=== PATIENT | female | born 1985 | race Caucasian/White ===

== ENCOUNTER 2020-12-27 15:10 | Emergency (ER) | payer OTHER, SELFPAY ==
--- NOTE | ~2020-12-27 | CT_ITS ---
EXAMINATION: CT HEAD WITHOUT CONTRAST CLINICAL INFORMATION: Headache COMPARISON: None TECHNIQUE: Contiguous axial imaging was performed from the skull base to vertex without intravenous administration of contrast. This CT examination was performed using dose optimization techniques as appropriate, variously including the following: *Automated exposure control *Adjustment of mA and/or kV according to patient size (this includes techniques or standardized protocols for targeted exams where dose is matched to indication/reason for exam; i.e. extremities or head) *Use of iterative reconstruction technique DLP: 641 mGy-cm FINDINGS: There is no evidence of acute intracranial hemorrhage or territorial infarction. No abnormal mass effect or midline shift is seen. [place] to white matter differentiation is well preserved. No extra-axial fluid collections are identified. The ventricles are normal in size. There is no abnormal attenuation within the brain parenchyma. The osseous structures and soft tissues are normal. The mastoid air cells and visualized portions of the paranasal sinuses are well aerated. CT/CT head/brain wo con IMPRESSION: No acute intracranial process seen.
[2020-12-27 15:13] VITALS: BP 126/80; PULSE 70; O2SAT 96
[2020-12-27 15:38] VITALS: BP 127/69; PULSE 71; RESP 18; TEMP 37.3; O2SAT 97; BMI 32.5
--- NOTE | 2020-12-27 16:07 | ED.HA ---
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 Seen at PCP this morning and referred to ED for further evaluation. No dizziness, vision changes, chest pain, SOB, fevers, chills or neck pain. Taking OTC ibuprofen with continued symptoms. No falls, injuries or trauma. Related Data Home Medications Medication Instructions Recorded Confirmed azithromycin 250 mg tablet 0 mg PO 10/25/20 methadone 10 mg/5 mL oral solution 10 mg PO DAILY ml 10/25/20 famotidine 20 mg tablet 20 mg PO BID 12/14/20 omeprazole 40 mg capsule,delayed 40 mg PO DAILY 12/14/20 release Previous Rx's Medication Instructions Recorded gabapentin 100 mg capsule 100 mg PO TID #90 cap 12/14/20 trazodone 100 mg tablet 100 mg PO BEDTIME PRN #30 tab 12/14/20 paroxetine HCl 20 mg tablet 20 mg PO DAILY 30 Days #30 tab 12/15/20 oxmfohjfmc-domngtdsiyxth-ryeohogy 1 cap PO Q8H PRN #20 cap 12/27/20 50 mg-300 mg-40 mg capsule (Fioricet) Allergies Allergy/AdvReac Type Severity Reaction Status Date / Time Seasonal Allergies Allergy runny Verified 12/27/20 13:53 eyes, itchy skin, congestion Review of Systems Review of Systems: Yes all other systems are reviewed and are negative Constitutional: Constitutional: Reports no additional constitutional complaints, Denies body ache(s), Denies chills, Denies fever(s), Reports headache(s) and Denies weakness Eyes: Eyes: Reports no additional eye complaints, Denies change in vision and Reports photophobia ENT: Reports system reviewed and no additional complaints, except as documented, Denies dizziness, Reports headache(s), Denies nasal congestion, Denies nasal discharge and Denies neck pain Cardiovascular: Cardiovascular: Reports no additional cardiovascular complaints, Denies chest pain, Denies leg edema and Denies dyspnea Respiratory: Respiratory: Reports no additional respiratory complaints, Denies cough and Denies dyspnea Gastrointestinal: Gastrointestinal: Reports no additional gastrointestinal complaints, Denies abdominal pain, Denies diarrhea, Reports nausea and Reports vomiting Genitourinary: Genitourinary: Reports no additional female genitourinary complaints and Denies urinary incontinence Musculoskeletal: Musculoskeletal: Reports no additional musculoskeletal complaints, Denies back pain, Denies arthralgias, Denies joint swelling, Denies neck pain, Denies numbness and Denies tingling Integumentary/Breasts: Skin/Breast: Reports system reviewed and no additional complaints, except as docu and Denies rash Neurologic: Reports system reviewed and no additional complaints, except as documented, Denies Abnormal speech present, Denies dizziness, Reports headache(s), Denies numbness, Denies tingling and Denies weakness PMFSH Past Medical History Attestation statement: The following information was validated with the patient. Source: old records reviewed and nursing notes reviewed Surgical History History of tubal ligation Family History Family History Father Mental health disorder Mother High blood pressure High cholesterol Social History Social History Housing: House Patient Tobacco Use Status: Current everyday Tobacco user Cigarette Packs Per Day: 1 Advance Directives: No Advance Directives Information Provided: Yes Patient : No Current occupational status: unemployed Physical Exam Vital Signs: Vital Signs: Last Vital Signs Temp 99 F 12/27/20 18:27 Pulse 58 12/27/20 18:27 Resp 16 12/27/20 20:17 BP 111/53 L 12/27/20 18:27 Pulse Ox 99 12/27/20 18:27 Body Mass Index 32.5 Const: General: cooperative, healthy appearing, comfortable and no acute distress Orientation/consciousness: patient oriented x3 Limitations: no limitations HENMT: Head: Yes normal to inspection Ears: hearing grossly normal bilaterally General nose exam: Normal external nose present Face and sinus: Yes normal facial exam Mouth: Normal oral and palatal mucosa present Throat: Yes posterior oropharynx normal Eyes: General: appearance normal, both eyes and all related structures Pupils: Equal, round and reactive pupils present Direct Ophthalmoscopy: photophobia Neck: Neck: Yes normal visual inspection Chest: Chest palpation & inspection: normal inspection of the chest Resp: Effort & Inspection: normal respiratory effort Auscultation: clear to auscultation bilaterally Cardio: Rate: regular rate Rhythm: regular rhythm Peripheral pulses: Peripheral pulses 2+ throughout GI: Inspection: Yes normal to inspection Palpation (GI): Soft to palpation and nontender Auscultation: normal bowel sounds Back/Spine/Pelvis: Thoracic/Lumbar Spine: thoracic and lumbar spine normal to inspection Skin: General skin exam: no rashes or lesions noted Neuro: General: patient oriented x3, no focal motor deficits and normal sensation to monofilament Cranial nerves: Yes CN's II-XII intact bilaterally, Yes Equal, round and reactive pupils present, Yes Bilaterally intact EOM present, Yes Nystagmus not present, Yes Normal facial strength present and Yes Midline tongue present Cognition (Neuro): normal cognition Speech: No Abnormal speech present Gait exam (Neuro): Normal gait present Motor exam (neuro): 5/5 motor strength present throughout Sensory Exam: Normal double simultaneous stimulation for sensation Coordination: yppuas-bv-hkkq test normal, hqew-jk-fcrz test normal and tandem gait normal Extrem: General: Yes normal to inspection Course Course Course Narrative: 35 yo female here with complaints of head pressure since Friday worsening over the last 24 hours with associated photophobia, nausea and vomiting. Seen at primary care referred into the emergency department for further evaluation. History of migraines but feels this is different. Taking Motrin with continued symptoms. Normal neuro exam. Patient has very difficult IV access due to previous history of IV drug abuse. Several times were made with no success. To give IM medications. Check CT head. 1899-CT unremarkable. Labs show mildly elevated AST and ALT unchanged from previous. Patient has a mild leukocytosis. She has no fever. No tachycardia. She tells me her headache is improving but not resolved. No meningeal signs or lymphadenopathy or concern for underlying infection. She does have a history of former IV drug abuse but has been on methadone for greater than 12 months and has been compliant. She adamantly denies current IV drug use. 2019-patient did receive IM Toradol. She tells me that her pain is resolved. She is tolerating p.o. and feels much improved. Likely migraine. Reviewed worrisome signs and symptoms when to return to the emergency department. Comfortable discharge home. MDM - Headache Differential Diagnosis Differential diagnosis: Likely migraine, tension headache and subarachnoid hemorrhage Medical Records Attestation: I reviewed the patient's medical records. Lab Data Attestation: I reviewed the patient's lab results. Result diagrams: 12/27/20 16:45 12/27/20 16:45 Labs: Lab Results 12/27/20 12/27/20 12/27/20 Range/Units 16:45 16:45 16:53 WBC 16.2 H (4.8-10.8) X10*3/uL RBC 4.19 L (4.20-5.50) X10*6/uL Hgb 13.8 (12.0-16.0) g/dl Hct 39.4 (37-47) % MCV 94.0 (80-98) fL MCH 32.9 (27.0-33.0) pg MCHC 35.0 (31.0-35.0) g/dl RDW 12.6 (11.0-16.0) % Plt Count TNP MPV 10.4 (9.4-12.3) fL Immature Gran % (Auto) 0.6 H (0.0-0.4) % Neut % (Auto) 84.3 H (45-73) % Lymph % (Auto) 5.4 L (20-40) % [place] % (Auto) 8.6 (2-11) % Eos % (Auto) 0.8 (0-4) % Baso % (Auto) 0.3 (0-2) % Lymph # (Auto) 0.9 L (1.2-4.9) X10*3/uL [place] # (Auto) 1.4 H (0.1-1.2) X10*3/uL Eos # (Auto) 0.1 (0.0-0.4) X10*3/uL Baso # (Auto) 0.1 (0.0-0.2) X10*3/uL Abs Immat Gran (auto) 0.10 H (0.00-0.03) X10*3/uL Absolute Neuts (auto) 13.7 H (2.0-8.3) X10*3/uL Absolute Nucleated RBC 0.000 (0.0-0.012) X10*3/uL Nucleated RBC % (auto) 0.0 (0.0-0.2) /100WBC Smear Tech's Comments VERIFIED Sodium 138 (135-145) mmol/L Potassium 4.3 (3.3-5.1) mmol/L Chloride 105 (96-108) mmol/L Carbon Dioxide 25 (22-29) mmol/L Anion Gap 12 (12-20) BUN 5 L (9-16) mg/dL Creatinine 0.73 (0.5-1.4) mg/dL Estim Creat Clear Calc 108.0 Estimated GFR > 60 Random Glucose 111 (60-115) mg/dL Calcium 8.3 L (8.4-10.2) mg/dL Total Bilirubin 1.0 (0.0-1.0) mg/dL Direct Bilirubin 0.4 (0.0-0.5) mg/dL AST 39 H (5-31) U/L ALT 82 H (0-31) U/L Alkaline Phosphatase 89 (39-117) U/L Total Protein 7.1 (6.5-8.0) g/dL Albumin 3.8 (3.5-5.0) g/dL Lipase < 4 L (8-78) U/L Urine Test NEGATIVE (NEGATIVE) Discharge Plan Discharge Clinical Impression: Migraine Patient Disposition: Home, Self-Care Instructions: Migraine Headache (ED) Additional Instructions: Increase fluids, rest Your labs show mildly elevated liver enzymes were otherwise unremarkable. Her CT scan of her brain was normal Prescriptions: New yscfkcbcdq-zjarscogrslhc-vqfa [Fioricet] 50-300-40 mg capsule 1 cap PO Q8H PRN (Reason: pain) Qty: 20 RF: 0 No Action paroxetine HCl 20 mg tablet 20 mg PO DAILY 30 Days Qty: 30 RF: 3 omeprazole 40 mg capsule,delayed release(DR/EC) 40 mg PO DAILY RF: 0 famotidine 20 mg tablet 20 mg PO BID RF: 0 trazodone 100 mg tablet 100 mg PO BEDTIME PRN (Reason: for insomnia) Qty: 30 RF: 0 gabapentin 100 mg capsule 100 mg PO TID Qty: 90 RF: 0 Referrals: Mckenzie Montes MD [Primary Care Provider] - 2 days Interventions: ED Discharge Assessment Last Done: 12/27/20 20:17 Discharge Date/Time: 12/27/20 20:18
[2020-12-27 16:54] LABS: MANUAL DIFF FLAG SCAN; Mean Corpuscular Hemoglobin 32.9 pg (27.0-33.0); Mean Platelet Volume 10.4 fL (9.4-12.3); PLT CLUMP 1; SCAN SMEAR FLAG 1
[2020-12-27 16:56] LABS: Basophils Absolute Auto 0.1 X10*3/uL (0.0-0.2); Basophils Percent Auto 0.3 % (0-2); Eosinophils Absolute Auto 0.1 X10*3/uL (0.0-0.4); Eosinophils Percent Auto 0.8 % (0-4); Hematocrit 39.4 % (37-47); Hemoglobin 13.8 g/dl (12.0-16.0); Imm Gran Pct Auto 0.6 % (0.0-0.4); Lymphocytes Absolute Auto 0.9 X10*3/uL (1.2-4.9); Lymphocytes Percent Auto 5.4 % (20-40); Monocytes Absolute Auto 1.4 X10*3/uL (0.1-1.2); Monocytes Percent Auto 8.6 % (2-11); Neutrophils Absolute Auto 13.7 X10*3/uL (2.0-8.3); Neutrophils Percent Auto 84.3 % (45-73); Red Blood Count 4.19 X10*6/uL (4.20-5.50); Red Cell Distribution Width 12.6 % (11.0-16.0); White Blood Count 16.2 X10*3/uL (4.8-10.8)
[2020-12-27] MEDS: Butalb/Acetamin/Caff 50/325/40 TABLET 2 TAB PO (16:57)
[2020-12-27] MEDS: Metoclopramide HCl 10 MG/2 ML VIAL IM (16:57)
[2020-12-27] MEDS: diphenhydrAMINE HCL 25 MG TABLET 50 MG PO (16:57)
[2020-12-27 17:09] LABS: UPreg QC Valid YES; Urine Pregnancy NEGATIVE (NEGATIVE)
[2020-12-27 17:37] LABS: Alanine Aminotransferase 82 U/L (0-31); Albumin Level 3.8 g/dL (3.5-5.0); Alkaline Phosphatase 89 U/L (39-117); Anion Gap 12 (12-20); Aspartate Amino Transferase 39 U/L (5-31); Bilirubin Direct 0.4 mg/dL (0.0-0.5); Blood Urea Nitrogen 5 mg/dL (9-16); Calcium 8.3 mg/dL (8.4-10.2); Carbon Dioxide 25 mmol/L (22-29); Chloride 105 mmol/L (96-108); Estimated Glomerular Filt Rate > 60; Glucose Random 111 mg/dL (60-115); Lipase < 4 U/L (8-78); Potassium 4.3 mmol/L (3.3-5.1); Sodium 138 mmol/L (135-145); Total Protein 7.1 g/dL (6.5-8.0)
[2020-12-27 18:26] LABS: SLIDE REVIEW VERIFIED
[2020-12-27 18:27] VITALS: BP 111/53; PULSE 58; RESP 18; TEMP 37.2; O2SAT 99
[2020-12-27] MEDS: Ketorolac Tromethamine 60 MG/2 ML VIAL IM (19:14)
--- NOTE | 2020-12-27 19:17 | PC.NURSE ---
Pt resting in bed, reports no relief of pain. Pt medicated per MAR with Toradol for ROMERO. Pt resting in bed with family at bedside. VSS. Continue to monitor.
[2020-12-27 20:17] VITALS: RESP 16
== END 2020-12-27 20:18 | disposition home or self-care (01) ==
PROVIDERS: Nurse Practitioner Family; Emergency Provider Emergency Medicine Emergency Medical Services; PCP Internal Medicine
DX: G43.909 Migraine, unspecified, not intractable, without status migrainosus (principal); F11.90 Opioid use, unspecified, uncomplicated; R11.2 Nausea with vomiting, unspecified; Z79.899 Other long term (current) drug therapy
CPT/HCPCS: 36415; 70450; 80048; 80076; 81025; 83690; 85025; 96361; 96372; 96374; 96375; 99284; J1885; J2765; Q0163

== ENCOUNTER 2022-12-19 15:55 | Outpatient (AMB) | payer OTHER, SELFPAY ==
--- NOTE | 2022-12-19 16:03 | A.OFFPC_ITS ---
Vital Signs 12/19/22 16:04 Height 5 ft 3 in Weight 217 lb 4 oz BMI 38.5 BP 114/74 Blood Pressure Location Rt brachial Position Sitting Respiration 12 Pulse 77 Pulse Source Pulse Oximeter Temp 97.9 F Temp Source Temporal Artery Scan Pulse Oximetry (%) 97 Oxygen Delivery Method Room Air Intake Visit Reasons: pain on left thigh,calf, asking for a referral Intake Note: Patient states she would like a referral OBGYN due to her going to the ER for her leg pains and being told that she has a pinched nerve in her groin. Patient states that she want to make sure that OBGYN is the correct place to go. Patient states that she struggles with the pain during day to day activities and states that her leg even is warm to touch sometimes. [employer] Required: No Accompanied by: Self / Same As Patient Allergies Seasonal Allergies Allergy (Verified 12/19/22 16:36) runny eyes, itchy skin, congestion Medication List - Last Reconciled 12/19/22 by Cindy Wells CNP betamethasone valerate 0.1% 1 appl topical DAILY PRN 30 days rdkwuobsjj-gllriwriqf-qxr-cod 21-283-29-30 mg 1 cap PO .Q8 PRN 30 days clonazepam (Klonopin) 0.25 mg PO BID gabapentin 600 mg PO TID methadone 130 mg PO DAILY omeprazole 40 mg PO DAILY paroxetine HCl 40 mg PO DAILY paroxetine HCl 40 mg PO DAILY quetiapine (Seroquel) 300 mg PO BEDTIME quetiapine (Seroquel) 50 mg PO DAILY PRN topiramate 50 mg PO DAILY 30 days trazodone 100 mg PO BEDTIME PRN Tobacco use date assessed: 12/19/22 Dental Screening Dental Screen Date: 12/19/22 Did you have a dental visit in the last 12 months?: No Did you have a dental problem in the last 6 months where you did not have access to dental care?: No Was dental information given to patient?: Yes HPI HPI Comments History of Present Illness Details 37-year-old female presents with complai nts of intermittent pain to the entire lateral side of her entire left leg. She notes that the pain sometimes radiates to her lower back. She states her symptoms have been ongoing for the pa st 1 year. She describes the pain as fire. She states it feels like it's physically burning. She states she was evaluated [facility] ED a month ago; lab results were unremarkable. She denies fall, injury, or trauma. She notes she does not want pain medication due to history of opiate abuse. Her last visit with her pcp was on 02/2023. [facility] Medical History (Updated 12/19/22 @ 16:50 by Cindy Wells CNP) No pertinent past medical history Surgical History History of tubal ligation Family History Father Mental health disorder Mother High blood pressure High cholesterol Social History Housing: House Patient Tobacco Use Status: Current everyday Tobacco user Cigarette Packs Per Day: 1 e-Cigarette/Vaping Use: Never Used service: No Current occupational status: employed 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 Cognitive needs: No Hearing needs: No Vision needs: No Questionnaire Thrive Questionnaire Date Thrive assessed: 12/27/20 Review of Systems Const Details: Const Denies chills, Denies fatigue, Denies fever(s), Denies headache(s) and Denies weakness ENT Denies dizziness and Denies headache(s) Card Denies chest pain, Denies lightheadedness, Denies dyspnea and Denies other ( Palpitations) Resp Denies cough, Denies dyspnea, Denies wheezing and Denies other ( shortness of breath) GI Denies abdominal pain, Denies melena, Denies hematochezia, Denies change in bowel habits, Denies dyspepsia and Denies nausea Denies hematuria and Denies dysuria Musc Denies abnormal gait, Denies myalgias, Denies arthralgias, Denies numbness and Denies tingling Skin/Breast Denies rash, Denies unusual bruising and Denies wounds Neuro Denies abnormal gait, Denies dizziness, Denies headache(s), Denies memory loss, Denies numbness, Denies Sensory deficit (Neuro), Denies tingling and Denies weakness Psych Denies anxiety, Denies depression, Denies memory loss Endo Denies cold intolerance, Denies fatigue, Denies heat intolerance, Denies polydipsia and Denies polyuria Aller/Immun Denies wheezing Physical exam (Primary Care) Vital Signs: Last Vital Signs Temp 97.9 F 12/19/22 16:04 Pulse 77 12/19/22 16:04 Resp 12 12/19/22 16:04 BP 114/74 12/19/22 16:04 Pulse Ox 97 12/19/22 16:04 Oxygen Delivery Method Room Air 12/19/22 16:04 BMI result Body Mass Index 38.5 Tobacco/Smoking Status: Tobacco use Status Tobacco use date assessed 12/19/22 12/19/22 16:24 Patient Tobacco Use Status Current everyday Tobacco 12/19/22 16:03 e-Cigarette/Vaping Use Never Used 12/19/22 16:24 Thrive Assessment: Date of Thrive Assessment Date Thrive assessed 12/27/20 12/19/22 16:03 Const Other: General: no acute distress and well developed Nutritional Appearance: well nourished Orientation/consciousness: patient oriented x3 HENMT Head: Yes normocephalic and Yes atraumatic Eyes General: appearance normal, both eyes and all related structures Pupils: Equal, round and reactive pupils present EOM: EOMs intact bilaterally Resp Effort & Inspection: normal respiratory effort Auscultation: clear to auscultation bilaterally Cardio Rate: regular rate Rhythm: regular rhythm Heart sounds: S1 normal heart sound present, S2 normal heart sound present, no gallops, no murmurs and no rubs GI Palpation (GI): No Abdominal aortic bruit present, Soft to palpation, nontender, No hepatosplenomegaly present and No Rebound tenderness present Auscultation: normal bowel sounds General: Yes no CVA tenderness Back/Spine/Pelvis Back: no CVA tenderness Cervical Spine: cervical ROM normal and No Cervical spine tenderness Thoracic/Lumbar Spine: thoraco-lumbar ROM normal, No pain with thoraco-lumbar ROM, No thoracic spinal tenderness and No lumbar spinal tenderness Extrem General: Yes normal to inspection, No edema and No calf tenderness Negative straight leg raise bilaterally Left lower extremity nontender to palpation; no overt injury or trauma Skin General: warm and dry. Normal skin color. Normal skin turgor Lesions: no lesions Rashes: no rashes Trauma: no lacerations or abrasions Wounds: no wounds Nails: normal Neuro General: patient oriented x3, gait normal and no focal neuro deficit Cranial nerves: Yes Equal, round and reactive pupils present Cognition (Neuro): normal cognition Gait exam (Neuro): Normal gait present Sensory Exam: No Sensory deficit (Neuro) Psych Appearance: grossly normal Affect: normal affect Attitude: cooperative Thought process: Normal thought process present Assessment and Plan Assessment & Plan (1) Left leg pain: Code(s): M79.605 - Pain in left leg Plan: Likely nerve pain Left leg nontender to palpation No overt injury or trauma Physical therapy referral made Continue take gabapentin as prescribed May take Tylenol or Motrin Cold compresses encouraged Follow-up with PCP in 1 month or return sooner with worsening or new symptoms Verbalized understanding and agreed with treatment plan Orders: Orders PT Evaluation and Treatment Today M79.605 - Pain in left leg Medications: Changed From paroxetine HCl 20 mg PO DAILY 30 days 30 tabs 3RF To paroxetine HCl 40 mg PO DAILY Coding Level of Care Code Est Pt Level 3 (62046) Diagnoses Left leg pain M79.605
[2022-12-19 16:04] VITALS: BP 114/74; PULSE 77; RESP 12; TEMP 36.6; O2SAT 97; BMI 38.5
== END 2022-12-19 16:49 | disposition home or self-care (01) ==
PROVIDERS: PCP Family Medicine; Visit Provider Nurse Practitioner Family
DX: M79.605 Pain in left leg (principal)
CPT/HCPCS: 99213

== ENCOUNTER 2023-01-02 10:00 | Outpatient (RCR) | payer OTHER, SELFPAY ==
--- NOTE | 2022-12-25 12:49 | MHC.PT.EP ---
[facility] [place] Office [place] Office [place] Office [address] Laura Rao [address] [phone] F: [phone] F: [phone] F: [phone] F: [phone] Physical Therapy Plan of Care Date of Evaluation: 12/25/22 Date of Surgery: Diagnosis: This is a 38 yo female presenting to skilled PT with a script for pain in L leg. Assessment: This is a 38 yo female presenting to skilled PT with a script for pain in L leg. About a year ago she started with a small [place] sized area on her lateral thigh on the L and this was numb. It then progressed from her L side low back and radiates down the lateral aspect of the leg under the foot to the great toe. It now feels numb but also has symptoms that are described as fire , burning , warm to touch . Pain comes and goes but her pain can last hours. Laying on her L side and walking makes her symptoms worse. Sitting is usually okay but after some time the pain does start. She states her symptoms have been ongoing for the past 1 year, denies fall, injury or trauma. She went to the ER and was told to go get surgery via a OBGYN to remove nerves. Assessment reveals pain that ranges from up to an 8/10 at the worst. Patient demos decreased lumbar and L hip ROM, strength of L hip, back and core muscles, s/s with ? lumbar derangement and educated her to speak with PCP in regards to imaging. She has decreased sensation at LLE, was TTP at lumbar soft tissue and demos impaired posture with forward head and rounded shoulders, compensatory movements with transfers and gait. Based on functional limitations, impaired QOL and pain tolerance patient is a good candidate for skilled PT 2x/wk for 4wks. Frequency and Duration: The patient will be seen 2x/wk for 4wks Short Term Goals: Pt will demo improved postural awareness and understanding of core engagement with standing tasks without cues throughout session to improve overall back safety in 2 weeks. Pt will demonstrate centralization of sx in 2 weeks. Pt will continue to reinforce precautions, sitting, standing and ADL modifications with proper body mechanics in 2 wks Frame Catcher Goals: Pt will demo improved oswestry score by 5 points in 4 weeks for improved functional mobility. Pt will demo ability to bend and lift WNL min to no pain for return to work activities in 4 wks. Pt will demo at least 1 grade improvement with hip MMT in 4 wks. Pt will demo WFL L hip AROM in 4wks. Treatment Plan: Modalities to reduce pain, spasms and effusion. Manual therapy to restore motion and function. Therapeutic exercise to improve strength and flexibility. Neuromuscular re-education for posture and balance. Therapeutic activities to return to functional activities of daily living. Electronically signed by: Iman Sanchez, PT Please sign and return to therapist. Thank you for your referral.
--- NOTE | 2023-01-31 14:29 | MHC.PT.DC ---
[facility] [place] Office [place] Office [place] Office [address] Laura Rao [address] [phone] F: [phone] F: [phone] F: [phone] F: [phone] Physical Therapy Discharge Report Diagnosis: This is a 38 yo female presenting to skilled PT with a script for pain in L leg. Date of Surgery: Date of Evaluation: 12/25/22 Date of Discharge: 01/31/23 Treatments to Date: 3 Cancellations to Date: 0 No Shows to Date: 0 Discharge Status: Patient Elected to Stop Recommend MD Follow-up Discharge Summary: Patient came to the eval and 2 follow up visits. Patient left for a her work trip and did not return to PT. Her chart was kept open for 30 days. She did call her PCP like I requested and referral is in the system for some imaging, she is unsure what type. Educated her on the importance of HEP in the mean time. DC to HEP as patient has not returned for further tx. Electronically signed by: Iman Sanchez PT Please sign and return to therapist. Thank you for your referral.
== END 2023-01-31 14:29 | disposition home or self-care (01) ==
LOC: HO.PTCHIC 10:00
PROVIDERS: PCP Family Medicine; Visit Provider Nurse Practitioner Family
DX: M79.605 Pain in left leg (principal)
CPT/HCPCS: 97014; 97110; 97140; 97162

== ENCOUNTER 2023-02-07 10:18 | Outpatient (AMB) | payer OTHER, SELFPAY ==
[2023-02-07 10:29] VITALS: BP 122/78; PULSE 65; O2SAT 95; BMI 39.0
--- NOTE | 2023-02-07 10:29 | A.OFFPC_ITS ---
Vital Signs 02/07/23 10:29 Height 5 ft 3 in Weight 220 lb 1 oz BMI 39.0 BP 122/78 Blood Pressure Location Lt brachial Position Sitting Pulse 65 Pulse Source Pulse Oximeter Pulse Oximetry (%) 95 Oxygen Delivery Method Room Air Intake Visit Reasons: PE, f/u Lt Leg Pain Intake Note: Patient is here for physical and to follow up on left leg pain. Patient would like a referral for an music autographer. Allergies Seasonal Allergies Allergy (Verified 02/07/23 10:33) runny eyes, itchy skin, congestion Tobacco use date assessed: 12/19/22 HPI PE, f/u Lt Leg Pain HPI Details 37 y/o female presents for an extended e xam with f/u labs and health maintenance. No recent labs to review. Had seen ED 02/02/23 for L hand redness and swelling. Work-up showed no fracture or dislocation. No evidence of osteomyelitis. Was diagnosed with L hand cellulitis and was given Bactrim and cephalexin. REPLACED BY [facility] Medical History (Updated 02/07/23 @ 11:14 by Merritt Langford) No pertinent past medical history Surgical History History of tubal ligation Family History Father Mental health disorder Mother High blood pressure High cholesterol Social History Housing: House Patient Tobacco Use Status: Current everyday Tobacco user Cigarette Packs Per Day: 1 e-Cigarette/Vaping Use: Never Used service: No Current occupational status: employed 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 Cognitive needs: No Hearing needs: No Vision needs: No Questionnaire PHQ-9 Over the last 2 weeks, how often have you been bothered by any of the following problems? 1. Little interest or pleasure in doing things: not at all 2. Feeling down, depressed, or hopeless: nearly every day 3. Trouble falling or staying asleep, or sleeping too much: nearly every day 4. Feeling tired or having little energy: not at all 5. Poor appetite or overeating: several days 6. Feeling bad about yourself - or that you are a failure or have let yourself or your family down: several days 7. Trouble concentrating on things, such as reading the newspaper or watching television: nearly every day 8. Moving or speaking so slowly that other people could have noticed. Or the opposite - being so fidgety or restless that you have been moving around a lot more than usual: nearly every day 9. Thoughts that you would be better off or of hurting yourself in some way: not at all Total score: 14 [id number] - PHQ-9 Billing: Yes Source: Developed by Drs. Erik Allred, Mary Villela, Sriram Parson and colleagues, with an educational elizabeth from [employer]. Thrive Questionnaire Date Thrive assessed: 12/27/20 I am a: Patient What is your living situation today?: I have a steady place to live Within the past 12 months, did the food you bought not last and you didn't have the money to get more?: Sometimes True Within the past 12 months, did you worry whether your food would run out before you got money to buy more?: Sometimes True Do you have trouble paying for medicines?: No Do you have trouble getting transportation to medical appointments?: No Do you have trouble paying your heating and electricity bill?: No Do you have trouble taking care of your child, family member or friend?: No Do you have trouble with day-to-day activities such as bathing, preparing meals, shopping, managing finances, etc.?: Yes Are you currently unemployed and looking for a job?: No Are you interested in more education?: No AUDIT C Alcohol Use Questionnaire (AUDIT-C) 1. How often do you have a drink containing alcohol?: Never 3. How often do you have six or more drinks on one occasion?: Never Total Score: 0 IVA-7 AMB Questionnaire IVA-7 Date IVA - 7 assessed: 02/07/23 Feeling nervous, anxious, or on edge: 3 = Nearly every day Not being able to stop or control worryin = Several days Worrying too much about different things: 3 = Nearly every day Trouble relaxin = Several days Being so restless that it is hard to sit still: 3 = Nearly every day Becoming easily annoyed or irritable: 1 = Several days Feeling afraid as if something awful might happen: 2 = More than half the days Total IVA-7 score (0-4 normal; 5-9 mild; 10-14 moderate; 15-21 severe): 14 Source: Developed by Drs. Erik Allred, Mary Villela, Sriram Parson and colleagues, with an educational elizabeth from [employer]. IVA-7 Assessment Billing VIA-7 Assessment Tool: IVA-7 Assessment 26437 Review of Systems Const Denies chills, Denies fatigue, Denies fever(s), Denies headache(s) and Denies weakness Eyes Denies change in vision ENT Denies dizziness, Denies headache(s), Denies hearing loss, Denies nasal congestion, Denies sinus pain, Denies sinus pressure and Denies sore throat Card Denies chest pain, Denies lightheadedness, Denies dyspnea and Denies other (palpitations) Resp Denies cough, Denies dyspnea and Denies wheezing GI Denies abdominal pain, Denies melena, Denies hematochezia, Denies change in bowel habits, Denies dyspepsia and Denies nausea Denies hematuria and Denies dysuria Musc Denies abnormal gait, Denies myalgias, Denies arthralgias, Denies numbness and Denies tingling Skin/Breast Denies rash, Denies unusual bruising and Denies wounds Neuro Denies abnormal gait, Denies dizziness, Denies headache(s), Denies memory loss, Denies numbness, Denies Sensory deficit (Neuro), Denies tingling and Denies weakness Psych Denies anxiety, Denies depression and Denies memory loss Endo Denies cold intolerance, Denies fatigue, Denies heat intolerance, Denies polydipsia and Denies polyuria Bar/Lymph Denies easy bleeding and Denies easy bruising Aller/Immun Denies wheezing Physical exam (Primary Care) Vital Signs: Last Vital Signs Pulse 65 02/07/23 10:29 BP 122/78 02/07/23 10:29 Pulse Ox 95 02/07/23 10:29 Oxygen Delivery Method Room Air 02/07/23 10:29 BMI result Body Mass Index 39.0 Tobacco/Smoking Status: Tobacco use Status Tobacco use date assessed 12/19/22 02/07/23 10:39 Patient Tobacco Use Status Current everyday Tobacco 02/07/23 10:39 e-Cigarette/Vaping Use Never Used 02/07/23 10:39 PHQ-9: PHQ-9 Score PHQ-9: Total score 14 02/07/23 10:56 Thrive Assessment: Date of Thrive Assessment Date Thrive assessed 12/27/20 02/07/23 10:39 Const General: no acute distress, well developed, alert and awake Nutritional Appearance: well nourished Orientation/consciousness: patient oriented x3 HENMT Head: Yes normocephalic and Yes atraumatic Ears: hearing grossly normal bilaterally and TM's normal bilaterally General nose exam: Normal external nose present and Normal nares present Mouth: Normal oral and palatal mucosa present and moist mucous membranes Teeth and gingiva: dentition normal Throat: Yes posterior oropharynx normal Eyes General: appearance normal, both eyes and all related structures Pupils: Equal, round and reactive pupils present and Pupil accommodation reflex normal EOM: EOMs intact bilaterally Neck Neck: Yes normal visual inspection, Yes no lymphadenopathy and Yes trachea midline Thyroid: Thyroid normal Carotids: no bruits Lymphatic: no lymphadenopathy noted Chest Chest palpation & inspection: normal inspection of the chest Resp Effort & Inspection: normal respiratory effort Auscultation: clear to auscultation bilaterally Cardio Rate: regular rate Rhythm: regular rhythm Heart sounds: S1 normal heart sound present, S2 normal heart sound present, no gallops, no murmurs and no rubs Bruits: no abdominal aortic bruits and no carotid bruits GI Palpation (GI): No Abdominal aortic bruit present, Soft to palpation, nontender, No hepatosplenomegaly present and No Rebound tenderness present Auscultation: normal bowel sounds General: Yes no CVA tenderness Back/Spine/Pelvis Back: no CVA tenderness Cervical Spine: cervical ROM normal and No Cervical spine tenderness Thoracic/Lumbar Spine: thoraco-lumbar ROM normal, No pain with thoraco-lumbar ROM, No thoracic spinal tenderness and No lumbar spinal tenderness Skin Lesions: no lesions Rashes: no rashes Trauma: no lacerations or abrasions Wounds: no wounds Nails: normal Neuro General: patient oriented x3 Cranial nerves: Yes Equal, round and reactive pupils present Cognition (Neuro): normal cognition Gait exam (Neuro): Normal gait present Motor exam (neuro): 5/5 motor strength present throughout Sensory Exam: No Sensory deficit (Neuro) Deep tendon reflexes (DTR's): Right patellar reflex intensity grade: 2+ and Left patellar reflex intensity grade: 2+ Extrem General: Yes normal to inspection and No edema Psych Appearance: grossly normal Affect: normal affect Attitude: cooperative Thought process: Normal thought process present Assessment and Plan Assessment & Plan (1) Left leg pain: Code(s): M79.605 - Pain in left leg Plan: Continue?gabapentin Continue?ibuprofen?as?tolerated (2) Cellulitis of left hand: Code(s): L03.114 - Cellulitis of left upper limb Plan: Continue?cephalexin?and?Bactrim Elevate?him (3) Anxiety and depression: Code(s): F41.9 - Anxiety disorder, unspecified; F32.9 - Major depressive disorder, single episode, unspecified Plan: Patient?has?a?therapist?and?psychiatrist. No?suicidal?ideations?or?plan Follow-up?with?psychiatrist?and?therapist?as?recommended (4) Screening for cervical cancer: Code(s): Z12.4 - Encounter for screening for malignant neoplasm of cervix Plan: Has?not?had?a?Pap?smear?in?about?12?years. 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 operator (5) GERD (gastroesophageal reflux disease): Code(s): K21.9 - Gastro-esophageal reflux disease without esophagitis Plan: Severe?chronic?GERD Resume?omeprazole Referred?to?GI (6) Chronic pancreatitis: Code(s): K86.1 - Other chronic pancreatitis Plan: Check?lipase?level Referred?to?GI (7) Chronic nasal congestion: Code(s): R09.81 - Nasal congestion Plan: Severe?nasal?congestion?and?enlarged?adenoids?and?tonsils; severe?posterior?nasopharyngeal?crowding?and?symptoms?of?obstructive?sleep?apnea Referred?to?ENT (8) Enlarged adenoids: Code(s): J35.2 - Hypertrophy of adenoids Plan: As?above (9) Sleep apnea: Code(s): G47.30 - Sleep apnea, unspecified Plan: Likely?some?restrictive?lung?disease?and?obstructive?sleep?apnea ?as?well?as?possible?central?sleep?apnea Referred?to?Sleep?Medicine (10) Adult general medical exam: Code(s): Z00.00 - Encounter for general adult medical examination without abnormal findings Plan: 37-year-old?female?presents?for?an?extended?exam Orders: Orders Microalbumin, Random (w Creat) Today I10 - Essential (primary) hypertension TSH reflex Free T4 Today Z00.00 - Encounter for general adult medical examination without abnormal findings UA and rflx microscopic Today Z00.00 - Encounter for general adult medical exami nation without abnormal findings Complete Blood Count Auto Diff Today Z00.00 - Encounter for general adult medical examination without abnormal findings Comprehensive Met. Panel Today L03.114 - Cellulitis of left upper limb, Z00.00 - Encounter for general adult medical examination without abnormal findings Lipid Panel Today Z00.00 - Encounter for general adult medical examination without abnormal findings LDL Cholesterol Direct Today Z00.00 - Encounter for general adult medical examination without abnormal findings Lipase Today K86.1 - Other chronic pancreatitis Referrals Gastroenterology Referral K21.9 - Gastro-esophageal reflux disease without esophagitis, K86.1 - Other chronic pancreatitis LEGAL PARAPROFESSIONAL Referral Z12.4 - Encounter for screening for malignant neoplasm of cervi x Ear/Nose/Throat Referral G47.30 - Sleep apnea, unspecified, J35.2 - Hypertrophy of adenoids, R09.81 - Nasal congestion Sleep Medicine Referral G47.30 - Sleep apnea, unspecified Medications: Changed From omeprazole 40 mg PO DAILY To omeprazole 40 mg PO DAILY 90 caps 4RF 90 days Coding Level of Care Code Est Pt Level 4 (45773) Diagnoses Left leg pain M79.605 Cellulitis of left hand L03.114 Anxiety and depression F41.9; F32.9 Screening for cervical cancer Z12.4 GERD (gastroesophageal reflux disease) K21.9 Chronic pancreatitis K86.1 Chronic nasal congestion R09.81 Enlarged adenoids J35.2 Sleep apnea G47.30 Adult general medical exam Z00.00 Additional Codes IVA-7 Assessment Billing - IVA-7 Assessment Tool: IVA-7 Assessment [id number] ([id number])
== END 2023-02-07 11:25 | disposition home or self-care (01) ==
PROVIDERS: PCP Family Medicine; Visit Provider Family Medicine
DX: Z00.00 Encounter for general adult medical examination without abnormal findings (principal); K86.1 Other chronic pancreatitis; K21.9 Gastro-esophageal reflux disease without esophagitis; M79.605 Pain in left leg; L03.114 Cellulitis of left upper limb; F41.9 Anxiety disorder, unspecified; F32.9 Major depressive disorder, single episode, unspecified; R09.81 Nasal congestion; J35.2 Hypertrophy of adenoids; G47.30 Sleep apnea, unspecified
CPT/HCPCS: 96127; 99395

== ENCOUNTER 2023-02-07 11:25 | Outpatient (REF) | payer OTHER, SELFPAY ==
[2023-02-07 14:55] LABS: MANUAL DIFF FLAG NO
[2023-02-07 15:03] LABS: Basophils Percent Auto 0.4 % (0-2); Eosinophils Absolute Auto 0.2 X10*3/uL (0.0-0.4); Eosinophils Percent Auto 4.4 % (0-4); Hematocrit 41.3 % (37.0-47.0); Imm Gran Abs Auto 0.02 X10*3/uL (0.00-0.03); Imm Gran Pct Auto 0.4 % (0.0-0.4); Lymphocytes Percent Auto 37.8 % (20-40); Mean Corpuscular HGB Conc 33.9 g/dl (31.0-35.0); Mean Corpuscular Hemoglobin 31.9 pg (27.0-33.0); Mean Corpuscular Volume 94.1 fL (80.0-98.0); Mean Platelet Volume 10.9 fL (9.4-12.3); Monocytes Absolute Auto 0.5 X10*3/uL (0.1-1.2); Monocytes Percent Auto 8.7 % (2-11); Neutrophils Absolute Auto 2.6 x10*3/uL (2.0-8.3); Neutrophils Percent Auto 48.3 % (45-73); Platelet Count 178 X10*3/uL (160-400); Red Blood Count 4.39 X10*6/uL (4.20-5.50); Red Cell Distribution Width 12.9 % (11.0-16.0); White Blood Count 5.3 X10*3/uL (4.8-10.8)
[2023-02-07 15:34] LABS: Alanine Aminotransferase 95 U/L (0-31); Alkaline Phosphatase 90 U/L (39-117); Anion Gap 14 (12-20); Aspartate Amino Transferase 70 U/L (5-31); Bilirubin Total 0.3 mg/dL (0.0-1.0); Blood Urea Nitrogen 7 mg/dL (9-16); Calcium 9.3 mg/dL (8.4-10.2); Carbon Dioxide 24 mmol/L (22-29); Chloride 101 mmol/L (96-108); Cholesterol 162 mg/dL (<200); Estimated Glomerular Filt Rate > 60; Glucose Random 124 mg/dL (60-115); HDL Cholesterol 29 mg/dL (>40); LDL Cholesterol Calculated 80 mg/dL (<100); Potassium 4.3 mmol/L (3.3-5.1); Sodium 135 mmol/L (135-145); Total Protein 8.2 g/dL (6.5-8.0); Triglycerides 267 mg/dL (<150)
[2023-02-07 15:49] LABS: TSH reflex Free T4 14.52 uIU/mL (0.32-4.0)
[2023-02-07 16:26] LABS: Free T4 (Free Thyroxine) 0.69 ng/dL (0.71-1.85)
[2023-02-09 11:38] LABS: LDL Cholesterol Direct 92 mg/dL (<100)
== END 2023-02-07 11:26 | disposition home or self-care (01) ==
LOC: HO.WFDLDS 11:25
PROVIDERS: Visit Provider Family Medicine
DX: Z00.00 Encounter for general adult medical examination without abnormal findings (principal); L03.114 Cellulitis of left upper limb
CPT/HCPCS: 36415; 80053; 80061; 83721; 84439; 84443; 85025

== ENCOUNTER 2023-03-14 11:18 | Outpatient (REF) | payer OTHER, SELFPAY ==
[2023-03-14 12:56] LABS: Anion Gap 13 (12-20); Blood Urea Nitrogen 5 mg/dL (9-16); Calcium 9.2 mg/dL (8.4-10.2); Carbon Dioxide 22 mmol/L (22-29); Chloride 104 mmol/L (96-108); Estimated Glomerular Filt Rate > 60; Glucose Random 93 mg/dL (60-115); Lipase 13 U/L (8-78); Potassium 4.3 mmol/L (3.3-5.1); Sodium 135 mmol/L (135-145)
[2023-03-14 13:14] LABS: Free T4 (Free Thyroxine) 0.73 ng/dL (0.71-1.85); Thyroid Stimulating Hormone 4.21 uIU/mL (0.32-4.0)
[2023-03-14 14:23] LABS: Appearance Urine Clear; Color Urine Yellow; Glucose Urine UA Negative (Negative); Leukocyte Esterase Urine Trace (Negative); Nitrite Urine Negative (Negative); PH 5.5 (5.0-9.0); UMIC TRIGGER UA YES; Urine Blood Negative (Negative); Urine Ketones Negative (Negative); Urine Protein Negative (Neg-Trace)
[2023-03-14 14:42] LABS: Bacteria Urine Trace (None Seen); Hyaline Casts Urine 0-2 /LPF (0-2); RBC Urine 0-2 /HPF (0-2); Squamous Epithelial Cell Urine 0-2 /HPF (0-2); WBC Urine 0-5 /HPF (0-5)
[2023-03-14 14:48] LABS: Creatinine Urine 73.86 mg/dL; Microalbumin Urine < 5.0 mg/L
[2023-03-15 09:14] LABS: Triiodothyronine T3 Total 144 ng/dL (76-181)
== END 2023-03-14 11:19 | disposition home or self-care (01) ==
LOC: HO.LAB 11:18
PROVIDERS: PCP Family Medicine; Visit Provider Family Medicine
DX: Z00.00 Encounter for general adult medical examination without abnormal findings (principal); K86.1 Other chronic pancreatitis; E03.9 Hypothyroidism, unspecified; I10 Essential (primary) hypertension
CPT/HCPCS: 36415; 80048; 81001; 82570; 83690; 84439; 84443; 84480

== ENCOUNTER 2023-03-17 11:34 | Outpatient (REF) | payer OTHER, SELFPAY ==
--- NOTE | 2023-03-17 | ECG_ITS ---
Test Reason : F250.0 Blood Pressure : / mmHG Vent. Rate : 056 BPM Atrial Rate : 056 BPM P-R Int : 210 ms QRS Dur : 092 ms QT Int : 478 ms P-R-T Axes : 061 015 016 degrees QTc Int : 461 ms Sinus bradycardia with 1st degree A-V block Possible Left atrial enlargement T wave abnormality, consider anterolateral ischemia Prolonged QT Abnormal ECG No previous ECGs available Referred By: Enma Dorado Electronically Signed By:CHANI LAST
[2023-03-17 12:47] LABS: MANUAL DIFF FLAG NO
[2023-03-17 13:14] LABS: Basophils Percent Auto 0.3 % (0-2); Eosinophils Absolute Auto 0.2 X10*3/uL (0.0-0.4); Eosinophils Percent Auto 3.2 % (0-4); Hemoglobin 13.8 g/dl (12.0-16.0); Imm Gran Abs Auto 0.02 X10*3/uL (0.00-0.03); Imm Gran Pct Auto 0.3 % (0.0-0.4); Lymphocytes Absolute Auto 2.3 X10*3/uL (1.2-4.9); Lymphocytes Percent Auto 38.6 % (20-40); Mean Corpuscular HGB Conc 34.5 g/dl (31.0-35.0); Mean Corpuscular Volume 92.8 fL (80.0-98.0); Mean Platelet Volume 10.2 fL (9.4-12.3); Monocytes Absolute Auto 0.5 X10*3/uL (0.1-1.2); Monocytes Percent Auto 8.2 % (2-11); Neutrophils Percent Auto 49.4 % (45-73); Platelet Count 148 X10*3/uL (160-400); Red Blood Count 4.31 X10*6/uL (4.20-5.50); Red Cell Distribution Width 13.1 % (11.0-16.0)
[2023-03-17 13:29] LABS: Alanine Aminotransferase 68 U/L (0-31); Albumin Level 3.9 g/dL (3.5-5.0); Alkaline Phosphatase 87 U/L (39-117); Anion Gap 9 (12-20); Aspartate Amino Transferase 56 U/L (5-31); Bilirubin Total 0.5 mg/dL (0.0-1.0); Blood Urea Nitrogen 6 mg/dL (9-16); Calcium 8.7 mg/dL (8.4-10.2); Carbon Dioxide 27 mmol/L (22-29); Chloride 103 mmol/L (96-108); Cholesterol 158 mg/dL (<200); Estimated Glomerular Filt Rate > 60; Glucose Fasting 117 mg/dL (60-99); HDL Cholesterol 25 mg/dL (>40); Potassium 3.5 mmol/L (3.3-5.1); Sodium 135 mmol/L (135-145); Total Protein 7.9 g/dL (6.5-8.0)
[2023-03-17 13:40] LABS: LDL Cholesterol Calculated 91 mg/dL (<100); Triglycerides 212 mg/dL (<150)
== END 2023-03-17 11:35 | disposition home or self-care (01) ==
LOC: HO.LAB 11:34
PROVIDERS: Visit Provider Nurse Practitioner Psychiatric/Mental Health
DX: F25.0 Schizoaffective disorder, bipolar type (principal); F11.21 Opioid dependence, in remission; F14.21 Cocaine dependence, in remission; Z79.899 Other long term (current) drug therapy
CPT/HCPCS: 36415; 80053; 80061; 85025; 93005

== ENCOUNTER → 2023-03-17 11:44 | Outpatient (BNV) | payer OTHER, SELFPAY | PROVIDERS: Visit Provider Internal Medicine | DX: I44.0 Atrioventricular block, first degree (principal); R94.31 Abnormal electrocardiogram [ECG] [EKG] | CPT/HCPCS: 93010 ==

== ENCOUNTER 2023-03-20 15:46 | Outpatient (AMB) | payer OTHER, SELFPAY ==
--- NOTE | 2023-03-20 15:42 | A.OFFPC_ITS ---
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 Labs were drawn 03/17/23. Reviewed labs with pt. Elevated fasting glucose of 117. AST 56. ALT 68. Triglycerides 212. TC 158. LDL 91. HDL low at 25. TSH 03/14/23 4.21, which improved from 14.52. [facility] Medical History (Updated 03/20/23 @ 17:12 by Merritt Langford) No pertinent past medical history Surgical History History of tubal ligation Family History Father Mental health disorder Mother High blood pressure High cholesterol Social History Housing: House Patient Tobacco Use Status: Current everyday Tobacco user Cigarette Packs Per Day: 1 e-Cigarette/Vaping Use: Never Used service: No Current occupational status: employed 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 Cognitive needs: No Hearing needs: No Vision needs: No Questionnaire Thrive Questionnaire Date Thrive assessed: 12/27/20 IVA-7 AMB Questionnaire IVA-7 Date IVA - 7 assessed: 02/07/23 Source: Developed by Drs. Erik Allred, Mary Villela, Sriram Parson and colleagues, with an educational elizabeth from [employer]. Review of Systems Const Denies chills, Denies fatigue, Denies fever(s), Denies headache(s) and Denies weakness ENT Denies dizziness and Denies headache(s) Card Denies dyspnea Resp Denies cough, Denies dyspnea, Denies wheezing and Denies other (shortness of breath) Musc Denies numbness and Denies tingling Neuro Denies dizziness, Denies headache(s), Denies numbness, Denies tingling and Denies weakness Psych Denies anxiety and Denies depression Endo Denies fatigue Aller/Immun Denies wheezing Physical exam (Primary Care) Tobacco/Smoking Status: Tobacco use Status Tobacco use date assessed 12/19/22 03/20/23 15:45 Patient Tobacco Use Status Current everyday Tobacco 03/20/23 15:45 e-Cigarette/Vaping Use Never Used 03/20/23 15:45 Thrive Assessment: Date of Thrive Assessment Date Thrive assessed 12/27/20 03/20/23 15:45 Telehealth Telehealth Location of provider rendering services: practice address Location of patient: other Patient Identification confirmed using: Name, : Yes Telehealth method: voice only Patient verbally consented to treatment: Yes Patient verbally consented to billing insurance company: Yes Patient informed of any privacy concerns related to visit: Yes Minutes spent on Phone/Video with Pt.: 7 Assessment and Plan Assessment & Plan (1) Elevated liver enzymes: Code(s): R74.8 - Abnormal levels of other serum enzymes Plan: Liver?enzymes?have?improved?but?are?still?elevated Encouraged?weight?loss?and?good?hydration Avoid?alcohol?and?Tylenol We?will?recheck?in?a?few?months (2) Elevated fasting glucose: Code(s): R73.01 - Impaired fasting glucose Plan: Will?check?fasting?blood?sugar?and?an?A1c?with?next?lab?draw Encouraged?a?diet?lower?in?sugars?and?starches Encouraged?weight?loss (3) Low HDL (under 40): Code(s): E78.6 - Lipoprotein deficiency Plan: Encouraged?exercise (4) Elevated TSH: Code(s): R79.89 - Other specified abnormal findings of blood chemistry Plan: TSH?is?improving Will?recheck?with?next?blood?draw Orders: Orders Triiodothyronine T3 Total Today E03.9 - Hypothyroidism, unspecified, R79.89 - Other specified abnormal findings of blood chemistry Thyroid Stimulating Hormone Today E03.9 - Hypothyroidism, unspecified, R79.89 - Other specified abnormal findings of blood chemistry Lipid Panel Today E78.6 - Lipoprotein deficiency, Z00.00 - Encounter for general adult medical examination without abnormal findings Free T4 (Free Thyroxine) Today E03.9 - Hypothyroidism, unspecified, R79.89 - Other specified abnormal findings of blood chemistry Comprehensive [place]. Panel Fast Today R74.8 - Abnormal levels of other serum enzymes, Z00.00 - Encounter for general adult medical examination without abnormal findings Complete Blood Count Auto Diff Today F32.9 - Major depressive disorder, single episode, unspecified, F41.9 - Anxiety disorder, unspecified, Z00.00 - Encounter for general adult medical examination without abnormal findings Coding Level of Care Code Tele Est Pt Level 2 (44626) Diagnoses Elevated liver enzymes R74.8 Elevated fasting glucose R73.01 Low HDL (under 40) E78.6 Elevated TSH R79.89
== END 2023-03-20 16:30 ==
LOC: HO.HMGFM 15:46
PROVIDERS: PCP Family Medicine; Visit Provider Family Medicine
DX: R74.8 Abnormal levels of other serum enzymes (principal); R73.01 Impaired fasting glucose; E78.6 Lipoprotein deficiency; R79.89 Other specified abnormal findings of blood chemistry
CPT/HCPCS: 99212

== ENCOUNTER 2023-03-31 15:48 | Outpatient (AMB) | payer OTHER, SELFPAY ==
--- NOTE | 2023-03-31 16:17 | MHC.PC.OV ---
Vital Signs 03/31/23 16:18 Height 5 ft 3 in Weight 220 lb BMI 39.0 BP 122/72 Blood Pressure Location Lt brachial Position Sitting Pulse 70 Pulse Source Pulse Oximeter Pulse Oximetry (%) 95 Oxygen Delivery Method Room Air Intake Visit Reasons: f/u abnormal EKG report and labs Intake Note: Patient is here for follow up on EKG and labs. Allergies Seasonal Allergies Allergy (Verified 03/20/23 15:43) runny eyes, itchy skin, congestion Tobacco use date assessed: 12/19/22 HPI f/u abnormal EKG report and labs HPI Details 37 y/o female presents to f/u abnormal EKG and labs. EKG done 03/17/23 which showed sinus bradycardia with 1st degree A-V block, possible L atrial enlargement. T wave abnormality, prolonged QT. Elevated fasting glucose and pt reports she drinks multiple cans of coca-cola per day. A1c today 03/31/23 5.4%. 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 Erik Allred, Mary Villela, Sriram Parson and colleagues, with an educational elizabeth from [employer]. Review of Systems Const Denies chills, Denies fatigue, Denies fever(s), Denies headache(s) and Denies weakness ENT Denies dizziness and Denies headache(s) Card Denies dyspnea Resp Denies cough, Denies dyspnea, Denies wheezing and Denies other (shortness of breath) Musc Denies numbness and Denies tingling Neuro Denies dizziness, Denies headache(s), Denies numbness, Denies tingling and Denies weakness Psych Denies anxiety and Denies depression Endo Denies fatigue Aller/Immun Denies wheezing Physical exam (Primary Care) Vital Signs: Last Vital Signs Pulse 70 03/31/23 16:18 BP 122/72 03/31/23 16:18 Pulse Ox 95 03/31/23 16:18 Oxygen Delivery Method Room Air 03/31/23 16:18 BMI result Body Mass Index 39.0 Tobacco/Smoking Status: Tobacco use Status Tobacco use date assessed 12/19/22 03/31/23 16:20 Patient Tobacco Use Status Current everyday Tobacco 03/31/23 16:20 e-Cigarette/Vaping Use Never Used 03/31/23 16:20 Thrive Assessment: Date of Thrive Assessment Date Thrive assessed 12/27/20 03/31/23 16:20 Const General: well developed; No acute distress Nutritional Appearance: well nourished Orientation/consciousness: patient oriented x3 HENMT Head: Yes normocephalic and Yes atraumatic Eyes General: appearance normal, both eyes and all related structures Pupils: Equal, round and reactive pupils present EOM: EOMs intact bilaterally Resp Effort & Inspection: normal respiratory effort Auscultation: clear to auscultation bilaterally Cardio Rate: regular rate Rhythm: regular rhythm Heart sounds: S1 normal heart sound present, S2 normal heart sound present, no gallops, no murmurs and no rubs Neuro General: patient oriented x3 and gait normal Cranial nerves: Yes Equal, round and reactive pupils present Psych Affect: normal affect Results AMB Hemoglobin A1c AMB Hemoglobin A1c 5.4 % Last Edit by Karely Brandt CMA on 03/31/23 17:16 Assessment and Plan Assessment & Plan (1) Abnormal EKG: Code(s): R94.31 - Abnormal electrocardiogram [ECG] [EKG] Plan: Abnormal?EKG She?does?have?some?atypical?chest?pain?related?to?anxiety?but?otherwise?no?exertional?symptoms Will?recheck?EKG?at?her?next?visit?in?a?month. Advised?if?she?is?having?chest?pain?that?is?not?resolving?with?relaxation,?she?should?go?to?the?ED (2) Elevated liver enzymes: Code(s): R74.8 - Abnormal levels of other serum enzymes Plan: Check?liver?ultrasound (3) Elevated fasting glucose: Code(s): R73.01 - Impaired fasting glucose Plan: Elevated?fasting?blood?sugars?but?her?A1c?today?is?5.4% Encouraged?a?diet?lower?in?sugars?and?starches?however Orders: Orders US abdomen rader w elastography Today R74.8 - Abnormal levels of other serum enzymes AMB Hemoglobin A1c Today Z13.9 - Encounter for screening, unspecified Coding Level of Care Code Est Pt Level 4 (62175) Diagnoses Abnormal EKG R94.31 Elevated liver enzymes R74.8 Elevated fasting glucose R73.01
[2023-03-31 16:18] VITALS: BP 122/72; PULSE 70; O2SAT 95; BMI 39.0
== END 2023-03-31 16:55 ==
PROVIDERS: PCP Family Medicine; Visit Provider Family Medicine
DX: R94.31 Abnormal electrocardiogram [ECG] [EKG] (principal); R74.8 Abnormal levels of other serum enzymes; R73.01 Impaired fasting glucose
CPT/HCPCS: 83036; 99214

== ENCOUNTER 2023-04-02 09:46 | Outpatient (AMB) | payer OTHER, SELFPAY ==
[2023-04-02 09:50] VITALS: BP 124/62; PULSE 70; BMI 39.4
--- NOTE | 2023-04-02 09:50 | MHC.OFFVIS ---
Intake Vital Signs 04/02/23 09:50 Height 5 ft 3 in Weight 222 lb 3.615 oz BMI 39.4 BP 124/62 Blood Pressure Location Lt brachial Position Sitting Pulse 70 Pulse Source Pulse Oximeter Intake Visit Reasons: GERD, Pancreatitis Intake Note: Pt presents to the office today for GERD, Pancreatitis. Pt states she has been having on and off pain mostly on her right side of her abdomen for 3 years but it isnt consistent. Pt states she has been getting acid reflux but states Dr. Navarro put her on omeperazole and states it has been helping a lot.Pt states she occasionally will get nauseous at night when she is laying down but denies any vomiting. Allergies Seasonal Allergies Allergy (Verified 04/02/23 09:53) runny eyes, itchy skin, congestion HPI GERD, Pancreatitis HPI Details 37-year-old female with past medical history of GERD, history of substance abuse currently on methadone depression, anxiety, neuropathy is here today for initial consultation. Patient was sent to us for right upper quadrant pain and reflux. Patient reports that she continues to have acid reflux. States that omeprazole helps but occasionally patient will continue to have epigastric discomfort postprandially. Patient also admits to having postprandial abdominal bloating and occasional diarrhea. Right upper quadrant pain not always related to meals. Patient denies any nausea or vomiting. Reports occasional dyspepsia without dysphagia or odynophagia. Denies any melena, hematochezia, unintentional weight loss or ribbon like stools. Patient reports that she used to do IV heroin, however she has never shared needles. Her recent liver enzymes were elevated. She was never been tested for hep C PFSH Medical History (Updated 04/19/23 @ 20:16 by Keesha Hernandez [facility]) Left leg pain Hand dermatitis Chronic pancreatitis Substance abuse in remission Surgical History History of tubal ligation Family History Father Mental health disorder Mother High blood pressure High cholesterol Social History (Updated 04/02/23 @ 09:54 by Eun Peterson MA) Housing: House Alcohol intake: never Patient Tobacco Use Status: Current everyday Tobacco user Cigarette Packs Per Day: 1 e-Cigarette/Vaping Use: Never Used service: No Current occupational status: employed 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 Cognitive needs: No Hearing needs: No Vision needs: No Review of Systems Const Denies weight gain and Denies weight loss ENT Reports no additional complaints, Denies dysphagia and Denies odynophagia Card Reports no additional complaints Resp Reports no additional complaints GI Reports abdominal pain, Denies belching, Denies melena, Reports bloating, Reports constipation, Denies dysphagia, Denies excessive flatus, Denies dyspepsia, Reports heartburn (Occasional), Denies diarrhea, Reports loose stools, Denies nausea, Denies odynophagia and Denies vomiting Reports no additional complaints Musc Reports no additional complaints Neuro Reports no additional complaints Psych Reports no additional complaints Endo Reports no additional complaints Physical Exam Vital Signs: Last Vital Signs Pulse 70 04/02/23 09:50 BP 124/62 04/02/23 09:50 BMI result Body Mass Index 39.4 Const General: healthy appearing, no acute distress and well developed Nutritional Appearance: obese Orientation/consciousness: patient oriented x3 HEENT Head: Yes normal to inspection, Yes normocephalic and Yes atraumatic Face and sinus: Yes normal facial exam Mouth: Normal oral and palatal mucosa present Throat: Yes posterior oropharynx normal, Yes tonsils normal and Yes uvula midline Eyes General: appearance normal, both eyes and all related structures Neck Neck: Yes normal visual inspection, Yes full ROM and Yes trachea midline Thyroid: Thyroid normal Resp Effort & Inspection: normal respiratory effort, able to speak in complete sentences, no tracheal deviation and symmetric chest movement Auscultation: clear to auscultation bilaterally Cardio Rate: regular rate GI Inspection: Yes normal to inspection, Yes distended (Without ascites) and Yes obesity Palpation (GI): Soft to palpation, not firm, nontender and No hepatosplenomegaly present Auscultation: normal bowel sounds General: Yes no CVA tenderness Back/Spine/Pelvis Back: no CVA tenderness Skin General skin exam: elasticity normal, turgor normal and dry skin Neuro General: patient oriented x3 Psych Appearance: grossly normal Mental Status: mental status grossly normal Attitude: cooperative Results Reviewed Results Reviewed: Laboratory Tests 03/14/23 03/17/23 03/17/23 11:37 12:42 12:42 Hgb A1c (Clinic) AST 56 H ALT 68 H Alkaline Phosphatase 87 Triglycerides 212 H Lipase 13 03/31/23 17:14 Hgb A1c (Clinic) 5.4 AST ALT Alkaline Phosphatase Triglycerides Lipase Assessment & Plan Assessment & Plan (1) Postprandial abdominal pain in right upper quadrant: Code(s): R10.11 - Right upper quadrant pain (2) Elevated liver function tests: Code(s): R79.89 - Other specified abnormal findings of blood chemistry (3) GERD (gastroesophageal reflux disease): Code(s): K21.9 - Gastro-esophageal reflux disease without esophagitis Qualifiers: Esophagitis presence: esophagitis presence not specified Qualified Code(s): K21.9 - Gastro-esophageal reflux disease without esophagitis (4) IBS (irritable bowel syndrome): Code(s): K58.9 - Irritable bowel syndrome without diarrhea Qualifiers: Irritable bowel syndrome type: with both diarrhea and constipation Qualified Code(s): K58.2 - Mixed irritable bowel syndrome Plan Will send patient to do more blood work. Will repeat liver enzymes. Will rule out autoimmune hepatitis, hepatitis C, Rigo disease, hemochromatosis, PBC. Patient also reports that she has acid reflux. For the most part is controlled, however lately patient states that has been experiencing more dyspepsia. Patient denies any dysphagia or odynophagia. Will stop omeprazole and start patient on Nexium. Patient reports postprandial loose stools will start her on Citrucel. Will check CRP and will do more studies if positive to rule out IBD. Most likely patient has IBS with diarrhea and occasional constipation component.. Low FODMAP diet discussed with patient. List of food to avoid as well as list of food recommended given to patient. Will send her for abdominal ultrasound with liver elastography to rule out cholelithiasis, cholecystitis, staging. Patient has a high suspicion of hepatitis C. Will check viral load and genotype. I will see her in 6 weeks, sooner on as needed basis. Patient is agreeable to this plan and verbalizes understanding of instructions. She was given the opportunity to ask questions and all questions answered. Thank you for allowing me to participate in her care Orders: Orders Alpha Fetoprotein 04/02/23 R79.89 - Other specified abnormal findings of blood chemistry Smooth Muscle Antibody 04/02/23 R79.89 - Other specified abnormal findings of blood chemistry Ferritin 04/02/23 R74.8 - Abnormal levels of other serum enzymes Gamma Glutamyl Transpeptidase 04/02/23 R74.8 - Abnormal levels of other serum enzymes US abdomen comp w elastography 04/02/23 R79.89 - Other specified abnormal findings of blood chemistry, R10.11 - Right upper quadrant pain Hepatitis C Genotype 04/02/23 B19.20 - Unspecified viral hepatitis C without hepatic coma Hepatitis A,B,C Profile 04/02/23 R79.89 - Other specified abnormal findings of blood chemistry Prothrombin Time INR 04/02/23 R74.8 - Abnormal levels of other serum enzymes HIV Ab/Ag 04/02/23 R79.89 - Other specified abnormal findings of blood chemistry C Reactive Protein 04/02/23 K58.9 - Irritable bowel syndrome without diarrhea Ceruloplasmin 04/02/23 R79.89 - Other specified abnormal findings of blood chemistry Mitochondrial Antibody 04/02/23 R79.89 - Other specified abnormal findings of blood chemistry Hepatitis C Viral Load 04/02/23 Z86.19 - Personal history of other infectious and parasitic diseases Medications: New esomeprazole magnesium (Nexium) 40 mg PO DAILY 30 caps 5RF K21.9 - Gastro-esophageal reflux disease without esophagitis methylcellulose (laxative) (Citrucel) take it with full glass of water 500 mg PO DAILY 30 tabs 2RF K59.00 - Constipation, unspecified Discontinued omeprazole Discontinued Reason: Doctor's Order 40 mg PO DAILY 90 days 90 caps 4RF Coding Level of Care Code New Pt Level 4 (08893) Diagnoses Postprandial abdominal pain in right upper quadrant R10.11 Elevated liver function tests R79.89 Gastroesophageal reflux disease, unspecified whether esophagitis present K21.9 Esophagitis presence: esophagitis presence not specified Irritable bowel syndrome with both constipation and diarrhea K58.2 Irritable bowel syndrome type: with both diarrhea and constipation Time Spent (min) 45 Comment 30 minutes spent with patient and additional 15 minutes spent reviewing her records
== END 2023-04-02 10:31 | disposition home or self-care (01) ==
PROVIDERS: PCP Family Medicine; Visit Provider Nurse Practitioner Family
DX: R10.11 Right upper quadrant pain (principal); R79.89 Other specified abnormal findings of blood chemistry; K21.9 Gastro-esophageal reflux disease without esophagitis; K58.2 Mixed irritable bowel syndrome
CPT/HCPCS: 99204

== ENCOUNTER 2023-04-02 09:46 | Outpatient (REF) | payer OTHER, SELFPAY ==
[2023-04-02 13:09] LABS: INTERNATIONAL NORM RATIO 0.9 (0.9-1.1); Prothrombin Time 11.1 SEC (11.1-13.3)
[2023-04-02 13:54] LABS: C Reactive Protein 0.34 mg/dL (< or = 0.50); Gamma Glutamyl Transpeptidase 101 U/L (7-33)
[2023-04-02 14:07] LABS: HBS Num1 1.28 mIU/mL (0-7.99); HBsAGNum1 0.46 S/CO (0.00-0.99); HIV AB/AG Nonreactive (Nonreactive); HIV Num 1 0.05 S/CO (0.00-0.99); Hepatitis A Antibody IgM 0.27 Index (0-0.79); Hepatitis B Core Antibody Nonreactive (Nonreactive); Hepatitis B Surface Antigen Negative (Negative); ~HepC Num1 14.32 S/CO (0.00-0.79); ~Hepatitis A Antibody IgM Nonreactive (Nonreactive); ~Hepatitis B Surface Antibody NONREACTIVE (Nonreactive); ~Hepatitis C Antibody Reactive (Nonreactive)
[2023-04-02 14:18] LABS: Ferritin 32 ng/mL (10-122)
[2023-04-04 21:49] LABS: Ceruloplasmin 32 mg/dL (18-53)
[2023-04-05 23:18] LABS: Smooth Muscle Antibody 20 U (<20)
[2023-04-08 15:29] LABS: Mitochondrial Antibodies NEGATIVE (NEGATIVE)
== END 2023-04-02 09:47 | disposition home or self-care (01) ==
LOC: HO.LAB 09:46
PROVIDERS: PCP Family Medicine; Visit Provider Nurse Practitioner Family
DX: K21.9 Gastro-esophageal reflux disease without esophagitis (principal); K58.2 Mixed irritable bowel syndrome; R79.89 Other specified abnormal findings of blood chemistry; R74.8 Abnormal levels of other serum enzymes; R10.11 Right upper quadrant pain
CPT/HCPCS: 36415; 82105; 82390; 82728; 82977; 85610; 86015; 86140; 86381; 86704; 86706; 86709; 86803; 87340; 87389; 99202

== ENCOUNTER 2023-04-10 08:18 | Outpatient (REF) | payer OTHER, SELFPAY ==
--- NOTE | ~2023-04-10 | US_ITS ---
EXAMINATION: US COMPLETE ABDOMEN WITH LIVER ELASTOGRAPHY CLINICAL INFORMATION: Other specified abnormal finding of blood chemistry Right upper quadrant pain, elevated LFTs. COMPARISON: Abdominal ultrasound 09/12/2012 TECHNIQUE: Real-time imaging of the abdominal viscera. Noninvasive ultrasound liver fibrosis assessment is performed using Kenji ElastPQ point quantification shear wave elastography (2D-SWE) with a C5-2 MHz transducer. Multiple elastography samples are obtained. FINDINGS: PANCREAS: Normal. The visualized pancreatic head and body are normal in appearance. The remainder of the pancreas is obscured from visualization by the overlying bowel gas. ABDOMINAL AORTA: The proximal abdominal aorta is normal in caliber. The mid and distal abdominal aorta are obscured by bowel gas INFERIOR VENA CAVA: Visualized portions are normal. LIVER: The liver is enlarged. There is increased echogenicity of the liver consistent with hepatic steatosis. No focal lesion or intrahepatic biliary duct dilatation. The right lobe measures 18.0 cm in length. The left lobe measures 13.4 cm in length. Portal flow is hepatopedal. Shear wave liver elastography median stiffness is 1.51 m/s (reference: normal median stiffness is 1.3 m/s or less). IQR/median stiffness to assess sampling precision is 18% (reference: good quality data set is IQR/median stiffness of 0.15 or less). GALLBLADDER: The gallbladder is physiologically distended without evidence of stones, sludge, polyps, wall thickening or pericholecystic fluid. Adenomyomatosis is noted within the fundus of the gallbladder. COMMON BILE DUCT: Normal in caliber measuring 0.6 cm in diameter. RIGHT KIDNEY: Normal. No hydronephrosis. No renal calculi or focal parenchymal lesions. The kidney measures 10.8 cm in maximum dimension. LEFT KIDNEY: Normal. No hydronephrosis. No renal calculi or focal parenchymal lesions. The kidney measures 11.4 cm in maximum dimension. SPLEEN: Enlarged. The spleen measures 14.3 cm in maximum dimension. FREE FLUID: None. US/US abdomen comp w elastography IMPRESSION: 1. Hepatosplenomegaly with hepatic steatosis. 2. Liver elastography: In the absence of other known clinical signs, rules out compensated advanced chronic liver disease. No prior liver elastography studies are available for comparison. 3. Adenomyomatosis of the gallbladder. REFERENCE: Society of Radiologists in Ultrasound Liver Stiffness Thresholds (2019): LIVER STIFFNESS THRESHOLDS: *Liver Stiffness equal or less than 1.3 m/s: High probability of being normal. *Liver Stiffness less than 1.7 m/s: In the absence of other known clinical signs, rules out compensated advanced chronic liver disease. *Liver Stiffness 1.7-2.1 m/s: Suggestive of compensated advanced chronic liver disease but need further test for confirmation. *Liver Stiffness over 2.1 m/s: Rules in compensated advanced chronic liver disease. *Liver Stiffness over 2.4 m/s: Suggestive of clinically significant portal hypertension. QUALITY OF DATA SET: *IQR/Median value equal or less than 0.15 implies a quality data set. *IQR/Median value over 0.15 implies a poor quality data set. SIGNIFICANT CHANGE FROM PRIOR EXAM: Significant change if liver stiffness measurement is 10% or greater from prior exam. OTHER CONSIDERATIONS: The stage of liver fibrosis may be overestimated in the setting of acute hepatitis, liver inflammation, elevated liver function tests, hepatic vascular congestion, obstructive cholestasis, non-fasting state, and infiltrative diseases such as amyloidosis and lymphoma. In some patients with NAFLD, the liver stiffness thresholds for compensated advanced chronic liver disease may be lower. In causes other than viral hepatitis and NAFLD, liver stiffness thresholds are not well established.
[2023-04-10 10:18] LABS: Appearance Urine Cloudy; Color Urine Yellow; Glucose Urine UA Negative (Negative); Leukocyte Esterase Urine Moderate (2+) (Negative); Nitrite Urine Negative (Negative); PH 5.5 (5.0-9.0); Specific Gravity - Urine 1.015 (1.005-1.025); UMIC TRIGGER UA YES; Urine Blood Negative (Negative); Urine Ketones Negative (Negative); Urine Protein Negative (Neg-Trace)
[2023-04-10 10:20] LABS: Basophils Percent Auto 0.2 % (0-2); Eosinophils Absolute Auto 0.2 X10*3/uL (0.0-0.4); Eosinophils Percent Auto 4.2 % (0-4); Hematocrit 43.3 % (37.0-47.0); Hemoglobin 15.1 g/dl (12.0-16.0); Lymphocytes Percent Auto 43.2 % (20-40); Mean Corpuscular HGB Conc 34.9 g/dl (31.0-35.0); Mean Corpuscular Hemoglobin 31.9 pg (27.0-33.0); Mean Corpuscular Volume 91.4 fL (80.0-98.0); Monocytes Absolute Auto 0.3 X10*3/uL (0.1-1.2); Monocytes Percent Auto 6.7 % (2-11); Neutrophils Absolute Auto 2.1 x10*3/uL (2.0-8.3); Neutrophils Percent Auto 45.7 % (45-73); Red Blood Count 4.74 X10*6/uL (4.20-5.50); Red Cell Distribution Width 12.4 % (11.0-16.0); White Blood Count 4.5 X10*3/uL (4.8-10.8)
[2023-04-10 10:23] LABS: Bacteria Urine None Seen (None Seen); Hyaline Casts Urine 0-2 /LPF (0-2); RBC Urine 0-2 /HPF (0-2); WBC Urine 21-50 /HPF (0-5)
[2023-04-10 11:15] LABS: Alanine Aminotransferase 105 U/L (0-31); Albumin Level 3.9 g/dL (3.5-5.0); Alkaline Phosphatase 94 U/L (39-117); Anion Gap 15 (12-20); Aspartate Amino Transferase 93 U/L (5-31); Bilirubin Total 0.5 mg/dL (0.0-1.0); Blood Urea Nitrogen 5 mg/dL (9-16); Calcium 9.1 mg/dL (8.4-10.2); Carbon Dioxide 22 mmol/L (22-29); Chloride 104 mmol/L (96-108); Cholesterol 177 mg/dL (<200); Estimated Glomerular Filt Rate > 60; Glucose Fasting 107 mg/dL (60-99); HDL Cholesterol 29 mg/dL (>40); LDL Cholesterol Calculated 113 mg/dL (<100); Potassium 4.3 mmol/L (3.3-5.1); Sodium 137 mmol/L (135-145); Total Protein 8.5 g/dL (6.5-8.0); Triglycerides 175 mg/dL (<150)
[2023-04-10 11:22] LABS: Thyroid Stimulating Hormone 3.72 uIU/mL (0.32-4.0)
[2023-04-11 09:28] LABS: Triiodothyronine T3 Total 129 ng/dL (76-181)
[2023-04-11 17:48] LABS: HCV RNA PCR Qn 5.77 Log IU/mL (NOT DETECTED); HCV RNA PCR Qn 593000 IU/mL (NOT DETECTED)
== END 2023-04-10 08:19 | disposition home or self-care (01) ==
LOC: HO.US 08:18
PROVIDERS: Absent Provider Family Medicine; PCP Family Medicine; Visit Provider Nurse Practitioner Family
DX: R79.89 Other specified abnormal findings of blood chemistry (principal); R10.11 Right upper quadrant pain; E03.9 Hypothyroidism, unspecified; E78.6 Lipoprotein deficiency; R74.8 Abnormal levels of other serum enzymes; F41.9 Anxiety disorder, unspecified; F32.9 Major depressive disorder, single episode, unspecified; Z00.00 Encounter for general adult medical examination without abnormal findings
CPT/HCPCS: 36415; 76705; 76981; 80053; 80061; 81001; 84439; 84443; 84480; 85025; 87522

== ENCOUNTER 2023-04-18 11:29 | Outpatient (REF) | payer OTHER, SELFPAY ==
[2023-04-23 15:38] LABS: Hepatitis C Genotype 1a
== END 2023-04-18 11:30 | disposition home or self-care (01) ==
LOC: HO.LAB 11:29
PROVIDERS: PCP Family Medicine; Visit Provider Nurse Practitioner Family
DX: B19.20 Unspecified viral hepatitis C without hepatic coma (principal)
CPT/HCPCS: 36415; 87902

== ENCOUNTER 2023-04-22 08:00 | Outpatient (AMB) | payer OTHER, SELFPAY ==
--- NOTE | 2023-04-22 08:09 | A.OFFVIS_ITS ---
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 Allergies Seasonal Allergies Allergy (Verified 04/22/23 10:30) runny eyes, itchy skin, congestion HPI HPI Comments History of Present Illness Details 37 female patient presents for new in-pe rson visit for sleep consultation. She reports loud snoring, frequent gasping arousals, feeling like suffocating. Pt reports she has appointment with ENT for evaluation. Pt reports difficulty falling asleep and staying sleep. She uses trazodone 100 mg and seroquel 300 mg qHS but still wakes up almost every 2 hrs. Pt reports she has been clean from drugs for 3 years. She still smokes cigarette 1PPD. Sleep questionnaire: Have you ever been diagnosed with a sleep disorder? Insomnia. Have you ever had a sleep study in the past? No. Have you ever been treated for a sleep disorder? No. Do you take medications for a sleep disorder? Trazodone and Seroquel. Do you snore? Yes. Do you wake up gasping at night? Yes. Do you have episodes of apneas? Yes. If yes, are they witnessed? Yes. Do you have episodes of nocturnal chest pain or dyspnea? Yes. Do you have difficulty initiating sleep? Yes. Do you have difficulty maintaining sleep? Yes. Do you wake up tired? Yes. Do you have headaches upon awakening? Yes, more often lately. Do you wake up with dry mouth or throat? Yes. Do you have GERD? Yes. Do you have nocturia? No. Do you have nocturnal leg cramps? No. Do you have symptoms of restless legs? No. Do you act out your dreams? Yes. Sleep hygiene questionnaire: What is your usual sleep routine? Usual bedtime is at 10 pm; Usual wake up time is at 6 am . Do you take naps? No. Is your sleep environment cool, dark, and quiet? Yes. Do you exercise? No. Do you take caffeine or other stimulants? Smoke a pack a day. Do you use electronics in bed? No. 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 Hypersomnolence questionnaire: Do you have daytime tiredness or fatigue? Yes. Do you easily fall asleep when inactive? Yes. Have you ever had episodes of sudden weakness? No. Have you ever had episodes of sudden weakness associated with strong emotions? No. [facility] Medical History (Updated 04/22/23 @ 08:40 by Noreen Bah CNP) Left leg pain Hand dermatitis Chronic pancreatitis Substance abuse in remission Surgical History History of tubal ligation Family History Father Mental health disorder Mother High blood pressure High cholesterol Social History Housing: House Alcohol intake: never Patient Tobacco Use Status: Current everyday Tobacco user Cigarette Packs Per Day: 1 e-Cigarette/Vaping Use: Never Used service: No Current occupational status: employed 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 Cognitive needs: No Hearing needs: No Vision needs: No Review of Systems Const All systems reviewed & are unremarkable except as noted in HPI and below Physical Exam Vital Signs: BMI result Body Mass Index 39.3 Const General: cooperative Nutritional Appearance: obese Orientation/consciousness: patient oriented x3 Resp Effort & Inspection: able to speak in complete sentences and audible wheezes Neuro General: patient oriented x3 and gait normal Cranial nerves: Yes CN's II-XII intact bilaterally Cognition (Neuro): normal cognition Gait exam (Neuro): Normal gait present Motor exam (neuro): 5/5 motor strength present throughout and Pronator motor function not present Psych Appearance: grossly normal Mental Status: mental status grossly normal Speech and movement: Normal speech and movement present Affect: normal affect Attitude: cooperative Assessment & Plan Assessment & Plan (1) Witnessed apneic spells: Code(s): R06.81 - Apnea, not elsewhere classified (2) Daytime sleepiness: Code(s): R40.0 - Somnolence (3) Snoring: Code(s): R06.83 - Snoring Plan Pt is advised to undergo home sleep study to assess for sleep apnea. Will f/u with pt after study to discuss results and appropriate treatment options. Sleep hygiene education provided, advised patient to reduce smoking. Wt reduction advised. Pt to call with any worsening concerns or questions. Orders: Orders RT home sleep study Today G47.00 - Insomnia, unspecified, R06.81 - Apnea, not elsewhere classified, R06.83 - Snoring, R40.0 - Somnolence Coding Level of Care Code New Pt Level 3 (04010) Diagnoses Witnessed apneic spells R06.81 Daytime sleepiness R40.0 Snoring R06.83
[2023-04-22 08:10] VITALS: BMI 39.3
== END 2023-04-22 08:42 | disposition home or self-care (01) ==
PROVIDERS: PCP Family Medicine; Visit Provider Nurse Practitioner Family
DX: R06.81 Apnea, not elsewhere classified (principal); R40.0 Somnolence; R06.83 Snoring
CPT/HCPCS: 99203

== ENCOUNTER → 2023-04-22 08:00 | Outpatient (BNVA) | payer OTHER, SELFPAY | PROVIDERS: PCP Family Medicine; Visit Provider Nurse Practitioner Family | DX: R06.81 Apnea, not elsewhere classified (principal); R40.0 Somnolence; R06.83 Snoring | CPT/HCPCS: 99202 ==

== ENCOUNTER 2023-04-22 10:15 | Outpatient (AMB) | payer OTHER, SELFPAY ==
--- NOTE | 2023-04-22 10:24 | MHC.PC.OV ---
Vital Signs 04/22/23 10:25 Height 5 ft 3 in Weight 228 lb BMI 40.4 BP 142/76 H Blood Pressure Location Lt brachial Position Sitting Respiration 12 Pulse 75 Pulse Source Pulse Oximeter Pulse Oximetry (%) 98 Oxygen Delivery Method Room Air Intake Visit Reasons: f/u abnormal ekg and labs Intake Note: Patient is here to have an ekg repeated and follow up with an abnormal ekg and also labs. Patient reports she has no concerns at this time. 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 Accompanied by: Self / Same As Patient Allergies Seasonal Allergies Allergy (Verified 04/22/23 10:30) runny eyes, itchy skin, congestion Medication List - Last Reconciled 04/22/23 by Aakash Navarro MD betamethasone valerate 0.1% 1 appl topical DAILY PRN 30 days clonazepam (Klonopin) 0.25 mg PO BID esomeprazole magnesium (Nexium) 40 mg PO DAILY gabapentin 600 mg PO TID lamotrigine 50 mg PO DAILY methadone 130 mg PO DAILY methylcellulose (laxative) (Citrucel) 500 mg PO DAILY paroxetine HCl 40 mg PO DAILY quetiapine (Seroquel) 300 mg PO BEDTIME quetiapine (Seroquel) 50 mg PO DAILY PRN topiramate 50 mg PO DAILY 30 days trazodone 100 mg PO BEDTIME PRN Tobacco use date assessed: 12/19/22 HPI f/u abnormal ekg and labs HPI Details 37 y/o female presents to f/u abnormal EKG and labs. Following up on elevated liver enzymes, elevated TSH. Liver ultrasound ordered. Labs were drawn 04/10/23. Reviewed labs with pt. Elevated fasting glucose of 107. Liver enzymes worsened - AST 93 and ALT 105. Triglycerides 175. TC 177. LDL 113. HDL low at 29. TSH level 3.72. Free T4 mildly low at 0.70. Liver ultrasound 04/10/23 shows hepatosplenomegaly with hepatic steatosis. Adenomyomatosis of the gallbladder. Had seen GI and had done hepatitis C testing which she was positive for. HPI Comments History of Present Illness Details Documentation assistance for Aakash Navarro MD, was provided by Merritt Langford,? Care Center Manager on 04/22/2023 11:31 AM SONDRA. Cresencio, Dr. Navarro, have read, observed, and verified documentation. [facility] Medical History (Updated 04/22/23 @ 11:21 by Merritt Langford) Left leg pain Hand dermatitis Chronic pancreatitis Substance abuse in remission Surgical History History of tubal ligation Family History Father Mental health disorder Mother High blood pressure High cholesterol Social History Housing: House Alcohol intake: never Patient Tobacco Use Status: Current everyday Tobacco user Cigarette Packs Per Day: 1 e-Cigarette/Vaping Use: Never Used service: No Current occupational status: employed 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 Cognitive needs: No Hearing needs: No Vision needs: No Questionnaire Thrive Questionnaire Date Thrive assessed: 12/27/20 IVA-7 AMB Questionnaire IVA-7 Date IVA - 7 assessed: 02/07/23 Source: Developed by Drs. Erik Allred, Mary Villela, Sriram Parson and colleagues, with an educational elizabeth from [employer]. Review of Systems Const Denies chills, Denies fatigue, Denies fever(s), Denies headache(s) and Denies weakness ENT Denies dizziness and Denies headache(s) Card Denies chest pain, Denies lightheadedness, Denies dyspnea and Denies other (Palpitations) Resp Denies cough, Denies dyspnea, Denies wheezing and Denies other ( shortness of breath) Musc Denies numbness and Denies tingling Neuro Denies dizziness, Denies headache(s), Denies numbness, Denies tingling, Denies paresthesias and Denies weakness Psych Denies anxiety and Denies depression Endo Denies fatigue Aller/Immun Denies wheezing Physical exam (Primary Care) Vital Signs: Last Vital Signs Pulse 75 04/22/23 10:25 Resp 12 04/22/23 10:25 BP 142/76 H 04/22/23 10:25 Pulse Ox 98 04/22/23 10:25 Oxygen Delivery Method Room Air 04/22/23 10:25 BMI result Body Mass Index 40.4 Tobacco/Smoking Status: Tobacco use Status Tobacco use date assessed 12/19/22 04/22/23 10:31 Patient Tobacco Use Status Current everyday Tobacco 04/22/23 10:31 e-Cigarette/Vaping Use Never Used 04/22/23 10:31 Thrive Assessment: Date of Thrive Assessment Date Thrive assessed 12/27/20 04/22/23 10:31 Const General: no acute distress and well developed Nutritional Appearance: well nourished and obese morbidly obese Orientation/consciousness: patient oriented x3 HENMT Head: Yes normocephalic and Yes atraumatic Eyes General: appearance normal, both eyes and all related structures Pupils: Equal, round and reactive pupils present EOM: EOMs intact bilaterally Resp Effort & Inspection: normal respiratory effort Auscultation: clear to auscultation bilaterally Cardio Rate: regular rate Rhythm: regular rhythm Heart sounds: S1 normal heart sound present, S2 normal heart sound present, no gallops, no murmurs and no rubs Neuro General: patient oriented x3 and gait normal Cranial nerves: Yes Equal, round and reactive pupils present Psych Affect: normal affect Office Procedures EKG [id number], Complete Assessment and Plan Assessment & Plan (1) Abnormal EKG: Code(s): R94.31 - Abnormal electrocardiogram [ECG] [EKG] Plan: EKG?shows?normal?sinus?rhythm?with?sinus?arrhythmia,?normal?axis,?no?hypertrophy,?inverted?T-waves?V3?V4?be?5?and?V6?possible?anterolateral?ischemia Patient?does?note?some?chest?pressure Referred?to?cardiology (2) Elevated liver enzymes: Code(s): R74.8 - Abnormal levels of other serum enzymes Plan: Positive?for?hepatitis?C?and?now?followed?by?gastroenterology Also?has?fatty?liver?disorder?and?I?have?advised?weight?loss?as?well. Follow-up?with?GI?as?recommended (3) Hepatitis C: Code(s): B19.20 - Unspecified viral hepatitis C without hepatic coma Plan: As?above,?follow-up?with?GI (4) Elevated TSH: Code(s): R79.89 - Other specified abnormal findings of blood chemistry Plan: TSH?back?within?normal?limits Will?continue?to?monitor Orders: Orders AMB EKG-In Office Today R00.2 - Palpitations Referrals Cardiology Referral R07.89 - Other chest pain, R94.31 - Abnormal electrocardiogram [ECG] [EKG] Coding Level of Care Code Est Pt Level 4 (41947) Diagnoses Abnormal EKG R94.31 Elevated liver enzymes R74.8 Hepatitis C B19.20 Elevated TSH R79.89 CPT Codes EKG - CPT: 68630-[id number], Complete ([id number])
[2023-04-22 10:25] VITALS: BP 142/76; PULSE 75; RESP 12; O2SAT 98; BMI 40.4
== END 2023-04-22 11:28 | disposition home or self-care (01) ==
PROVIDERS: PCP Family Medicine; Visit Provider Family Medicine
DX: R94.31 Abnormal electrocardiogram [ECG] [EKG] (principal); R74.8 Abnormal levels of other serum enzymes; B19.20 Unspecified viral hepatitis C without hepatic coma; R79.89 Other specified abnormal findings of blood chemistry
CPT/HCPCS: 93000; 99214

== ENCOUNTER 2023-04-23 15:59 | Outpatient (AMB) | payer OTHER, SELFPAY ==
--- NOTE | 2023-04-23 16:03 | A.OFFVIS_ITS ---
Intake Vital Signs 04/23/23 16:05 Height 5 ft 3 in Weight 222 lb 10.67 oz BMI 39.4 BP 114/79 Blood Pressure Location Lt brachial Position Sitting Pulse 78 Intake Visit Reasons: f/u ultrasound Intake Note: Meena presents in the office as a follow up ultrasound. CC: Here for results to her ultrasound and was told that she had Hep C and she states that it blows her mind because she has been clean. Archives Technician Required: No Allergies Seasonal Allergies Allergy (Verified 04/23/23 16:06) runny eyes, itchy skin, congestion HPI f/u ultrasound HPI Details LAST VISIT Postprandial abdominal pain in right upper quadrant Elevated liver function tests GERD (gastroesophageal reflux disease) IBS (irritable bowel syndrome) Plan Will send patient to do more blood work. Will repeat liver enzymes. Will rule out autoimmune hepatitis, hepatitis C, Rigo disease, hemochromatosis, PBC. Patient also reports that she has acid reflux. For the most part is controlled, however lately patient states that has been experiencing more dyspepsia. Patient denies any dysphagia or odynophagia. Will stop omeprazole and start patient on Nexium. Patient reports postprandial loose stools will start her on Citrucel. Will check CRP and will do more studies if positive to rule out IBD. Most likely patient has IBS with diarrhea and occasional constipation component.. Low FODMAP diet discussed with patient. List of food to avoid as well as list of food recommended given to patient. Will send her for abdominal ultrasound with liver elastography to rule out cholelithiasis, cholecystitis, staging. Patient has a high suspicion of hepatitis C. Will check viral load and genotype. I will see her in 6 weeks, sooner on as needed basis. Patient is agreeable to this plan and verbalizes understanding of instructions. She was given the opportunity to ask questions and all questions answered. ? Thank you for allowing me to participate in her care Orders Orders Alpha Fetoprotein 04/02/23 R79.89 Smooth Muscle Antibody 04/02/23 R79.89 Ferritin 04/02/23 R74.8 Gamma Glutamyl Transpeptidase 04/02/23 R74.8 US abdomen comp w elastography 04/02/23 R7.89, R10.11 Hepatitis C Genotype 04/02/23 B19.20 Hepatitis A,B,C Profile 04/02/23 R79.89 Prothrombin Time INR 04/02/23 R74.8 HIV Ab/Ag 04/02/23 R79.89 C Reactive Protein 04/02/23 K58.9 Ceruloplasmin 04/02/23 R79.89 Mitochondrial Antibody 04/02/23 R79.89 Hepatitis C Viral Load 04/02/23 Z86.19 Medications New esomeprazole magnesium (Nexium) 40 mg PO DAILY 30 caps 5RF K21.9 methylcellulose (laxative) (Citrucel) take it with full glass of water 500 mg PO DAILY 30 tabs 2RF K59.00 Discontinued omeprazole Discontinued Reason: Doctor's Order 40 mg PO DAILY 90 days 90 caps 4RF TODAY'S VISIT: Patient is here today for follow-up and to discuss lab results and ultrasound results. Patient was diagnosed with hep C, genotype 1A. High viral load. Patient will be started on Epclusa, PA pending. Patient reports severe bloating postprandially. Postprandial loose stools since she started taking Nexium. Patient reports that she is feeling worse on it. Did well on omeprazole. Patient was buying that [id number] 10 mg dose. All labs discussed with patient as well as ultrasound. Patient denies any melena, hematochezia, unintentional weight loss or ribbon like stools. Patient reports that she gain lot of weight in the last year or so. Patient continues to get methadone treatment daily. Patient states that she was apprised to hear that she has hep C because she gets tested every 6 months where she gets her methadone and never was told that she has hep C. Patient denies any nausea or vomiting. Reports to have excessive gas. Patient reports that she is burping a lot. Patient reports dyspepsia without dysphagia or odynophagia. [facility] Medical History (Updated 04/23/23 @ 16:42 by JULIO Cunningham-CARLOS A) IBS (irritable bowel syndrome) Left leg pain Hand dermatitis Chronic pancreatitis Substance abuse in remission Surgical History History of tubal ligation Family History Father Mental health disorder Mother High blood pressure High cholesterol Social History Housing: House Alcohol intake: never Patient Tobacco Use Status: Current everyday Tobacco user Cigarette Packs Per Day: 1 e-Cigarette/Vaping Use: Never Used service: No Current occupational status: employed 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 Cognitive needs: No Hearing needs: No Vision needs: No Review of Systems Const Denies weight gain and Denies weight loss ENT Reports no additional complaints, Denies dysphagia and Denies odynophagia Card Reports no additional complaints Resp Reports no additional complaints GI Reports abdominal pain, Reports belching, Denies melena, Reports bloating, Denies change in bowel habits, Denies dysphagia, Denies excessive flatus, Denies dyspepsia, Reports heartburn, Denies diarrhea, Reports loose stools, Denies nausea, Denies odynophagia and Denies vomiting Reports no additional complaints Musc Reports no additional complaints Neuro Reports no additional complaints Psych Reports no additional complaints Endo Reports no additional complaints Physical Exam Vital Signs: Last Vital Signs Pulse 78 04/23/23 16:05 BP 114/79 04/23/23 16:05 BMI result Body Mass Index 39.4 Const General: no acute distress Nutritional Appearance: obese Orientation/consciousness: patient oriented x3 HEENT Head: Yes normal to inspection, Yes normocephalic and Yes atraumatic Face and sinus: Yes normal facial exam Mouth: Normal oral and palatal mucosa present Throat: Yes posterior oropharynx normal, Yes tonsils normal and Yes uvula midline Eyes General: appearance normal, both eyes and all related structures Neck Neck: Yes normal visual inspection, Yes full ROM and Yes trachea midline Thyroid: Thyroid normal Resp Effort & Inspection: normal respiratory effort, able to speak in complete sentences, no tracheal deviation and symmetric chest movement Auscultation: clear to auscultation bilaterally Cardio Rate: regular rate GI Inspection: Yes normal to inspection, Yes distended and Yes obesity Palpation (GI): Soft to palpation, Firmness to palpation present (GI), nontender and No hepatosplenomegaly present Auscultation: normal bowel sounds General: Yes no CVA tenderness Back/Spine/Pelvis Back: no CVA tenderness Skin General skin exam: elasticity normal, turgor normal and dry skin Neuro General: patient oriented x3 Psych Appearance: grossly normal Mental Status: mental status grossly normal Results Reviewed Results Reviewed: Laboratory Tests 04/02/23 04/02/23 04/02/23 10:56 10:56 10:56 Hgb Hct MCV PT INR AST ALT Alkaline Phosphatase TSH Free T4 Anti-Mitochondrial Ab Anti-Smooth Muscle Ab Hepatitis A IgM Ab Hep Bs Antigen Negative Hep Bs Antibody NONREACTIVE Hep B Core Total Ab Nonreactive Hepatitis C Ab (EIA) Reactive H HCV RNA (PCR) IUs/ml HCV RNA PCR log IUs/ml Hepatitis C Genotype HIV 1&2 Ab/P24 Ag 4thGn Nonreactive 04/02/23 04/02/23 04/02/23 10:56 10:56 10:56 Hgb Hct MCV PT 11.1 INR 0.9 AST ALT Alkaline Phosphatase TSH Free T4 Anti-Mitochondrial Ab NEGATIVE Anti-Smooth Muscle Ab 20 H Hepatitis A IgM Ab Nonreactive Hep Bs Antigen Hep Bs Antibody Hep B Core Total Ab Hepatitis C Ab (EIA) HCV RNA (PCR) IUs/ml HCV RNA PCR log IUs/ml Hepatitis C Genotype HIV 1&2 Ab/P24 Ag 4thGn 04/10/23 04/10/23 04/10/23 09:40 09:40 09:40 Hgb 15.1 Hct 43.3 MCV 91.4 PT INR AST ALT Alkaline Phosphatase 94 TSH 3.72 Free T4 0.70 L Anti-Mitochondrial Ab Anti-Smooth Muscle Ab Hepatitis A IgM Ab Hep Bs Antigen Hep Bs Antibody Hep B Core Total Ab Hepatitis C Ab (EIA) HCV RNA (PCR) IUs/ml [id number] H HCV RNA PCR log IUs/ml 5.77 H Hepatitis C Genotype HIV 1&2 Ab/P24 Ag 4thGn 04/10/23 04/10/23 04/18/23 09:40 09:40 11:35 Hgb Hct MCV PT INR AST 93 H ALT 105 H Alkaline Phosphatase TSH Free T4 Anti-Mitochondrial Ab Anti-Smooth Muscle Ab Hepatitis A IgM Ab Hep Bs Antigen Hep Bs Antibody Hep B Core Total Ab Hepatitis C Ab (EIA) HCV RNA (PCR) IUs/ml HCV RNA PCR log IUs/ml Hepatitis C Genotype 1a HIV 1&2 Ab/P24 Ag 4thGn ABDOMINAL ULTRASOUND WITH LIVER ELASTOGRAPHY 04/10/2023 FINDINGS: PANCREAS: Normal. The visualized pancreatic head and body are normal in appearance. The remainder of the pancreas is obscured from visualization by the overlying bowel gas. ABDOMINAL AORTA: The proximal abdominal aorta is normal in caliber. The mid and distal abdominal aorta are obscured by bowel gas INFERIOR VENA CAVA: Visualized portions are normal. LIVER: The liver is enlarged. There is increased echogenicity of the liver consistent with hepatic steatosis. No focal lesion or intrahepatic biliary duct dilatation. The right lobe measures 18.0 cm in length. The left lobe measures 13.4 cm in length. Portal flow is hepatopedal. Shear wave liver elastography median stiffness is 1.51 m/s (reference: normal median stiffness is 1.3 m/s or less). IQR/median stiffness to assess sampling precision is 18% (reference: good quality data set is IQR/median stiffness of 0.15 or less). GALLBLADDER: The gallbladder is physiologically distended without evidence of stones, sludge, polyps, wall thickening or pericholecystic fluid. Adenomyomatosis is noted within the fundus of the gallbladder. COMMON BILE DUCT: Normal in caliber measuring 0.6 cm in diameter. RIGHT KIDNEY: Normal. No hydronephrosis. No renal calculi or focal parenchymal lesions. The kidney measures 10.8 cm in maximum dimension. LEFT KIDNEY: Normal. No hydronephrosis. No renal calculi or focal parenchymal lesions. The kidney measures 11.4 cm in maximum dimension. SPLEEN: Enlarged. The spleen measures 14.3 cm in maximum dimension. FREE FLUID: None. US/US abdomen comp w elastography IMPRESSION: 1. Hepatosplenomegaly with hepatic steatosis. 2. Liver elastography: In the absence of other known clinical signs, rules out compensated advanced chronic liver disease. No prior liver elastography studies are available for comparison. 3. Adenomyomatosis of the gallbladder. REFERENCE: Society of Radiologists in Ultrasound Liver Stiffness Thresholds (2020): LIVER STIFFNESS THRESHOLDS: *Liver Stiffness equal or less than 1.3 m/s: High probability of being normal. *Liver Stiffness less than 1.7 m/s: In the absence of other known clinical signs, rules out compensated advanced chronic liver disease. *Liver Stiffness 1.7-2.1 m/s: Suggestive of compensated advanced chronic liver disease but need further test for confirmation. *Liver Stiffness over 2.1 m/s: Rules in compensated advanced chronic liver disease. *Liver Stiffness over 2.4 m/s: Suggestive of clinically significant portal hypertension. Assessment & Plan Assessment & Plan (1) Hepatitis C: Code(s): B19.20 - Unspecified viral hepatitis C without hepatic coma Qualifiers: Viral hepatitis chronicity: acute Hepatic coma status: without hepatic coma Qualified Code(s): B17.10 - Acute hepatitis C without hepatic coma (2) GERD (gastroesophageal reflux disease): Code(s): K21.9 - Gastro-esophageal reflux disease without esophagitis Qualifiers: Esophagitis presence: esophagitis presence not specified Qualified Code(s): K21.9 - Gastro-esophageal reflux disease without esophagitis (3) IBS (irritable bowel syndrome): Code(s): K58.9 - Irritable bowel syndrome without diarrhea Qualifiers: Irritable bowel syndrome type: with both diarrhea and constipation Qualified Code(s): K58.2 - Mixed irritable bowel syndrome (4) Postprandial abdominal bloating: Code(s): R14.0 - Abdominal distension (gaseous) Plan Discussed with patient treatment for hep C. Epclusa ordered. Will stop Nexium and start patient on omeprazole and stop when patient will be getting treatment. She will come back in 2 weeks to get hep A and hep B vaccines. Please schedule appointment with RN. Patient will also take sucralfate at bedtime for now, Will switch to famotidine when patient will begin the treatment. Long discussion about taking medications daily and not missing any doses. Patient will be come into the office and for blood work every 3-4 weeks after starting it treatment. Ultrasound will be repeated after treatment and 6-8 months after. Patient will also take senna at bedtime to make sure that she empties his bowels completely. Patient is agreeable to this plan and verbalizes understanding of instructions. She was given the opportunity to ask questions all questions answered. Thank you for allowing me to participate in her care Medications: New omeprazole 40 mg PO DAILY 90 caps 3RF K21.9 - Gastro-esophageal reflux disease without esophagitis sucralfate 1 g PO BEDTIME 30 tabs 1RF R19.7 - Diarrhea, unspecified sennosides (Natural Senna Laxative) 17.2 mg (2 x 8.6 mg) PO BEDTIME 60 tabs 1RF constipation K59.00 - Constipation, unspecified sofosbuvir-velpatasvir 400-100 mg (Epclusa) 1 tab PO DAILY 12 weeks 84 tabs 0RF Discontinued esomeprazole magnesium (Nexium) Discontinued Reason: Doctor's Order 40 mg PO DAILY 30 caps 5RF K21.9 - Gastro-esophageal reflux disease without esophagitis Coding Level of Care Code Est Pt Level 4 (65969) Diagnoses Acute hepatitis C virus infection without hepatic coma B17.10 Viral hepatitis chronicity: acute Hepatic coma status: without hepatic coma Gastroesophageal reflux disease, unspecified whether esophagitis present K21.9 Esophagitis presence: esophagitis presence not specified Irritable bowel syndrome with both constipation and diarrhea K58.2 Irritable bowel syndrome type: with both diarrhea and constipation Postprandial abdominal bloating R14.0 Time Spent (min) 40 Comment 25 minutes spent with patient and additional 15 minutes spent reviewing her records
[2023-04-23 16:05] VITALS: BP 114/79; PULSE 78; BMI 39.4
== END 2023-04-23 16:29 | disposition home or self-care (01) ==
PROVIDERS: PCP Family Medicine; Visit Provider Nurse Practitioner Family
DX: B17.10 Acute hepatitis C without hepatic coma (principal); K21.9 Gastro-esophageal reflux disease without esophagitis; K58.2 Mixed irritable bowel syndrome; R14.0 Abdominal distension (gaseous)
CPT/HCPCS: 99214

== ENCOUNTER → 2023-04-23 15:59 | Outpatient (BNVA) | payer OTHER, SELFPAY | PROVIDERS: PCP Family Medicine; Visit Provider Nurse Practitioner Family | DX: B17.10 Acute hepatitis C without hepatic coma (principal); K21.9 Gastro-esophageal reflux disease without esophagitis; K58.2 Mixed irritable bowel syndrome; R14.0 Abdominal distension (gaseous) | CPT/HCPCS: 99212 ==

== ENCOUNTER 2023-05-14 09:02 | Outpatient (AMB) | payer OTHER, SELFPAY ==
--- NOTE | 2023-05-14 09:07 | A.OFFVIS_ITS ---
Intake Vital Signs 05/14/23 09:08 Height 5 ft 3 in Weight 222 lb BMI 39.3 BP 130/74 Blood Pressure Location Lt brachial Position Sitting Pulse 79 Intake Visit Reasons: 2 week follow up Intake Note: Patient follow up for GERD. Patient cc: acid reflex with burning sensation, and abdominal bloating. Also patient is having difficulty breathing. Adhesive Bandage Machine Operator Required: No Accompanied by: Self / Same As Patient Allergies Seasonal Allergies Allergy (Verified 05/14/23 09:07) runny eyes, itchy skin, congestion HPI 2 week follow up HPI Details LAST VISIT Hepatitis C GERD (gastroesophageal reflux disease) IBS (irritable bowel syndrome) Postprandial abdominal bloating Plan Discussed with patient treatment for hep C. Epclusa ordered. Will stop Nexium and start patient on omeprazole and stop when patient will be getting treatment. She will come back in 2 weeks to get hep A and hep B vaccines. Please schedule appointment with RN. Patient will also take sucralfate at bedtime for now, Will switch to famotidine when patient will begin the treatment. Long discussion about taking medications daily and not missing any doses. Patient will be come into the office and for blood work every 3-4 weeks after starting it treatment. Ultrasound will be repeated after treatment and 6-8 months after. Patient will also take senna at bedtime to make sure that she empties his bowels completely. Patient is agreeable to this plan and verbalizes understanding of instructions. She was given the opportunity to ask questions all questions answered. ? Thank you for allowing me to participate in her care Medications New omeprazole 40 mg PO DAILY 90 caps 3RF K21.9 sucralfate 1 g PO BEDTIME 30 tabs 1RF R19.7 sennosides (Natural Senna Laxative) 17.2 mg (2 x 8.6 mg) PO BEDTIME 60 tabs 1RF constipation K59.00 sofosbuvir-velpatasvir 400-100 mg (Epclusa) 1 tab PO DAILY 12 weeks 84 tabs 0RF Discontinued esomeprazole magnesium (Nexium) Discontinued Reason: Doctor's Order 40 mg PO DAILY 30 caps 5RF K21.9 TODAY'S VISIT: Patient is here today for follow-up. Patient has not started her Epclusa yet, received from pharmacy about a week ago. Patient will be receiving hep a and hep B vaccine today. Continues to have abdominal bloating. Patient has been having shortness of breath on and off for the past few months. Referral to project control officer was made by her PCP. Patient also reports swelling in her feet and her hands. Patient continues to have epigastric discomfort, however reports that famotidine is helpful. We have stop PPI due to Epclusa treatment, however patient will have severe symptoms she will be able to take it 12 hours apart. Patient continues to have constipation despite taking Senokot and MiraLax. Patient reports that she only has a bowel movement once a week. Patient is on methadone daily with significantly high dose of 130 mg daily. Patient reports that she is drinking plenty fluids. Denies melena, hematochezia, unintentional weight loss or ribbon like stools. 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 Cognitive needs: No Hearing needs: No Vision needs: No Review of Systems Const Denies weight gain and Denies weight loss ENT Reports no additional complaints, Denies dysphagia and Denies odynophagia Card Reports no additional complaints Resp Reports no additional complaints GI Denies abdominal pain, Denies belching, Denies melena, Reports bloating, Reports constipation, Denies dysphagia, Denies excessive flatus, Denies dyspepsia, Reports heartburn (Occasional), Denies diarrhea, Denies loose stools, Denies nausea, Denies odynophagia and Denies vomiting Reports no additional complaints Musc Reports no additional complaints Neuro Reports no additional complaints Psych Reports no additional complaints Endo Reports no additional complaints Physical Exam Vital Signs: Last Vital Signs Pulse 79 05/14/23 09:08 BP 130/74 05/14/23 09:08 BMI result Body Mass Index 39.3 Const General: no acute distress Nutritional Appearance: obese Orientation/consciousness: patient oriented x3 Resp Effort & Inspection: normal respiratory effort, able to speak in complete sentences, no tracheal deviation and symmetric chest movement Auscultation: clear to auscultation bilaterally Cardio Rate: regular rate GI Inspection: Yes normal to inspection, Yes distended and Yes obesity Palpation (GI): Soft to palpation, not firm, nontender and No hepatosplenomegaly present Auscultation: normal bowel sounds General: Yes no CVA tenderness Back/Spine/Pelvis Back: no CVA tenderness Skin General skin exam: elasticity normal, turgor normal and dry skin Neuro General: patient oriented x3 Psych Appearance: grossly normal Mental Status: mental status grossly normal Immunizations Havrix (PF) 1,440 WILNER unit/mL intramuscular syringe Performing Provider: FERCHO Cunningham [place] [facility] [place] Administered by: Faith Palomo RN on 05/14/23 09:43 Dose Route Admin Location Dispensed Lot Number Ex[place] Date [facility] [place] [employer] 1 mL IM Right Deltoid 1 mL [id number] 12/11/24 74612-910-92 [employer] VIS Given Date VIS Provided VIS Publication Date 05/14/23 Single Vaccine 21 Eligibility Eligibility Date Funding Source Not VFC Eligible 05/14/23 Private Engerix-B (PF) 20 mcg/mL intramuscular suspension Performing Provider: FERCHO Cunningham Performing [place] [facility] Administered by: Faith Palomo RN on 05/14/23 09:43 Dose Route Admin Location Dispensed Lot Number Expiration Date [facility] [place] [employer] 1 mL IM Right Deltoid 1 mL [id number] 03/20/25 20402-286-25 [employer] VIS Given Date VIS Provided VIS Publication Date 05/14/23 Single Vaccine 22 Eligibility Eligibility Date Funding Source Not VFC Eligible 05/14/23 Private Assessment & Plan Assessment & Plan (1) Edema: Code(s): R60.9 - Edema, unspecified Qualifiers: Edema type: generalized Qualified Code(s): R60.1 - Generalized edema (2) Liver cirrhosis: Code(s): K74.60 - Unspecified cirrhosis of liver Qualifiers: Hepatic cirrhosis type: unspecified hepatic cirrhosis Ascites presence: without ascites Qualified Code(s): K74.60 - Unspecified cirrhosis of liver (3) IBS (irritable bowel syndrome): Code(s): K58.9 - Irritable bowel syndrome without diarrhea Qualifiers: Irritable bowel syndrome type: with both diarrhea and constipation Qualified Code(s): K58.2 - Mixed irritable bowel syndrome (4) Hepatitis C: Code(s): B19.20 - Unspecified viral hepatitis C without hepatic coma Qualifiers: Viral hepatitis chronicity: acute Hepatic coma status: without hepatic coma Qualified Code(s): B17.10 - Acute hepatitis C without hepatic coma (5) GERD (gastroesophageal reflux disease): Code(s): K21.9 - Gastro-esophageal reflux disease without esophagitis Qualifiers: Esophagitis presence: esophagitis presence not specified Qualified Code(s): K21.9 - Gastro-esophageal reflux disease without esophagitis (6) Abdominal distension: Code(s): R14.0 - Abdominal distension (gaseous) (7) SOBOE (shortness of breath on exertion): Code(s): R06.02 - Shortness of breath Plan Hep B and hep a vaccine today. Patient will go for limited ultrasound to check for ascites. Patient is very distended, unable to distinguish if she has any fluids in her stomach. Abdomen hard. Patient will stop taking Senokot and will start taking Motegrity. Please do PA. patient will start Epclusa today. Patient reports shortness of breath with exertion, will order echocardiogram, BNP, CMP. Patient has bilateral lower extremity edema, hand edema. If kidney functions will be normal patient might need to be put on diuretic. Patient will be sent for chest x-ray. She will return in 2 weeks, sooner on as needed basis. Patient was encouraged to go to ER if her symptoms will get worse. Patient is agreeable to plan of care and verbalizes understanding of instructions. He was given the opportunity to ask questions all questions answered. Thank you for allowing me to participate in her care Orders: Orders US abdomen limited Today R79.89 - Other specified abnormal findings of blood chemistry B Type Natriuretic Peptide Today R60.9 - Edema, unspecified Comprehensive Met. Panel Today K21.9 - Gastro-esophageal reflux disease without esophagitis Prothrombin Time INR Today R74.8 - Abnormal levels of other serum enzymes CA echo transthoracic complete Today K74.60 - Unspecified cirrhosis of liver, R06.02 - Shortness of breath, R60.9 - Edema, unspecified Complete Blood Count no Diff Today K21.9 - Gastro-esophageal reflux disease without esophagitis Hepatitis A Adult Immunization Today Z23 - Encounter for immunization Hepatitis B Adult Immunization Today Z23 - Encounter for immunization Medications: New prucalopride (Motegrity) 2 mg PO DAILY 30 tabs 2RF K59.04 - Chronic idiopathic constipation Discontinued sennosides (Natural Senna Laxative) Discontinued Reason: Doctor's Order 17.2 mg (2 x 8.6 mg) PO BEDTIME 60 tabs 1RF constipation K59.00 - Constipation, unspecified Coding Level of Care Code Est Pt Level 5 (76306) Diagnoses Generalized edema R60.1 Edema type: generalized Cirrhosis of liver without ascites, unspecified hepatic cirrhosis type K74.60 Hepatic cirrhosis type: unspecified hepatic cirrhosis Ascites presence: without ascites Irritable bowel syndrome with both constipation and diarrhea K58.2 Irritable bowel syndrome type: with both diarrhea and constipation Acute hepatitis C virus infection without hepatic coma B17.10 Viral hepatitis chronicity: acute Hepatic coma status: without hepatic coma Gastroesophageal reflux disease, unspecified whether esophagitis present K21.9 Esophagitis presence: esophagitis presence not specified Abdominal distension R14.0 SOBOE (shortness of breath on exertion) R06.02 Time Spent (min) 45 Comment 25 minutes spent with patient and additional 20 minutes spent reviewing her records
[2023-05-14 09:08] VITALS: BP 130/74; PULSE 79; BMI 39.3
== END 2023-05-14 10:19 | disposition home or self-care (01) ==
PROVIDERS: PCP Family Medicine; Visit Provider Nurse Practitioner Family
DX: Z23 Encounter for immunization (principal); K21.9 Gastro-esophageal reflux disease without esophagitis; K74.60 Unspecified cirrhosis of liver; K58.2 Mixed irritable bowel syndrome; B17.10 Acute hepatitis C without hepatic coma; R06.02 Shortness of breath
CPT/HCPCS: 90472; 99215

== ENCOUNTER 2023-05-14 09:02 | Outpatient (REF) | payer OTHER, SELFPAY ==
[2023-05-14 11:54] LABS: INTERNATIONAL NORM RATIO 0.9 (0.9-1.1); Prothrombin Time 11.5 SEC (11.1-13.3)
[2023-05-14 11:59] LABS: Hematocrit 40.6 % (37.0-47.0); Mean Corpuscular HGB Conc 34.5 g/dl (31.0-35.0); Mean Corpuscular Hemoglobin 31.8 pg (27.0-33.0); Mean Corpuscular Volume 92.3 fL (80.0-98.0); Platelet Count 151 X10*3/uL (160-400); White Blood Count 4.8 X10*3/uL (4.8-10.8)
[2023-05-14 12:13] LABS: B Type Natriuretic Peptide 14 pg/mL (<100)
[2023-05-14 12:32] LABS: Alanine Aminotransferase 93 U/L (0-31); Albumin Level 3.9 g/dL (3.5-5.0); Alkaline Phosphatase 100 U/L (39-117); Anion Gap 12 (12-20); Aspartate Amino Transferase 77 U/L (5-31); Bilirubin Total 0.5 mg/dL (0.0-1.0); Blood Urea Nitrogen 7 mg/dL (9-16); Calcium 8.8 mg/dL (8.4-10.2); Carbon Dioxide 24 mmol/L (22-29); Chloride 102 mmol/L (96-108); Estimated Glomerular Filt Rate > 60; Glucose Random 129 mg/dL (60-115); Potassium 3.8 mmol/L (3.3-5.1); Sodium 134 mmol/L (135-145)
[2023-05-17 17:48] LABS: HCV Log PCR 5.64 Log IU/mL (NOT DETECTED); HepC Viral Load 438000 IU/mL (NOT DETECTED)
[2023-05-21 12:59] LABS: FIB-ALT 83 U/L (6-29); FIB-Alpha-2-Macroglobulin 293 mg/dL (106-279); FIB-Apolipoprotein A1 132 mg/dL (101-198); FIB-GGT 77 U/L (3-50); FIB-Haptoglobin 70 mg/dL (43-212); FIB-Total Bilirubin 0.4 mg/dL (0.2-1.2); Liver Fibrosis Score 0.42; Liver Fibrosis Stage F1-F2; Nec Inflam Act Grade A2; Nec Inflam Act Score 0.53
== END 2023-05-14 09:03 | disposition home or self-care (01) ==
LOC: HO.LAB 09:02
PROVIDERS: PCP Family Medicine; Visit Provider Nurse Practitioner Family
DX: R74.8 Abnormal levels of other serum enzymes (principal); R60.9 Edema, unspecified; K21.9 Gastro-esophageal reflux disease without esophagitis; R60.1 Generalized edema; K74.60 Unspecified cirrhosis of liver; K58.2 Mixed irritable bowel syndrome; B19.20 Unspecified viral hepatitis C without hepatic coma; B17.10 Acute hepatitis C without hepatic coma; R14.0 Abdominal distension (gaseous); R06.02 Shortness of breath; R79.89 Other specified abnormal findings of blood chemistry; Z23 Encounter for immunization; Z86.19 Personal history of other infectious and parasitic diseases
CPT/HCPCS: 36415; 80053; 81596; 83880; 85027; 85610; 87522; 90471; 90472; 90632; 90746; 99212

== ENCOUNTER 2023-05-15 12:10 | Outpatient (REF) | payer OTHER, SELFPAY ==
--- NOTE | ~2023-05-15 | XR_ITS ---
EXAMINATION: XR CHEST CLINICAL INFORMATION: Shortness of breath COMPARISON: None available. TECHNIQUE: 2 views of the chest were obtained. FINDINGS: No significant abnormality is noted involving the heart, lungs, mediastinum, bony thorax or soft tissues. XR/XR chest 2V IMPRESSION: Unremarkable examination.
--- NOTE | ~2023-05-15 | US_ITS ---
EXAMINATION: US ABDOMEN LIMITED CLINICAL INFORMATION: Abnormal findings of blood chemistry, check for ascites. COMPARISON: None available. TECHNIQUE: Real-time imaging of the of the 4 quadrants of the abdomen, the epigastric region in the midline pelvis FINDINGS: Ultrasound of the right upper quadrant, left upper quadrant, right lower quadrant and left lower quadrant as well as the epigastric region and the midline pelvis demonstrate no evidence of ascites. US/US abdomen limited IMPRESSION: No ascites is seen.
== END 2023-05-15 12:11 | disposition home or self-care (01) ==
LOC: HO.US 12:10
PROVIDERS: PCP Family Medicine; Visit Provider Nurse Practitioner Family
DX: R79.89 Other specified abnormal findings of blood chemistry (principal); R06.02 Shortness of breath
CPT/HCPCS: 71046; 76705

== ENCOUNTER → 2023-05-15 13:53 | Outpatient (REF) | payer OTHER, SELFPAY ==
--- NOTE | 2023-05-15 13:58 | CA_ITS ---
Transthoracic Echocardiogram Patient (Last, First, Middle): Meena Blunt L Gender: Female Date of : 1985 Age: 37 Procedure Date: 05/15/2023 Procedure Type: Transthoracic Echocardiogram Location: OP Height: 160.02 cm Weight: 100.7 kg BSA: 2.02 m2 Heart Rate: bpm BP: 120 / 76 mmHg School Guard: TO Referring MD: Keesha Hernandez [facility]- Document Management Consultant: Florentino Singh MD Symptoms: R60.9 - Edema, unspecified Study Quality: Fair ECG Rhythm: Sinus Conclusions: - Normal study Findings Left Ventricle Normal left ventricular size, thickness, and systolic function. The visually estimated ejection fraction is between 60-65%. Diastolic function is normal for age.Peak GLS is -21.7%, within normal limits. Right Ventricle Normal right ventricular cavity size and systolic function. Atria Both atria are normal in size. There is no evidence of interatrial shunt. Aortic Valve Normal aortic valve structure and function. There is no aortic valve stenosis. There is no aortic valve regurgitation. Mitral Valve Normal mitral valve structure and function. There is trace mitral valve regurgitation. There is no mitral valve stenosis. Pulmonic Valve The pulmonic valve is likely normal. There is trace pulmonic valve regurgitation. Tricuspid Valve Normal tricuspid valve structure. Tricuspid regurgitation envelope is inadequate for calculation of right ventricular systolic pressure. Normal right atrial pressure. Great Vessels All visible segments of the aorta are normal in size. The pulmonary artery was not well visualized. Venous The inferior vena cava is normal in size and collapses greater than 50% with inspiration. Pericardium/Pleural There is no evidence of pericardial effusion. Prior Study Comparison No prior study available for comparison. Measurements 2D Linear Measurements IVSd: 1.07 0.6-0.9/0.6-1.0 cm LVIDd: 4.88 3.9-5.3/4.2-5.9 cm LVIDd Index: 2.42 2.4-3.2/2.2-3.1 cm/m2 LVIDs: 3.13 2.0-3.6 cm LVPWd: 0.92 0.7-1.1 cm LA Diam: 3.30 2.7-3.8/3.0-4.0 cm LAIDs Index: 1.63 1.5-2.3 cm/m2 LV Mass: 216.79 67-162/88-224 g LV Mass Index: 107.32 43-95/49-115 g/m2 LVOT Diam: 2.20 3.0+(-)1.3 cm 2D Systolic Function EF 4C: 56.20 >55% EF 2C: 61.10 >55% EF BiP: 60.70 >55% Mitral Valve MV Pk E: 0.86 MV PK A: 0.59 MV Decel Time: 257.00 E/A: 1.50 E'Lateral: 9.57 E'Medial: 6.85 E/E' Med: 12.60 E/E' Lat: 9.00 PHT: 75.00 MVA PHT: 2.93 Decel [place]: 3.37 Aortic Valve AoV Pk Rajinder: 1.08 AoV Mn Rajinder: 0.78 AoV VTI: 0.25 AoV Pk Grad: 5.00 Aov Mn Grad: 3.00 JULIANA Cont.VTI: 3.08 LVOT LVOT Pk Rajinder: 0.91 LVOT Mn Rajinder: 0.61 LVOT VTI: 0.21 LVOT Pk Grad: 3.00 LVOT Mn Grad: 2.00 LVOT Diam: 2.20 LVOT Area: 3.80 Diastolic Function MV Pk E: 0.86 MV Pk A: 0.59 E/A: 1.50 E'Medial: 6.85 E/E' Med: 12.60 E' Laterial: 9.57 E/E' Lat: 9.00 Right Ventricle TAPSE (mm): 24.00 TVS' Rajinder: 10.30 Tricuspid Valve RA Press: 3.00 Great Vessels Aorta Sinus of Valsalva: 3.11 2.0-3.5 cm Ao Asc: 3.20 2.1-3.4 cm Updated in Other Vendor System with Status of Final Florentino Singh MD electronically signed on 05/16/2023 2:58:43 PM with status of Final
== END ==
LOC: HO.CARD 13:53
PROVIDERS: PCP Family Medicine; Visit Provider Nurse Practitioner Family
DX: R06.02 Shortness of breath (principal); R60.9 Edema, unspecified; K74.60 Unspecified cirrhosis of liver
CPT/HCPCS: 93306; 93356

== ENCOUNTER → 2023-05-15 13:58 | Outpatient (BNV) | payer OTHER, SELFPAY | PROVIDERS: PCP Family Medicine; Visit Provider Internal Medicine Cardiovascular Disease | DX: R06.02 Shortness of breath (principal); R60.0 Localized edema | CPT/HCPCS: 93306 ==

== ENCOUNTER 2023-05-21 09:59 | Outpatient (AMB) | payer OTHER, SELFPAY ==
--- NOTE | 2023-05-21 10:07 | MHC.OFFVIS ---
Intake Vital Signs 05/21/23 10:10 Height 5 ft 3 in Weight 219 lb BMI 38.8 BP 151/70 H Blood Pressure Location Lt brachial Position Sitting Pulse 73 Intake Visit Reasons: 7 week folloq up Intake Note: Patient 7 weeks follow up for lab, X-Ray and CT scan results. Patient cc: Nauseas on and off, abdominal bloating, constipation and some swallowing problems. 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 Patient will go for limited ultrasound to check for ascites. Patient is very distended, unable to distinguish if she has any fluids in her stomach. Abdomen hard. Patient will stop taking Senokot and will start taking Motegrity. Please do PA. patient will start Epclusa today. Patient reports shortness of breath with exertion, will order echocardiogram, BNP, CMP. Patient has bilateral lower extremity edema, hand edema. If kidney functions will be normal patient might need to be put on diuretic. Patient will be sent for chest x-ray. She will return in 2 weeks, sooner on as needed basis. Patient was encouraged to go to ER if her symptoms will get worse. Patient is agreeable to plan of care and verbalizes understanding of instructions. He was given the opportunity to ask questions all questions answered. ? Thank you for allowing me to participate in her care Orders Orders US abdomen limited Today R79.89 B Type Natriuretic Peptide Today R60.9 Comprehensive Met. Panel Today K21.9 Prothrombin Time INR Today R74.8 CA echo transthoracic complete Today K74.60, R06.02, R60.9 Complete Blood Count no Diff Today K21.9 Hepatitis A Adult Immunization Today Z23 Hepatitis B Adult Immunization Today Z23 Medications New prucalopride (Motegrity) 2 mg PO DAILY 30 tabs 2RF K59.04 Discontinued sennosides (Natural Senna Laxative) Discontinued Reason: Doctor's Order 17.2 mg (2 x 8.6 mg) PO BEDTIME 60 tabs 1RF constipation K59.00 TODAY'S VISIT Patient is here today for follow-up and to discuss lab results, chest x-ray results and echocardiogram results. Patient reports that since she started taking Epclusa she has been feeling better. Patient reports that she is taking famotidine at bedtime and for the most part her symptoms of acid reflux are suppressed. Patient however reports to continue to be bloated and no BM for 2-3 days. Patient tried Motegrity and senna she continues to be constipated. Patient reports that she is changing her diet. Patient continues to take high dose of methadone daily. Patient reports that she is still smoking. Patient admits that she could drink more fluids daily. Patient denies any melena, hematochezia, unintentional weight loss or ribbon like stools. Patient denies any jaundice, abdominal pain or discomfort. Ultrasound results and echocardiogram results as well as blood work discussed with patient. Patient denies any nausea or vomiting [facility] Medical History (Updated 04/23/23 @ 16:42 by Keesha Hernandez, [facility]) IBS (irritable bowel syndrome) Left leg pain Hand dermatitis Chronic pancreatitis Substance abuse in remission Surgical History History of tubal ligation Family History Father Mental health disorder Mother High blood pressure High cholesterol Social History Housing: House Alcohol intake: never Patient Tobacco Use Status: Current everyday Tobacco user Cigarette Packs Per Day: 1 e-Cigarette/Vaping Use: Never Used service: No Current occupational status: employed 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 Cognitive needs: No Hearing needs: No Vision needs: No Review of Systems Const Denies weight gain and Denies weight loss ENT Reports no additional complaints, Denies dysphagia and Denies odynophagia Card Reports no additional complaints Resp Reports no additional complaints GI Denies abdominal pain, Denies belching, Denies melena, Reports bloating, Reports constipation, Denies dysphagia, Denies excessive flatus, Denies dyspepsia, Reports heartburn, Denies diarrhea, Denies loose stools, Denies nausea, Denies odynophagia and Denies vomiting Reports no additional complaints Musc Reports no additional complaints Neuro Reports no additional complaints Psych Reports no additional complaints Endo Reports no additional complaints Physical Exam Vital Signs: Last Vital Signs Pulse 73 05/21/23 10:10 BP 151/70 H 05/21/23 10:10 BMI result Body Mass Index 38.8 Const General: healthy appearing, no acute distress and well developed Nutritional Appearance: obese Orientation/consciousness: patient oriented x3 Resp Effort & Inspection: normal respiratory effort, able to speak in complete sentences, no tracheal deviation and symmetric chest movement Auscultation: clear to auscultation bilaterally Cardio Rate: regular rate GI Inspection: Yes normal to inspection, Yes distended and Yes obesity Palpation (GI): Soft to palpation, not firm, nontender and No hepatosplenomegaly present Auscultation: normal bowel sounds General: Yes no CVA tenderness Back/Spine/Pelvis Back: no CVA tenderness Skin General skin exam: elasticity normal, turgor normal and dry skin Neuro General: patient oriented x3 Psych Appearance: grossly normal Mental Status: mental status grossly normal Assessment & Plan Assessment & Plan (1) IBS (irritable bowel syndrome): Code(s): K58.9 - Irritable bowel syndrome without diarrhea Qualifiers: Irritable bowel syndrome type: with both diarrhea and constipation Qualified Code(s): K58.2 - Mixed irritable bowel syndrome (2) Hepatitis C: Code(s): B19.20 - Unspecified viral hepatitis C without hepatic coma Qualifiers: Viral hepatitis chronicity: acute Hepatic coma status: without hepatic coma Qualified Code(s): B17.10 - Acute hepatitis C without hepatic coma (3) GERD (gastroesophageal reflux disease): Code(s): K21.9 - Gastro-esophageal reflux disease without esophagitis Qualifiers: Esophagitis presence: esophagitis presence not specified Qualified Code(s): K21.9 - Gastro-esophageal reflux disease without esophagitis (4) Edema: Code(s): R60.9 - Edema, unspecified Qualifiers: Edema type: generalized Qualified Code(s): R60.1 - Generalized edema (5) Liver cirrhosis: Code(s): K74.60 - Unspecified cirrhosis of liver Qualifiers: Hepatic cirrhosis type: unspecified hepatic cirrhosis Ascites presence: without ascites Qualified Code(s): K74.60 - Unspecified cirrhosis of liver (6) Abdominal distension: Code(s): R14.0 - Abdominal distension (gaseous) (7) SOBOE (shortness of breath on exertion): Code(s): R06.02 - Shortness of breath Plan Patient will return in 4 weeks will recheck blood work in 3 weeks continue taking Epclusa. Continue taking famotidine at bedtime. Patient can start taking Linzess daily and Dulcolax in the evening. Patient was encouraged to increase fluid intake and activity to promote better bowel motility. Patient is agreeable to this plan and verbalizes understanding of instructions. She was given the opportunity to ask questions all questions answered. Thank you for allowing me to participate in her care Orders: Orders Liver Panel 3 Weeks R74.01 - Elevation of levels of liver transaminase levels Medications: New linaclotide (Linzess) 145 mcg PO DAILY 30 caps 2RF bisacodyl (Dulcolax (bisacodyl)) 10 mg (2 x 5 mg) PO BEDTIME 60 tabs 4RF Discontinued prucalopride (Motegrity) Discontinued Reason: Doctor's Order 2 mg PO DAILY 30 tabs 2RF K59.04 - Chronic idiopathic constipation On Hold omeprazole Hold Comment: Doctor's Order 40 mg PO DAILY 90 caps 3RF K21.9 - Gastro-esophageal reflux disease without esophagitis Coding Level of Care Code Est Pt Level 4 (58110) Diagnoses Irritable bowel syndrome with both constipation and diarrhea K58.2 Irritable bowel syndrome type: with both diarrhea and constipation Acute hepatitis C virus infection without hepatic coma B17.10 Viral hepatitis chronicity: acute Hepatic coma status: without hepatic coma Gastroesophageal reflux disease, unspecified whether esophagitis present K21.9 Esophagitis presence: esophagitis presence not specified Generalized edema R60.1 Edema type: generalized Cirrhosis of liver without ascites, unspecified hepatic cirrhosis type K74.60 Hepatic cirrhosis type: unspecified hepatic cirrhosis Ascites presence: without ascites Abdominal distension R14.0 SOBOE (shortness of breath on exertion) R06.02 Time Spent (min) 35 Comment 20 minutes spent with patient and additional 15 minutes spent reviewing her records
[2023-05-21 10:10] VITALS: BP 151/70; PULSE 73; BMI 38.8
== END 2023-05-21 10:55 | disposition home or self-care (01) ==
PROVIDERS: PCP Family Medicine; Visit Provider Nurse Practitioner Family
DX: K58.2 Mixed irritable bowel syndrome (principal); B17.10 Acute hepatitis C without hepatic coma; K21.9 Gastro-esophageal reflux disease without esophagitis; R60.1 Generalized edema; K74.60 Unspecified cirrhosis of liver; R14.0 Abdominal distension (gaseous); R06.02 Shortness of breath
CPT/HCPCS: 99214

== ENCOUNTER → 2023-05-21 09:59 | Outpatient (BNVA) | payer OTHER, SELFPAY | PROVIDERS: PCP Family Medicine; Visit Provider Nurse Practitioner Family | DX: K58.2 Mixed irritable bowel syndrome (principal); K21.9 Gastro-esophageal reflux disease without esophagitis; K74.60 Unspecified cirrhosis of liver; B17.10 Acute hepatitis C without hepatic coma; R60.1 Generalized edema; R14.0 Abdominal distension (gaseous); R06.02 Shortness of breath | CPT/HCPCS: 99212 ==

== ENCOUNTER 2023-05-27 10:11 | Outpatient (AMB) | payer OTHER, SELFPAY ==
--- NOTE | 2023-05-27 10:23 | A.OFFVIS_ITS ---
Intake Vital Signs 05/27/23 10:25 Height 5 ft 3 in Weight 217 lb BMI 38.4 BP 144/106 H Blood Pressure Location Lt brachial Position Sitting Pulse 83 Intake Visit Reasons: 2 week follow up Intake Note: Patient 2 weeks follow up fro Acid reflex Patient cc: acid reflex, weakness, and some swallowing problems. Patient needed a mail order. Crate Maker Required: No Accompanied by: Self / Same As Patient Allergies Seasonal Allergies Allergy (Verified 05/27/23 10:22) runny eyes, itchy skin, congestion HPI 2 week follow up HPI Details LAST VISIT: IBS (irritable bowel syndrome) Hepatitis C GERD (gastroesophageal reflux disease) Edema Liver cirrhosis Abdominal distension SOBOE (shortness of breath on exertion) Plan Patient will return in 4 weeks will recheck blood work in 3 weeks continue taking Epclusa. Continue taking famotidine at bedtime. Patient can start taking Linzess daily and Dulcolax in the evening. Patient was encouraged to increase fluid intake and activity to promote better bowel motility. Patient is agreeable to this plan and verbalizes understanding of instructions. She was given the opportunity to ask questions all questions answered. ? Thank you for allowing me to participate in her care Orders Orders Liver Panel 3 Weeks R74.01 Medications New linaclotide (Linzess) 145 mcg PO DAILY 30 caps 2RF bisacodyl (Dulcolax (bisacodyl)) 10 mg (2 x 5 mg) PO BEDTIME 60 tabs 4RF Discontinued prucalopride (Motegrity) Discontinued Reason: Doctor's Order 2 mg PO DAILY 30 tabs 2RF K59.04 On Hold omeprazole Hold Comment: Doctor's Order 40 mg PO DAILY 90 caps 3RF K21.9 TODAY'S VISIT Patient is here today for follow-up. Patient reports that she is using the bathroom more than usual. She is taking Linzess in the morning and Dulcolax tablets at bedtime. Patient reports that she is taking famotidine and it is working, however not as good as the omeprazole. Patient is taking Epclusa daily in the morning. Patient reports that she has not missed any doses. Patient denies any nausea or vomiting. Patient still reports occasional abdominal bloating. Has not been following low FODMAP diet strictly yet. Patient denies eating late at night. Patient denies any dysphagia or odynophagia. Denies any melena, hematochezia, unintentional weight loss or ribbon like stools. [facility] Medical History (Updated 04/23/23 @ 16:[address] [facility]) IBS (irritable bowel syndrome) Left leg pain Hand dermatitis Chronic pancreatitis Substance abuse in remission Surgical History History of tubal ligation Family History Father Mental health disorder Mother High blood pressure High cholesterol Social History Housing: House Alcohol intake: never Patient Tobacco Use Status: Current everyday Tobacco user Cigarette Packs Per Day: 1 e-Cigarette/Vaping Use: Never Used service: No Current occupational status: employed 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 Cognitive needs: No Hearing needs: No Vision needs: No Review of Systems Const Denies weight gain and Denies weight loss ENT Reports no additional complaints, Denies dysphagia and Denies odynophagia Card Reports no additional complaints Resp Reports no additional complaints GI Denies abdominal pain, Denies belching, Denies melena, Reports bloating, Denies dysphagia, Denies excessive flatus, Reports dyspepsia, Denies heartburn, Denies diarrhea, Reports loose stools, Denies nausea, Denies odynophagia and Denies vomiting Reports no additional complaints Musc Reports no additional complaints Neuro Reports no additional complaints Psych Reports no additional complaints Endo Reports no additional complaints Physical Exam Vital Signs: Last Vital Signs Pulse 83 05/27/23 10:25 BP 144/106 H 05/27/23 10:25 BMI result Body Mass Index 38.4 Const General: no acute distress and alert Nutritional Appearance: obese Orientation/consciousness: patient oriented x3 Resp Effort & Inspection: normal respiratory effort, able to speak in complete sentences, no tracheal deviation and symmetric chest movement Auscultation: clear to auscultation bilaterally Cardio Rate: regular rate GI Inspection: Yes normal to inspection, No distended and Yes obesity Palpation (GI): Soft to palpation, not firm, nontender and No hepatosplenomegaly present Auscultation: normal bowel sounds General: Yes no CVA tenderness Back/Spine/Pelvis Back: no CVA tenderness Skin General skin exam: elasticity normal, turgor normal and dry skin Neuro General: patient oriented x3 Psych Appearance: grossly normal Mental Status: mental status grossly normal Assessment & Plan Assessment & Plan (1) IBS (irritable bowel syndrome): Code(s): K58.9 - Irritable bowel syndrome without diarrhea Qualifiers: Irritable bowel syndrome type: with both diarrhea and constipation Qualified Code(s): K58.2 - Mixed irritable bowel syndrome (2) Hepatitis C: Code(s): B19.20 - Unspecified viral hepatitis C without hepatic coma Qualifiers: Viral hepatitis chronicity: acute Hepatic coma status: without hepatic coma Qualified Code(s): B17.10 - Acute hepatitis C without hepatic coma (3) GERD (gastroesophageal reflux disease): Code(s): K21.9 - Gastro-esophageal reflux disease without esophagitis Qualifiers: Esophagitis presence: esophagitis presence not specified Qualified Code(s): K21.9 - Gastro-esophageal reflux disease without esophagitis (4) Edema: Code(s): R60.9 - Edema, unspecified Qualifiers: Edema type: unspecified Qualified Code(s): R60.9 - Edema, unspecified (5) Liver cirrhosis: Code(s): K74.60 - Unspecified cirrhosis of liver Qualifiers: Hepatic cirrhosis type: other cirrhosis Qualified Code(s): K74.69 - Other cirrhosis of liver (6) Abdominal distension: Code(s): R14.0 - Abdominal distension (gaseous) Plan Patient will continue Linzess and will stop taking Dulcolax tablets. Patient was encouraged to drink plenty fluids. And increase activity to promote better bowel motility. Patient was encouraged to eat small meals and more often. Will return for labs in 2 weeks and in the office in 3 weeks. Continue taking Epclusa. Patient is agreeable to this plan and verbalizes understanding of instructions. She was given the opportunity to ask questions questions answered. Thank you for allowing me to participate in care Coding Level of Care Code Est Pt Level 3 (21199) Diagnoses Irritable bowel syndrome with both constipation and diarrhea K58.2 Irritable bowel syndrome type: with both diarrhea and constipation Acute hepatitis C virus infection without hepatic coma B17.10 Viral hepatitis chronicity: acute Hepatic coma status: without hepatic coma Gastroesophageal reflux disease, unspecified whether esophagitis present K21.9 Esophagitis presence: esophagitis presence not specified Edema, unspecified type R60.9 Edema type: unspecified Other cirrhosis of liver K74.69 Hepatic cirrhosis type: other cirrhosis Abdominal distension R14.0 Time Spent (min) 25 Comment 15 minutes spent with patient and additional 10 minutes spent reviewing her records
[2023-05-27 10:25] VITALS: BP 144/106; PULSE 83; BMI 38.4
== END 2023-05-27 10:41 | disposition home or self-care (01) ==
PROVIDERS: PCP Family Medicine; Visit Provider Nurse Practitioner Family
DX: K58.2 Mixed irritable bowel syndrome (principal); B17.10 Acute hepatitis C without hepatic coma; K21.9 Gastro-esophageal reflux disease without esophagitis; R60.9 Edema, unspecified; K74.69 Other cirrhosis of liver; R14.0 Abdominal distension (gaseous)
CPT/HCPCS: 99213

== ENCOUNTER → 2023-05-27 10:11 | Outpatient (BNVA) | payer OTHER, SELFPAY | PROVIDERS: PCP Family Medicine; Visit Provider Nurse Practitioner Family | DX: K58.2 Mixed irritable bowel syndrome (principal); B17.10 Acute hepatitis C without hepatic coma; K21.9 Gastro-esophageal reflux disease without esophagitis; K74.69 Other cirrhosis of liver; R60.9 Edema, unspecified; R14.0 Abdominal distension (gaseous) | CPT/HCPCS: 99212 ==

== ENCOUNTER 2023-05-28 14:49 | Outpatient (REF) | payer OTHER, SELFPAY | END 2023-05-28 14:50 | disposition home or self-care (01) | LOC: HO.US 14:49 | PROVIDERS: PCP Family Medicine; Visit Provider Nurse Practitioner Family | DX: Z13.89 Encounter for screening for other disorder (principal) ==

== ENCOUNTER 2023-06-18 11:12 | Outpatient (AMB) | payer OTHER, SELFPAY ==
[2023-06-18 11:35] VITALS: BP 140/82; PULSE 70; O2SAT 97; BMI 38.7
--- NOTE | 2023-06-18 11:35 | A.OFFPC_ITS ---
Vital Signs 06/18/23 11:35 Height 5 ft 3 in Weight 218 lb 8 oz BMI 38.7 BP 140/82 H Blood Pressure Location Lt brachial Position Sitting Pulse 70 Pulse Source Pulse Oximeter Pulse Oximetry (%) 97 Oxygen Delivery Method Room Air Intake Visit Reasons: f/u chronic conditions Intake Note: Patient is here to follow up on chronic conditions. Allergies Seasonal Allergies Allergy (Verified 06/18/23 11:36) runny eyes, itchy skin, congestion Tobacco use date assessed: 06/18/23 Dental Screening Dental Screen Date: 06/18/23 Did you have a dental visit in the last 12 months?: No Did you have a dental problem in the last 6 months where you did not have access to dental care?: No Was dental information given to patient?: Yes HPI f/u chronic conditions HPI Details 37 y/o female presents to f/u chronic co nditions. EKG had shown possible anterolateral ischemia. Referred to Cardiology. Had been following up with GI for IBS and hepatitis C. Blood pressure today elevated at 140/82. She denies any chest pain today. She has an upcoming appt. with Cardiology. Pt reports she feels especially anxious today - IVA-7 scoring of 21. Her mother has had surgery for triple A recently. She has a new therapist. 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 1. Little interest or pleasure in doing things: not at all 2. Feeling down, depressed, or hopeless: not at all 3. Trouble falling or staying asleep, or sleeping too much: not at all 4. Feeling tired or having little energy: not at all 5. Poor appetite or overeating: not at all 6. Feeling bad about yourself - or that you are a failure or have let yourself or your family down: not at all 7. Trouble concentrating on things, such as reading the newspaper or watching television: not at all 8. Moving or speaking so slowly that other people could have noticed. Or the opposite - being so fidgety or restless that you have been moving around a lot more than usual: not at all 9. Thoughts that you would be better off or of hurting yourself in some way: not at all Total score: 0 Depression Screening Interpretation: Negative Depression Screening Done: Yes [id number] - PHQ-9 Billing: Yes Source: Developed by Drs. Erik Allred, Mary Villela, Sriram Parson and colleagues, with an educational elizabeth from [employer]. Thrive Questionnaire Date Thrive assessed: 06/18/23 I am a: Patient What is your living situation today?: I have a steady place to live Within the past 12 months, did the food you bought not last and you didn't have the money to get more?: Never true Within the past 12 months, did you worry whether your food would run out before you got money to buy more?: Never true Do you have trouble paying for medicines?: No Do you have trouble getting transportation to medical appointments?: Yes Do you have trouble paying your heating and electricity bill?: No Do you have trouble taking care of your child, family member or friend?: No Do you have trouble with day-to-day activities such as bathing, preparing meals, shopping, managing finances, etc.?: No Are you currently unemployed and looking for a job?: Yes Are you interested in more education?: No THRIVE Score: 1 AUDIT C Alcohol Use Questionnaire (AUDIT-C) 1. How often do you have a drink containing alcohol?: Never 3. How often do you have six or more drinks on one occasion?: Never Total Score: 0 IVA-7 AMB Questionnaire IVA-7 Date IVA - 7 assessed: 06/18/23 Feeling nervous, anxious, or on edge: 3 = Nearly every day Not being able to stop or control worryin = Nearly every day Worrying too much about different things: 3 = Nearly every day Trouble relaxin = Nearly every day Being so restless that it is hard to sit still: 3 = Nearly every day Becoming easily annoyed or irritable: 3 = Nearly every day Feeling afraid as if something awful might happen: 3 = Nearly every day Total IVA-7 score (0-4 normal; 5-9 mild; 10-14 moderate; 15-21 severe): 21 Source: Developed by Drs. Erik Allred, Mary Villela, Sriram Parson and colleagues, with an educational elizabeth from [employer]. IVA-7 Assessment Billing IVA-7 Assessment Tool: IVA-7 Assessment 54071 Review of Systems Const Denies chills, Denies fatigue, Denies fever(s), Denies headache(s) and Denies weakness ENT Denies dizziness and Denies headache(s) Card Denies chest pain and Denies dyspnea Resp Denies cough, Denies dyspnea, Denies wheezing and Denies other (shortness of breath) Musc Denies numbness and Denies tingling Neuro Denies dizziness, Denies headache(s), Denies numbness, Denies tingling and Denies weakness Psych Reports anxiety Endo Denies fatigue Aller/Immun Denies wheezing Physical exam (Primary Care) Vital Signs: Last Vital Signs Pulse 70 06/18/23 11:35 BP 140/82 H 06/18/23 11:35 Pulse Ox 97 06/18/23 11:35 Oxygen Delivery Method Room Air 06/18/23 11:35 BMI result Body Mass Index 38.7 Tobacco/Smoking Status: Tobacco use Status Tobacco use date assessed 06/18/23 06/18/23 11:37 Patient Tobacco Use Status Current everyday Tobacco 06/18/23 11:37 e-Cigarette/Vaping Use Never Used 06/18/23 11:37 PHQ-9: PHQ-9 Score PHQ-9: Total score 0 06/18/23 12:26 Depression Screening Interpretation: Negative Thrive Assessment: Date of Thrive Assessment Date Thrive assessed 06/18/23 06/18/23 11:50 Const General: well developed; No acute distress Nutritional Appearance: well nourished Orientation/consciousness: patient oriented x3 HENMT Head: Yes normocephalic and Yes atraumatic Eyes General: appearance normal, both eyes and all related structures Pupils: Equal, round and reactive pupils present EOM: EOMs intact bilaterally Resp Effort & Inspection: normal respiratory effort Auscultation: clear to auscultation bilaterally Cardio Rate: regular rate Rhythm: regular rhythm Heart sounds: S1 normal heart sound present, S2 normal heart sound present, no gallops, no murmurs and no rubs Neuro General: patient oriented x3 and gait normal Cranial nerves: Yes Equal, round and reactive pupils present Psych Affect: normal affect Assessment and Plan Assessment & Plan (1) Hypertension: Code(s): I10 - Essential (primary) hypertension Plan: Blood?pressure?remains?high. Start?lisinopril.??Goal?is?less?than?140/90. Will?follow-up?in?a?month (2) Anxiety and depression: Code(s): F41.9 - Anxiety disorder, unspecified; F32.9 - Major depressive disorder, single episode, unspecified Plan: Anxiety?acutely?increased?as?her?mom?has?had?surgery?for?AAA?recently She?has?a?new?therapist?and?encouraged?her?to?follow-up Does?not?currently?have?a?provider?so?I?will?refill?her?Seroquel?for?her?as?requ ested (3) Abnormal EKG: Code(s): R94.31 - Abnormal electrocardiogram [ECG] [EKG] Plan: Abnormal?EKG?and?she?has?an?upcoming?appointment?with?cardiology. Denied?chest?pain?today (4) Hepatitis C: Code(s): B19.20 - Unspecified viral hepatitis C without hepatic coma Qualifiers: Hepatic coma status: without hepatic coma Viral hepatitis chronicity: acute Qualified Code(s): B17.10 - Acute hepatitis C without hepatic coma Plan: Undergoing?treatment?with?gastroenterology Stable?on?medications Continue?to?follow-up?with?GI?as?recommended Medications: New lisinopril 20 mg PO DAILY 30 tabs 1RF 30 days Changed From gabapentin 600 mg PO TID To gabapentin 600 mg PO TID 30 days 90 tabs 0RF From quetiapine (Seroquel) 300 mg PO BEDTIME To quetiapine (Seroquel) 300 mg PO BEDTIME 30 days 30 tabs 0RF Coding Level of Care Code Est Pt Level 3 (45632) Diagnoses Hypertension I10 Anxiety and depression F41.9; F32.9 Abnormal EKG R94.31 Acute hepatitis C virus infection without hepatic coma B17.10 Hepatic coma status: without hepatic coma Viral hepatitis chronicity: acute Additional Codes IVA-7 Assessment Billing - IVA-7 Assessment Tool: IVA-7 Assessment 55431 ([id number])
== END 2023-06-18 12:38 | disposition home or self-care (01) ==
PROVIDERS: PCP Family Medicine; Visit Provider Family Medicine
DX: I10 Essential (primary) hypertension (principal); F41.9 Anxiety disorder, unspecified; F32.9 Major depressive disorder, single episode, unspecified; R94.31 Abnormal electrocardiogram [ECG] [EKG]; B17.10 Acute hepatitis C without hepatic coma
CPT/HCPCS: 99213

== ENCOUNTER 2023-07-07 11:04 | Outpatient (REF) | payer OTHER, SELFPAY ==
[2023-07-07 12:07] LABS: Appearance Urine Cloudy; Color Urine Yellow; Glucose Urine UA Negative (Negative); Leukocyte Esterase Urine Moderate (2+) (Negative); Nitrite Urine Negative (Negative); UMIC TRIGGER UA YES; Urine Blood Negative (Negative); Urine Ketones Negative (Negative); Urine Protein Negative (Neg-Trace)
[2023-07-07 12:10] LABS: Bacteria Urine Trace (None Seen); Hyaline Casts Urine 0-2 /LPF (0-2); RBC Urine 0-2 /HPF (0-2)
[2023-07-07 13:26] LABS: Alanine Aminotransferase 22 U/L (0-31); Albumin Level 4.1 g/dL (3.5-5.0); Alkaline Phosphatase 92 U/L (39-117); Aspartate Amino Transferase 22 U/L (5-31); Bilirubin Direct 0.2 mg/dL (0.0-0.5); Bilirubin Total 0.6 mg/dL (0.0-1.0)
== END 2023-07-07 11:05 | disposition home or self-care (01) ==
LOC: HO.LAB 11:04
PROVIDERS: Nurse Practitioner Family; PCP Family Medicine; Visit Provider Family Medicine
DX: R74.01 Elevation of levels of liver transaminase levels (principal)
CPT/HCPCS: 36415; 80076; 81001; 81003

== ENCOUNTER 2023-07-08 10:47 | Outpatient (AMB) | payer OTHER, SELFPAY ==
--- NOTE | 2023-07-08 10:49 | MHC.OFFVIS ---
Intake Vital Signs 07/08/23 10:50 Height 5 ft 3 in Weight 220 lb 7.396 oz BMI 39.0 BP 117/83 Blood Pressure Location Lt brachial Position Sitting Pulse 91 Intake Visit Reasons: 4 week follow up Intake Note: Meena returns to in office 4 weeks follow up of IBS. CC: Patient c/o acid reflux and waking up crying from the burning. Patient c/o constipation and no BM for 2 weeks. 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 Patient was encouraged to drink plenty fluids. And increase activity to promote better bowel motility. Patient was encouraged to eat small meals and more often. Will return for labs in 2 weeks and in the office in 3 weeks. Continue taking Epclusa. Patient is agreeable to this plan and verbalizes understanding of instructions. She was given the opportunity to ask questions questions answered. TODAY'S VISIT Patient is here today for follow-up. Patient continues to take Epclusa daily and reports that she has been feeling better. However patient does suffers from constipation. Has not taken Linzess 2 capsules in the morning as recommended couple weeks ago. Patient has not gone to the bathroom only small bowel movements. Patient states that she feels bloated. Patient denies abdominal pain or discomfort. Reports dyspepsia. Never received sucralfate only taking famotidine at bedtime. Patient wakes up in the morning feeling nauseous, denies vomiting. Reports dyspepsia without dysphagia or odynophagia. Patient denies any melena or hematochezia. Patient reports that she has 3 or 4 weeks left of treatment. Her liver enzymes are normal AST 22 and ALT 22. Patient states that she feels much better. No longer feels like she has a brain fog and denies shortness of breath. Now that she is constipated she feels bloated and pressure against the diaphragm, however couple weeks ago she felt well enough to be walking a lot. Patient is determined to lose weight as soon as she is able to move her bowels daily like she was before. Patient admits that Dulcolax in addition to Linzess was helping her. Even though they were discontinued patient finish the rest of her script. Patient is asking for refill ? [facility] Medical History (Updated 07/08/23 @ 11:54 by Keesha Hernandez [facility]) Chronic idiopathic constipation IBS (irritable bowel syndrome) Left leg pain Hand dermatitis Chronic pancreatitis Substance abuse in remission Surgical History History of tubal ligation Family History Father Mental health disorder Mother High blood pressure High cholesterol Social History Housing: House Alcohol intake: never Patient Tobacco Use Status: Current everyday Tobacco user Cigarette Packs Per Day: 1 e-Cigarette/Vaping Use: Never Used service: No Current occupational status: employed 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 Cognitive needs: No Hearing needs: No Vision needs: No Review of Systems Const Denies weight gain and Denies weight loss ENT Reports no additional complaints and Denies odynophagia Card Reports no additional complaints Resp Reports no additional complaints GI Denies abdominal pain, Denies belching, Denies melena, Reports bloating, Denies change in bowel habits, Reports constipation, Denies excessive flatus, Denies dyspepsia, Reports heartburn, Denies diarrhea, Denies loose stools, Denies nausea, Denies odynophagia and Denies vomiting Reports no additional complaints Musc Reports no additional complaints Neuro Reports no additional complaints Psych Reports no additional complaints Endo Reports no additional complaints Physical Exam Vital Signs: Last Vital Signs Pulse 91 07/08/23 10:50 BP 117/83 07/08/23 10:50 BMI result Body Mass Index 39.0 Const General: no acute distress Nutritional Appearance: well nourished and obese Orientation/consciousness: patient oriented x3 Resp Effort & Inspection: normal respiratory effort, able to speak in complete sentences, no tracheal deviation and symmetric chest movement Auscultation: clear to auscultation bilaterally Cardio Rate: regular rate GI Inspection: Yes normal to inspection, No distended and Yes obesity Palpation (GI): Soft to palpation, not firm, nontender and No hepatosplenomegaly present Auscultation: normal bowel sounds General: Yes no CVA tenderness Back/Spine/Pelvis Back: no CVA tenderness Skin General skin exam: elasticity normal, turgor normal and dry skin Neuro General: patient oriented x3 Psych Appearance: grossly normal Mental Status: mental status grossly normal Assessment & Plan Assessment & Plan (1) IBS (irritable bowel syndrome): Code(s): K58.9 - Irritable bowel syndrome without diarrhea Qualifiers: Irritable bowel syndrome type: with both diarrhea and constipation Qualified Code(s): K58.2 - Mixed irritable bowel syndrome (2) Hepatitis C: Code(s): B19.20 - Unspecified viral hepatitis C without hepatic coma Qualifiers: Viral hepatitis chronicity: acute Hepatic coma status: without hepatic coma Qualified Code(s): B17.10 - Acute hepatitis C without hepatic coma (3) GERD (gastroesophageal reflux disease): Code(s): K21.9 - Gastro-esophageal reflux disease without esophagitis Qualifiers: Esophagitis presence: esophagitis presence not specified Qualified Code(s): K21.9 - Gastro-esophageal reflux disease without esophagitis (4) Edema: Code(s): R60.9 - Edema, unspecified (5) Liver cirrhosis: Code(s): K74.60 - Unspecified cirrhosis of liver Qualifiers: Hepatic cirrhosis type: other cirrhosis Qualified Code(s): K74.69 - Other cirrhosis of liver (6) Abdominal distension: Code(s): R14.0 - Abdominal distension (gaseous) (7) Chronic idiopathic constipation: Code(s): K59.04 - Chronic idiopathic constipation Plan Continue Epclusa. Patient will start taking famotidine in the morning and sucralfate at bedtime. We will increase dose of Linzess to 290 mcg. Patient will take milk of magnesia when she gets home and to Dulcolax tablets. We can add Dulcolax tablets to her regimen. She will return in 4 weeks. Nurse will call patient for hep B vaccine. Patient will call the office if she will have any GI concerning symptoms. She is agreeable to plan of care and verbalizes understanding of instructions. She was given the opportunity to ask questions and all questions answered. Thank you for allowing me to participate in her care Medications: New bisacodyl 10 mg (2 x 5 mg) PO BEDTIME 180 tabs 3RF magnesium hydroxide (Milk of Magnesia) 10 mL PO DAILY PRN 355 mL 0RF constipation Refilled sucralfate 1 g PO BEDTIME 30 tabs 1RF R19.7 - Diarrhea, unspecified Discontinued linaclotide (Linzess) Discontinued Reason: Doctor's Order 145 mcg PO DAILY 30 caps 2RF Coding Level of Care Code Est Pt Level 4 (52644) Diagnoses Irritable bowel syndrome with both constipation and diarrhea K58.2 Irritable bowel syndrome type: with both diarrhea and constipation Acute hepatitis C virus infection without hepatic coma B17.10 Viral hepatitis chronicity: acute Hepatic coma status: without hepatic coma Gastroesophageal reflux disease, unspecified whether esophagitis present K21.9 Esophagitis presence: esophagitis presence not specified Edema R60.9 Other cirrhosis of liver K74.69 Hepatic cirrhosis type: other cirrhosis Abdominal distension R14.0 Chronic idiopathic constipation K59.04 Time Spent (min) 35 Comment 20 minutes spent with patient and additional 15 minutes spent reviewing her records
[2023-07-08 10:50] VITALS: BP 117/83; PULSE 91; BMI 39.0
== END 2023-07-08 11:27 | disposition home or self-care (01) ==
PROVIDERS: PCP Family Medicine; Visit Provider Nurse Practitioner Family
DX: K58.2 Mixed irritable bowel syndrome (principal); B17.10 Acute hepatitis C without hepatic coma; K21.9 Gastro-esophageal reflux disease without esophagitis; R60.9 Edema, unspecified; K74.69 Other cirrhosis of liver; R14.0 Abdominal distension (gaseous); K59.04 Chronic idiopathic constipation
CPT/HCPCS: 99214

== ENCOUNTER → 2023-07-08 10:47 | Outpatient (BNVA) | payer OTHER, SELFPAY | PROVIDERS: PCP Family Medicine; Visit Provider Nurse Practitioner Family | DX: K58.2 Mixed irritable bowel syndrome (principal); K21.9 Gastro-esophageal reflux disease without esophagitis; K74.69 Other cirrhosis of liver; K59.04 Chronic idiopathic constipation; B17.10 Acute hepatitis C without hepatic coma; R60.9 Edema, unspecified; R14.0 Abdominal distension (gaseous) | CPT/HCPCS: 99212 ==

== ENCOUNTER 2023-07-15 10:52 | Outpatient (AMB) | payer OTHER, SELFPAY ==
--- NOTE | 2023-07-15 10:55 | MHC.OFFVIS ---
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 Required: No Accompanied by: Self / Same As Patient Allergies No Known Drug Allergies Allergy (Unknown, Verified 07/15/23 10:58) none Seasonal Allergies Allergy (Verified 07/15/23 10:58) runny eyes, itchy skin, congestion Medication List - Last Reconciled 07/15/23 by Fabian Slater MD betamethasone valerate 0.1% 1 appl topical DAILY PRN 30 days bisacodyl 10 mg (2 x 5 mg) PO BEDTIME clonazepam (Klonopin) 0.25 mg PO BID famotidine (Pepcid) 20 mg PO BEDTIME gabapentin 600 mg PO TID 30 days lamotrigine 50 mg PO DAILY lisinopril 20 mg PO DAILY 30 days magnesium hydroxide (Milk of Magnesia) 10 mL PO DAILY PRN methadone 130 mg PO DAILY methylcellulose (laxative) (Citrucel) 500 mg PO DAILY omeprazole 40 mg PO DAILY paroxetine HCl 40 mg PO DAILY quetiapine (Seroquel) 50 mg PO DAILY PRN quetiapine (Seroquel) 300 mg PO BEDTIME 30 days sofosbuvir-velpatasvir 400-100 mg (Epclusa) 1 tab PO DAILY 12 weeks sucralfate 1 g PO BEDTIME topiramate 50 mg PO DAILY 30 days trazodone 100 mg PO BEDTIME PRN HPI HPI Comments History of Present Illness Details Meena is here for consultation regarding an abnormal EKG. A recent EKG from March had shown anterolateral ST-T changes in that led to this visit. Patient herself does not have any prior history of coronary disease myocardial infarction. She states she was diagnosed with infective endocarditis several years ago. She has a history of substance abuse and was doing various drugs including cocaine extra. However, nothing in the last 4 years or so. She is on methadone. She gets an odd sensation in the left chest somewhat randomly. She feels as though it might be fluttering. When I questioned her regarding chest pains, she is somewhat vague about. Nothing clear-cut angina sounding. 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 Cognitive needs: No Hearing needs: No Vision needs: No Review of Systems Const Denies chills, Denies daytime sleepiness, Denies fatigue, Denies fever(s), Denies frequent falls, Denies night sweats, Denies snoring, Denies weakness, Denies weight gain and Denies weight loss Eyes Denies loss of vision ENT Denies dizziness and Denies hearing loss Card Denies chest pain with activity, Denies syncope, Denies rapid heart rate, Denies edema, Denies claudication, Denies leg edema, Denies lightheadedness, Denies dyspnea, Denies dyspnea on exertion and Denies orthopnea Resp Denies cough, Denies excessive phlegm production, Denies dyspnea, Denies dyspnea on exertion, Denies snoring and Denies wheezing GI Denies abdominal pain, Denies hematochezia, Denies change in bowel habits, Denies change in stool character, Denies heartburn, Denies nausea and Denies vomiting Denies hematuria, Denies urinary frequency and Denies dysuria Musc Denies arthralgias, Denies muscle weakness, Denies numbness and Denies tingling Skin/Breast Denies nail changes and Denies rash Neuro Denies Abnormal speech present, Denies dizziness, Denies syncope, Denies frequent falls, Denies loss of vision, Denies memory loss, Denies numbness, Denies tingling and Denies weakness Psych Denies depression and Denies memory loss Endo Denies fatigue Aller/Immun Denies wheezing Physical Exam Vital Signs: Last Vital Signs Pulse 71 04/02/24 10:57 BP 122/78 07/15/23 10:57 BMI result Body Mass Index 38.3 Const General: comfortable and no acute distress Orientation/consciousness: patient oriented x3 HEENT Other: Unremarkable Head: Yes normal to inspection Neck Neck: Yes normal visual inspection Chest Chest palpation & inspection: normal inspection of the chest Resp Auscultation: clear to auscultation bilaterally Cardio Palpation: normal PMI Heart sounds: S1 normal heart sound present, S2 normal heart sound present, no gallops, no murmurs and no rubs GI Palpation (GI): Soft to palpation Back/Spine/Pelvis Other: unremarkable Skin General skin exam: no rashes or lesions noted Neuro General: patient oriented x3 Speech: No Abnormal speech present Extrem General: Yes normal to inspection Psych Mental Status: mental status grossly normal Assessment & Plan Assessment & Plan (1) Abnormal EKG: Code(s): R94.31 - Abnormal electrocardiogram [ECG] [EKG] Plan Recent EKG shows sinus bradycardia at 56/Min with downsloping STs in the anterolateral leads. Possible left atrial enlargement. Echocardiogram with LVEF of 60-65%. Normal peak global longitudinal strain. Otherwise unremarkable. Clinically, no overt anginal sounding symptoms although she describes some vague sensations in the left chest. As mentioned above, history of substance abuse, but nothing recent. Chronic smoker. Hence thre is risk of coronary disease. Will plan to get coronary CTA for further evaluation. Patient agreeable. Orders: Orders CT Cardiac Coronary Angio Today I25.10 - Atherosclerotic heart disease of [place] coronary artery without angina pectoris Basic Metabolic Panel Today R07.2 - Precordial pain Coding Level of Care Code New Pt Level 3 (23798) Diagnoses Abnormal EKG R94.31
[2023-07-15 10:57] VITALS: BP 122/78; PULSE 71; BMI 38.3
== END 2023-07-15 11:29 | disposition home or self-care (01) ==
PROVIDERS: PCP Family Medicine; Visit Provider Internal Medicine
DX: R94.31 Abnormal electrocardiogram [ECG] [EKG] (principal); R00.1 Bradycardia, unspecified
CPT/HCPCS: 99213

== ENCOUNTER → 2023-07-15 10:52 | Outpatient (BNVA) | payer OTHER, SELFPAY | PROVIDERS: PCP Family Medicine; Visit Provider Internal Medicine | DX: R94.31 Abnormal electrocardiogram [ECG] [EKG] (principal) | CPT/HCPCS: 99212 ==

== ENCOUNTER 2023-07-23 10:17 | Outpatient (AMB) | payer OTHER, SELFPAY ==
[2023-07-23 10:24] VITALS: BP 119/62; PULSE 78; O2SAT 96; BMI 38.8
--- NOTE | 2023-07-23 10:24 | MHC.PC.OV ---
Vital Signs 07/23/23 10:24 Height 5 ft 3 in Weight 219 lb BMI 38.8 BP 119/62 Blood Pressure Location Lt brachial Position Sitting Pulse 78 Pulse Source Pulse Oximeter Pulse Oximetry (%) 96 Oxygen Delivery Method Room Air Intake Visit Reasons: f/u hypertension Intake Note: Patient is here to follow up on hypertension. Patient is requesting refills of Seroquil, Gabapentin, Paxil today. Allergies No Known Drug Allergies Allergy (Unknown, Verified 07/23/23 10:27) none Seasonal Allergies Allergy (Verified 07/23/23 10:27) runny eyes, itchy skin, congestion Tobacco use date assessed: 07/23/23 Dental Screening Dental Screen Date: 06/18/23 HPI f/u hypertension HPI Details 37 y/o female presents to f/u hypertension. Blood pressure today 119/62. She is on lisinopril 20mg daily. Had seen Dr. Slater, Cardiology 07/15/23 for abnormal EKG - possible L atrial enlargement. Echocardiogram LVEF 60-65% with normal peak global ongitudinal strain, otherwise unremarkable. Planned to get coronary CTA for further evaluation. She notes she f/u with her psychiatrist for her anxiety/depression meds. HPI Comments History of Present Illness Details Documentation assistance for Aakash Navarro MD, was provided by Merritt Langford, Cat Cracker Operator on 07/23/2023 11:29 AM SONDRA. Cresencio, Dr. Navarro, have read, observed, and verified documentation. [facility] Medical History (Updated 07/14/23 @ 13:33 by Noreen Bah CNP) Chronic idiopathic constipation IBS (irritable bowel syndrome) Left leg pain Hand dermatitis Chronic pancreatitis Substance abuse in remission Surgical History History of tubal ligation Family History Father Mental health disorder Mother High blood pressure High cholesterol Social History Housing: House Alcohol intake: never Patient Tobacco Use Status: Current everyday Tobacco user Cigarette Packs Per Day: 1 Cigarettes Per Day: 6 e-Cigarette/Vaping Use: Never Used service: No Current occupational status: employed 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 Erik Allred, Mary Villela, Sriram Parson and colleagues, with an educational elizabeth from [employer]. Review of Systems Const Denies chills, Denies fatigue, Denies fever(s), Denies headache(s) and Denies weakness ENT Denies dizziness and Denies headache(s) Card Denies dyspnea Resp Denies cough, Denies dyspnea, Denies wheezing and Denies other (shortness of breath) Musc Denies numbness and Denies tingling Neuro Denies dizziness, Denies headache(s), Denies numbness, Denies tingling and Denies weakness Psych Denies anxiety and Denies depression Endo Denies fatigue Aller/Immun Denies wheezing Physical exam (Primary Care) Vital Signs: Last Vital Signs Pulse 78 07/23/23 10:24 BP 119/62 07/23/23 10:24 Pulse Ox 96 07/23/23 10:24 Oxygen Delivery Method Room Air 07/23/23 10:24 BMI result Body Mass Index 38.8 Tobacco/Smoking Status: Tobacco use Status Tobacco use date assessed 07/23/23 07/23/23 10:32 Patient Tobacco Use Status Current everyday Tobacco 07/23/23 10:32 e-Cigarette/Vaping Use Never Used 07/23/23 10:32 Thrive Assessment: Date of Thrive Assessment Date Thrive assessed 06/18/23 07/23/23 10:32 Const General: well developed; No acute distress Nutritional Appearance: well nourished and obese Orientation/consciousness: patient oriented x3 HENMT Head: Yes normocephalic and Yes atraumatic Eyes General: appearance normal, both eyes and all related structures Pupils: Equal, round and reactive pupils present EOM: EOMs intact bilaterally Resp Effort & Inspection: normal respiratory effort Auscultation: clear to auscultation bilaterally Cardio Rate: regular rate Rhythm: regular rhythm Heart sounds: S1 normal heart sound present, S2 normal heart sound present, no gallops, no murmurs and no rubs Neuro General: patient oriented x3 and gait normal Cranial nerves: Yes Equal, round and reactive pupils present Psych Affect: normal affect Assessment and Plan Assessment & Plan (1) Hypertension: Code(s): I10 - Essential (primary) hypertension Plan: Blood?pressure?is?controlled.??Goal?is?less?than?140/90 Continue?lisinopril Has?pending?workup?with?Cardiology (2) Abnormal EKG: Code(s): R94.31 - Abnormal electrocardiogram [ECG] [EKG] Plan: Has?pending?workup?with?Cardiology?and?upcoming?angiogram Medications: Changed From paroxetine HCl 40 mg PO DAILY To paroxetine HCl 40 mg PO DAILY 30 days 30 tabs 1RF Refilled gabapentin 600 mg PO TID 30 days 90 tabs 0RF quetiapine (Seroquel) 300 mg PO BEDTIME 30 days 30 tabs 0RF Coding Level of Care Code Est Pt Level 3 (70174) Diagnoses Hypertension I10 Abnormal EKG R94.31
== END 2023-07-23 11:34 | disposition home or self-care (01) ==
PROVIDERS: PCP Family Medicine; Visit Provider Family Medicine
DX: I10 Essential (primary) hypertension (principal); R94.31 Abnormal electrocardiogram [ECG] [EKG]
CPT/HCPCS: 99213

== ENCOUNTER 2023-08-25 13:23 | Outpatient (AMB) | payer OTHER, SELFPAY ==
--- NOTE | 2023-08-25 13:23 | A.OFFVIS_ITS ---
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 Intake Note: lumps under her nipples Stars Coordinator Required: No Information Interpreted: non-clinical & clinical Baling Press Operator: Baling Press Operator Present (Hiyn) Allergies No Known Drug Allergies Allergy (Unknown, Verified 08/25/23 13:26) none Seasonal Allergies Allergy (Verified 08/25/23 13:26) runny eyes, itchy skin, congestion Medication List - Last Reconciled 08/25/23 by Randee Rodriguez CNM benztropine 0.5 mg PO DAILY betamethasone valerate 0.1% 1 appl topical DAILY PRN 30 days bisacodyl 10 mg (2 x 5 mg) PO BEDTIME clonazepam (Klonopin) 0.25 mg PO BID famotidine (Pepcid) 20 mg PO BEDTIME fluticasone propionate 50 mcg/actuation 1 spray intranasal BID gabapentin 600 mg PO TID 30 days linaclotide (Linzess) 290 mcg PO QAM lisinopril 20 mg PO DAILY 30 days magnesium hydroxide (Milk of Magnesia) 10 mL PO DAILY PRN methadone 130 mg PO DAILY methylcellulose (laxative) (Citrucel) 500 mg PO DAILY omeprazole 40 mg PO DAILY paroxetine HCl 40 mg PO DAILY 30 days quetiapine (Seroquel) 50 mg PO DAILY PRN quetiapine (Seroquel) 300 mg PO BEDTIME 30 days sucralfate 1 g PO BEDTIME topiramate 50 mg PO DAILY 30 days trazodone 100 mg PO BEDTIME PRN ziprasidone HCl 20 mg PO DAILY Is last menstrual period known: No Post menopausal: No HPI HPI 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 She has a history of substance abuse she is on 130 mg of methadone currently. She has gained a lot of weight over the last year so she could not figure out why she gained weight though she also reports that during that time she was living in a hotel for a period of several months so being able to cook her own food and eating everything out was certainly a factor. She admits to drinking lots of Coca-Cola every day she says it is the only thing left that she does that has not healthy. She does try to eat lots of vegetables even though she does not have teeth she was given false teeth but they were too big for her mouth and she had the right back to the dentist. She has scars from picking all over her body she said that that is started after she had cellulitis from shooting up. She has discomfort behind her nipples no masses palpable today on exam. She has not looking forward to mammogram. She has not had sex in a few years but she does have a partner he has his own health problems which limit activity. She has no concerns really about STDs. She had her tubes tied so she has not concerned about she has not regular periods in a while at 1 point she skipped 2 years but she thinks that might of been done due to the drug use. Then she got her period regular like clockwork but more recently possibly with the weight gain she has skipped 2 months at a time. Her last period was a couple of weeks ago. [facility] Medical History (Updated 08/25/23 @ 17:05 by Randee Rodriguez CNM) Substance abuse in remission Chronic idiopathic constipation IBS (irritable bowel syndrome) Left leg pain Hand dermatitis Chronic pancreatitis Surgical History (Updated 08/25/23 @ 14:39 by Randee Rodriguez CNM) History of tubal ligation Family History Father Mental health disorder Mother High blood pressure High cholesterol Social History (Updated 08/25/23 @ 13:31 by Yoav Mccarthy [facility]) Housing: House Alcohol intake: never Patient Tobacco Use Status: Current everyday Tobacco user Cigarette Packs Per Day: 1 Cigarettes Per Day: 10 e-Cigarette/Vaping Use: Never Used service: No Current occupational status: employed 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 Cognitive needs: No Hearing needs: No Vision needs: No Female Reproductive History Menstrual Age of Menarche: 14 Duration of menses: 3-5 days control method: other (tubal ligation) Total pregnancies: 4 Full term: 2 Number of Living Children: 2 Ab induced: 1 Ab spontaneous: 1 Date of last pap smear: 04/20/10 (negative) Physical Exam Vital Signs: Last Vital Signs BP 110/70 08/25/23 13:24 BMI result Body Mass Index 38.8 Const General: healthy appearing, comfortable, no acute distress, well developed and alert Nutritional Appearance: average body habitus Orientation/consciousness: patient oriented x3 Limitations: no limitations HEENT Head: Yes normocephalic Teeth and gingiva: edentulous Neck Neck: Yes normal visual inspection Thyroid: Thyroid normal Chest Chest palpation & inspection: normal inspection of the chest Breast/axilla inspection: normal inspection of the breasts and normal inspection of the axillae Breast/axilla palpation: normal palpation of the breasts and normal palpation of the axillae Resp Effort & Inspection: normal respiratory effort GI Inspection: Yes normal to inspection and No Abdominal wall edema Palpation (GI): nontender Other: Abdomen distended firm patient states it is from her fatty liver. Speculum exam within normal limits cervix multiparous pink smooth polyp within os. Discharge clear and scant. Uterus difficult to palpate secondary to adipose and habitus adnexa nontender good tone with Kegel. General: Yes bladder normal to palpation External Female Exam: normal external appearance and normal appearance of the urethra Speculum Exam - Vagina: normal appearance of the vagina, normal palpation and normal vaginal discharge Speculum Exam - Cervix: normal appearance of the cervix, normal palpation and nontender Bimanual exam- vagina & uterus: normal bimanual exam, normal palpation, uterine size normal, bladder normal to palpation, consistency normal, normal palpation, uterine mobility normal, uterine shape normal, No Cervical tenderness present, non-tender and no cervical motion tenderness Bimanual Exam- Adnexa, other: normal adnexae, no masses, normal and No adnexal tenderness Skin Other: Multiple lesions and scabs from picking. Skin is very dry. Neuro General: patient oriented x3 Assessment & Plan Assessment & Plan (1) Breast cancer screening by mammogram: Code(s): Z12.31 - Encounter for screening mammogram for malignant neoplasm of breast Category: Medical (2) Screening for cervical cancer: Code(s): Z12.4 - Encounter for screening for malignant neoplasm of cervix Category: Medical (3) Obesity: Code(s): E66.9 - Obesity, unspecified Category: Medical (4) Substance abuse in remission: Comment: Heroin and cocaine. Last use 2018 (as of 11/01).08/25/23-and 130 mg methadone q.day via [facility] Code(s): F19.11 - Other psychoactive substance abuse, in remission Category: Medical (5) Dry skin: Code(s): L85.3 - Xerosis cutis Category: Medical (6) Irregular menstruation, unspecified: Code(s): N92.6 - Irregular menstruation, unspecified Category: Medical (7) Cervical polyp: Code(s): N84.1 - Polyp of cervix uteri Category: Medical (8) Breast cancer screening: Code(s): Z12.39 - Encounter for other screening for malignant neoplasm of breast Category: Medical Plan -----Discussed in this visit the following: healthy balanced diet, regular and consistent exercise, getting recommended health screens, doing the best she can for her particular health concerns, kegel exercises, pap smear screening and followup recommendations, mammography screening and SBE, normal changes in cycles in her life stage--- I reviewed dry skin care in detail including my recommendations for trying to not take showers that are too hot, and to apply a skin cream such as Eucerin, or equivalent, immediately after briefly towel, drying after coming out of the shower to seal in the moisture. I recommend that if she feels her skin start to tingle and dry up before she has had a chance to thoroughly apply the cream all over, she should jump back in the shower to re wet her skin, and start the process over again. The goal is to help seal in the moisture on her skin elvis, by using the Eucerin as a protectant. I recommend not to skip this procedure for even 1 shower cycle during the dry winter season. Discussed all of the issues in HPI including her amenorrhea and the obesity, and fatty liver and lack of teeth and chewing and sinus problems and sleep apnea and tonsil and other problems. will start with a pelvic ultrasound will start with her baseline mammogram as well. Will probably have her see gynecology after the pelvic ultrasound and Pap smear results are back to talk about removal of the polyp discussed her diet in detail including the Coca-Cola discussed her success with her quitting all her substance uses discussed possible ameliorate options for her dry skin including moisture lotion cool water showers and quick application of the moisture lotion discussed her follow-up with dental care discussed her sleep apnea, discussed her ENT follow-up as well. RTC after the ultrasound. Orders: Orders CT NG by PCR Today Z20.2 - Contact with and (suspected) exposure to infections with a predominantly sexual mode of transmission Pap Smear Today Z12.4 - Encounter for screening for malignant neoplasm of cervix MM tomosynthesis screening BI Today Z12.31 - Encounter for screening mammogram for malignant neoplasm of breast Bacterial Vaginosis Panel Today Z20.2 - Contact with and (suspected) exposure to infections with a predominantly sexual mode of transmission US pelvic and transvaginal Today N84.1 - Polyp of cervix uteri, N92.6 - Irregular menstruation, unspecified, Z12.39 - Encounter for other screening for malignant neoplasm of breast Coding Level of Care Code New Pt Prev Care 18-39yr([id number] Diagnoses Breast cancer screening by mammogram Z12.31 Screening for cervical cancer Z12.4 Obesity E66.9 Substance abuse in remission F19.11 Dry skin L85.3 Irregular menstruation, unspecified N92.6 Cervical polyp N84.1 Breast cancer screening Z12.39
[2023-08-25 13:24] VITALS: BP 110/70; BMI 38.8
== END 2023-08-25 14:30 | disposition home or self-care (01) ==
LOC: HO.HWSM 13:23
PROVIDERS: PCP Family Medicine; Visit Provider Advanced Practice Midwife
DX: Z01.419 Encounter for gynecological examination (general) (routine) without abnormal findings (principal); E66.9 Obesity, unspecified
CPT/HCPCS: 99385

== ENCOUNTER 2023-08-25 13:23 | Outpatient (REF) | payer OTHER, SELFPAY ==
[2023-08-26 02:42] LABS: CT PCR NOT DETECTED (Not Detect.); NG PCR NOT DETECTED (Not Detect.)
[2023-08-26 14:05] LABS: Bacterial Vaginosis PCR POSITIVE (Negative); Candida Group PCR NOT DETECTED (Not Detect); Candida glab krusei PCR NOT DETECTED (Not Detect); Trichomonas vaginalis PCR DETECTED (Not Detect)
[2023-09-03 05:24] LABS: HPV 16 RNA NOT DETECTED (NOT DETECTED); HPV mRNA E6/E7 rflx Detected (Not Detected)
== END 2023-08-25 13:24 | disposition home or self-care (01) ==
LOC: HO.LNP 13:23
PROVIDERS: PCP Family Medicine; Visit Provider Advanced Practice Midwife
DX: Z12.4 Encounter for screening for malignant neoplasm of cervix (principal); E66.9 Obesity, unspecified; Z12.31 Encounter for screening mammogram for malignant neoplasm of breast; Z20.2 Contact with and (suspected) exposure to infections with a predominantly sexual mode of transmission
CPT/HCPCS: 0352U; 0353U; 87480; 87510; 87624; 87625; 87660; 88142; 99385

== ENCOUNTER 2023-09-02 13:27 | Outpatient (REF) | payer OTHER, SELFPAY ==
--- NOTE | ~2023-09-02 | US_ITS ---
EXAMINATION: US PELVIS CLINICAL INFORMATION: Irregular menstruation, last menstrual period last week. COMPARISON: CT abdomen and pelvis May 02, 2012. TECHNIQUE: Ultrasound of the pelvis is performed using both transabdominal and transvaginal transducers along with Doppler. Transvaginal imaging is performed due to inadequate visualization transabdominally. FINDINGS: The uterus is anteverted and measures 7.8 x 3.4 x 4.1 cm. No discrete fibroids are appreciated. Limited visualization due to bowel gas and body habitus. Endometrium is poorly visualized. Imaged segment of endometrium with thickness of approximately 5 mm although measurements are of limited accuracy due to severely limited visualization. Left ovary not visualized. No significant free fluid. Right ovary measures 2.2 x 1.8 x 2.3 cm. Limited visualization of right ovary on ultrasound images, but is grossly unremarkable. US/US pelvic and transvaginal IMPRESSION: 1. Severely limited visualization due to bowel gas and body habitus. 2. Endometrium is poorly visualized. Imaged segment of endometrium with thickness of approximately 5 mm although measurements are of limited accuracy due to severely limited visualization. 3. Left ovary not visualized. Right ovary grossly unremarkable on limited images. 4. No discrete fibroids appreciated
== END 2023-09-02 13:28 | disposition home or self-care (01) ==
LOC: HO.US 13:27
PROVIDERS: PCP Family Medicine; Visit Provider Advanced Practice Midwife
DX: N92.6 Irregular menstruation, unspecified (principal); N84.1 Polyp of cervix uteri; Z12.39 Encounter for other screening for malignant neoplasm of breast
CPT/HCPCS: 76830; 76856

== ENCOUNTER 2023-09-05 16:09 | Outpatient (REF) | payer OTHER, SELFPAY ==
[2023-09-05 16:44] LABS: MANUAL DIFF FLAG NO
[2023-09-05 17:35] LABS: Basophils Percent Auto 0.5 % (0-2); Eosinophils Absolute Auto 0.2 X10*3/uL (0.0-0.4); Eosinophils Percent Auto 3.7 % (0-4); Hematocrit 36.6 % (37.0-47.0); Imm Gran Abs Auto 0.01 X10*3/uL (0.00-0.03); Imm Gran Pct Auto 0.2 % (0.0-0.4); Lymphocytes Absolute Auto 2.3 X10*3/uL (1.2-4.9); Lymphocytes Percent Auto 38.7 % (20-40); Mean Corpuscular HGB Conc 35.5 g/dl (31.0-35.0); Mean Corpuscular Hemoglobin 33.9 pg (27.0-33.0); Mean Corpuscular Volume 95.6 fL (80.0-98.0); Mean Platelet Volume 9.8 fL (9.4-12.3); Monocytes Absolute Auto 0.4 X10*3/uL (0.1-1.2); Monocytes Percent Auto 7.2 % (2-11); Neutrophils Percent Auto 49.7 % (45-73); Platelet Count 195 X10*3/uL (160-400); Red Blood Count 3.83 X10*6/uL (4.20-5.50); Red Cell Distribution Width 13.2 % (11.0-16.0)
[2023-09-05 17:55] LABS: Estimated Average Glucose 103 mg/dL; Hemoglobin A1c % 5.2 % (<6.0)
[2023-09-05 18:05] LABS: Alanine Aminotransferase 33 U/L (0-31); Albumin Level 4.2 g/dL (3.5-5.0); Alkaline Phosphatase 79 U/L (39-117); Anion Gap 14 (12-20); Aspartate Amino Transferase 20 U/L (5-31); Bilirubin Total 0.3 mg/dL (0.0-1.0); Blood Urea Nitrogen 5 mg/dL (9-16); Calcium 8.9 mg/dL (8.4-10.2); Carbon Dioxide 27 mmol/L (22-29); Chloride 100 mmol/L (96-108); Cholesterol 198 mg/dL (<200); Estimated Glomerular Filt Rate > 60; Glucose Random 107 mg/dL (60-115); HDL Cholesterol 24 mg/dL (>40); Potassium 3.9 mmol/L (3.3-5.1); Sodium 137 mmol/L (135-145); Total Protein 7.9 g/dL (6.5-8.0); Triglycerides 411 mg/dL (<150)
[2023-09-05 18:24] LABS: Thyroid Stimulating Hormone 6.55 uIU/mL (0.32-4.0); Vitamin D 25-OH Total 10.1 ng/mL (>30)
[2023-09-05 18:52] LABS: Amphetamine Screen Urine Not Detected (Not Detect); Barbiturates, Urine Not Detected (Not Detect); Benzodiazepines Screen Urine Not Detected (Not Detect); Buprenorphine Scr Not Detected (Not Detect); Cannabinoid Screen Urine Not Detected (Not Detect); Cocaine Screen Urine Not Detected (Not Detect); Fentanyl, urine Not Detected (Not Detect); Methadone Screen, Urine Positive (Not Detect); Opiate Screen Urine Not Detected (Not Detect); Oxycodone Screen Urine Not Detected (Not Detect); Phencyclidine Screen Urine Not Detected (Not Detect)
== END 2023-09-05 16:10 | disposition home or self-care (01) ==
LOC: HO.LAB 16:09
PROVIDERS: PCP Family Medicine; Visit Provider Nurse Practitioner Psychiatric/Mental Health
DX: F41.1 Generalized anxiety disorder (principal); F31.12 Bipolar disorder, current episode manic without psychotic features, moderate; Z79.899 Other long term (current) drug therapy
CPT/HCPCS: 80053; 80061; 80307; 82306; 83036; 84443; 85025

== ENCOUNTER 2023-09-16 13:36 | Outpatient (AMB) | payer OTHER, SELFPAY ==
[2023-09-16 13:44] VITALS: BP 126/78; BMI 39.1
--- NOTE | 2023-09-16 13:44 | A.OFFVIS_ITS ---
Vital Signs 09/16/23 13:44 Height 5 ft 3 in Weight 221 lb BMI 39.1 BP 126/78 Intake Visit Reasons: US follow up Information Support Project Manager Required: No Information Interpreted: clinical only Section Leader And Machine Setter: Section Leader And Machine Setter Present Allergies No Known Drug Allergies Allergy (Unknown, Verified 09/16/23 13:46) none Seasonal Allergies Allergy (Verified 08/25/23 13:26) runny eyes, itchy skin, congestion Medication List - Last Reconciled 09/16/23 by Randee Rodriguez CNM benztropine 0.5 mg PO DAILY betamethasone valerate 0.1% 1 appl topical DAILY PRN 30 days bisacodyl 10 mg (2 x 5 mg) PO BEDTIME clonazepam (Klonopin) 0.25 mg (1/2 x 0.5 mg) PO BID 30 days famotidine (Pepcid) 20 mg PO BEDTIME fluticasone propionate 50 mcg/actuation 1 spray intranasal BID gabapentin 600 mg PO TID 30 days linaclotide (Linzess) 290 mcg PO QAM lisinopril 20 mg PO DAILY 30 days magnesium hydroxide (Milk of Magnesia) 10 mL PO DAILY PRN methadone 130 mg PO DAILY methylcellulose (laxative) (Citrucel) 500 mg PO DAILY omeprazole 40 mg PO DAILY paroxetine HCl 40 mg PO DAILY 30 days quetiapine (Seroquel) 50 mg PO DAILY PRN quetiapine (Seroquel) 300 mg PO BEDTIME 30 days sucralfate 1 g PO BEDTIME topiramate 50 mg PO DAILY 30 days trazodone 100 mg PO BEDTIME PRN ziprasidone HCl 20 mg PO DAILY Is last menstrual period known: Yes Last menstrual period: 08/26/23 HPI HPI US follow up: Details: Done because of 2 years of amenorrhea. She said that the day after she saw me she started spotting and she thought was from Pap smear within the very next day developed into a full period. Lasted 6-7 days she then had the ultrasound. She also has taken the medication for the trichomoniasis and finish that around the time of the ultrasound. She has not had sex with her partner they do not have sex very often anyway. He is an older man with health problems so he is waiting to see his doctor to get treated but she knows about avoiding sexual contact. We discussed the abnormal Pap smear and that she will be having the colposcopy with Dr. Grier. It is too soon today to do the test of cure for trichomoniasis based on when she finished medication but she has an appointment in 1-2 weeks with me for test of cure. She tells me that she finished a 3 month treatment for hepatitis-C and was told that that was all clear. She was hoping the weight would drop off when that happened but it has not she says she eats mainly fruits and vegetables not too much meat and not much else though she does like [employer].. She has a gash on her arm from when she was flipping her mattress and it fell over against her and she hit her arm against a non finished piece of wood in the window and scraped it. Her hands are extra puffy today. She says she has been referred to Cardiology but that appointment isn't until this summer. 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 She cites being depressed and sleeping a lot and living by herself with a crazyy roommate and is not finding yohana in anything these days. She does have a psychiatrist and a therapist but they change so much that she finds herself wanting to just talk about the weather with them. She says it has not worth going into her entire life story and then have them leave. She did share much of her life story today. She says she has thought about killing herself but she has no plans to do it now. She has tried in the past. She will be seeing her therapist next week she has all of appointments lined up. she does have food in the house. I discussed that it was good that she got her. And it would be beneficial if she continue to get her period. The ultrasound view was limited because of overlying bowel gas. With there were no fibroids or any other finding. [facility] Medical History (Updated 09/16/23 @ 15:33 by Randee Rodriguez CNM) Substance abuse in remission Chronic idiopathic constipation IBS (irritable bowel syndrome) Left leg pain Hand dermatitis Chronic pancreatitis Surgical History (Updated 08/25/23 @ 14:39 by Randee Rodriguez CNM) History of tubal ligation Family History Father Mental health disorder Mother High blood pressure High cholesterol Social History (Updated 08/25/23 @ 13:31 by JOANNE Campos) Housing: House Alcohol intake: never Patient Tobacco Use Status: Current everyday Tobacco user Cigarette Packs Per Day: 1 Cigarettes Per Day: 10 e-Cigarette/Vaping Use: Never Used service: No Current occupational status: employed 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 Cognitive needs: No Hearing needs: No Vision needs: No Female Reproductive History Menstrual Age of Menarche: 14 Date of last menstrual period: 08/26/23 Total pregnancies: 4 Full term: 2 Date of last pap smear: 08/26/23 (Epitherai cell abnormality (CIN1)) History of abnormal pap smear: Yes Physical Exam Vital Signs: Last Vital Signs BP 126/78 09/16/23 13:44 BMI result Body Mass Index 39.1 Const Other: Physical exam not done today however skin does have lots of weiss and a healing cut on left arm and other scars. Patient's face and hands are extra puffy today. Results Reviewed Results Reviewed: Name: Meena Blunt Age/Sex: 37/F : 1985 Unit#: [id number] Attend Dr: Randee Rodriguez CNM Re08/25/23 Status: DEP REF Location: [facility] Disch: SPEC : [id number] LAKSHMI: 08/25/23-UNK STATUS: COMP REQ : [id number] RECD: 08/26/23-[address]: Randee Rodriguez CNM COMP: 08/26/23-1405 ENTERED: 08/26/23-1303 [facility] DR: Aakash Navarro MD ORDERED: BV Panel Test Result Flag Reference TV PCR DETECTED A Not Detect BV PCR POSITIVE A Negative The BV organism targets of the Xpert Xpress MVP test can be commensal in women; Xpert Xpress MVP positive results for bacterial vaginosis should be considered in conjunction with other clinical and patient information to determine the disease status. Organisms that are not detected by the Xpert Xpress MVP test have also been reported to be associ ated with BV and aerobic vaginitis. The Xpert Xpress MVP test performance has not been evaluated in patients under the age of 14. [facility] PCR NOT DETECTED Not Detect Can gla-kru NOT DETECTED Not Detect [facility] [place], [place] [address]Wdabfmyvfw Report Signed Patient: Meena Blunt LMR#: [id number]: 1985Acct:[id number]/Sex: 38 / FADM Date: 09/02/23Loc: HO.USAttending Dr: Randee Rodriguez CNM Ordering Physician: Randee Rodriguez CNM Date of Service: 09/02/23 Procedure(s): US pelvic and transvaginal Accession Number(s): [id number] cc: Aakash Navarro MD; Randee Rodriguez CNM~ EXAMINATION: US PELVIS CLINICAL INFORMATION: Irregular menstruation, last menstrual period last week. COMPARISON: CT abdomen and pelvis May 02, 2012. TECHNIQUE: Ultrasound of the pelvis is performed using both transabdominal and transvaginal transducers along with Doppler. Transvaginal imaging is performed due to inadequate visualization transabdominally. FINDINGS: The uterus is anteverted and measures 7.8 x 3.4 x 4.1 cm. No discrete fibroids are appreciated. Limited visualization due to bowel gas and body habitus. Endometrium is poorly visualized. Imaged segment of endometrium with thickness of approximately 5 mm although measurements are of limited accuracy due to severely limited visualization. Left ovary not visualized. No significant free fluid. Right ovary measures 2.2 x 1.8 x 2.3 cm. Limited visualization of right ovary on ultrasound images, but is grossly unremarkable. US/US pelvic and transvaginal IMPRESSION: 1. Severely limited visualization due to bowel gas and body habitus. 2. Endometrium is poorly visualized. Judy ged segment of endometrium with thickness of approximately 5 mm although measurements are of limited accuracy due to severely limited visualization. 3. Left ovary not visualized. Right ovar y grossly unremarkable on limited images. 4. No discrete fibroids appreciated Dictated By:Sandhya Jaime MDSigned By:<Electronically signed by Sandhya Jaime MD in OV>09/16/23 1011 DD/ 1411TD/TT: Instrument Installer: Name: Meena Blunt Age/Sex: 37/F Attending: Randee Rodriguez CNM : 1985 Submitted by: Randee Rodriguez CNM Copies to: Aakash Navarro MD MR #: [id number] Status: DEP REF Collected: 08/25/23 [facility] Received: 08/26/23 Interpretation General Category: Epithelial cell abnormality. Adequacy: Endocervical component present. Interpretation: Low grade squamous intraepithelial lesion (ALYSHA I), with some cells suspicious for a moderate dysplasia. Abundant blood. Trichomonas. HPV mRNA E6/E7: DETECTED This assay detects E6/E7 viral messenger RNA (mRNA) from 14 high-risk HPV types (16, 18, 31, 33, 35, 39, 45, 51, 52, 56, 58, 59, 66, 68) HPV Type 16 RNA: Not Detected HPV Type 18/45 RNA: DETECTED HPV testing performed by [facility], [place], [place]. See reference laboratory portion of the EMR for entire report. Clinical Information LMP: No menses Previous PAP test: 2010, WN Material Received ThinPrep-Cervical Copies To Aakash Navarro MD [address] [place] [address] Randee Rodriguez CNM [address] [place] [address] Dr. Uriarte [address] [place] [id number] Patient: Meena Blunt Age/Sex: 37/F MR#: [id number] Page 1 of 2 Gynecologic Cytology [id number] Electronically Signed By: Evette Garza 09/09/23 4369 The Pap Test is a screening procedure with the inherent possibility of both false negative and false positive results. Results should be interpreted in the context of historic and current clinical findings. Reliability of the Pap Test is enhanced by performing the test on a regular repetitive basis. Patient: Meena Blunt Age/Sex: 37/F MR#: [id number] Assessment & Plan Assessment & Plan (1) Trichomoniasis: Comment: Rx with Flagyl b.i.d. x7 days, partner needs to be treated and test of cure to be done. Code(s): A59.9 - Trichomoniasis, unspecified Category: Medical (2) Irregular menstruation, unspecified: Code(s): N92.6 - Irregular menstruation, unspecified Category: Medical (3) History of tubal ligation: Code(s): Z98.51 - Tubal ligation status Category: Surgical (4) Substance abuse in remission: Comment: Heroin and cocaine. Last use 2018 (as of 11/01).08/25/23-and 130 mg methadone q.day via [facility] Code(s): F19.11 - Other psychoactive substance abuse, in remission Category: Medical (5) Screening for cervical cancer: Comment: 08/25/2023 shows positive HPV Pap is still pending. Patient will probably need colposcopy, also has cervical polyp awaiting Pap. 09/09/2023 Pap shows ALYSHA .she needs colposcopy as well as evaluation of polyp and trichomoniasis test of cure Code(s): Z12.4 - Encounter for screening for malignant neoplasm of cervix Category: Medical (6) Anxiety and depression: Code(s): F41.9 - Anxiety disorder, unspecified; F32.9 - Major depressive disorder, single episode, unspecified Category: Medical Plan Done because of 2 years of amenorrhea. She said that the day after she saw me she started spotting and she thought was from Pap smear within the very next day developed into a full period. Lasted 6-7 days she then had the ultrasound. She also has taken the medication for the trichomoniasis and finish that around the time of the ultrasound. She has not had sex with her partner they do not have sex very often anyway. He is an older man with health problems so he is waiting to see his doctor to get treated but she knows about avoiding sexual contact. We discussed the abnormal Pap smear and that she will be having the colposcopy with Dr. Grier. It is too soon today to do the test of cure for trichomoniasis based on when she finished medication but she has an appointment in 1-2 weeks with me for test of cure. She tells me that she finished a 3 month treatment for hepatitis-C and was told that that was all clear. She was hoping the weight would drop off when that happened but it has not she says she eats mainly fruits and vegetables not too much meat and not much else though she does like [employer].. She has a gash on her arm from when she was flipping her mattress and it fell over against her and she hit her arm against a non finished piece of wood in the window and scraped it. Her hands are extra puffy today. She says she has been referred to Cardiology but that appointment isn't until this summer. 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 She cites being depressed and sleeping a lot and living by herself with a crazyy roommate and is not finding yohana in anything these days. She does have a psychiatrist and a therapist but they change so much that she finds herself wanting to just talk about the weather with them. She says it has not worth going into her entire life story and then have them leave. She did share much of her life story today. She says she has thought about killing herself but she has no plans to do it now. She has tried in the past. She will be seeing her therapist next week she has all of appointments lined up. she does have food in the house. I discussed that it was good that she got her period. And it would be beneficial if she continues to get her period. The ultrasound view was limited because of overlying bowel gas. With there were no fibroids or any other positive finding. Again reviewed what will happen if colposcopy if the entertainment musician sees the polyp he may choose to do something about that as well. Her test of cure appointment is scheduled.. Coding Level of Care Code Est Pt Level 3 (93110) Diagnoses Trichomoniasis A59.9 Irregular menstruation, unspecified N92.6 History of tubal ligation Z98.51 Substance abuse in remission F19.11 Screening for cervical cancer Z12.4 Anxiety and depression F41.9; F32.9
== END 2023-09-16 14:47 | disposition home or self-care (01) ==
LOC: HO.HWSM 13:36
PROVIDERS: PCP Family Medicine; Visit Provider Advanced Practice Midwife
DX: A59.9 Trichomoniasis, unspecified (principal); N92.6 Irregular menstruation, unspecified; Z98.51 Tubal ligation status; F19.11 Other psychoactive substance abuse, in remission; Z12.4 Encounter for screening for malignant neoplasm of cervix; F41.9 Anxiety disorder, unspecified; F32.9 Major depressive disorder, single episode, unspecified
CPT/HCPCS: 99213

== ENCOUNTER → 2023-09-16 13:36 | Outpatient (BNVA) | payer OTHER, SELFPAY | PROVIDERS: PCP Family Medicine; Visit Provider Advanced Practice Midwife | DX: N92.6 Irregular menstruation, unspecified (principal); A59.9 Trichomoniasis, unspecified; F11.20 Opioid dependence, uncomplicated; F14.90 Cocaine use, unspecified, uncomplicated; F41.9 Anxiety disorder, unspecified; F32.9 Major depressive disorder, single episode, unspecified; Z98.51 Tubal ligation status | CPT/HCPCS: 99212 ==

== ENCOUNTER 2023-09-22 14:45 | Outpatient (REF) | payer OTHER, SELFPAY ==
--- NOTE | ~2023-09-22 | MM_ITS ---
EXAMINATION: MM SCREENING DIGITAL BREAST TOMOSYNTHESIS, BILATERAL CLINICAL INFORMATION: Screening. Asymptomatic. COMPARISON: Mammography: This is a baseline mammogram. TECHNIQUE: Digital breast tomosynthesis is performed in both the craniocaudal and mediolateral oblique views along with computer-aided detection (CAD). Synthesized 2D images are generated from the tomosynthesis. FINDINGS: There are scattered areas of fibroglandular density (ACR BI-RADS breast composition Category b). There are no significant masses, abnormal calcifications, or other abnormalities. MM/MM tomosynthesis screening BI IMPRESSION: No mammographic evidence of malignancy. ASSESSMENT: BI-RADS BI-RADS 1 - Negative RECOMMENDATION: Routine annual mammography screening. 1 year F/U This examination should not preclude the clinical evaluation of a suspicious palpable abnormality. This patient's information was entered into a reminder system with a target due date for their next mammogram.
== END 2023-09-22 14:46 | disposition home or self-care (01) ==
LOC: HO.MAMMO 14:45
PROVIDERS: PCP Family Medicine; Visit Provider Advanced Practice Midwife
DX: Z12.31 Encounter for screening mammogram for malignant neoplasm of breast (principal)
CPT/HCPCS: 77063; 77067

== ENCOUNTER → 2023-09-22 15:15 | Outpatient (BNV) | payer OTHER, SELFPAY | PROVIDERS: PCP Family Medicine; Visit Provider Radiology Diagnostic Radiology | DX: Z12.31 Encounter for screening mammogram for malignant neoplasm of breast (principal) | CPT/HCPCS: 77063; 77067 ==

== ENCOUNTER 2023-09-26 07:26 | Outpatient (AMB) | payer OTHER, SELFPAY ==
--- NOTE | 2023-09-26 07:32 | A.OFFVIS_ITS ---
Vital Signs 09/26/23 07:35 Height 5 ft 3 in Weight 219 lb BMI 38.8 Intake Visit Reasons: 4M follow up - Conf Intake Note: Patient presents for 4 month follow up. patient still having constant migraines and not sleeping. Allergies No Known Drug Allergies Allergy (Unknown, Verified 09/29/23 11:34) none Seasonal Allergies Allergy (Verified 09/29/23 11:34) runny eyes, itchy skin, congestion Medication List - Last Reconciled 09/26/23 by JULIO Patel benztropine 0.5 mg PO DAILY betamethasone valerate 0.1% 1 appl topical DAILY PRN 30 days bisacodyl 10 mg (2 x 5 mg) PO BEDTIME clonazepam (Klonopin) 0.25 mg (1/2 x 0.5 mg) PO BID 30 days clonazepam (Klonopin) 0.5 mg PO TID famotidine (Pepcid) 20 mg PO BEDTIME fluticasone propionate 50 mcg/actuation 1 spray intranasal BID gabapentin 600 mg PO TID 30 days linaclotide (Linzess) 290 mcg PO QAM lisinopril 20 mg PO DAILY 30 days magnesium hydroxide (Milk of Magnesia) 10 mL PO DAILY PRN methadone 130 mg PO DAILY methylcellulose (laxative) (Citrucel) 500 mg PO DAILY omeprazole 40 mg PO DAILY paroxetine HCl 40 mg PO DAILY 30 days quetiapine (Seroquel) 50 mg PO DAILY PRN quetiapine (Seroquel) 300 mg PO BEDTIME 30 days sucralfate 1 g PO BEDTIME topiramate 50 mg PO DAILY 30 days trazodone 100 mg PO BEDTIME PRN ziprasidone HCl 20 mg PO DAILY HPI Comments Details: 38-yr-old female presents for f/u visit of sleep difficulties and headache. Pt was previously seen by Noreen Bah NP. Pt denies any significant interval medical changes. Since the last visit, pt underwent HST, which revealed severe sleep apnea w/ AHI 49/hr and O2 trang 80%, SpO2 < 90% x's 230 min and < 88% x's 82 min (of a 418.9 min study). She has since started APAP [id number]. Pt reports she tired her APAP, but could not tolerate it. Pt states 1st 1-2 hrs was ok, but then it caused her to feel SOB, like she was being suffocated. She continues to have excessive daytime sleepiness. Has had this since adolescence- would fall asleep on the school bus on the way home- she could dream during naps even then. She states when angry, she will yawn and feel completely drained- again since adolescence. She also would like to discuss improving her headcahe control. Was right now bilateral vision change- starts as squiggles and the blurriness expands to cover the entire central vision- usually lasts 45 min, but once lasted for 3 days. Pressure in right frontal or occipital a/w photophobia, phonophobia, not right in space dizziness, activity tolerance, fatigue, cog nitive difficulties, tip of nose/tongue goes numb and left mouth/jaw droops. Postdrome- world's worst hangover - feels completely depleted. Has 3-6 migraine attacks per week. Usually lasts a few hours, but when had attacks x's 1 week- needing hospitalization. She also has focal pressure headaches in the left upper temporal or right parietal- stronger, more painful. Makes her feel off-balance. Sometimes lasts 10 minutes to 1-2 hrs. Has to lay down or take a shower. She uses topiramate 50mg- does not seem to be helping. In the past- she tried Fioricet. She has TD- may twitch or jerk, her fingers may make repetitive movements- say when using her phone. They may make her drop things. She used to have facial movements- but not recently. [facility] Medical History (Updated 10/05/23 @ 19:58 by JULIO Patel) Witnessed apneic spells SANDI (obstructive sleep apnea) Substance abuse in remission Chronic idiopathic constipation IBS (irritable bowel syndrome) Left leg pain Hand dermatitis Chronic pancreatitis Surgical History History of tubal ligation Family History Father Mental health disorder Mother High blood pressure High cholesterol Social History Housing: House Alcohol intake: never Patient Tobacco Use Status: Current everyday Tobacco user Cigarette Packs Per Day: 1 Cigarettes Per Day: 10 e-Cigarette/Vaping Use: Never Used service: No Current occupational status: employed 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 Cognitive needs: No Hearing needs: No Vision needs: No Female Reproductive History Menstrual Age of Menarche: 14 Physical Exam Vital Signs: BMI result Body Mass Index 38.8 Const Other: Drowsy, but easily arousable. Pt was dozing off during conversations. General: cooperative and no acute distress Orientation/consciousness: patient oriented x3 Resp Effort & Inspection: normal respiratory effort and able to speak in complete sentences Neuro General: patient oriented x3 Cognition (Neuro): normal cognition Psych Appearance: grossly normal Mental Status: mental status grossly normal Speech and movement: Normal speech and movement present Affect: normal affect Attitude: cooperative Telehealth Telehealth Telehealth Platform: [employer] Location of provider rendering services: practice address Location of patient: address on file Patient Identification confirmed using: Name, : Yes Telehealth method: video Patient verbally consented to treatment: Yes Patient verbally consented to billing insurance company: Yes Patient informed of any privacy concerns related to visit: Yes Assessment & Plan Assessment & Plan (1) Hypersomnia: Code(s): G47.10 - Hypersomnia, unspecified Category: Medical (2) Cataplexy: Comment: Episodes when angry a/w yawning and feeling completely drained since adolescence are suggestive of caraplexy. 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 Code(s): G47.33 - Obstructive sleep apnea (adult) (pediatric) Category: Medical (4) Migraine with aura: Code(s): G43.109 - Migraine with aura, not intractable, without status migrainosus Category: Medical Plan For severe SANDI: Pt advised to undergo in-lab PAP titration study to optimize her PAP tx settings- ? if poor response to PAP could be a PAP tx induced central apnea as pt is on chronic methadone tx. For hypersomnia w/ cataplexy dating back to adolescence- Pt advised to undergo LP to obtain CSF orexin level. Would prefer to obtain CSF Orexin level than in-lab MSLT/PSG- as pt would need to wean off all REM suppressing medications 2-3 weeks prior to MSLT, which could result in mood decompensation. For post-LP care: Rest, Increased fluid intake, Increased caffeine intake, Fioricet 1 tab q 4 hrs prn (max 4 tabs per day) prn post-LP orthostatic headache. For acute migraine w/ aura tx: Trial Sumatriptan 100mg tab, 1/2 - 1 tab (50-100mg) at onset of headache, may repeat in 2 hours. Max of 2 tabs (200mg) per 24 hours. May adjunct with OTC Ibuprofen 600mg q 6 hours. For migraine w/ aura prevention: Start propranolol ER 60mg qhs Continue Topiramate 50mg qd. For short lasting more severe headache- Monitor response to above. 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 12 tabs 6RF migraine headache 30 days propranolol ER 60 mg PO BEDTIME 30 caps 3RF 30 days Coding Level of Care Code Est Pt Level 4 (37522) Diagnoses Hypersomnia G47.10 Cataplexy G47.411 Severe obstructive sleep apnea G47.33 Migraine with aura G43.109
[2023-09-26 07:35] VITALS: BMI 38.8
== END 2023-09-26 08:30 | disposition home or self-care (01) ==
PROVIDERS: Absent Provider Nurse Practitioner Family; PCP Family Medicine; Visit Provider Nurse Practitioner Family
DX: G47.10 Hypersomnia, unspecified (principal); G47.411 Narcolepsy with cataplexy; G47.33 Obstructive sleep apnea (adult) (pediatric); G43.109 Migraine with aura, not intractable, without status migrainosus
CPT/HCPCS: 99214

== ENCOUNTER → 2023-09-26 07:26 | Outpatient (BNVA) | payer OTHER, SELFPAY | PROVIDERS: Absent Provider Nurse Practitioner Family; PCP Family Medicine; Visit Provider Nurse Practitioner Family | DX: G43.109 Migraine with aura, not intractable, without status migrainosus (principal); G47.411 Narcolepsy with cataplexy; G47.33 Obstructive sleep apnea (adult) (pediatric); G47.10 Hypersomnia, unspecified | CPT/HCPCS: 99212 ==

== ENCOUNTER 2023-09-29 11:03 | Outpatient (AMB) | payer OTHER, SELFPAY ==
[2023-09-29 11:34] VITALS: BP 118/70; BMI 38.8
--- NOTE | 2023-09-29 11:34 | A.OFFVIS_ITS ---
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 She started the and a new medication her migraines and it has been making a very sleepy and drowsy like she can barely keep her eyes or lift her arms. She is going to be calling her neurologist after this to talk about the dosage. She has only been on the medication for 3 days. She can not tell if the discharge is better since she finished medication for t he trichomoniasis.. She has feeling a little bit better since the last visit where she was feeling very life. She still has a very unpleasant living situation, wants to improve that but that is discouraging. She has an appointment coming up with Gynecology for evaluation of her cervix and colposcopy. She had her mammogram done about a week ago and wonders if the results are in yet She walked about 1400( ? correct number?), on Friday working a daly for [employer] at the [employer] [place] in [place] and she says she had a wonderful time and never felt so accepted. 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 We will await testing results cervix multiparous has the appearance of either status post LEEP or polyp in cervix. Patient does not think she ever had a LEEP. She will be seen data entry processor for colposcopy for her abnormal Pap in couple of weeks. External Female Exam: normal external appearance and normal appearance of the urethra Speculum Exam - Vagina: normal vaginal discharge Speculum Exam - Cervix: Cervical os closed Assessment & Plan Assessment & Plan (1) Trichomoniasis: Comment: Rx with Flagyl b.i.d. x7 days, partner needs to be treated and test of cure to be done. Code(s): A59.9 - Trichomoniasis, unspecified Category: Medical (2) Cervical polyp: Code(s): N84.1 - Polyp of cervix uteri Category: Medical (3) Obesity: Code(s): E66.9 - Obesity, unspecified Category: Medical (4) Substance abuse in remission: Comment: Heroin and cocaine. Last use 2018 (as of 11/01).08/25/23-and 130 mg methadone q.day via [place] Code(s): F19.11 - Other psychoactive substance abuse, in remission Category: Medical (5) Screening for cervical cancer: Comment: 08/25/2023 shows positive HPV Pap is still pending. Patient will probably need colposcopy, also has cervical polyp awaiting Pap. 09/09/2023 Pap shows ALYSHA .she needs colposcopy as well as evaluation of polyp and trichomoniasis test of cure Code(s): Z12.4 - Encounter for screening for malignant neoplasm of cervix Category: Medical Plan Patient will be seen data entry processor for colposcopy and evaluation of her cervix in a couple of weeks. If there has a cervical polyp it can be evaluated there. Mammography results have not been read yet and are not available in the system. Patient told to expect a letter.. Test of cure done for trichomoniasis testing also done for GC chlamydia as well as Gardnerella Payton.. Orders: Orders CT NG by PCR Today Z20.2 - Contact with and (suspected) exposure to infections with a predominantly sexual mode of transmission Bacterial Vaginosis Panel Today N89.8 - Other specified noninflammatory disorders of vagina Coding Level of Care Code Est Pt Level 3 (32310) Diagnoses Trichomoniasis A59.9 Cervical polyp N84.1 Obesity E66.9 Substance abuse in remission F19.11 Screening for cervical cancer Z12.4
== END 2023-09-29 12:00 | disposition home or self-care (01) ==
LOC: HO.HWSM 11:03
PROVIDERS: PCP Family Medicine; Visit Provider Advanced Practice Midwife
DX: A59.9 Trichomoniasis, unspecified (principal); N84.1 Polyp of cervix uteri; E66.9 Obesity, unspecified; F19.11 Other psychoactive substance abuse, in remission; Z12.4 Encounter for screening for malignant neoplasm of cervix
CPT/HCPCS: 99213

== ENCOUNTER 2023-09-29 11:03 | Outpatient (REF) | payer OTHER, SELFPAY ==
[2023-09-30 05:49] LABS: CT PCR NOT DETECTED (Not Detect.); NG PCR NOT DETECTED (Not Detect.)
[2023-09-30 11:04] LABS: Bacterial Vaginosis PCR POSITIVE (Negative); Candida Group PCR NOT DETECTED (Not Detect); Candida glab krusei PCR NOT DETECTED (Not Detect); Trichomonas vaginalis PCR NOT DETECTED (Not Detect)
== END 2023-09-29 11:04 | disposition home or self-care (01) ==
LOC: HO.LAB 11:03
PROVIDERS: PCP Family Medicine; Visit Provider Advanced Practice Midwife
DX: N89.8 Other specified noninflammatory disorders of vagina (principal); A59.9 Trichomoniasis, unspecified; N84.1 Polyp of cervix uteri; E66.9 Obesity, unspecified; F19.11 Other psychoactive substance abuse, in remission; Z20.2 Contact with and (suspected) exposure to infections with a predominantly sexual mode of transmission; Z12.4 Encounter for screening for malignant neoplasm of cervix; Z79.899 Other long term (current) drug therapy
CPT/HCPCS: 0352U; 0353U; 99212

== ENCOUNTER → 2023-10-10 10:46 | Outpatient (REF) | payer OTHER, SELFPAY ==
--- NOTE | 2023-10-10 10:54 | ECG_ITS ---
Test Reason : z79.899 Blood Pressure : / mmHG Vent. Rate : 054 BPM Atrial Rate : 054 BPM P-R Int : 226 ms QRS Dur : 090 ms QT Int : 460 ms P-R-T Axes : 053 003 012 degrees QTc Int : 436 ms Sinus bradycardia with 1st degree A-V block T wave abnormality, consider anterolateral ischemia Abnormal ECG When compared with ECG of 17-MAR-2023 11:44, No significant change was found Referred By: Ange Vyas Electronically Signed By:CHRISTOPHER YATES MD
[2023-10-10 11:26] LABS: MANUAL DIFF FLAG NO
[2023-10-10 12:15] LABS: Basophils Percent Auto 0.6 % (0-2); Eosinophils Absolute Auto 0.2 X10*3/uL (0.0-0.4); Eosinophils Percent Auto 3.7 % (0-4); Hematocrit 38.5 % (37.0-47.0); Hemoglobin 13.4 g/dl (12.0-16.0); Imm Gran Abs Auto 0.02 X10*3/uL (0.00-0.03); Imm Gran Pct Auto 0.4 % (0.0-0.4); Lymphocytes Absolute Auto 2.2 X10*3/uL (1.2-4.9); Lymphocytes Percent Auto 40.7 % (20-40); Mean Corpuscular HGB Conc 34.8 g/dl (31.0-35.0); Mean Corpuscular Hemoglobin 33.5 pg (27.0-33.0); Mean Corpuscular Volume 96.3 fL (80.0-98.0); Mean Platelet Volume 9.9 fL (9.4-12.3); Monocytes Absolute Auto 0.2 X10*3/uL (0.1-1.2); Monocytes Percent Auto 4.3 % (2-11); Neutrophils Absolute Auto 2.7 x10*3/uL (2.0-8.3); Neutrophils Percent Auto 50.3 % (45-73); Platelet Count 185 X10*3/uL (160-400); Red Cell Distribution Width 13.7 % (11.0-16.0); White Blood Count 5.4 X10*3/uL (4.8-10.8)
[2023-10-10 13:07] LABS: Alanine Aminotransferase 21 U/L (0-31); Albumin Level 4.2 g/dL (3.5-5.0); Alkaline Phosphatase 84 U/L (39-117); Anion Gap 14 (12-20); Aspartate Amino Transferase 18 U/L (5-31); Bilirubin Total 0.4 mg/dL (0.0-1.0); Blood Urea Nitrogen 5 mg/dL (9-16); Carbon Dioxide 25 mmol/L (22-29); Chloride 102 mmol/L (96-108); Cholesterol 226 mg/dL (<200); Estimated Glomerular Filt Rate > 60; Glucose Random 138 mg/dL (60-115); HDL Cholesterol 28 mg/dL (>40); LDL Cholesterol Calculated 135 mg/dL (<100); Potassium 3.9 mmol/L (3.3-5.1); Sodium 137 mmol/L (135-145); Triglycerides 317 mg/dL (<150)
[2023-10-10 13:22] LABS: Thyroid Stimulating Hormone 13.33 uIU/mL (0.32-4.0)
[2023-10-10 14:01] LABS: Estimated Average Glucose 100 mg/dL; Hemoglobin A1c % 5.1 % (<6.0)
== END ==
LOC: HO.CARD 10:46
PROVIDERS: PCP Family Medicine; Visit Provider Nurse Practitioner Psychiatric/Mental Health
DX: Z79.899 Other long term (current) drug therapy (principal)
CPT/HCPCS: 36415; 80053; 80061; 83036; 84443; 85025; 93005

== ENCOUNTER → 2023-10-10 10:54 | Outpatient (BNV) | payer OTHER, SELFPAY | PROVIDERS: PCP Family Medicine; Visit Provider Internal Medicine Cardiovascular Disease | DX: R94.31 Abnormal electrocardiogram [ECG] [EKG] (principal); Z79.899 Other long term (current) drug therapy | CPT/HCPCS: 93010 ==

== ENCOUNTER 2023-10-14 10:15 | Outpatient (AMB) | payer OTHER, SELFPAY ==
[2023-10-14 10:17] VITALS: BP 122/70; BMI 38.7
--- NOTE | 2023-10-14 10:17 | MHC.OFFVIS ---
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 Required: No Information Interpreted: non-clinical & clinical Valve Steamer: Valve Steamer Present (Mishel RUBIO) Accompanied by: Self / Same As Patient Allergies No Known Drug Allergies Allergy (Unknown, Verified 10/14/23 10:28) none Seasonal Allergies Allergy (Verified 10/14/23 10:28) runny eyes, itchy skin, congestion Is last menstrual period known: No HPI Comments Details: Presenting referred from Randee Rodriguez CNM regarding abnormal uterine bleeding associated with hair growth, cervical polyp and abnormal Pap smear showing LGSIL favor moderate cervical dysplasia with HPV 18/45 positive HPV 16 negative. The patient had Trichomonas was treated with Flagyl repeat BV panel showed negative Trichomonas but positive for BV. Last mammogram was in 10/05 still pending Recent pelvic ultrasound showed the following: IMPRESSION: 1. Severely limited visualization due to bowel gas and body habitus. 2. Endometrium is poorly visualized. Imaged segment of endometrium with thickness of approximately 5 mm although measurements are of limited accuracy due to severely limited visualization. 3. Left ovary not visualized. Right ovary grossly unremarkable on limited images. 4. No discrete fibroids appreciated Recent TSH done on 10/10/2023 was elevated PFSH Medical History Witnessed apneic spells SANDI (obstructive sleep apnea) Substance abuse in remission Chronic idiopathic constipation IBS (irritable bowel syndrome) Left leg pain Hand dermatitis Chronic pancreatitis Surgical History History of tubal ligation Family History Father Mental health disorder Mother High blood pressure High cholesterol Social History Housing: House Alcohol intake: never Patient Tobacco Use Status: Current everyday Tobacco user Cigarette Packs Per Day: 1 Cigarettes Per Day: 10 e-Cigarette/Vaping Use: Never Used service: No Current occupational status: employed 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 Cognitive needs: No Hearing needs: No Vision needs: No Female Reproductive History Menstrual Age of Menarche: 14 Review of Systems Const All systems reviewed & are unremarkable except as noted in HPI and below Card Reports as per HPI Resp Reports as per HPI GI Reports as per HPI and Reports no additional complaints Reports as per HPI Physical Exam Vital Signs: Last Vital Signs BP 122/70 10/14/23 10:17 BMI result Body Mass Index 38.7 Const General: cooperative, healthy appearing and comfortable Chest Chest palpation & inspection: normal inspection of the chest and normal palpation of entire chest wall Breast/axilla inspection: normal inspection of the breasts and normal inspection of the axillae Breast/axilla palpation: normal palpation of the breasts, normal palpation of the axillae and no axillary lymphadenopathy Resp Effort & Inspection: normal respiratory effort Auscultation: clear to auscultation bilaterally Percussion: percussion normal Cardio Palpation: normal PMI Rate: regular rate Rhythm: regular rhythm Heart sounds: no murmurs and no rubs Peripheral pulses: Peripheral pulses 2+ throughout GI Inspection: Yes normal to inspection Palpation (GI): Soft to palpation, nontender, no guarding, not rigid and No hepatosplenomegaly present Percussion: Yes normal to percussion Auscultation: normal bowel sounds Rectal Exam - Female: deferred General: Yes bladder normal to palpation External Female Exam: No lesion Speculum Exam - Vagina: normal appearance of the vagina, normal palpation, normal vaginal discharge and not erythematous Speculum Exam - Cervix: abnormal appearance of the cervix (Endocervical polyp) and normal palpation Bimanual exam- vagina & uterus: normal bimanual exam, normal palpation, uterine size normal, bladder normal to palpation, consistency normal and normal palpation Bimanual Exam- Adnexa, other: normal adnexae, no masses and no tenderness Results AMB Test Urine AMB Test Urine Negative Last Edit by Mishel Melara CMA on 10/14/23 10:29 Assessment & Plan Assessment & Plan (1) Abnormal uterine bleeding: Code(s): N93.9 - Abnormal uterine and vaginal bleeding, unspecified Category: Medical Plan: CBC, prolactin, HCG, ordered. TSH recently done and was elevated, pelvic ultrasound recently done, mammogram ordered and done but not read yet, GC/CT were negative. Discussed with the patient the different causes of abnormal bleeding including thyroid disorders, uterine and ovarian pathology, endometrial hyperplasia, carcinoma and other potential causes. Discussed with the patient the work up including CBC (to r/o anemia), TSH, prolactin, pelvic Ultrasound, endometrial biopsy to r/o endometrial pathology. All questions answered and the patient verbalized understanding. Instructed the patient to schedule an appointment for an endometrial biopsy in 2 weeks after treating BV with metronidazole (2) Cervical polyp: Code(s): N84.1 - Polyp of cervix uteri Category: Medical Plan: Discussed with the patient the finding on pelvic exam showing endocervical polyp, instructions given to patient to schedule endocervical polypectomy next visit after BV treatment (3) LGSIL on Pap smear of cervix: Comment: Favor moderate dysplasia, HPV 16/45 positive Code(s): R87.612 - Low grade squamous intraepithelial lesion on cytologic smear of cervix (LGSIL) Category: Medical Plan: Discussed with the patient the result of her abnormal pap, its significance, risk of progression, persistence, and regression. the false positive/negative rate of a Pap smear as a screening test in detecting cervical cancer and the indication for a diagnostic test -colposcopy, biopsy, endocervical curettage. Instructions given to patient to schedule colposcopy/biopsy/ECC in 2 weeks after BV treatment The patient verbalized understanding and agreed with the plan, all questions answered. (4) Elevated TSH: Code(s): R79.89 - Other specified abnormal findings of blood chemistry Category: Medical Plan: Discussed with the patient elevated TSH, instructions given the patient to call her PCP (5) Hirsutism: Code(s): L68.0 - Hirsutism Category: Medical Plan: Testosterone total and free with 17 hydroxyprogesterone ordered (6) Bacterial vaginosis: Code(s): N76.0 - Acute vaginitis; B96.89 - Other specified bacterial agents as the cause of diseases classified elsewhere Category: Medical Plan: Per CDC recommendation, will screen for STI, HepBs Ag, HIV, RPR, Hep C Ab ordered. Will treat with Flagyl 500 mg p.o. b.i.d. x 7 days, Instructions given to the patient to refrain from sexual activity or to use condoms consistently and correctly during the BV treatment regimen, not to douch, it might increase the risk for relapse, and to call if symptoms persist or recur. Orders: Orders AMB HCG Urine Test Today Z32.02 - Encounter for test, result negative Complete Blood Count no Diff Today N93.9 - Abnormal uterine and vaginal bleeding, unspecified Hepatitis B Surface Antigen Today B96.89 - Other specified bacterial agents as the cause of diseases classified elsewhere, N76.0 - Acute vaginitis Hepatitis C Antibody Today B96.89 - Other specified bacterial agents as the cause of diseases classified elsewhere, N76.0 - Acute vaginitis Prolactin Today N93.9 - Abnormal uterine and vaginal bleeding, unspecified HCG Quantitative Today N93.9 - Abnormal uterine and vaginal bleeding, unspecified Testosterone, Free/Total Today L68.0 - Hirsutism 17 Hydroxyprogesterone Today L68.0 - Hirsutism Syphilis Screen Today B96.89 - Other specified bacterial agents as the cause of diseases classified elsewhere, N76.0 - Acute vaginitis Medications: New metronidazole 500 mg PO BID 7 days 14 tabs 0RF Coding Level of Care Code Est Pt Level 3 (04941) Diagnoses Abnormal uterine bleeding N93.9 Cervical polyp N84.1 LGSIL on Pap smear of cervix R87.612 Elevated TSH R79.89 Hirsutism L68.0 Bacterial vaginosis N76.0; B96.89
== END 2023-10-14 11:53 | disposition home or self-care (01) ==
LOC: HO.HWS 10:15
PROVIDERS: PCP Family Medicine; Visit Provider Obstetrics & Gynecology
DX: N93.9 Abnormal uterine and vaginal bleeding, unspecified (principal); N84.1 Polyp of cervix uteri; R87.612 Low grade squamous intraepithelial lesion on cytologic smear of cervix (LGSIL); R79.89 Other specified abnormal findings of blood chemistry; L68.0 Hirsutism; N76.0 Acute vaginitis; B96.89 Other specified bacterial agents as the cause of diseases classified elsewhere; Z32.02 Encounter for pregnancy test, result negative
CPT/HCPCS: 99213

== ENCOUNTER → 2023-10-14 10:15 | Outpatient (BNVA) | payer OTHER, SELFPAY | PROVIDERS: PCP Family Medicine; Visit Provider Obstetrics & Gynecology ==

== ENCOUNTER 2023-10-14 11:00 | Outpatient (REF) | payer OTHER, SELFPAY ==
[2023-10-14 12:13] LABS: Hematocrit 39.6 % (37.0-47.0); Hemoglobin 13.7 g/dl (12.0-16.0); Mean Corpuscular HGB Conc 34.6 g/dl (31.0-35.0); Mean Corpuscular Hemoglobin 32.9 pg (27.0-33.0); Mean Platelet Volume 9.6 fL (9.4-12.3); Platelet Count 175 X10*3/uL (160-400); Red Blood Count 4.17 X10*6/uL (4.20-5.50); Red Cell Distribution Width 13.7 % (11.0-16.0); White Blood Count 5.5 X10*3/uL (4.8-10.8)
[2023-10-14 12:48] LABS: HCG Quantitative < 2 mIU/mL
[2023-10-14 13:03] LABS: Syphilis Screen Nonreactive (Nonreactive)
[2023-10-14 13:05] LABS: HBsAGNum1 0.44 S/CO (0.00-0.99); Hepatitis B Surface Antigen Negative (Negative); ~HepC Num1 16.06 S/CO (0.00-0.79); ~Hepatitis C Antibody Reactive (Nonreactive)
[2023-10-15 11:43] LABS: Prolactin 11.6 ng/mL
[2023-10-24 19:38] LABS: Testosterone, Free 2.6 pg/mL (0.1-6.4); Testosterone, Total 21 ng/dL (2-45)
== END 2023-10-14 11:01 | disposition home or self-care (01) ==
LOC: HO.LAB 11:00
PROVIDERS: PCP Nurse Practitioner Family; Visit Provider Obstetrics & Gynecology
DX: N93.9 Abnormal uterine and vaginal bleeding, unspecified (principal); N84.1 Polyp of cervix uteri; R87.612 Low grade squamous intraepithelial lesion on cytologic smear of cervix (LGSIL); R79.89 Other specified abnormal findings of blood chemistry; L68.0 Hirsutism; N76.0 Acute vaginitis; B96.89 Other specified bacterial agents as the cause of diseases classified elsewhere
CPT/HCPCS: 36415; 81025; 83498; 84146; 84402; 84403; 84702; 85027; 86780; 86803; 87340; 99212

== ENCOUNTER → 2023-10-21 19:30 | Outpatient (REF) | payer OTHER, SELFPAY | LOC: HO.SL 19:30 | PROVIDERS: Visit Provider Nurse Practitioner Family | DX: G47.33 Obstructive sleep apnea (adult) (pediatric) (principal) | CPT/HCPCS: 95811 ==

== ENCOUNTER → 2023-10-21 21:47 | Outpatient (BNV) | payer OTHER, SELFPAY | PROVIDERS: Visit Provider Internal Medicine | DX: G47.33 Obstructive sleep apnea (adult) (pediatric) (principal) | CPT/HCPCS: 95811 ==

== ENCOUNTER 2023-10-22 11:37 | Outpatient (AMB) | payer OTHER, SELFPAY ==
--- NOTE | 2023-10-22 12:05 | A.OFFVIS_ITS ---
Vital Signs 10/22/23 12:06 Height 5 ft 3 in Weight 218 lb 4.122 oz BMI 38.7 Intake Visit Reasons: colpo, emb, polypectomy Allergies No Known Drug Allergies Allergy (Unknown, Verified 10/14/23 10:28) none Seasonal Allergies Allergy (Verified 10/14/23 10:28) runny eyes, itchy skin, congestion HPI Comments Details: Presenting for colposcopy for a Pap smear showing LSIL HPV E6 E7 positive, HPV 16 positive, HPV 18/45 negative, endometrial biopsy for AUB and polypectomy for endocervical polyp. The patient had hep C antibody positive, was previously positive in 2022 with elevated viral load, has been manage with GI regarding her hep C [facility] Medical History Witnessed apneic spells SANDI (obstructive sleep apnea) Substance abuse in remission Chronic idiopathic constipation IBS (irritable bowel syndrome) Left leg pain Hand dermatitis Chronic pancreatitis Surgical History History of tubal ligation Family History Father Mental health disorder Mother High blood pressure High cholesterol Social History Housing: House Alcohol intake: never Patient Tobacco Use Status: Current everyday Tobacco user Cigarette Packs Per Day: 1 Cigarettes Per Day: 10 e-Cigarette/Vaping Use: Never Used service: No Current occupational status: employed 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 We thoroughly discussed the procedure itself, including its details, alternatives, and all associated risks. This included but not limited to the following complications such as bleeding, infection, and injury to the vagina, bladder, and vessels, as well as the potential need for transfusion with all its associated risks. Subsequently, the patient sign the consent. Pap smear result: LSIL favor moderate cervical dysplasia, HPV E6/E7 and 16 positive, HPV 18/45 negative. Urine test in office = Negative Procedure: During the procedure, the following steps were performed: A speculum was inserted, and acetic acid was applied. Colposcopy was conducted, allowing visualization of the transformation zone. Acetowhite lesions were identified at the 3+4+6+11+1 o'clock position. Cervical biopsies were obtained from the3+4+6+11+1 o'clock position, followed by an endocervical curettage (ECC). Vaginoscopy of the upper vagina revealed no evidence of aceto-white lesions. Hemostasis was achieved using Monsel solution, and the patient tolerated the procedure well. Post-Procedure Instructions: The patient was advised to promptly contact the office or the after hours answering service or go to the emergency room if experiencing a temperature exceeding 100.4?F, abdominal pain, nausea/vomiting, or bleeding. Additionally, the patient was instructed to abstain from vaginal intercourse and bathtub use. The patient confirmed understanding of these instructions. Discharge Instructions: The patient was instructed to schedule a follow-up appointment in 2 weeks for further evaluation and management. Please note that this note was generated using a voice recognition program, and errors may have occurred during compounder sterile products. 43182-Rqnrmbcum of cervix including upper vagina with biopsy and ECC Procedure code (CPT) selection complete Endometrial Biopsy Details: The patient was counseled regarding the indication and benefits of endometrial s ampling to rule out endometrial pathology including not limited to endometrial hyperplasia or endometrial cancer and others; The alternatives (Either do nothing vs. hysteroscopy D&C) & the risks were discussed with the patient including but not limited: pain, uterine perforation, bleeding, infection, possible injury to bladder, bowel, ureter, possible need for blood transfusion with all its possible risks. The patient verbalized understanding all questions answered and signed consent. Urine test done in the office was negative The patient was placed into the dorsal lithotomy position; a speculum was inserted in the vagina. Using aseptic technique for the procedure, the cervix was cleansed with Betadine. The anterior lip of the cervix was grasped with a single tooth tenaculum. The uterus was sounded to 7 cm with a 4 mm Pipelle was used. Tissues samples were obtained and placed in formalin, in a patient labeled container and sent to the pathology department. At the end of the procedure, there was minimal bleeding noted The patient tolerated the procedure well and was discharged in good condition with the following instructions: Nothing in the vagina until the bleeding stops. No sex until the bleeding stops, to call if any of the following occurs: fever (>100.4), flu-like symptoms, abdominal pain, heavy bleeding, four smelling vaginal discharge. The patient was instructed to schedule a Follow up appointment in 2 weeks to discuss pathology results of the biopsy and treatment options. This note was generated with a voice recognition program. Some errors may have been overlooked during the review of this note. Sometimes these errors may affect the content or meaning of a given sentence. 24253-Qbobemeiwmc Biopsy SOFTWARE LICENSING SPECIALIST Biopsy Before the procedure was started, discussed with the patient the procedure technique, alternatives & all the risks associated with the procedure including but not limited to: bleeding , infection, uterine perforation, injury to bladder, vessels, bowels, possible need for transfusion with all its risks, and others. All questions were answered, the patient verbalized understanding and signed the consent. Urine test done in the office was negative Using a long Ирина Clamp the endocervical polyp was grasped and twisted around till it came off, hemostasis was secured using pressure. The patient tolerated the procedure well. Instructions were given to the patient to call if bleeding, temp>100.4 occur. The patient verbalized understanding and agreed with the plan. This note was generated with a voice recognition program. Some errors may have been overlooked during the review of this note. Sometimes these errors may affect the content or meaning of a given sentence. 43286-Bdeowo of Cervix Procedure code (CPT) selection complete Assessment & Plan Assessment & Plan (1) Abnormal uterine bleeding: Code(s): N93.9 - Abnormal uterine and vaginal bleeding, unspecified Category: Medical Plan: EMB done, see procedure note (2) LGSIL on Pap smear of cervix: Comment: Favor moderate dysplasia, HPV 16/45 positive Code(s): R87.612 - Low grade squamous intraepithelial lesion on cytologic smear of cervix (LGSIL) Category: Medical Plan: Colposcopy/biopsy/ECC done, see procedure note (3) Hepatitis C: Code(s): B19.20 - Unspecified viral hepatitis C without hepatic coma Category: Medical Qualifiers: Viral hepatitis chronicity: acute Hepatic coma status: without hepatic coma Qualified Code(s): B17.10 - Acute hepatitis C without hepatic coma Plan: Instructions given the patient to contact GI for further management. A message was sent to her primary GI attending regarding the results Orders: Orders AMB Endometrial Biopsy Today N93.9 - Abnormal uterine and vaginal bleeding, unspecified AMB Colposcopy Today R87.612 - Low grade squamous intraepithelial lesion on cytologic smear of cervix (LGSIL) AMB SOFTWARE LICENSING SPECIALIST Biopsy Today N93.9 - Abnormal uterine and vaginal bleeding, unspecified Coding Level of Care Code Procedure Only Diagnoses Abnormal uterine bleeding N93.9 LGSIL on Pap smear of cervix R87.612 Acute hepatitis C virus infection without hepatic coma B17.10 Viral hepatitis chronicity: acute Hepatic coma status: without hepatic coma CPT Codes Colposcopy - CPT: 07503-Zbuzzecoz of cervix including upper vagina with biopsy and ECC ([id number]) Endometrial Biopsy - CPT: 58089-Mkutrzppipr Biopsy ([id number]) SOFTWARE LICENSING SPECIALIST Biopsy - CPT: 94246-Kuextp of Cervix ([id number])
[2023-10-22 12:06] VITALS: BMI 38.7
== END 2023-10-22 12:40 | disposition home or self-care (01) ==
LOC: HO.HWS 11:37
PROVIDERS: PCP Nurse Practitioner Family; Visit Provider Obstetrics & Gynecology
DX: R87.612 Low grade squamous intraepithelial lesion on cytologic smear of cervix (LGSIL) (principal); N93.9 Abnormal uterine and vaginal bleeding, unspecified; B17.10 Acute hepatitis C without hepatic coma
CPT/HCPCS: 57454; 58110

== ENCOUNTER 2023-10-22 11:37 | Outpatient (REF) | payer OTHER, SELFPAY | END 2023-10-22 11:38 | disposition home or self-care (01) | LOC: HO.LNP 11:37 | PROVIDERS: PCP Nurse Practitioner Family; Visit Provider Obstetrics & Gynecology | DX: N93.9 Abnormal uterine and vaginal bleeding, unspecified (principal); R87.612 Low grade squamous intraepithelial lesion on cytologic smear of cervix (LGSIL); B17.10 Acute hepatitis C without hepatic coma; N84.1 Polyp of cervix uteri | CPT/HCPCS: 57454; 58110; 88305; 88342; 88360 ==

== ENCOUNTER 2023-10-28 08:38 | Outpatient (AMB) | payer OTHER, SELFPAY ==
[2023-10-28 08:43] VITALS: BP 126/74; PULSE 65; O2SAT 94; BMI 39.3
--- NOTE | 2023-10-28 08:43 | MHC.PC.OV ---
Vital Signs 10/28/23 08:43 Height 5 ft 3 in Weight 222 lb 1 oz BMI 39.3 BP 126/74 Blood Pressure Location Rt brachial Position Sitting Pulse 65 Pulse Source Pulse Oximeter Pulse Oximetry (%) 94 Oxygen Delivery Method Room Air Intake Visit Reasons: f/u hypertension, chronic conditions, thyroid Intake Note: Patient is here for follow up on thyroid, hypertension, and chronic conditions. Allergies No Known Drug Allergies Allergy (Unknown, Verified 10/28/23 08:46) none Seasonal Allergies Allergy (Verified 10/28/23 08:46) runny eyes, itchy skin, congestion Medication List - Last Reconciled 10/28/23 by Aakash Navarro MD benztropine 0.5 mg PO DAILY betamethasone valerate 0.1% 1 appl topical DAILY PRN 30 days bisacodyl 10 mg (2 x 5 mg) PO BEDTIME xzwpjcnhzn-iqyvicssjvcwz-gevn 50-325-40 mg 1 tab PO Q4H PRN 7 days clonazepam (Klonopin) 0.5 mg PO TID famotidine (Pepcid) 20 mg PO BEDTIME fluticasone propionate 50 mcg/actuation 1 spray intranasal BID gabapentin 600 mg PO TID 30 days linaclotide (Linzess) 290 mcg PO QAM lisinopril 20 mg PO DAILY 30 days magnesium hydroxide (Milk of Magnesia) 10 mL PO DAILY PRN methadone 130 mg PO DAILY methylcellulose (laxative) (Citrucel) 500 mg PO DAILY omeprazole 40 mg PO DAILY paroxetine HCl 40 mg PO DAILY 30 days quetiapine (Seroquel) 50 mg PO DAILY PRN quetiapine (Seroquel) 300 mg PO BEDTIME 30 days sucralfate 1 g PO BEDTIME sumatriptan succinate 50 - 100 mg orally at onset of headache, may repeat in 2 hrs PRN; max 2 tabs per day or 4 tabs/week (may take w/ Ibuprofen). 30 days topiramate 50 mg PO DAILY 30 days trazodone 100 mg PO BEDTIME PRN ziprasidone HCl 20 mg PO DAILY Tobacco use date assessed: 07/23/23 Dental Screening Dental Screen Date: 06/18/23 HPI f/u hypertension, chronic conditions, thyroid HPI Details 38 y/o female presents to f/u hypertension and chronic conditions. Blood pressure today 126/74. She is on lisinopril 20mg daily. Labs drawn 10/10/23. Reviewed labs with pt. Triglycerides 317. TC 226. LDL 135. HDL low at 28. TSH elevated at 13.33. A1c 5.1%. [facility]LY [facility] Medical History Witnessed apneic spells SANDI (obstructive sleep apnea) Substance abuse in remission Chronic idiopathic constipation IBS (irritable bowel syndrome) Left leg pain Hand dermatitis Chronic pancreatitis Surgical History History of tubal ligation Family History Father Mental health disorder Mother High blood pressure High cholesterol Social History Housing: House Alcohol intake: never Patient Tobacco Use Status: Current everyday Tobacco user Cigarette Packs Per Day: 1 Cigarettes Per Day: 10 e-Cigarette/Vaping Use: Never Used service: No Current occupational status: employed 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 Cognitive needs: No Hearing needs: No Vision needs: No Female Reproductive History Menstrual Age of Menarche: 14 Questionnaire Thrive Questionnaire Date Thrive assessed: 06/18/23 IVA-7 AMB Questionnaire IVA-7 Date IVA - 7 assessed: 06/18/23 Source: Developed by Drs. Erik Allred, Mary Villela, Sriram Parson and colleagues, with an educational elizabeth from [employer]. Review of Systems Const Denies chills, Denies fatigue, Denies fever(s), Denies headache(s) and Denies weakness ENT Denies dizziness and Denies headache(s) Card Denies dyspnea Resp Denies cough, Denies dyspnea, Denies wheezing and Denies other (shortness of breath) Musc Denies numbness and Denies tingling Neuro Denies dizziness, Denies headache(s), Denies numbness, Denies tingling and Denies weakness Psych Denies anxiety and Denies depression Endo Denies fatigue Aller/Immun Denies wheezing Physical exam (Primary Care) Vital Signs: Last Vital Signs Pulse 65 10/28/23 08:43 BP 126/74 10/28/23 08:43 Pulse Ox 94 10/28/23 08:43 Oxygen Delivery Method Room Air 10/28/23 08:43 BMI result Body Mass Index 39.3 Tobacco/Smoking Status: Tobacco use Status Tobacco use date assessed 07/23/23 10/28/23 08:44 Patient Tobacco Use Status Current everyday Tobacco 10/28/23 08:44 e-Cigarette/Vaping Use Never Used 10/28/23 08:44 Thrive Assessment: Date of Thrive Assessment Date Thrive assessed 06/18/23 10/28/23 08:44 Const General: well developed; No acute distress Nutritional Appearance: well nourished Orientation/consciousness: patient oriented x3 HENMT Head: Yes normocephalic and Yes atraumatic Eyes General: appearance normal, both eyes and all related structures Pupils: Equal, round and reactive pupils present EOM: EOMs intact bilaterally Resp Other: Crackles, wheezing, rhonchi at L lung field Effort & Inspection: normal respiratory effort Auscultation: not clear to auscultation bilaterally Cardio Rate: regular rate Rhythm: regular rhythm Heart sounds: S1 normal heart sound present, S2 normal heart sound present, no gallops, no murmurs and no rubs Neuro General: patient oriented x3 and gait normal Cranial nerves: Yes Equal, round and reactive pupils present Psych Affect: normal affect Assessment and Plan Assessment & Plan (1) Hypertension: Code(s): I10 - Essential (primary) hypertension Plan: Blood?pressure?is?controlled.??Goal?less?than?130/80 Continue?current?medications (2) Hypercholesterolemia: Code(s): E78.00 - Pure hypercholesterolemia, unspecified Plan: Hyperlipidemia Also?abnormal?EKG?and?patient?had?recent?angiogram.??Results?pending?and?she?has?an?appointment?with?cardiology?today. LDL?cholesterol?is?high?and?her?HDL?is?significantly?low Starting?atorvastatin (3) Hypothyroid: Code(s): E03.9 - Hypothyroidism, unspecified Plan: History?of?hypothyroidism.??TSH?is?significantly?elevated Start?levothyroxine.??Will?follow-up?at?a?subsequent?visit?to?adjust?dose?as?needed (4) Hepatitis C: Code(s): B19.20 - Unspecified viral hepatitis C without hepatic coma Qualifiers: Hepatic coma status: without hepatic coma Viral hepatitis chronicity: acute Qualified Code(s): B17.10 - Acute hepatitis C without hepatic coma Plan: Followed?by?Gastroenterology (5) Abnormal lung sounds: Code(s): R09.89 - Other specified symptoms and signs involving the circulatory and respiratory systems Plan: Patient?says?she?went?to[facility]the[facility]days?ago?for?SOB?and?cough. She?says?she?was?told?there?was?no?abnormalities.??I?do?not?have?the?report. Patient?has?significant?abnormal?lung?sounds? Starting?her?on?a?Z-Edwin?and?sending?her?for?chest?x-ray.??Will?call?her?if?further?action?is?required?or?she?can?call?or?return?to?office?if?not?improving (6) Abnormal EKG: Code(s): R94.31 - Abnormal electrocardiogram [ECG] [EKG] Plan: Patient?has?undergone?angiogram?at?[facility]. She?has?follow-up?with?Cardiology?today?and?I?reminded?her?to?make?sure?she?attends?appointment. I?will?follow?along Orders: Orders XR chest 2V Today R05.9 - Cough, unspecified, R09.89 - Other specified symptoms and signs involving the circulatory and respiratory systems Medications: New azithromycin (Zithromax Z-Edwin) take 500 mg today (day 1), then 250 mg for 4 days (days 2-5) PO 5 days 6 tabs 0RF levothyroxine 50 mcg PO DAILY 90 days 90 tabs 1RF E03.9 - Hypothyroidism, unspecified atorvastatin 20 mg PO BEDTIME 90 days 90 tabs 2RF Coding Level of Care Code Est Pt Level 4 (76706) Diagnoses Hypertension I10 Hypercholesterolemia E78.00 Hypothyroid E03.9 Acute hepatitis C virus infection without hepatic coma B17.10 Hepatic coma status: without hepatic coma Viral hepatitis chronicity: acute Abnormal lung sounds R09.89 Abnormal EKG R94.31
== END 2023-10-28 10:29 | disposition home or self-care (01) ==
PROVIDERS: PCP Family Medicine; Visit Provider Family Medicine
DX: I10 Essential (primary) hypertension (principal); E78.00 Pure hypercholesterolemia, unspecified; E03.9 Hypothyroidism, unspecified; B17.10 Acute hepatitis C without hepatic coma; R09.89 Other specified symptoms and signs involving the circulatory and respiratory systems; R94.31 Abnormal electrocardiogram [ECG] [EKG]
CPT/HCPCS: 99214

== ENCOUNTER 2023-10-28 12:44 | Outpatient (AMB) | payer OTHER, SELFPAY ==
--- NOTE | 2023-10-28 12:46 | MHC.OFFVIS ---
Vital Signs 10/28/23 12:47 Height 5 ft 3 in Weight 220 lb 7.396 oz BMI 39.0 BP 118/60 Blood Pressure Location Lt brachial Position Sitting Pulse 61 Pulse Source Pulse Oximeter Intake Visit Reasons: f/up cta [facility] Allergies No Known Drug Allergies Allergy (Unknown, Verified 10/28/23 08:46) none Seasonal Allergies Allergy (Verified 10/28/23 08:46) runny eyes, itchy skin, congestion Medication List - Last Reconciled 10/28/23 by Brittany Bhatt NP atorvastatin 20 mg PO BEDTIME 90 days azithromycin (Zithromax Z-Edwin) take 500 mg today (day 1), then 250 mg for 4 days (days 2-5) PO 5 days benztropine 0.5 mg PO DAILY betamethasone valerate 0.1% 1 appl topical DAILY PRN 30 days bisacodyl 10 mg (2 x 5 mg) PO BEDTIME famotidine (Pepcid) 20 mg PO BEDTIME fluticasone propionate 50 mcg/actuation 1 spray intranasal BID gabapentin 600 mg PO TID 30 days levothyroxine 50 mcg PO DAILY 90 days linaclotide (Linzess) 290 mcg PO QAM lisinopril 20 mg PO DAILY 30 days magnesium hydroxide (Milk of Magnesia) 10 mL PO DAILY PRN methadone 130 mg PO DAILY omeprazole 40 mg PO DAILY paroxetine HCl 40 mg PO DAILY 30 days quetiapine (Seroquel) 50 mg PO DAILY PRN quetiapine (Seroquel) 300 mg PO BEDTIME 30 days topiramate 50 mg PO DAILY 30 days trazodone 100 mg PO BEDTIME PRN ziprasidone HCl 20 mg PO DAILY HPI Comments Details: 38-year-old female presents today for a follow-up after having a coronary CT performed. She has a history of substance abuse and was just started on atorvastatin today She is on methadone. She gets an odd sensation in the left chest randomly. She struggles to describe it. She has cut back to one to three cigaretts per day. She was just [facility] Medical History Hx of CT scan Witnessed apneic spells SANDI (obstructive sleep apnea) Substance abuse in remission Chronic idiopathic constipation IBS (irritable bowel syndrome) Left leg pain Hand dermatitis Chronic pancreatitis Surgical History History of tubal ligation Family History Father Mental health disorder Mother High blood pressure High cholesterol Social History Housing: House Alcohol intake: never Patient Tobacco Use Status: Current everyday Tobacco user Cigarette Packs Per Day: 1 Cigarettes Per Day: 10 e-Cigarette/Vaping Use: Never Used service: No Current occupational status: employed 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 Cognitive needs: No Hearing needs: No Vision needs: No Female Reproductive History Menstrual Age of Menarche: 14 Review of Systems Const Denies weakness ENT Denies dizziness Card Denies chest pain, Denies chest pain with activity, Denies syncope, Denies rapid heart rate, Denies pedal edema, Denies edema, Denies leg edema, Denies lightheadedness, Denies palpitations, Denies dyspnea, Denies dyspnea on exertion and Denies orthopnea Resp Denies cough, Denies dyspnea and Denies dyspnea on exertion GI Denies hematochezia and Denies change in stool character Musc Denies abnormal gait, Denies muscle cramps, Denies muscle weakness, Denies numbness, Denies radiating pain into limb and Denies tingling Neuro Denies abnormal gait, Denies dizziness, Denies syncope, Denies numbness, Denies tingling and Denies weakness Endo Denies palpitations Physical Exam Const General: healthy appearing and no acute distress Orientation/consciousness: patient oriented x3 HEENT Head: Yes normal to inspection Eyes General: appearance normal, both eyes and all related structures Neck Neck: Yes normal visual inspection Chest Chest palpation & inspection: normal inspection of the chest Resp Effort & Inspection: normal respiratory effort Auscultation: wheezes left lower Cardio Jugular venous distension: no JVD Palpation: normal PMI Rate: regular rate Rhythm: regular rhythm Heart sounds: S1 normal heart sound present, S2 normal heart sound present, no click, no gallops, no murmurs and no rubs GI Inspection: Yes normal to inspection Palpation (GI): Soft to palpation Skin General skin exam: no rashes or lesions noted Neuro General: patient oriented x3 Extrem General: Yes normal to inspection Psych Appearance: grossly normal Assessment & Plan Assessment & Plan (1) Hx of CT scan: Comment: 10/22/2023 CTA of the heart Coronary Artery Angiography: Dominance: Right dominant. Left Main: The ostium is normally positioned. The left main coronary artery is normal. Left Anterior Descending: Normal. First diagonal is a normal small branch that arises very early. Second diagonal is a normal medium-size branch seen on image 72. Distal LAD wraps around the apex. Left Circumflex Artery: Normal. OM1 is a normal medium-sized branch. Ramus Intermedius: None. Right Coronary Artery: The ostium is normally positioned. It is mildly degraded by cardiac motion. No significant plaque or stenosis. Code(s): Z92.89 - Personal history of other medical treatment Category: Medical (2) Abnormal lung sounds: Code(s): R09.89 - Other specified symptoms and signs involving the circulatory and respiratory systems Category: Medical (3) Hypercholesterolemia: Code(s): E78.00 - Pure hypercholesterolemia, unspecified Category: Medical Plan Coronary CT shows no significant CAD. Patient had an echocardiogram 05/2023 which was a normal study. Discussed in detail about weight loss, heart healthy diet, smoking cessation, exercise, and avoidance of illicit drugs. Patient had LDL performed on 10/10/2023 and was 135. Discussed decreasing it. Recently started on atorvasatin 20mg from PCP and care for this is through PCP. Had expiratory wheeze - cleared when she coughed. PCP started her on ZPACK. Coding Level of Care Code Est Pt Level 4 (38041) Diagnoses Hx of CT scan Z92.89 Abnormal lung sounds R09.89 Hypercholesterolemia E78.00
[2023-10-28 12:47] VITALS: BP 118/60; PULSE 61; BMI 39.0
== END 2023-10-28 13:10 | disposition home or self-care (01) ==
PROVIDERS: PCP Family Medicine; Visit Provider Nurse Practitioner
DX: Z92.89 Personal history of other medical treatment (principal); R09.89 Other specified symptoms and signs involving the circulatory and respiratory systems; E78.00 Pure hypercholesterolemia, unspecified
CPT/HCPCS: 99214

== ENCOUNTER → 2023-10-28 12:44 | Outpatient (BNVA) | payer OTHER, SELFPAY | PROVIDERS: PCP Family Medicine; Visit Provider Nurse Practitioner | DX: R09.89 Other specified symptoms and signs involving the circulatory and respiratory systems (principal); E78.00 Pure hypercholesterolemia, unspecified; Z92.89 Personal history of other medical treatment | CPT/HCPCS: 99212 ==

== ENCOUNTER 2023-10-31 09:19 | Day surgery (SDC) | payer OTHER, SELFPAY ==
--- NOTE | ~2023-10-31 | FL_ITS ---
FLUOROSCOPIC GUIDED LUMBAR PUNCTURE INDICATION: Hypersomnia TECHNIQUE: Risks and benefits and possible complications were discussed with the patient and the consent form was signed. Patient was placed prone on the fluoroscopy table. The back was prepped and draped in routine sterile fashion. Betadine was used as a skin antiseptic. Utilizing fluoroscopic guidance, the L3-4 interlaminar space was accessed with a 5 in 22 gauge quinkie spinal needle and clear CSF fluid obtained. 8 cc of fluid was sent for analysis. The needle was removed without immediate complications. Total fluoroscopy time: 1 minute 2 seconds FL/FL guided lumbar puncture LP IMPRESSION: Successful fluoroscopic L3-L4 interlaminar lumbar puncture. This procedure was performed by Neymar Palencia PA-C and supervised by Dr. Bhatt.
[2023-10-31 09:31] VITALS: BMI 37.8
[2023-10-31 09:33] LABS: UPreg QC Valid YES
[2023-10-31 09:35] LABS: Urine Pregnancy NEGATIVE (NEGATIVE)
[2023-10-31 11:52] VITALS: BP 127/72; PULSE 66; RESP 16; TEMP 36.6; O2SAT 95
[2023-10-31 12:05] VITALS: BP 122/63; PULSE 67; RESP 16; O2SAT 96
[2023-10-31] MEDS: Ibuprofen 200 MG TABLET 800 MG PO (12:18)
[2023-10-31 12:30] VITALS: BP 118/68; PULSE 70; RESP 16; TEMP 36.6; O2SAT 96
[2023-10-31 12:42] LABS: CSF Appearance Clear, Colorless; CSF Tube # 1; Glucose CSF 69 mg/dL; Total Protein CSF 46.6 mg/dL (15-45)
[2023-10-31 13:15] LABS: Appearance CSF CLEAR; CSF Monos 18 %; CSF Tube # 4; Lymphocytes CSF 82 %
[2023-10-31 13:16] LABS: Color CSF COLORLESS; Red Blood Cell CSF 1 MM*3; White Blood Cell CSF 2 MM*3
[2023-12-03 09:47] LABS: Other Ref Test - Misc SEE COMMENTS
== END 2023-10-31 12:45 | disposition home or self-care (01) ==
PROVIDERS: Physician Assistant Surgical; PCP Family Medicine; Visit Provider Nurse Practitioner Family
PROC: 009U3ZZ Drainage of Spinal Canal, Percutaneous Approach (ICD-10-PCS; CPT 62270; principal; 2023-10-31 11:00)
DX: G47.10 Hypersomnia, unspecified (principal); G47.411 Narcolepsy with cataplexy; G47.33 Obstructive sleep apnea (adult) (pediatric); G43.109 Migraine with aura, not intractable, without status migrainosus; Z79.899 Other long term (current) drug therapy; F17.210 Nicotine dependence, cigarettes, uncomplicated
CPT/HCPCS: 62328; 81025; 82945; 83519; 84157; 89051

== ENCOUNTER → 2023-10-31 09:48 | Outpatient (BNV) | payer OTHER, SELFPAY | PROVIDERS: PCP Family Medicine; Visit Provider Physician Assistant Surgical | DX: G47.10 Hypersomnia, unspecified (principal) | CPT/HCPCS: 62328 ==

== ENCOUNTER 2023-11-03 11:04 | Outpatient (AMB) | payer OTHER, SELFPAY ==
[2023-11-03 11:24] VITALS: BMI 37.8
--- NOTE | 2023-11-03 11:24 | MHC.OFFVIS ---
Vital Signs 11/03/23 11:24 Height 5 ft 5 in Weight 227 lb 1.218 oz BMI 37.8 Intake Visit Reasons: Colpo/EMB results Hr Systems Analyst: Hr Systems Analyst Present Allergies No Known Drug Allergies Allergy (Unknown, Verified 10/28/23 08:46) none Seasonal Allergies Allergy (Verified 10/28/23 08:46) runny eyes, itchy skin, congestion Is last menstrual period known: Yes Last menstrual period: 02/10/20 Post menopausal: No Patient : No Do you need a note to return to daycare/school/sports/work: Yes (for surgery on friday) HPI Comments Details: The patient is presenting for follow-up to discuss the results of her abnormal uterine bleeding workup and options of treatment. The following workup was done.: H&H= was 13.7/39.6 Prolactin, hCG, GC and chlamydia were negative. TSH elevated 13.33, the patient contacted her PCP and was started on Synthroid and another TSH is scheduled in few months Co testing was done showed LGSIL/moderate cervical dysplasia, colpo/biopsy/ECC with endometrial biopsy done, pathology showed the following: Presenting for pelvic ultrasound which showed the following: The uterus is anteverted and measures 7.5 x 3.0 x 4.2 cm. Endometrial thickness is 3 mm. No significant free fluid. A 0.6 x 0.5 x 0.4 cm echogenic focus adjacent to or within the endometrium was not previously identified. Differential considerations include an endometrial polyp, atypical fibroid or other lesion. Bilateral ovaries seen only on transabdominal ultrasound images and visualization is limited due to bowel gas. Right ovary measures 2.1 x 1.1 x 1.3 cm, volume 1.6 mL. Left ovary measures 2.0 x 1.1 x 1.1 cm, volume 1.3 mL. Mammogram was BI-RADS 1 Pelvic ultrasound showed the following: The uterus is anteverted and measures 7.8 x 3.4 x 4.1 cm. No discrete fibroids are appreciated. Limited visualization due to bowel gas and body habitus. Endometrium is poorly visualized. Imaged segment of endometrium with thickness of approximately 5 mm although measurements are of limited accuracy due to severely limited visualization. Left ovary not visualized. No significant free fluid. Right ovary measures 2.2 x 1.8 x 2.3 cm. Limited visualization of right ovary on ultrasound images, but is grossly unremarkable REPLACED BY [facility] Medical History Hx of CT scan Witnessed apneic spells SANDI (obstructive sleep apnea) Substance abuse in remission Chronic idiopathic constipation IBS (irritable bowel syndrome) Left leg pain Hand dermatitis Chronic pancreatitis Surgical History History of tubal ligation Family History Father Mental health disorder Mother High blood pressure High cholesterol Social History Housing: House Alcohol intake: never Patient Tobacco Use Status: Current everyday Tobacco user Cigarette Packs Per Day: 1 Cigarettes Per Day: 10 e-Cigarette/Vaping Use: Never Used service: No Current occupational status: employed 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 Cognitive needs: No Hearing needs: No Vision needs: No Female Reproductive History Menstrual Age of Menarche: 14 Date of last menstrual period: 02/10/20 Total pregnancies: 2 Full term: 2 Review of Systems Card Reports as per HPI and Reports no additional complaints Resp Reports as per HPI and Reports no additional complaints GI Reports as per HPI and Reports no additional complaints Reports as per HPI Physical Exam Vital Signs: BMI result Body Mass Index 37.8 Const General: cooperative, healthy appearing and comfortable Resp Effort & Inspection: normal respiratory effort Auscultation: clear to auscultation bilaterally Percussion: percussion normal Cardio Palpation: normal PMI Rate: regular rate Rhythm: regular rhythm Heart sounds: no murmurs and no rubs Peripheral pulses: Peripheral pulses 2+ throughout GI Inspection: Yes normal to inspection Palpation (GI): Soft to palpation, nontender, no guarding, not rigid and No hepatosplenomegaly present Percussion: Yes normal to percussion Auscultation: normal bowel sounds Rectal Exam - Female: deferred Assessment & Plan Assessment & Plan (1) Abnormal uterine bleeding: Code(s): N93.9 - Abnormal uterine and vaginal bleeding, unspecified Category: Medical Plan: Discussed with the patient the results of the work up done and options of treatment including Lysteda, control pills (both contraindicated), Mirena IUD, endometrial ablation and hysterectomy. All pros, cons, risks and benefits if each option was discussed with the patient and the patient decided to go ahead with Mirena IUD so a more detailed discussion about it was conducted including mechanism of action, risks (uterine perforation, infection, injury to bladder, bowel, displacement, and others) benefits (hypo menorrhea, amenorrhea, ...). GC/CT were recently taken and were negative and will schedule Mirena IUD insertion with a LEEP/possible post cone ECC . All questions answered, the patient verbalized understanding (2) Cervical polyp: Code(s): N84.1 - Polyp of cervix uteri Category: Medical Plan: Discussed with the patient the results the cervical polyp pathology, the patient was reassured. 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 Discussed with the patient the sensitivity specificity, positive and negative predictive value in detecting cervical cancer in addition discussed the regression, persistence and progression rates. Addition discussed with the patient the risk of progression to cancer and impact of excision procedure on her future . Recommended excisional procedures, LEEP cone with post cone ECC with Mirena IUD insertion. Discussed with the patient the procedure, its benefits and risks including bleeding, infection, possible need for blood transfusion with all its risk ( HIV, syphilis, Hepatitis, anaphylaxis shock, others..), injury to bladder, rectum, possible need for re-excision or hysterectomy for positive margins, potential need for hysterectomy, possible future negative impact on fertility including ( cervical stenosis, incompetence , increase risk for c section 2ndary to cervical scarring and failure of dilatation). ). Also discussed the patient options of anesthesia either paracervical block versus IV sedation/MAC, prefers to proceed with IV sedation/MAC . All questions answered, the patient verbalized understanding and signed the consent. Instructions given to patient to schedule a postop appointment. (4) Elevated TSH: Code(s): R79.89 - Other specified abnormal findings of blood chemistry Category: Medical Plan: Discussed with the patient the results of elevated TSH, the patient stated that her PCP started her on Synthroid and check TSH scheduled in few months Coding Level of Care Code Est Pt Level 3 (12664) Diagnoses Abnormal uterine bleeding N93.9 Cervical polyp N84.1 ALYSHA III (cervical intraepithelial neoplasia grade III) with severe dysplasia D06.9 Elevated TSH R79.89
== END 2023-11-03 12:17 | disposition home or self-care (01) ==
PROVIDERS: PCP Family Medicine; Visit Provider Obstetrics & Gynecology
DX: N93.9 Abnormal uterine and vaginal bleeding, unspecified (principal); N84.1 Polyp of cervix uteri; D06.9 Carcinoma in situ of cervix, unspecified; R79.89 Other specified abnormal findings of blood chemistry
CPT/HCPCS: 99213

== ENCOUNTER → 2023-11-03 11:04 | Outpatient (BNVA) | payer OTHER, SELFPAY | PROVIDERS: PCP Family Medicine; Visit Provider Obstetrics & Gynecology | DX: N93.9 Abnormal uterine and vaginal bleeding, unspecified (principal); N84.1 Polyp of cervix uteri; D06.9 Carcinoma in situ of cervix, unspecified; R79.89 Other specified abnormal findings of blood chemistry | CPT/HCPCS: 99212 ==

== ENCOUNTER 2023-11-12 08:49 | Outpatient (AMB) | payer OTHER, SELFPAY ==
--- NOTE | 2023-11-12 09:13 | AM.OFFVISNUR ---
Intake Visit Reasons: Hep A #2 & Hep B #3 Allergies No Known Drug Allergies Allergy (Unknown, Verified 10/28/23 08:46) none Seasonal Allergies Allergy (Verified 10/28/23 08:46) runny eyes, itchy skin, congestion Assessment & Plan Assessment & Plan Orders: Orders Hepatitis B Adult Immunization Today Z23 - Encounter for immunization Medications: New Engerix-B (PF) (hepatitis B virus vacc.rec(PF)) 1 mL IM ONCE 1 mL 0RF NS Z23 - Encounter for immunization
== END 2023-11-12 09:16 | disposition home or self-care (01) ==
PROVIDERS: PCP Family Medicine; Visit Provider Nurse Practitioner Family
DX: Z23 Encounter for immunization (principal)

== ENCOUNTER → 2023-11-12 08:49 | Outpatient (BNVA) | payer OTHER, SELFPAY | PROVIDERS: PCP Family Medicine; Visit Provider Nurse Practitioner Family | DX: Z23 Encounter for immunization (principal) | CPT/HCPCS: 90471; 90746; 99211 ==

== ENCOUNTER 2023-11-17 11:47 | Day surgery (SDC) | payer OTHER, SELFPAY ==
[2023-11-13 14:37] VITALS: BMI 37.8
--- NOTE | 2023-11-13 15:06 | P.CONAN_ITS ---
Documented by User: Victoria Santiago NP 11/13/23 15:07 HPI - Anesthesia Eval Consult details Narrative: 38yo F for Mirena Insertion,LEEP,poss loop electric excision,poss loop electrical,cone and post endocervical curettage, Methadone daily PMFSH Active Problems Active Problems: All Active Problems ALYSHA III (cervical intraepithelial neoplasia grade III) with severe dysplasia (Acute) Hx of CT scan (Acute) Cough (Acute) Abnormal lung sounds (Acute) Hypothyroid (Acute) Hypercholesterolemia (Acute) Bacterial vaginosis (Acute) Hirsutism (Acute) LGSIL on Pap smear of cervix (Acute) Abnormal uterine bleeding (Acute) Migraine with aura (Acute) Severe obstructive sleep apnea (Acute) Cataplexy (Acute) Hypersomnia (Acute) Trichomoniasis (Acute) Breast cancer screening (Acute) Cervical polyp (Acute) Irregular menstruation, unspecified (Acute) Dry skin (Acute) Obesity (Acute) History of tubal ligation (Acute) Substance abuse in remission (Acute) Chronic idiopathic constipation (Acute) Hypertension (Acute) IBS (irritable bowel syndrome) (Acute) Hepatitis C (Acute) Daytime sleepiness (Acute) Snoring (Acute) Abnormal EKG (Acute) Elevated TSH (Acute) Low HDL (under 40) (Acute) Elevated fasting glucose (Acute) Elevated liver enzymes (Acute) GERD (gastroesophageal reflux disease) (Acute) Cellulitis of left hand (Acute) Adult general medical exam (Acute) Headache (Acute) Breast cancer screening by mammogram (Acute) Screening for cervical cancer (Acute) Annual visit for general adult medical examination without abnormal findings (Acute) Smoker (Acute) Neuropathy (Acute) Insomnia (Acute) Anxiety and depression (Acute) Laboratory examination ordered as part of a routine general medical examination (Acute) Past Medical History Medical History Hx of CT scan Witnessed apneic spells SANDI (obstructive sleep apnea) Substance abuse in remission Chronic idiopathic constipation IBS (irritable bowel syndrome) Left leg pain Hand dermatitis Chronic pancreatitis Family History Family History Father Mental health disorder Mother High blood pressure High cholesterol Surgical History Surgical History History of tubal ligation Social History Social History Housing: House Alcohol intake: never Patient Tobacco Use Status: Current everyday Tobacco user Cigarette Packs Per Day: 1 Cigarettes Per Day: 10 e-Cigarette/Vaping Use: Never Used Use of substances other than those prescribed or required for medical reasons: No Are you DNR?: No Advance Directives: No Advance Directives Information Provided: Yes service: No Current occupational status: employed 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 Cognitive needs: No Hearing needs: No Vision needs: No Meds Allergies Allergy/AdvReac Type Severity Reaction Status Date / Time No Known Drug Allergies Allergy Unknown none Verified 10/28/23 08:46 Seasonal Allergies Allergy runny Verified 10/28/23 08:46 eyes, itchy skin, congestion Home Medications ?Medication ?Instructions ?Recorded ?Confirmed ?Last Taken ?Type methadone 10 mg/5 mL oral solution 130 mg PO DAILY 10/25/20 10/28/23 11/17/23 History quetiapine 50 mg tablet (Seroquel) 50 mg PO DAILY PRN 12/19/22 10/28/23 Unknown History benztropine 0.5 mg tablet 0.5 mg PO DAILY 08/25/23 10/28/23 Unknown History fluticasone propionate 50 1 spray intranasal BID 08/25/23 10/28/23 Unknown History mcg/actuation nasal spray,suspension ziprasidone HCl 20 mg capsule 20 mg PO DAILY 08/25/23 10/28/23 Unknown History Exam Height,Weight and Vital Signs: Height 5 ft 5 in Weight 102.965 kg Pertinent Lab Results Pertinent Lab Results: Laboratory Tests 10/10/23 10/14/23 11:25 11:20 WBC 5.5 Hgb 13.7 Hct 39.6 Plt Count 175 Sodium 137 Potassium 3.9 Chloride 102 Carbon Dioxide 25 BUN 5 L Creatinine 1.02 Narrative Narrative: EKG 09/2023 Vent. Rate : 054 BPM Atrial Rate : 054 BPM P-R Int : 226 ms QRS Dur : 090 ms QT Int : 460 ms P-R-T Axes : 053 003 012 degrees QTc Int : 436 ms Sinus bradycardia with 1st degree A-V block T wave abnormality, consider anterolateral ischemia Abnormal ECG When compared with ECG of 17-MAR-2023 11:44, No significant change was found ECHO 05/2023 Conclusions: - Normal study Assessment and Plan Assessment Anesthesia Assessment: Chart Reviewed Documented by User: Genet Leigh MD 11/17/23 14:27 [facility] Past Medical History Medical History Hx of CT scan Witnessed apneic spells SANDI (obstructive sleep apnea) Substance abuse in remission Chronic idiopathic constipation IBS (irritable bowel syndrome) Left leg pain Hand dermatitis Chronic pancreatitis Family History Family History Father Mental health disorder Mother High blood pressure High cholesterol Family history of problems with anesthesia: No Surgical History Surgical History History of tubal ligation History of Problems with Anesthesia: No Social History Social History Housing: House Alcohol intake: never Patient Tobacco Use Status: Current everyday Tobacco user Cigarette Packs Per Day: 1 Cigarettes Per Day: 10 e-Cigarette/Vaping Use: Never Used Use of substances other than those prescribed or required for medical reasons: No Are you DNR?: No Advance Directives: No Advance Directives Information Provided: Yes service: No Current occupational status: employed 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 Cognitive needs: No Hearing needs: No Vision needs: No Meds Allergies Allergy/AdvReac Type Severity Reaction Status Date / Time No Known Drug Allergies Allergy Unknown none Verified 10/28/23 08:46 Seasonal Allergies Allergy runny Verified 10/28/23 08:46 eyes, itchy skin, congestion Home Medications ?Medication ?Instructions ?Recorded ?Confirmed ?Last Taken ?Type methadone 10 mg/5 mL oral solution 130 mg PO DAILY 10/25/20 10/28/23 11/17/23 History quetiapine 50 mg tablet (Seroquel) 50 mg PO DAILY PRN 12/19/22 10/28/23 Unknown History benztropine 0.5 mg tablet 0.5 mg PO DAILY 08/25/23 10/28/23 Unknown History fluticasone propionate 50 1 spray intranasal BID 08/25/23 10/28/23 Unknown History mcg/actuation nasal spray,suspension ziprasidone HCl 20 mg capsule 20 mg PO DAILY 08/25/23 10/28/23 Unknown History Exam Airway Mallampati Class: II TM Dist: >3cm Neck ROM: Full Heart: rrr Lungs: cta Assessment and Plan Assessment Anesthesia Assessment: Anesthesia Plan Discussed Final Anesthetic Review Family History of Problems with Anesthesia: No History of Problems with Anesthesia: No NPO: Yes ASA Class: III Final Preanesthetic Review: No Changes in Pt Med Stat, Meds/Allgs Chart Reviewed, Consent Obtained/Reviewed and Anes Risks/Benef Reviewed Patient Risk: Intermediate Procedure Risk: Low Anesthetic Plan Anesthetic Plan: GA Disposition: Standard PACU
[2023-11-17] VITALS (12 sets, daily range): BP systolic 98–142; BP diastolic 53–86; PULSE 65–78; RESP 16–22; TEMP 36.1–36.6; O2SAT 95–97
[2023-11-17 13:03] LABS: UPreg QC Valid YES; Urine Pregnancy NEGATIVE (NEGATIVE)
--- NOTE | 2023-11-17 13:29 | MHC.SHP ---
Pre-Procedural Eval Section A - 24 Hr Update-Section A only Date of Service: 11/17/23 Section B - Complete if H&P > 30 days Chief Complaint: Carcinoma in situ of cervix, unspecified Allergies: Allergies Allergy/AdvReac Type Severity Reaction Status Date / Time No Known Drug Allergies Allergy Unknown none Verified 10/28/23 08:46 Seasonal Allergies Allergy runny Verified 10/28/23 08:46 eyes, itchy skin, congestion Plan I have reviewed the history and physical and performed a pertinent physical examination on my patient. No changes have occurred unless specified. Time Spent With Patient Time: Total time managing care of this patient today ____ minutes.
[2023-11-17] MEDS: Lactated Ringers 1,000 ML 100 ML IVCONT (14:00)
--- NOTE | 2023-11-17 15:23 | PM.OP ---
Brief Operative Note Date of Service: 11/17/23 Pre-op diagnosis: ALYSHA 2-3 , AUB Post-op diagnosis: same Procedure: LEEP CONE with post CONE ECC Mirena IUD insertion Surgeon: Angelito Grier MD Anesthesia: GLMA and other (Paracervical block) Was an Decorating Instructor used for this Procedure?: No Estimated blood loss (mL): 0 Pathology: other (Cervical cone, endocervical, Post cone ECC) Condition: stable Disposition: other (Home)
--- NOTE | 2023-11-17 15:24 | W.PM.OPN ---
Operative Note Operative Note Date of Service: 11/17/23 Narrative: Pre op diagnosis: ALYSHA 2-3 , AUB Operation: Colposcopy, Loop electrical excision procedure cone, endocervical excision, post cone ECC, Mirena IUD insertion Postop diagnosis: the same Quantitative blood loss: 50 cc Surgeon: Angelito Grier MD, FACOG Household Manager: None Pathology: Cervical cone, endo cervical excision, endo cervical curettage Complications: none Anesthesia: GLMA and Para cervical block Procedure: The patient was put in a dorsal lithotomy position, scrubbed and draped in the usual sterile fashion. A speculum was inserted inside the patient's vagina. The cervix is assessed using the colposcope with acetic acid , the lesions were seen, and at least 1 cm of the squamocolumnar junction was observed. 20 x 5 mm size loop was selected based upon the diameter of the lesion. Lugol solution was used to outline the lesions and area of the transformation zone order to be removed 10 cc of xylocaine with epinephrine were injected submucosally into the surface of the cervix (ectocervix) at the 3, 6, 9, and 12 o'clock positions. The electrosurgical generator is set at 40 ascencio on blend 1. The loop is carefully passed simultaneously around and under the transformation zone, in order to ensure excising it making sure the lesion is at least 5 mm far from the specimen margins . The loop was allowed to glide through the cervix from one side to the other, allowing the cutting current to divide the tissue. An endo cervical curettage is performed following completion of excision, and hemostasis is obtained with a Ball electrode or regular tip cautery. Additional tissue was excised from this area with a smaller-diameter loop , endo cervical excision was performed A uterine sound was advanced through the external and internal os until it reached the fundus of the uterus, the depth was 8 cm. The sound was then withdrawn. The IUD was loaded in a sterile manner and advanced into position. The string was visualized and cut to 3 cm. Tenaculum site hemostatic. All instruments removed from vagina. Hemostasis was assured At the end, Monsel's solution was applied to the cone bed. The patient tolerated the procedure well and, all instruments were taken out of the patient vaginal cavity, and the patient was transferred to the PACU in stable condition.
[2023-11-17] MEDS: HYDROmorphone HCl 0.5 MG/0.5 ML SYRINGE IVPUSH (16:25)
[2023-11-17] MEDS: HYDROmorphone HCl 0.5 MG/0.5 ML SYRINGE 0.25 MG IVPUSH ×2 (16:30→16:35)
== END 2023-11-17 17:04 | disposition home or self-care (01) ==
PROVIDERS: PCP Family Medicine; Visit Provider Obstetrics & Gynecology
PROC: 0UBC7ZZ Excision of Cervix, Via Natural or Artificial Opening (ICD-10-PCS; CPT 57522; principal; 2023-11-17 13:30)
DX: N87.1 Moderate cervical dysplasia (principal); N93.9 Abnormal uterine and vaginal bleeding, unspecified; N84.1 Polyp of cervix uteri; Z98.51 Tubal ligation status; R79.89 Other specified abnormal findings of blood chemistry; K86.1 Other chronic pancreatitis; K59.04 Chronic idiopathic constipation; K58.9 Irritable bowel syndrome, unspecified; G47.33 Obstructive sleep apnea (adult) (pediatric); F11.20 Opioid dependence, uncomplicated; F19.11 Other psychoactive substance abuse, in remission; Z79.51 Long term (current) use of inhaled steroids; Z79.899 Other long term (current) drug therapy; F17.210 Nicotine dependence, cigarettes, uncomplicated
CPT/HCPCS: 57461; 58300; 81025; 88305; 88307; 88342; 88360; J1100; J1170; J2250; J2405; J2704; J3010; J7298

== ENCOUNTER → 2023-11-17 11:47 | Outpatient (BNV) | payer OTHER, SELFPAY | PROVIDERS: PCP Family Medicine; Visit Provider Obstetrics & Gynecology | DX: D06.9 Carcinoma in situ of cervix, unspecified (principal); Z30.430 Encounter for insertion of intrauterine contraceptive device | CPT/HCPCS: 57461; 58300 ==

== ENCOUNTER 2023-12-10 15:12 | Outpatient (AMB) | payer OTHER, SELFPAY ==
--- NOTE | 2023-12-10 15:26 | MHC.OFFVIS ---
Vital Signs 12/10/23 15:27 Height 5 ft 3 in Weight 218 lb BMI 38.6 Intake Visit Reasons: post op Biomedical Engineering Supervisor Required: No Information Interpreted: non-clinical & clinical Food Sanitarian: Food Sanitarian Present Accompanied by: Self / Same As Patient Allergies No Known Drug Allergies Allergy (Unknown, Verified 12/10/23 15:28) none Seasonal Allergies Allergy (Verified 12/10/23 15:28) runny eyes, itchy skin, congestion Is last menstrual period known: Yes Last menstrual period: 02/10/20 Post menopausal: No Patient : No Do you need a note to return to daycare/school/sports/work: Yes (for surgery on friday) HPI Comments Details: The patient is presenting for follow-up post LEEP cone with Mirena IUD insertion. The patient has no complaints. The pathology showed the following: A. Cervix, conization: -Low grade squamous intraepithelial lesion (mild dysplasia, ALYSHA I) and focal high grade squamous intraepithelial lesion (moderate dysplasia, ALYSHA II), involving endocervical glands. -Ectocervical margin: Free of dysplasia. -Endocervical margin: Positive for dysplasia. -Radial (deep stromal) margin: Free of dysplasia. -Biopsy site changes present. B. Endocervix, conization: -Low grade squamous intraepithelial lesion (mild dysplasia, ALYSHA I); endocervical glands present. -Ectocervical margin: Positive for dysplasia. -Endocervical margin: Free of dysplasia. -Radial (deep stromal) margin: Free of dysplasia. -Biopsy site changes present. C. Endocervix, post cone curettage: -Benign endocervical glandular mucosa and benign endometrium/lower uterine segment [facility] Medical History Hx of CT scan Witnessed apneic spells SANDI (obstructive sleep apnea) Substance abuse in remission Chronic idiopathic constipation IBS (irritable bowel syndrome) Left leg pain Hand dermatitis Chronic pancreatitis Surgical History History of tubal ligation Family History Father Mental health disorder Mother High blood pressure High cholesterol Social History Housing: House Alcohol intake: never Patient Tobacco Use Status: Current everyday Tobacco user Cigarette Packs Per Day: 1 Cigarettes Per Day: 10 e-Cigarette/Vaping Use: Never Used service: No Current occupational status: employed 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 Cognitive needs: No Hearing needs: No Vision needs: No Female Reproductive History Menstrual Age of Menarche: 14 Date of last menstrual period: 02/10/20 Total pregnancies: 2 Full term: 2 Review of Systems Const All systems reviewed & are unremarkable except as noted in HPI and below Reports as per HPI and Reports no additional complaints Card Reports as per HPI and Reports no additional complaints Resp Reports as per HPI and Reports no additional complaints GI Reports no additional complaints Reports no additional complaints Physical Exam Vital Signs: BMI result Body Mass Index 38.6 Const General: cooperative, healthy appearing and comfortable Resp Effort & Inspection: normal respiratory effort Auscultation: clear to auscultation bilaterally Percussion: percussion normal Cardio Palpation: normal PMI Rate: regular rate Rhythm: regular rhythm Heart sounds: no murmurs and no rubs Peripheral pulses: Peripheral pulses 2+ throughout GI Inspection: Yes normal to inspection Palpation (GI): Soft to palpation, nontender, no guarding, not rigid and No hepatosplenomegaly present Percussion: Yes normal to percussion Auscultation: normal bowel sounds Rectal Exam - Female: deferred Assessment & Plan Assessment & Plan (1) ALYSHA II (cervical intraepithelial neoplasia II): Comment: ALYSHA 2 + endo margins ALYSHA 1 positive ectocervical margins Code(s): N87.1 - Moderate cervical dysplasia Category: Medical Plan: Discussed with the patient the results pathology, positive margins, the sensitivity, specificity, false-positive and false-negative rate were discussed with the patient Discussed with the patient that studies have consistently shown that patients with positive margins after an excisional procedure, compared with negative margins, are at significantly higher risk for residual or recurrent disease. Recurrence can occur years after treatment; Recommended repeat LEEP cone with post cone ECC with Mirena IUD removal and reinsertion. All the pros and cons and risks and benefits each were discussed with the patient and the patient decided to proceed with Will proceed with LEEP cone was post cone ECC. Discussed with the patient the procedure, its benefits and risks including bleeding, infection, possible need for blood transfusion with all its risk ( HIV, syphilis, Hepatitis, anaphylaxis shock, others..), injury to bladder, rectum, possible need for hysterectomy, possible future negative impact on fertility including ( cervical stenosis, incompetence , increase risk for c section 2ndary to cervical scarring and failure of dilatation). Also discussed the patient options of anesthesia either paracervical block versus IV sedation/MAC, prefers to proceed with IV sedation/MAC. All questions answered, the patient verbalized understanding and signed the consent. Coding Level of Care Code Est Pt Level 3 (94954) Diagnoses ALYSHA II (cervical intraepithelial neoplasia II) N87.1
[2023-12-10 15:27] VITALS: BMI 38.6
== END 2023-12-10 16:09 | disposition home or self-care (01) ==
LOC: HO.HWS 15:12
PROVIDERS: PCP Family Medicine; Visit Provider Obstetrics & Gynecology
DX: N87.1 Moderate cervical dysplasia (principal)
CPT/HCPCS: 99213

== ENCOUNTER → 2023-12-10 15:12 | Outpatient (BNVA) | payer OTHER, SELFPAY | PROVIDERS: PCP Family Medicine; Visit Provider Obstetrics & Gynecology | DX: N87.1 Moderate cervical dysplasia (principal) | CPT/HCPCS: 99212 ==

== ENCOUNTER 2023-12-17 10:33 | Outpatient (AMB) | payer OTHER, SELFPAY ==
--- NOTE | 2023-12-17 10:48 | MHC.PC.OV ---
Vital Signs 12/17/23 10:52 12/17/23 10:56 Height 5 ft 4 in Weight 226 lb BMI 38.8 BP 132/62 114/58 L Blood Pressure Location Lt brachial Rt brachial Position Sitting Sitting Respiration 16 Pulse 77 Pulse Source Pulse Oximeter Pulse Oximetry (%) 95 Oxygen Delivery Method Room Air Intake Visit Reasons: f/u chronic conditions Intake Note: multiple complaints: memory loss x 2 months, passing out, needs an inhaler -albuterol, poison regan, psoriasis, right knee increasing deterioration, swollen hands + feet, feel like she is drowning in her lungs, exposure to black mold. Director Of Maternity Services Required: No Accompanied by: Self / Same As Patient Is last menstrual period known: No Post menopausal: No Patient : No Allergies No Known Drug Allergies Allergy (Unknown, Verified 12/10/23 15:28) none Seasonal Allergies Allergy (Verified 12/10/23 15:28) runny eyes, itchy skin, congestion Medication List - Last Reconciled 12/17/23 by Rosie France RN atorvastatin 20 mg PO BEDTIME 90 days benztropine 0.5 mg PO DAILY betamethasone valerate 0.1% 1 appl topical DAILY PRN 30 days bisacodyl 10 mg (2 x 5 mg) PO BEDTIME clonazepam 1 mg PO BID PRN famotidine (Pepcid) 20 mg PO BEDTIME fluticasone propionate 50 mcg/actuation 1 spray intranasal BID gabapentin 600 mg PO TID 30 days ibuprofen mg PO lamotrigine 25 mg PO DAILY levothyroxine 50 mcg PO DAILY 90 days linaclotide (Linzess) 290 mcg PO QAM lisinopril 20 mg PO DAILY 30 days methadone 130 mg PO DAILY omeprazole 40 mg PO DAILY paroxetine HCl 40 mg PO DAILY 30 days propranolol ER 60 mg PO DAILY quetiapine (Seroquel) 50 mg PO DAILY PRN quetiapine (Seroquel) 300 mg PO BEDTIME 30 days quetiapine 100 mg PO BEDTIME sennosides (Mariam-loren) mg PO sumatriptan succinate mg PO topiramate 50 mg PO DAILY 30 days trazodone 100 mg PO BEDTIME PRN ziprasidone HCl 20 mg PO DAILY Tobacco use date assessed: 07/23/23 Dental Screening Dental Screen Date: 06/18/23 Did you have a dental visit in the last 12 months?: No Did you have a dental problem in the last 6 months where you did not have access to dental care?: Yes Was dental information given to patient?: Patient declined HPI f/u chronic conditions HPI Details 38 y/o female presents to f/u chronic conditions. Started her on levothyroxine for hypothyroidism. Started her on artovastatin for hyperlipidemia. Blood pressure today 114/58. She is on lisinopril 20mg daily. Has complaints of memory changes, syncope. Also has complaints of hands/feet swelling, psoriasis, poison regan. Significant cough and pt reports she continues smoking. HPI Comments History of Present Illness Details Documentation assistance for Aakash Navarro MD, was provided by Merritt Langford, Elementary School Tutor on 12/17/2023 at 10:59 AM SONDRA. I, Dr. Navarro, have read, observed, and verified documentation. [facility] Medical History Hx of CT scan Witnessed apneic spells SANDI (obstructive sleep apnea) Substance abuse in remission Chronic idiopathic constipation IBS (irritable bowel syndrome) Left leg pain Hand dermatitis Chronic pancreatitis Surgical History History of tubal ligation Family History Father Mental health disorder Mother High blood pressure High cholesterol Social History Housing: Apartment Alcohol intake: never Patient Tobacco Use Status: Current everyday Tobacco user Tobacco use type: Cigarette Cigarette Packs Per Day: 1 Cigarettes Per Day: 10 e-Cigarette/Vaping Use: Never Used service: No Current occupational status: unemployed Current occupational exposures/hazards: No Cognitive needs: No Hearing needs: No Vision needs: No Female Reproductive History Menstrual Age of Menarche: 14 control method: progestin IUCD Number of Living Children: 2 History of abnormal pap smear: Yes Date of Mammogram: 09/13/23 History of abnormal mammogram: No Questionnaire PHQ-9 Over the last 2 weeks, how often have you been bothered by any of the following problems? 1. Little interest or pleasure in doing things: nearly every day 2. Feeling down, depressed, or hopeless: nearly every day 3. Trouble falling or staying asleep, or sleeping too much: not at all 4. Feeling tired or having little energy: nearly every day 5. Poor appetite or overeating: nearly every day 6. Feeling bad about yourself - or that you are a failure or have let yourself or your family down: several days 7. Trouble concentrating on things, such as reading the newspaper or watching television: nearly every day 8. Moving or speaking so slowly that other people could have noticed. Or the opposite - being so fidgety or restless that you have been moving around a lot more than usual: nearly every day 9. Thoughts that you would be better off or of hurting yourself in some way: not at all Total score: 19 Depression Screening Interpretation: Positive Depression Screening Done: Yes Source: Developed by Drs. Erik Allred, Mary Villela, Sriram Parson and colleagues, with an educational elizabeth from [employer]. Thrive Questionnaire Date Thrive assessed: 06/18/23 I am a: Patient What is your living situation today?: I have a steady place to live Currently or been in a relationship where the following occur: I choose not to answer THRIVE Score: 0 AUDIT C Alcohol Use Questionnaire (AUDIT-C) 1. How often do you have a drink containing alcohol?: Never 3. How often do you have six or more drinks on one occasion?: Never Total Score: 0 IVA-7 AMB Questionnaire IVA-7 Date IVA - 7 assessed: 06/18/23 Feeling nervous, anxious, or on edge: 3 = Nearly every day Not being able to stop or control worryin = Nearly every day Worrying too much about different things: 3 = Nearly every day Trouble relaxin = Nearly every day Being so restless that it is hard to sit still: 3 = Nearly every day Becoming easily annoyed or irritable: 3 = Nearly every day Feeling afraid as if something awful might happen: 3 = Nearly every day Total IVA-7 score (0-4 normal; 5-9 mild; 10-14 moderate; 15-21 severe): 21 Source: Developed by Drs. Erik Allred, Mary Villela, Sriram Parson and colleagues, with an educational elizabeth from [employer]. ACT Questionnaire In the past 4 weeks, how much of the time did your asthma keep you from getting as much done at work, school or at home?: All of the time During the past 4 weeks, how often have you had shortness of breath?: More than once a day During the past 4 weeks, how often did your asthma symptoms wake you up at night or earlier than usual in the morning?: 2-3 nights a week During the past 4 weeks, how often have you had to use your rescue inhaler or nebulizer medication?: Not at all How would you rate your asthma control during the past 4 weeks?: Poorly controlled Score: 11 Review of Systems Const Denies chills, Denies fatigue, Denies fever(s), Denies headache(s) and Denies weakness ENT Denies dizziness and Denies headache(s) Card Denies dyspnea Resp Reports cough, Denies dyspnea, Denies wheezing and Denies other (shortness of breath) Musc Denies numbness and Denies tingling Neuro Denies dizziness, Denies headache(s), Denies numbness, Denies tingling and Denies weakness Psych Denies anxiety and Denies depression Endo Denies fatigue Aller/Immun Denies wheezing Physical exam (Primary Care) Vital Signs: Last Vital Signs Pulse 77 12/17/23 10:52 Resp 16 12/17/23 10:52 BP 114/58 L 12/17/23 10:56 Pulse Ox 95 12/17/23 10:52 Oxygen Delivery Method Room Air 12/17/23 10:52 BMI result Body Mass Index 38.8 Tobacco/Smoking Status: Tobacco use Status Tobacco use date assessed 07/23/23 12/17/23 10:49 Patient Tobacco Use Status Current everyday Tobacco 12/17/23 10:49 Tobacco use type Cigarette 12/17/23 11:07 e-Cigarette/Vaping Use Never Used 12/17/23 10:49 PHQ-9: PHQ-9 Score PHQ-9: Total score 19 12/17/23 11:37 Depression Screening Interpretation: Positive Thrive Assessment: Date of Thrive Assessment Date Thrive assessed 06/18/23 12/17/23 10:49 Currently or been in a relationship where the following occur: I choose not to answer Const General: well developed; No acute distress Nutritional Appearance: obese Orientation/consciousness: patient oriented x3 HENMT Head: Yes normocephalic and Yes atraumatic Eyes General: appearance normal, both eyes and all related structures Pupils: Equal, round and reactive pupils present EOM: EOMs intact bilaterally Resp Effort & Inspection: normal respiratory effort Neuro General: patient oriented x3 and gait normal Cranial nerves: Yes Equal, round and reactive pupils present Psych Affect: normal affect Assessment and Plan Assessment & Plan (1) Hypothyroid: Code(s): E03.9 - Hypothyroidism, unspecified Plan: Started?patient?on?levothyroxine?as?her?TSH?level?was?quite?high She?is?taking?this?medication.??No?adverse?effects She?has?not?gotten?her?repeat?labs?drawn?yet?but?will?do?so?today Will?follow-up?on?this?in?a?month Continue?levothyroxine (2) Hypertension: Code(s): I10 - Essential (primary) hypertension Plan: BP is controlled. Goal < 140/90 Cont current med regimen (3) Hypercholesterolemia: Code(s): E78.00 - Pure hypercholesterolemia, unspecified Plan: Started?patient?on?atorvastatin She?is?tolerating?this Has?not?gotten?her?lipids?redrawn?but?will?do?so?today We?can?follow-up?at?her?next?visit. (4) ALYSHA II (cervical intraepithelial neoplasia II): Comment: ALYSHA 2 + endo margins ALYSHA 1 positive ectocervical margins Code(s): N87.1 - Moderate cervical dysplasia Plan: Has?follow-up?with?laundry clerk? (5) Abnormal lung sounds: Code(s): R09.89 - Other specified symptoms and signs involving the circulatory and respiratory systems Plan: Cough?and?abnormal?lung?sounds. Likely?bronchitis Start?Z-Edwin?and?short?course?of?prednisone Check?chest?x-ray (6) Cough: Code(s): R05.9 - Cough, unspecified Plan: As?above (7) Smoker: Code(s): F17.200 - Nicotine dependence, unspecified, uncomplicated Plan: Encouraged?smoking?cessation (8) Hand swelling: Code(s): M79.89 - Other specified soft tissue disorders Plan: Will?give?her?a?short?course?of?furosemide Elevate?hands Plan She?will?return?in?about?a?month?to?follow-up?hypothyroidism,?hyperlipidemia?and?chronic?conditions.??Numerous?complaints. She?continues?levothyroxine?and?atorvastatin.??She?had?not?gotten?her?labs?redrawn?but?has?done?so?today. Medications: New prednisone 40 mg (2 x 20 mg) PO DAILY 10 tabs 0RF 5 days furosemide 20 mg PO DAILY 5 tabs 0RF 5 days azithromycin (Zithromax Z-Edwin) take 500 mg today (day 1), then 250 mg for 4 days (days 2-5) PO 6 tabs 0RF 5 days Coding Level of Care Code Est Pt Level 4 (53984) Diagnoses Hypothyroid E03.9 Hypertension I10 Hypercholesterolemia E78.00 ALYSHA II (cervical intraepithelial neoplasia II) N87.1 Abnormal lung sounds R09.89 Cough R05.9 Smoker F17.200 Hand swelling M79.89
[2023-12-17 10:52] VITALS: BP 132/62; PULSE 77; RESP 16; O2SAT 95; BMI 38.8
[2023-12-17 10:56] VITALS: BP 114/58
== END 2023-12-17 11:33 | disposition home or self-care (01) ==
PROVIDERS: PCP Nurse Practitioner Family; Visit Provider Family Medicine
DX: E03.9 Hypothyroidism, unspecified (principal); I10 Essential (primary) hypertension; E78.00 Pure hypercholesterolemia, unspecified; N87.1 Moderate cervical dysplasia; R09.89 Other specified symptoms and signs involving the circulatory and respiratory systems; R05.9 Cough, unspecified; F17.200 Nicotine dependence, unspecified, uncomplicated; M79.89 Other specified soft tissue disorders
CPT/HCPCS: 99214

== ENCOUNTER 2023-12-17 11:39 | Outpatient (REF) | payer OTHER, SELFPAY ==
[2023-12-17 14:56] LABS: Alanine Aminotransferase 22 U/L (0-31); Albumin Level 4.2 g/dL (3.5-5.0); Alkaline Phosphatase 70 U/L (39-117); Anion Gap 14 (12-20); Aspartate Amino Transferase 23 U/L (5-31); Bilirubin Total 0.4 mg/dL (0.0-1.0); Blood Urea Nitrogen 6 mg/dL (9-16); Calcium 9.2 mg/dL (8.4-10.2); Carbon Dioxide 26 mmol/L (22-29); Chloride 100 mmol/L (96-108); Cholesterol 176 mg/dL (<200); Estimated Glomerular Filt Rate > 60; Glucose Fasting 115 mg/dL (60-99); HDL Cholesterol 35 mg/dL (>40); LDL Cholesterol Calculated 103 mg/dL (<100); Potassium 4.3 mmol/L (3.3-5.1); Sodium 136 mmol/L (135-145); Total Protein 7.6 g/dL (6.5-8.0); Triglycerides 190 mg/dL (<150)
[2023-12-17 15:16] LABS: Free T4 (Free Thyroxine) 0.79 ng/dL (0.71-1.85); Thyroid Stimulating Hormone 6.12 uIU/mL (0.32-4.0)
[2023-12-18 17:27] LABS: Triiodothyronine T3 Total 120 ng/dL (76-181)
== END 2023-12-17 11:40 | disposition home or self-care (01) ==
LOC: HO.WFDLDS 11:39
PROVIDERS: Visit Provider Family Medicine
DX: Z00.00 Encounter for general adult medical examination without abnormal findings (principal); E78.00 Pure hypercholesterolemia, unspecified; E03.9 Hypothyroidism, unspecified
CPT/HCPCS: 36415; 80053; 80061; 84439; 84443; 84480

== ENCOUNTER 2024-01-16 10:06 | Outpatient (AMB) | payer OTHER, SELFPAY ==
[2024-01-16 10:57] VITALS: BP 105/56; PULSE 70; RESP 16; TEMP 36.2; O2SAT 94; BMI 39.5
--- NOTE | 2024-01-16 10:57 | A.OFFPC_ITS ---
Vital Signs 01/16/24 10:57 Height 5 ft 4 in Weight 230 lb 4 oz BMI 39.5 BP 105/56 L Blood Pressure Location Lt brachial Position Sitting Respiration 16 Pulse 70 Pulse Source Pulse Oximeter Temp 97.2 F Temp Source Temporal Artery Scan Pulse Oximetry (%) 94 Oxygen Delivery Method Room Air Intake Visit Reasons: F/U Chronic conditions Intake Note: f/u chronic conditions Allergies No Known Drug Allergies Allergy (Unknown, Verified 01/16/24 10:57) none Seasonal Allergies Allergy (Verified 01/16/24 10:57) runny eyes, itchy skin, congestion Medication List - Last Reconciled 01/16/24 by Aakash Navarro MD atorvastatin 20 mg PO BEDTIME 90 days azithromycin (Zithromax Z-Dewin) take 500 mg today (day 1), then 250 mg for 4 days (days 2-5) PO 5 days benztropine 0.5 mg PO DAILY betamethasone valerate 0.1% 1 appl topical DAILY PRN 30 days bisacodyl 10 mg (2 x 5 mg) PO BEDTIME clonazepam 1 mg PO BID PRN famotidine (Pepcid) 20 mg PO BEDTIME fluticasone propionate 50 mcg/actuation 1 spray intranasal BID gabapentin 600 mg PO TID 30 days ibuprofen mg PO lamotrigine 25 mg PO DAILY levothyroxine 50 mcg PO DAILY 90 days linaclotide (Linzess) 290 mcg PO QAM lisinopril 20 mg PO DAILY 30 days methadone 130 mg PO DAILY omeprazole 40 mg PO DAILY paroxetine HCl 40 mg PO DAILY 30 days prednisone 40 mg (2 x 20 mg) PO DAILY 5 days propranolol ER 60 mg PO DAILY quetiapine (Seroquel) 50 mg PO DAILY PRN quetiapine (Seroquel) 300 mg PO BEDTIME 30 days quetiapine 100 mg PO BEDTIME sennosides (Mariam-loren) mg PO sumatriptan succinate mg PO topiramate 50 mg PO DAILY 30 days trazodone 100 mg PO BEDTIME PRN ziprasidone HCl 20 mg PO DAILY Tobacco use date assessed: 07/23/23 Dental Screening Dental Screen Date: 06/18/23 HPI F/U Chronic conditions HPI Details 38 y/o female presents to f/u chronic co nditions. Blood pressure today 105/56, 70p. Ongoing complaints of hand swelling. She tries to elevate it as much as she can. Labs drawn 12/17/23. Reviewed labs with pt. Triglycerides 190. TC 176. LDL 103. HDL low at 35. She is on artovastatin 20mg. Denies any issues with this. Continues to get exercise. TSH level 6.12. She is on levothyroxine 50 mcg daily. Ongoing concerns about her weight. Pt reports abd. pain/mass. Strains to pass bowel movements. [facility] Medical History Hx of CT scan Witnessed apneic spells SANDI (obstructive sleep apnea) Substance abuse in remission Chronic idiopathic constipation IBS (irritable bowel syndrome) Left leg pain Hand dermatitis Chronic pancreatitis Surgical History History of tubal ligation Family History Father Mental health disorder Mother High blood pressure High cholesterol Social History Housing: Apartment Alcohol intake: never Patient Tobacco Use Status: Current everyday Tobacco user Tobacco use type: Cigarette Cigarette Packs Per Day: 1 Cigarettes Per Day: 10 e-Cigarette/Vaping Use: Never Used service: No Current occupational status: unemployed Current occupational exposures/hazards: No Cognitive needs: No Hearing needs: No Vision needs: No Female Reproductive History Menstrual Age of Menarche: 14 Questionnaire Thrive Questionnaire Date Thrive assessed: 06/18/23 IVA-7 AMB Questionnaire IVA-7 Date IVA - 7 assessed: 06/18/23 Source: Developed by Drs. Erik Allred, Mary Villela, Sriram Parson and colleagues, with an educational elizabeth from [employer]. Review of Systems Const Denies chills, Denies fatigue, Denies fever(s), Denies headache(s) and Denies weakness ENT Denies dizziness and Denies headache(s) Card Denies dyspnea Resp Denies cough, Denies dyspnea, Denies wheezing and Denies other (shortness of breath) Musc Denies numbness and Denies tingling Neuro Denies dizziness, Denies headache(s), Denies numbness, Denies tingling and Denies weakness Psych Denies anxiety and Denies depression Endo Denies fatigue Aller/Immun Denies wheezing Physical exam (Primary Care) Vital Signs: Last Vital Signs Temp 97.2 F 01/16/24 10:57 Pulse 70 01/16/24 10:57 Resp 16 01/16/24 10:57 BP 105/56 L 01/16/24 10:57 Pulse Ox 94 01/16/24 10:57 Oxygen Delivery Method Room Air 01/16/24 10:57 BMI result Body Mass Index 39.5 Tobacco/Smoking Status: Tobacco use Status Tobacco use date assessed 07/23/23 01/16/24 11:03 Patient Tobacco Use Status Current everyday Tobacco 01/16/24 11:03 Tobacco use type Cigarette 01/16/24 11:03 e-Cigarette/Vaping Use Never Used 01/16/24 11:03 Thrive Assessment: Date of Thrive Assessment Date Thrive assessed 06/18/23 01/16/24 11:03 Const General: well developed; No acute distress Nutritional Appearance: well nourished and obese Orientation/consciousness: patient oriented x3 HENMT Head: Yes normocephalic and Yes atraumatic Eyes General: appearance normal, both eyes and all related structures Pupils: Equal, round and reactive pupils present EOM: EOMs intact bilaterally Resp Effort & Inspection: normal respiratory effort Neuro General: patient oriented x3 and gait normal Cranial nerves: Yes Equal, round and reactive pupils present Psych Affect: normal affect Coding Level of Care Code Est Pt Level 4 (03330) Diagnoses Hypertension I10 Hand swelling M79.89 Hypercholesterolemia E78.00 Hypothyroid E03.9 Obesity E66.9 Abdominal mass R19.00 Assessment & Plan Assessment & Plan (1) Hypertension: Code(s): I10 - Essential (primary) hypertension Category: Medical Plan: Blood?pressure?is?controlled.??Goal?is?less?than?140/90 Continue?current?medication (2) Hand swelling: Code(s): M79.89 - Other specified soft tissue disorders Category: Medical Plan: Ongoing?upper?and?lower?extremity?edema Patient?did?not?notice?any?changes?with?a?short?course?of?furosemide. Continue?elevated?hand Referring?her?to?vascular Continuing?to?adjust?her?thyroid?hormone?medication (3) Hypercholesterolemia: Code(s): E78.00 - Pure hypercholesterolemia, unspecified Category: Medical Plan: Lipids?are?much?improved?but?LDL?still?above?goal?and?HDL?still?a?little?low Increasing?atorvastatin (4) Hypothyroid: Code(s): E03.9 - Hypothyroidism, unspecified Category: Medical Plan: TSH?shows?improvement?but?still?slightly?elevated Increasing?levothyroxine?from?50?mcg?daily?to?75?mcg?daily (5) Obesity: Code(s): E66.9 - Obesity, unspecified Category: Medical Plan: Patient?wants?to?work?on?weight?loss?and?I?encouraged?the She?wants?to?trial Wegovy We?discussed?this?and?I?will?send?script. (6) Abdominal mass: Code(s): R19.00 - Intra-abdominal and pelvic swelling, mass and lump, unspecified site Category: Medical Plan: Patient? had?manually?reducible?right?lower?quadrant?abdominal?mass?with?straining?to?pas s?bowel?movement?and?subsequently?1?other?time. Checking?ultrasound Orders: Orders US abdomen limited Today R19.00 - Intra-abdominal and pelvic swelling, mass and lump, unspecified site Referrals Vascular Surgery Referral M79.89 - Other specified soft tissue disorders, R60.0 - Localized edema Medications: New semaglutide (weight loss) (Wenathalievy) administer weeks 1 through 4 of therapy 0.25 mg (0.5 mL) subcut QWEEK 28 days 2 mL 2RF Changed From levothyroxine 50 mcg PO DAILY 90 days 90 tabs 1RF To levothyroxine 75 mcg PO DAILY 90 days 90 tabs 1RF From atorvastatin 20 mg PO BEDTIME 90 days 90 tabs 2RF To atorvastatin 40 mg PO BEDTIME 90 days 90 tabs 2RF
== END 2024-01-16 11:27 | disposition home or self-care (01) ==
PROVIDERS: PCP Family Medicine; Visit Provider Family Medicine
DX: I10 Essential (primary) hypertension (principal); M79.89 Other specified soft tissue disorders; E66.812 Obesity, class 2; Z68.39 Body mass index [BMI] 39.0-39.9, adult; E78.00 Pure hypercholesterolemia, unspecified; E03.9 Hypothyroidism, unspecified; R19.00 Intra-abdominal and pelvic swelling, mass and lump, unspecified site

== ENCOUNTER → 2024-01-16 10:06 | Outpatient (BNVA) | payer OTHER, SELFPAY | PROVIDERS: PCP Family Medicine; Visit Provider Family Medicine | DX: I10 Essential (primary) hypertension (principal); M79.89 Other specified soft tissue disorders; E78.00 Pure hypercholesterolemia, unspecified; E03.9 Hypothyroidism, unspecified; E66.9 Obesity, unspecified; R19.00 Intra-abdominal and pelvic swelling, mass and lump, unspecified site | CPT/HCPCS: 99212 ==

== ENCOUNTER 2024-01-20 12:28 | Day surgery (SDC) | payer OTHER, SELFPAY ==
--- NOTE | 2024-01-07 14:41 | P.CONAN_ITS ---
Documented by User: Victoria Santiago NP 01/07/24 14:42 HPI - Anesthesia Eval Consult details Narrative: 38yo F for IUD removal and insertion, LEEP,poss loop electric excision,poss loop electrical,cone and post endocervical curettage Hx OUD - methadone daily PMFSH Active Problems Active Problems: All Active Problems Hand swelling (Acute) ALYSHA II (cervical intraepithelial neoplasia II) (Acute) ALYSHA III (cervical intraepithelial neoplasia grade III) with severe dysplasia (Acute) Hx of CT scan (Acute) Cough (Acute) Abnormal lung sounds (Acute) Hypothyroid (Acute) Hypercholesterolemia (Acute) Bacterial vaginosis (Acute) Hirsutism (Acute) LGSIL on Pap smear of cervix (Acute) Abnormal uterine bleeding (Acute) Migraine with aura (Acute) Severe obstructive sleep apnea (Acute) Cataplexy (Acute) Hypersomnia (Acute) Trichomoniasis (Acute) Breast cancer screening (Acute) Cervical polyp (Acute) Irregular menstruation, unspecified (Acute) Dry skin (Acute) Obesity (Acute) History of tubal ligation (Acute) Substance abuse in remission (Acute) Chronic idiopathic constipation (Acute) Hypertension (Acute) IBS (irritable bowel syndrome) (Acute) Hepatitis C (Acute) Daytime sleepiness (Acute) Snoring (Acute) Abnormal EKG (Acute) Elevated TSH (Acute) Low HDL (under 40) (Acute) Elevated fasting glucose (Acute) Elevated liver enzymes (Acute) GERD (gastroesophageal reflux disease) (Acute) Cellulitis of left hand (Acute) Adult general medical exam (Acute) Headache (Acute) Breast cancer screening by mammogram (Acute) Screening for cervical cancer (Acute) Annual visit for general adult medical examination without abnormal findings (Acute) Smoker (Acute) Neuropathy (Acute) Insomnia (Acute) Anxiety and depression (Acute) Laboratory examination ordered as part of a routine general medical examination (Acute) Past Medical History Medical History Hx of CT scan Witnessed apneic spells SANDI (obstructive sleep apnea) Substance abuse in remission Chronic idiopathic constipation IBS (irritable bowel syndrome) Left leg pain Hand dermatitis Chronic pancreatitis Family History Family History Father Mental health disorder Mother High blood pressure High cholesterol Family history of problems with anesthesia: No Surgical History Surgical History History of tubal ligation History of Problems with Anesthesia: No Social History Social History Housing: Apartment Are you a primary career technical counselor to a significant other at home: No Do you presently have visiting nurse or other home services: No Alcohol intake: never Patient Tobacco Use Status: Current everyday Tobacco user Tobacco use type: Cigarette Cigarette Packs Per Day: 1 Cigarettes Per Day: 20.0 Smoked in Last 30 Days: Yes e-Cigarette/Vaping Use: Never Used Patient Interested in Nicotine Replacement: No Use of substances other than those prescribed or required for medical reasons: No Have you been hit, kicked, punched, or otherwise hurt by someone within the past year? If so, by whom?: No Are you DNR?: No Advance Directives: No Advance Directives Information Provided: Yes Recently lost weight without trying: No Nutrition Risks: No Nutritional Risk Patient : No service: No Current occupational status: unemployed Current occupational exposures/hazards: No Cognitive needs: No Hearing needs: No Vision needs: No Meds Allergies Allergy/AdvReac Type Severity Reaction Status Date / Time No Known Drug Allergies Allergy Unknown none Verified 01/20/24 13:40 Seasonal Allergies Allergy runny Verified 01/20/24 13:40 eyes, itchy skin, congestion Home Medications ?Medication ?Instructions ?Recorded ?Confirmed ?Last Taken ?Type methadone 10 mg/5 mL oral solution 130 mg PO DAILY 10/25/20 01/20/24 11/17/23 History quetiapine 50 mg tablet (Seroquel) 50 mg PO DAILY PRN Hallucinations 12/19/22 01/20/24 Unknown History benztropine 0.5 mg tablet 0.5 mg PO DAILY 08/25/23 01/20/24 Unknown History fluticasone propionate 50 1 spray intranasal BID 08/25/23 01/20/24 Unknown History mcg/actuation nasal spray,suspension ziprasidone HCl 20 mg capsule 20 mg PO DAILY 08/25/23 01/16/24 Unknown History clonazepam 1 mg tablet 1 mg PO BID PRN Anxiety 12/17/23 01/20/24 Unknown History ibuprofen 400 mg tablet mg PO 12/17/23 01/16/24 Unknown History lamotrigine 25 mg tablet 25 mg PO DAILY 12/17/23 01/20/24 Unknown History propranolol 60 mg capsule,24 60 mg PO DAILY 12/17/23 01/20/24 Unknown History hr,extended release quetiapine 100 mg tablet 100 mg PO BEDTIME 12/17/23 01/20/24 Unknown History sennosides 8.6 mg tablet (Mariam-loren) mg PO 12/17/23 01/16/24 Unknown History sumatriptan succinate 100 mg tablet mg PO 12/17/23 01/16/24 Unknown History Assessment and Plan Assessment Anesthesia Assessment: Chart Reviewed Final Anesthetic Review Family History of Problems with Anesthesia: No History of Problems with Anesthesia: No Documented by User: Kendrick Smith MD 01/20/24 14:37 PMFSH Past Medical History Medical History Hx of CT scan Witnessed apneic spells SANDI (obstructive sleep apnea) Substance abuse in remission Chronic idiopathic constipation IBS (irritable bowel syndrome) Left leg pain Hand dermatitis Chronic pancreatitis Patient : No Family History Family History Father Mental health disorder Mother High blood pressure High cholesterol Surgical History Surgical History History of tubal ligation Social History Social History Housing: Apartment Are you a primary career technical counselor to a significant other at home: No Do you presently have visiting nurse or other home services: No Alcohol intake: never Patient Tobacco Use Status: Current everyday Tobacco user Tobacco use type: Cigarette Cigarette Packs Per Day: 1 Cigarettes Per Day: 20.0 Smoked in Last 30 Days: Yes e-Cigarette/Vaping Use: Never Used Patient Interested in Nicotine Replacement: No Use of substances other than those prescribed or required for medical reasons: No Have you been hit, kicked, punched, or otherwise hurt by someone within the past year? If so, by whom?: No Are you DNR?: No Advance Directives: No Advance Directives Information Provided: Yes Recently lost weight without trying: No Nutrition Risks: No Nutritional Risk Patient : No service: No Current occupational status: unemployed Current occupational exposures/hazards: No Cognitive needs: No Hearing needs: No Vision needs: No Meds Allergies Allergy/AdvReac Type Severity Reaction Status Date / Time No Known Drug Allergies Allergy Unknown none Verified 01/20/24 13:40 Seasonal Allergies Allergy runny Verified 01/20/24 13:40 eyes, itchy skin, congestion Home Medications ?Medication ?Instructions ?Recorded ?Confirmed ?Last Taken ?Type methadone 10 mg/5 mL oral solution 130 mg PO DAILY 10/25/20 01/20/24 11/17/23 History quetiapine 50 mg tablet (Seroquel) 50 mg PO DAILY PRN Hallucinations 12/19/22 01/20/24 Unknown History benztropine 0.5 mg tablet 0.5 mg PO DAILY 08/25/23 01/20/24 Unknown History fluticasone propionate 50 1 spray intranasal BID 08/25/23 01/20/24 Unknown H istory mcg/actuation nasal spray,suspension ziprasidone HCl 20 mg capsule 20 mg PO DAILY 08/25/23 01/16/24 Unknown History clonazepam 1 mg tablet 1 mg PO BID PRN Anxiety 12/17/23 01/20/24 Unknown History ibuprofen 400 mg tablet mg PO 12/17/23 01/16/24 Unknown History lamotrigine 25 mg tablet 25 mg PO DAILY 12/17/23 01/20/24 Unknown History propranolol 60 mg capsule,24 60 mg PO DAILY 12/17/23 01/20/24 Unknown History hr,extended release quetiapine 100 mg tablet 100 mg PO BEDTIME 12/17/23 01/20/24 Unknown History sennosides 8.6 mg tablet (Mariam-loren) mg PO 12/17/23 01/16/24 Unknown History sumatriptan succinate 100 mg tablet mg PO 12/17/23 01/16/24 Unknown History Exam Airway Mallampati Class: II TM Dist: <=3cm Neck ROM: Full Denture: Upper and Lower Heart: ok Lungs: ok. SpO2 95% room air Assessment and Plan Assessment Anesthesia Assessment: Anesthesia Plan Discussed Final Anesthetic Review NPO: Yes ASA Class: III Final Preanesthetic Review: No Changes in Pt Med Stat, Meds/Allgs Chart Reviewed, Consent Obtained/Reviewed and Anes Risks/Benef Reviewed Patient Risk: High Procedure Risk: Intermediate Anesthetic Plan Anesthetic Plan: GA and Agree w/ Assess. and Plan Disposition: Standard PACU
[2024-01-16 14:50] VITALS: BMI 39.5
[2024-01-20] VITALS (7 sets, daily range): BP systolic 104–126; BP diastolic 59–84; PULSE 68–76; RESP 16–22; TEMP 36–36.3; O2SAT 93–95; BMI 37.9
[2024-01-20 13:46] LABS: UPreg QC Valid YES; Urine Pregnancy NEGATIVE (NEGATIVE)
--- NOTE | 2024-01-20 14:12 | MHC.SHP ---
Pre-Procedural Eval Section A - 24 Hr Update-Section A only Date of Service: 01/20/24 The patient is an INPATIENT: No Changes since office visit: No Cold of Flu in the past 2 weeks, No New Medical Problems, No Changes in Medication and No Patient answered all questions The patient has been examined within 24 hours of the surgical procedure. The History & Physical has been completed within 30 days and I have reviewed it.: Yes Section B - Complete if H&P > 30 days Chief Complaint: Moderate cervical dysplasia Allergies: Allergies Allergy/AdvReac Type Severity Reaction Status Date / Time No Known Drug Allergies Allergy Unknown none Verified 01/20/24 13:40 Seasonal Allergies Allergy runny Verified 01/20/24 13:40 eyes, itchy skin, congestion Plan Diagnosis/Plan: Unchanged I have reviewed the history and physical and performed a pertinent physical examination on my patient. No changes have occurred unless specified. Time Spent With Patient Time: Total time managing care of this patient today ____ minutes.
[2024-01-20] MEDS: Lactated Ringers 1,000 ML 100 ML IVCONT (14:34)
--- NOTE | 2024-01-20 15:07 | PM.OP ---
Brief Operative Note Date of Service: 01/20/24 Pre-op diagnosis: ALYSHA 2 with positive margins on previous cone Post-op diagnosis: same (The same) Procedure: LEEP CONE with post CONE ECC Surgeon: Angelito Grier MD Anesthesia: GLMA and other (Paracervical block) Was an Jewelry Coater used for this Procedure?: No Estimated blood loss (mL): 0 Pathology: other (Cervical cone, endocervix, Post cone ECC) Condition: stable Disposition: other (Home)
--- NOTE | 2024-01-20 15:08 | P.OP_ITS ---
Operative Note Operative Note Date of Service: 01/20/24 Narrative: Pre op diagnosis: ALYSHA 2 with positive margins on previous cone Operation: Colposcopy, Loop electrical excision procedure cone, endocervical excision, post cone ECC, Mirena IUD removal and insertion Postop diagnosis: the same Quantitative blood loss: 50 cc Surgeon: Angelito Grier MD, FACOG Solar Hot Water Installer: None Pathology: Cervical cone, top-hat endo cervical excision, endo cervical curettage Complications: none Anesthesia: GLMA and Para cervical block Procedure: The patient was put in a dorsal lithotomy position, scrubbed and draped in the usual sterile fashion. A speculum was inserted inside the patient's vagina. U sing a long Ирина clamp the Mirena IUD was removed. The cervix is assessed using the colposcope with acetic acid , the lesions were seen, and at least 1 cm of the squamocolumnar junction was observed. 20 x 5 mm size loop was selected based upon the diameter of the lesion. Lugol solution was used to outline the lesions and area of the transformation zone order to be removed 10 cc of xylocaine with epinephrine were injected submucosally into the surface of the cervix (ectocervix) at the 3, 6, 9, and 12 o'clock positions. The electrosurgical generator is set at 40 ascencio on blend 1. The loop is carefully passed simultaneously around and under the transformation zone, in order to ensure excising it making sure the ectocervix lesion is at least 5 mm far from the specimen margins . The loop was allowed to glide through the cervix from one side to the other, allowing the cutting current to divide the tissue. Additional tissue was excised from the endocervix with a smaller-diameter loop . An endo cervical curettage is performed following completion of excision, and hemostasis is obtained with a Ball electrode or regular tip cautery. Mirena IUD was inserted in the usual fashion, 3 cm of the string was cut At the end, Monsel's solution was applied to the cone bed. The patient tolerated the procedure well and, all instruments were taken out of the patient vaginal cavity, and the patient was transferred to the PACU in stable condition.
== END 2024-01-20 16:17 | disposition home or self-care (01) ==
PROVIDERS: PCP Family Medicine; Visit Provider Obstetrics & Gynecology
PROC: 0UBC7ZZ Excision of Cervix, Via Natural or Artificial Opening (ICD-10-PCS; CPT 57522; principal; 2024-01-20 14:30)
DX: N87.1 Moderate cervical dysplasia (principal); Z30.433 Encounter for removal and reinsertion of intrauterine contraceptive device; N72 Inflammatory disease of cervix uteri; G47.33 Obstructive sleep apnea (adult) (pediatric); Z98.51 Tubal ligation status; F19.11 Other psychoactive substance abuse, in remission; F17.210 Nicotine dependence, cigarettes, uncomplicated; F11.20 Opioid dependence, uncomplicated; Z79.51 Long term (current) use of inhaled steroids; Z79.1 Long term (current) use of non-steroidal anti-inflammatories (NSAID); Z79.899 Other long term (current) drug therapy
CPT/HCPCS: 57461; 58301; 58300; 81025; 88300; 88305; 88307; J1885; J2003; J2004; J2250; J2405; J2704; J3010; J7298

== ENCOUNTER → 2024-01-20 12:28 | Outpatient (BNV) | payer OTHER, SELFPAY | PROVIDERS: PCP Family Medicine; Visit Provider Obstetrics & Gynecology | DX: N87.1 Moderate cervical dysplasia (principal) | CPT/HCPCS: 57461 ==

== ENCOUNTER 2024-02-09 14:30 | Outpatient (AMB) | payer OTHER, SELFPAY ==
--- NOTE | 2024-02-09 14:29 | A.OFFVIS_ITS ---
Intake Visit Reasons: TV post op Allergies No Known Drug Allergies Allergy (Unknown, Verified 02/09/24 14:29) none Seasonal Allergies Allergy (Verified 02/09/24 14:29) runny eyes, itchy skin, congestion HPI Comments Details: The patient scheduled [facility] visit for follow-up post re-excision LEEP cone with post cone ECC was Mirena IUD removal and reinsertion. The patient has no complaints. The pathology showed the following: A. Intrauterine device: Plastic T -shaped device consistent with IUD. Gross examination only. B. Cervix, cone excision: Inflamed cervical transformation zone mucosa and changes consistent with prior procedure. C. Endocervix, cone excision: Inflamed endocervical mucosa and changes consistent with prior procedure. D. Endocervix, post cone, curettage: Small fragment of mildly inflamed endocervical mucosa. 12/05 the patient had LEEP cone with post cone ECC with the following pathology: A. Cervix, conization: -Low grade squamous intraepithelial lesion (mild dysplasia, ALYSHA I) and focal high grade squamous intraepithelial lesion (moderate dysplasia, ALYSHA II), involving endocervical glands. -Ectocervical margin: Free of dysplasia. -Endocervical margin: Positive for dysplasia. -Radial (deep stromal) margin: Free of dysplasia. -Biopsy site changes present. B. Endocervix, conization: -Low grade squamous intraepithelial lesion (mild dysplasia, ALYSHA I); endocervical glands present. -Ectocervical margin: Positive for dysplasia. -Endocervical margin: Free of dysplasia. -Radial (deep stromal) margin: Free of dysplasia. -Biopsy site changes present. C. Endocervix, post cone curettage: -Benign endocervical glandular mucosa and benign endometrium/lower uterine segment [facility] Medical History Hx of CT scan Witnessed apneic spells SANDI (obstructive sleep apnea) Substance abuse in remission Chronic idiopathic constipation IBS (irritable bowel syndrome) Left leg pain Hand dermatitis Chronic pancreatitis Surgical History History of tubal ligation Family History Father Mental health disorder Mother High blood pressure High cholesterol Social History Housing: Apartment Are you a primary interior plant caretaker to a significant other at home: No Do you presently have visiting nurse or other home services: No Alcohol intake: never Patient Tobacco Use Status: Current everyday Tobacco user Tobacco use type: Cigarette Cigarette Packs Per Day: 1 Cigarettes Per Day: 20.0 e-Cigarette/Vaping Use: Never Used service: No Current occupational status: unemployed Current occupational exposures/hazards: No Cognitive needs: No Hearing needs: No Vision needs: No Female Reproductive History Menstrual Age of Menarche: 14 Review of Systems Const All systems reviewed & are unremarkable except as noted in HPI and below Reports as per HPI and Reports no additional complaints GI Reports no additional complaints Reports no additional complaints Telehealth Telehealth Telehealth Platform: Telephone Location of provider rendering services: practice address Location of patient: address on file Patient Identification confirmed using: Name, : Yes Telehealth method: voice only Patient verbally consented to treatment: Yes Patient verbally consented to billing insurance company: Yes Patient informed of any privacy concerns related to visit: Yes Assessment & Plan Assessment & Plan (1) ALYSHA II (cervical intraepithelial neoplasia II): Comment: ALYSHA 2 + endo margins ALYSHA 1 positive ectocervical margins Re-excision LEEP cone pathology negative Code(s): N87.1 - Moderate cervical dysplasia Category: Medical Plan: Discussed with the patient the pathology of the LEEP cone, no evidence of dysplasia. Recommended co testing in 6 months. Instructions given the patient to schedule six-month follow-up appointment. I spent a total of 20 minutes reviewing the chart, talking to the patient via phone and documenting in the medical record. Coding Level of Care Code Tele Est Pt Level 1 (72694) Diagnoses ALYSHA II (cervical intraepithelial neoplasia II) N87.1
== END 2024-02-09 15:28 | disposition home or self-care (01) ==
LOC: HO.HWS 14:30
PROVIDERS: PCP Family Medicine; Visit Provider Obstetrics & Gynecology
DX: N87.1 Moderate cervical dysplasia (principal)
CPT/HCPCS: 99211

== ENCOUNTER → 2024-02-09 14:30 | Outpatient (BNVA) | payer OTHER, SELFPAY | PROVIDERS: PCP Family Medicine; Visit Provider Obstetrics & Gynecology ==

== ENCOUNTER 2024-02-11 07:23 | Outpatient (AMB) | payer OTHER, SELFPAY ==
--- NOTE | 2024-02-11 07:35 | A.OFFVIS_ITS ---
Vital Signs 02/11/24 07:38 Height 5 ft 3 in Weight 232 lb BMI 41.1 Intake Visit Reasons: 3 month f/u Intake Note: patient presents for follow up. migraines are still terrible. Allergies No Known Drug Allergies Allergy (Unknown, Verified 02/12/24 11:22) none Seasonal Allergies Allergy (Verified 02/12/24 11:22) runny eyes, itchy skin, congestion Medication List - Last Reconciled 02/11/24 by JULIO Patel atorvastatin 40 mg PO BEDTIME 90 days benztropine 0.5 mg PO DAILY betamethasone valerate 0.1% 1 appl topical DAILY PRN 30 days bisacodyl 10 mg (2 x 5 mg) PO BEDTIME clonazepam 1 mg PO BID PRN famotidine (Pepcid) 20 mg PO BEDTIME fluticasone propionate 50 mcg/actuation 1 spray intranasal BID gabapentin 600 mg PO TID 30 days galcanezumab-gnlm (Emgality Pen) 240 mg (2 mL) subcut ONCE 30 days ibuprofen mg PO lamotrigine 25 mg PO DAILY levothyroxine 75 mcg PO DAILY 90 days linaclotide (Linzess) 290 mcg PO QAM lisinopril 20 mg PO DAILY 30 days methadone 130 mg PO DAILY omeprazole 40 mg PO DAILY paroxetine HCl 40 mg PO DAILY 30 days quetiapine (Seroquel) 50 mg PO DAILY PRN quetiapine (Seroquel) 300 mg PO BEDTIME 30 days quetiapine 100 mg PO BEDTIME semaglutide (weight loss) (Wegovy) 0.25 mg (0.5 mL) subcut QWEEK 28 days sennosides (Mariam-loren) mg PO sumatriptan succinate mg PO topiramate 50 mg PO DAILY 30 days trazodone 100 mg PO BEDTIME PRN ziprasidone HCl 20 mg PO DAILY HPI HPI 3 month f/u: Details: 38 year old female with migraines and sleep apnea presents for 3 month follow up. Migraines: She continues to have 3- 4 migraine headaches daily, and sometimes lasting 6 min to 2 days all over her head. She refuses to take Sumatriptan as she had bad reaction as a child with onset of seizures and burnt the inside of her cheek. She has auras with vision changes, light sensitivity and noise sensitivity but no vomiting. She has to go lay down in a dark, quiet room. She stopped taking her propanolol as it knocked her out . Elvin santana continues to take Seroquel and and Trazodone for obdulia. Sleep Apnea: Today she is falling asleep between sentences and dropping her phone onto the floor as she is somnolence, states she has not slept in 4 days. When she finally gets to sleep at midnight she wakes up at 3-4 am 3-4 times a week. The pressure on her APAP is intolerable and blows at her mouth and she can not wear the mask as she feels she is being suffocated. She also had a sinus infection recently and was taking ibuprofen and sudafed as needeed. She continues to smoke over 1 and 1/2 pack of cigarettes a day, and is planning to start Wegovy for weight management. She wants to start low impact exercises because she has had issues with knees and hips. HPI Comments Details: 38-yr-old female presents for f/u visit of sleep difficulties and headache. Pt reports she continues to have excessive daytime sleepiness, can fall asleep even when talking with someone. Pt reports hypersomnia since adolescence- would fall asleep on the school bus on the way home- she could dream during naps even then. Also reports when angry, she will yawn and feel completely drained- again since adolescence Pt did undergo f/u in-lab PAP titration study, which showed control of sleep apnea at BiPAP 24/. However, pt states she cannot tolertae this pressure and it did not fully correct the nocturnal hypoxemia. Orexin A CSF level was normal at 215. She continues to have frequent headaches, now 3-6 days per week. . Typical headache #1 characteristics: Aura: bilateral vision change- starts as squiggles and the blurriness expands to cover the entire central vision- usually lasts 45 min, but once lasted for 3 days. Headache: Pressure in right frontal or occipital a/w photophobia, phonophobia, not right in space dizziness, activity tolerance, fatigue, cognitive difficulties, tip of nose/tongue goes numb and left mouth/jaw droops. Postdrome: world's worst hangover - feels completely depleted. Duration: Usually lasts a few hours, but when had attacks x's 1 week- needing hospitalization. Typical headcahe #2: Focal pressure headaches in the left upper temporal or right parietal- stronger, more painful. Makes her feel off-balance. Duration: Sometimes lasts 10 minutes to 1-2 hrs. Has to lay down or take a shower. She has TD- may twitch or jerk, her fingers may make repetitive movements- say when using her phone. They may make her drop things. She used to have facial movements- but not recently. [facility] Medical History (Updated 02/12/24 @ 11:39 by Avani Fajardo PA-C) Hx of CT scan Witnessed apneic spells SANDI (obstructive sleep apnea) Substance abuse in remission Chronic idiopathic constipation IBS (irritable bowel syndrome) Left leg pain Hand dermatitis Chronic pancreatitis Surgical History (Updated 02/11/24 @ 07:40 by JOANNE Stevens) H/O LEEP History of tubal ligation Family History Father Mental health disorder Mother High blood pressure High cholesterol Social History Housing: Apartment Are you a primary elderly caregiver to a significant other at home: No Do you presently have visiting nurse or other home services: No Alcohol intake: never Patient Tobacco Use Status: Current everyday Tobacco user Tobacco use type: Cigarette Cigarette Packs Per Day: 1 Cigarettes Per Day: 20.0 e-Cigarette/Vaping Use: Never Used service: No Current occupational status: unemployed Current occupational exposures/hazards: No Cognitive needs: No Hearing needs: No Vision needs: No Female Reproductive History Menstrual Age of Menarche: 14 Review of Systems Const Reports daytime sleepiness, Reports fatigue, Reports lethargy and Reports stops breathing during sleep Eyes Reports photophobia Endo Reports fatigue Physical Exam Vital Signs: BMI result Body Mass Index 41.1 Const Other: Drowsy, but easily arousable. Pt was dozing off during conversations. General: lethargic and tired appearing Nutritional Appearance: obese Orientation/consciousness: patient oriented x3 and lethargic Limitations: language barrier (Falling asleep unable to speak in full sentences, mumbles. ) Eyes Direct Ophthalmoscopy: photophobia Neck Neck: Yes normal visual inspection, Yes full ROM and Yes other (wears glasses) Resp Effort & Inspection: normal respiratory effort and able to speak in complete sentences Neuro General: patient oriented x3 and moves all extremities Cognition (Neuro): normal cognition Speech: Other speech findings present (Neuro) (Falls asleep in between sentences and mumbles. ) Gait exam (Neuro): Other gait observations present (Balance is off, tilts to the right.) Psych Appearance: grossly normal Mental Status: mental status grossly normal Speech and movement: Slurred speech present Affect: Indifferent affect present Attitude: cooperative Thought content: Normal thought content present Insight: Good insight present (Psych) Judgement: Fair judgement present (Psych) Assessment & Plan Assessment & Plan (1) Hypersomnia: Code(s): G47.10 - Hypersomnia, unspecified Category: Medical (2) Cataplexy: Comment: Episodes when angry a/w yawning and feeling completely drained since adolescence are suggestive of caraplexy. 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 Code(s): G47.33 - Obstructive sleep apnea (adult) (pediatric) Category: Medical (4) Migraine with aura: Code(s): G43.109 - Migraine with aura, not intractable, without status migrainosus Category: Medical (5) Nocturnal hypoxemia: Code(s): G47.34 - Idiopathic sleep related nonobstructive alveolar hypoventilation Category: Medical Plan For severe SANDI w/ nocturnal hypoxemia: Reviewed CSF Orexin level 213, normal. Advised this does not support a clear dx of narcolepsy. Pt may benefit from undergoing f/u in-lab PSG w/ MSLT, however, pt would need to be compliant w/ PAP therapy for at least 30 days and additionally, pt's psychiatrist has advsied us to avoid attempting to wean pt off of her psychotropic medications, as this has caused severe mood decompensation and suicide attempst in the the past- pt would need to be hospitalized in order to do this. Thus, at this point, we will try to optimize pt's sleep quality. PAP tx pressure changed from BiPAP 24/19 to 27/02 via [facility], as at the setting pt did have reduction in apneas and O2 trang was at 87% (similar to setting). Will request ENT referral, as she has been previously advised to have her adenoids removed, encouraged pt that there are measures we can take to help her to stop smoking prior to any prposed tx's. Pt. advised to work with weight clinic as she is planning on going on [employer] for weight management. Pt. referred to pulmonology to further assess nocturnal hypoxemia. For acute migraine w/ aura tx: Stop Sumatriptan 100mg tab- pt today reports allergic reaction- SOB/seizure Trial Ubrogepant (Ubrelvy) 100mg tab, 1/2 - 1 tab (50-100mg) at onset of headache, may repeat in 2 hours. Max of 2 tabs (200mg) per 24 hours. May adjunct with OTC Tylenol 650mg q 4 hours, Ibuprofen 600mg q 6 hours, or Naproxen 440mg q 12 hrs prn. Do not take w/ Butalbital (Fioricet or Fiorinal). Potential adverse effects, include but are not limited to fatigue, nausea, dry mouth, constipation. Previous migraine tx trials: Sumatriptan- caused SOB/seizure activity. Migarine tx contraindications: All triptans d/t Sumatriptan allergy. For migraine w/ aura prevention: Stop propranolol ER 60mg qhs- caused excess fatigue. Start Emgality 120mg/ml auto-injection: Loading dose: 240mg (2-120mg/ml autoinjections) via subcutaneous injection in 2 different sites). Then in 30 days, start Maintenance dose 120mg (120mg/ml autoinjector) subcutaneous injection every month. [Patient will self-administer at home after reviewing injection education video on Emgality.[employer].] [Patient requests injection training once Emgality available.] Important considerations: * Emgality will likely require insurance prior authorization prior to receiving it from the pharmacy. * Potential side effects include allergic reaction and injection site reactions. * Store Emgality in it's original packaging in order to protect from light. * Emgality can be left out of the fridge for?up to 7 days at a temperature not above 86?F. * If these conditions are exceeded, then Emgality must be thrown away. * Once Emgality has been stored out of refrigeration, do not place it back in the refrigerator. Continue Topiramate 50mg qd- would not increase further d/t sedation. For short lasting more severe headache: Monitor response to above. Pt to follow-up in 3-4 months or sooner prn. Pt seen in conjunction w/ Katerina Mccormick PA in coordination w/ myself Landy Salazar, [employer] SECURITY ENGINEER-, I agree with the above documentation and plan. Orders: Referrals Pulmonology Referral G47.33 - Obstructive sleep apnea (adult) (pediatric), G47.34 - Idiopathic sleep related nonobstructive alveolar hypoventilation Medical Weight Management Referral G47.34 - Idiopathic sleep related nonobstructive alveolar hypoventilation, G47.33 - Obstructive sleep apnea (adult) (pediatric), G47.10 - Hypersomnia, unspecified Medications: New galcanezumab-gnlm (Emgality Pen) Loading dose: 120 mg subcu injection x2 in alternate sites (total 240 mg). To be followed by maintenance dose of 120 mg subcu q.month. 240 mg (2 mL) subcut ONCE 2 mL 0RF 30 days ubrogepant (Ubrelvy) take at onset of migraine, may repeat in 2hrs (may take w/ Ibuprofen) 50 - 100 mg (0.5 - 1 x 100 mg) PO ONCE PRN 16 tabs 3RF migraine headache 30 days Coding Level of Care Code Est Pt Level 4 (89374) Diagnoses Hypersomnia G47.10 Cataplexy G47.411 Severe obstructive sleep apnea G47.33 Migraine with aura G43.109 Nocturnal hypoxemia G47.34
[2024-02-11 07:38] VITALS: BMI 41.1
== END 2024-02-11 08:56 | disposition home or self-care (01) ==
LOC: HO.HSMS 07:23
PROVIDERS: PCP Family Medicine; Visit Provider Nurse Practitioner Family
DX: G47.10 Hypersomnia, unspecified (principal); G47.411 Narcolepsy with cataplexy; G47.33 Obstructive sleep apnea (adult) (pediatric); G43.109 Migraine with aura, not intractable, without status migrainosus; G47.34 Idiopathic sleep related nonobstructive alveolar hypoventilation
CPT/HCPCS: 99214

== ENCOUNTER → 2024-02-11 07:23 | Outpatient (BNVA) | payer OTHER, SELFPAY | PROVIDERS: PCP Family Medicine; Visit Provider Nurse Practitioner Family | DX: G43.109 Migraine with aura, not intractable, without status migrainosus (principal); G47.10 Hypersomnia, unspecified; G47.411 Narcolepsy with cataplexy; G47.34 Idiopathic sleep related nonobstructive alveolar hypoventilation; G47.33 Obstructive sleep apnea (adult) (pediatric) | CPT/HCPCS: 99212 ==

== ENCOUNTER 2024-02-12 11:15 | Outpatient (AMB) | payer OTHER, SELFPAY ==
--- NOTE | 2024-02-12 11:19 | A.OFFVIS_ITS ---
Intake Visit Reasons: SPINE SPECIALIST/HMG referral for UE/LE swelling Intake Note: Patient states shes been experiencing hand, feet , ankle and leg swelling for about 18 years now. States it is worse in the morning. Patient was given water pills but they did not help. Patient states she would use intravenous drugs in her hands and feet and thinks it might be the reason. Allergies No Known Drug Allergies Allergy (Unknown, Verified 02/12/24 11:22) none Seasonal Allergies Allergy (Verified 02/12/24 11:22) runny eyes, itchy skin, congestion HPI HPI SPINE SPECIALIST/HMG referral for UE/LE swelling: Details: Meena is presenting today as a referral from her PCP for bilateral upper extremity swelling with significant hand swelling and pain, that has been occurring for approximately 8 years now and not getting any better. She has a history of IV drug use, she states that she used to shoot up in between her fingers and her toes. She has been sober for 5 years now. Approximately 8 years ago she began having the swelling in both her hands and her feet; she endorses that her hands are worse than her feet. She states the swelling is worse in the morning and she attempts to keep her arms and hands elevated but is difficult when sleeping. Her legs swell intermittently, mostly in the evenings. She does elevate her feet on pillows at bedtime. She does smoke approximately 1/2 pack a day for the last 20 years. She is not a diabetic. She has not have a history of DVT or PE. She does not have history of phlebitis. [facility] Medical History (Updated 02/12/24 @ 11:39 by Avani Fajardo PA-C) Hx of CT scan Witnessed apneic spells SANDI (obstructive sleep apnea) Substance abuse in remission Chronic idiopathic constipation IBS (irritable bowel syndrome) Left leg pain Hand dermatitis Chronic pancreatitis Surgical History (Updated 02/11/24 @ 07:40 by JOANNE Stevens) H/O LEEP History of tubal ligation Family History Father Mental health disorder Mother High blood pressure High cholesterol Social History Housing: Apartment Are you a primary healthcare business analyst to a significant other at home: No Do you presently have visiting nurse or other home services: No Alcohol intake: never Patient Tobacco Use Status: Current everyday Tobacco user Tobacco use type: Cigarette Cigarette Packs Per Day: 1 Cigarettes Per Day: 20.0 e-Cigarette/Vaping Use: Never Used service: No Current occupational status: unemployed Current occupational exposures/hazards: No Cognitive needs: No Hearing needs: No Vision needs: No Female Reproductive History Menstrual Age of Menarche: 14 Review of Systems Const Reports as per HPI and Denies weakness ENT Reports Normal hearing present and Denies dizziness Card Reports as per HPI, Denies chest pain, Denies chest pain at rest, Denies chest pain with activity, Denies dyspnea and Denies dyspnea on exertion Resp Reports as per HPI, Denies cough, Denies dyspnea and Denies dyspnea on exertion GI Reports as per HPI, Denies abdominal pain, Denies nausea and Denies vomiting Musc Denies numbness Skin/Breast Reports as per HPI, Denies erythema and Denies wounds Neuro Reports Normal hearing present, Denies dizziness, Denies numbness, Denies Sen vitaly deficit (Neuro) and Denies weakness Psych Reports no additional complaints Endo Reports no additional complaints Physical Exam Const General: healthy appearing and no acute distress Orientation/consciousness: patient oriented x3 HEENT Head: Yes normal to inspection Ears: hearing grossly normal bilaterally Mouth: Normal oral and palatal mucosa present Resp Effort & Inspection: normal respiratory effort and able to speak in complete sentences Auscultation: clear to auscultation bilaterally Cardio Jugular venous distension: no JVD Rate: regular rate Rhythm: regular rhythm Heart sounds: S1 normal heart sound present and S2 normal heart sound present Bruits: no abdominal aortic bruits, no carotid bruits, no femoral bruits and no renal bruits Peripheral pulses: Peripheral pulses 2+ throughout GI Inspection: Yes normal to inspection Palpation (GI): No Abdominal aortic bruit present Skin General skin exam: no rashes or lesions noted Wounds: no wounds Hair: normal Neuro General: patient oriented x3 Cranial nerves: Yes Normal hearing present Cognition (Neuro): normal cognition Gait exam (Neuro): Normal gait present Motor exam (neuro): 5/5 motor strength present throughout Sensory Exam: No Sensory deficit (Neuro) Extrem Other: Bilateral upper extremities: swelling noted from the tips of her fingers to mid forearms circumferentially. Pitting edema noted in the hands and forearms. Cap refill intact. Radial pulses strong and palpable. Patient has full range of motion of the hands. Discoloration noted of the forearms. Bilateral lower extremities: Trace peripheral edema noted bilaterally. No wounds or ulcers noted. Palpable DP pulses. CEAP: C - 4 E - primary A - superficial P - reflux General: Yes normal to inspection, Yes full ROM, Yes capillary refill normal and Yes normal gait Assessment & Plan Assessment & Plan (1) Swelling of both upper extremities: Code(s): M79.89 - Other specified soft tissue disorders Category: Medical Plan: Meena is presenting today on a referral from her PCP for ongoing and progressive swelling and pain in bilateral upper extremities from mid forearm to her fingertips. She states this has been going on for approximately 8 years now. She also endorses bilateral lower extremity swelling and pain, but not as painful or swollen as her upper extremities. We discussed duplex venous US imaging for her upper extremities and addressing those issues 1st. We did discuss using elevation and compression stockings for her lower extremities. We discussed to try to elevate her arms when possible during the day or at night when sleeping. We will have her return for a follow up after imaging has been performed. We will continue to follow. If there are any questions or concerns, please do not hesitate to reach out to our office. Orders: Orders US venous duplex UE BI 1 Week M79.89 - Other specified soft tissue disorders Coding Level of Care Code New Pt Level 4 (72755) Diagnoses Swelling of both upper extremities M79.89
== END 2024-02-12 11:36 | disposition home or self-care (01) ==
LOC: HO.HVS 11:16
PROVIDERS: PCP Family Medicine; Visit Provider Physician Assistant Surgical
DX: M79.89 Other specified soft tissue disorders (principal)
CPT/HCPCS: 99204

== ENCOUNTER → 2024-02-12 11:15 | Outpatient (BNVA) | payer OTHER, SELFPAY | PROVIDERS: PCP Family Medicine; Visit Provider Physician Assistant Surgical | DX: M79.89 Other specified soft tissue disorders (principal) | CPT/HCPCS: 99202 ==

== ENCOUNTER 2024-03-04 08:08 | Outpatient (REF) | payer OTHER, SELFPAY | END 2024-03-04 08:09 | disposition home or self-care (01) | LOC: HO.US 08:08 | PROVIDERS: PCP Family Medicine; Visit Provider Physician Assistant Surgical | DX: R60.0 Localized edema (principal); G47.34 Idiopathic sleep related nonobstructive alveolar hypoventilation | CPT/HCPCS: 93970; 99202 ==

== ENCOUNTER 2024-03-04 10:30 | Outpatient (AMB) | payer OTHER, SELFPAY ==
--- NOTE | 2024-03-04 10:36 | MHC.OFFVIS ---
Vital Signs 03/04/24 10:37 Height 5 ft 3 in Weight 234 lb 12.677 oz BMI 41.6 BP 102/62 Blood Pressure Location Rt brachial Position Sitting Pulse 75 Pulse Source Doppler Pulse Oximetry (%) 94 Oxygen Delivery Method Room Air Intake Visit Reasons: sandi Allergies No Known Drug Allergies Allergy (Unknown, Verified 03/04/24 10:43) none Seasonal Allergies Allergy (Verified 03/04/24 10:43) runny eyes, itchy skin, congestion HPI HPI sandi: Details: 38-year-old lady, active pack-a-day smoker with underlying severe obstructive sleep apnea, now on BiPAP therapy by her sleep provider referred for evaluation of overnight hypoxemia and dyspnea. Patient states that she gained over 100 lb over the last year with worsening respiratory symptoms. She denies prior personal history of lung disease. Patient does state that she has an unspecified history of lung disease in both of her parents who were avid smokers. [facility] Medical History (Updated 03/04/24 @ 11:06 by Hai Beaver MD) Hx of CT scan Witnessed apneic spells SANDI (obstructive sleep apnea) Substance abuse in remission Chronic idiopathic constipation IBS (irritable bowel syndrome) Left leg pain Hand dermatitis Chronic pancreatitis Surgical History (Updated 02/11/24 @ 07:40 by JOANNE Stevens) H/O LEEP History of tubal ligation Family History Father Mental health disorder Mother High blood pressure High cholesterol Social History (Updated 03/04/24 @ 10:45 by JOANNE Barrera) Housing: Apartment Are you a primary health care marketing specialist to a significant other at home: No Do you presently have visiting nurse or other home services: No Alcohol intake: never Patient Tobacco Use Status: Current everyday Tobacco user Tobacco use type: Cigarette Cigarette Packs Per Day: 1 Cigarettes Per Day: 20.0 Years Smoked: Started around age 8 e-Cigarette/Vaping Use: Never Used service: No Current occupational status: unemployed Current occupational exposures/hazards: No Cognitive needs: No Hearing needs: No Vision needs: No Female Reproductive History Menstrual Age of Menarche: 14 Review of Systems Card Denies chest pain and Reports dyspnea on exertion Resp Denies cough, Denies excessive phlegm production, Reports dyspnea on exertion and Denies wheezing Aller/Immun Denies wheezing Physical Exam Vital Signs: Last Vital Signs Pulse 75 03/04/24 10:37 BP 102/62 03/04/24 10:37 Pulse Ox 94 03/04/24 10:37 Oxygen Delivery Method Room Air 03/04/24 10:37 BMI result Body Mass Index 41.6 Const General: no acute distress and alert Nutritional Appearance: obese Orientation/consciousness: Other orientation findings ( oriented) HEENT Head: Yes atraumatic Eyes General: appearance normal, both eyes and all related structures Sclerae: sclerae normal EOM: EOMs intact bilaterally Neck Neck: Yes supple Lymphatic: no lymphadenopathy noted Resp Effort & Inspection: normal respiratory effort and no use of accessory muscles Auscultation: clear to auscultation bilaterally Cardio Rate: regular rate Rhythm: regular rhythm Heart sounds: no gallops, no murmurs and no rubs Skin General skin exam: other ( warm) Extrem General: No clubbing, No cyanosis and No edema Assessment & Plan Assessment & Plan (1) Nocturnal hypoxemia: Code(s): G47.34 - Idiopathic sleep related nonobstructive alveolar hypoventilation Category: Medical Plan: Will obtain overnight oximetry for further evaluation. (2) Dyspnea: Code(s): R06.00 - Dyspnea, unspecified Category: Medical Plan: Will obtain full PFT and KAYLEE screen for further evaluation. Orders: Orders PFT pulmonary function test Today G47.34 - Idiopathic sleep related nonobstructive alveolar hypoventilation, R06.00 - Dyspnea, unspecified Overnight Pulse Oximetry Today G47.34 - Idiopathic sleep related nonobstructive alveolar hypoventilation KAYLEE Reflex Titer and Pattern Today R06.00 - Dyspnea, unspecified Coding Level of Care Code New Pt Level 4 (61348) Diagnoses Nocturnal hypoxemia G47.34 Dyspnea R06.00
[2024-03-04 10:37] VITALS: BP 102/62; PULSE 75; O2SAT 94; BMI 41.6
== END 2024-03-04 11:06 | disposition home or self-care (01) ==
PROVIDERS: PCP Family Medicine; Visit Provider Internal Medicine Pulmonary Disease
DX: G47.34 Idiopathic sleep related nonobstructive alveolar hypoventilation (principal); R06.00 Dyspnea, unspecified
CPT/HCPCS: 99204

== ENCOUNTER 2024-04-08 11:16 | Outpatient (AMB) | payer OTHER, SELFPAY ==
--- NOTE | 2024-04-08 12:16 | MHC.PC.OV ---
Vital Signs 04/08/24 12:18 Height 5 ft 3 in Weight 232 lb BMI 41.1 BP 64/32 L Blood Pressure Location Lt brachial Position Sitting Respiration 18 Pulse 64 Pulse Source Pulse Oximeter Temp 98.0 F Temp Source Oral Pulse Oximetry (%) 96 Intake Visit Reasons: MED- REVIEW Intake Note: med review Allergies No Known Drug Allergies Allergy (Unknown, Verified 04/08/24 12:16) none Seasonal Allergies Allergy (Verified 04/08/24 12:16) runny eyes, itchy skin, congestion Medication List - Last Reconciled 04/08/24 by Aakash Navarro MD atorvastatin 40 mg PO BEDTIME 90 days benztropine 0.5 mg PO DAILY betamethasone valerate 0.1% 1 appl topical DAILY PRN 30 days bisacodyl 10 mg (2 x 5 mg) PO BEDTIME clonazepam 1 mg PO BID PRN famotidine (Pepcid) 20 mg PO BEDTIME fluticasone propionate 50 mcg/actuation 1 spray intranasal BID gabapentin 600 mg PO TID 30 days galcanezumab-gnlm (Emgality Pen) 240 mg (2 mL) subcut ONCE 30 days ibuprofen mg PO lamotrigine 25 mg PO DAILY levothyroxine 75 mcg PO DAILY 90 days linaclotide (Linzess) 290 mcg PO QAM lisinopril 20 mg PO DAILY 30 days methadone 130 mg PO DAILY omeprazole 40 mg PO DAILY paroxetine HCl 40 mg PO DAILY 30 days quetiapine (Seroquel) 50 mg PO DAILY PRN quetiapine (Seroquel) 300 mg PO BEDTIME 30 days quetiapine 100 mg PO BEDTIME semaglutide (weight loss) (Wegovy) 0.25 mg (0.5 mL) subcut QWEEK 28 days sennosides (Mariam-loren) mg PO sumatriptan succinate mg PO topiramate 50 mg PO DAILY 30 days trazodone 100 mg PO BEDTIME PRN ubrogepant (Ubrelvy) 50 - 100 mg (0.5 - 1 x 100 mg) PO ONCE PRN 30 days ziprasidone HCl 20 mg PO DAILY Tobacco use date assessed: 07/23/23 Dental Screening Dental Screen Date: 06/18/23 HPI MED- REVIEW HPI Details 38 y/o female presents to f/u chronic conditions. Had increased levothyroxine, artovastatin, ordered ultrasound of abd. wall. Pt has not arranged for an ultrasound yet. Reports ongoing hand pain. Reports ongoing migraines. Hx of substance abuse. Still on methadone. [facility] Medical History (Updated 04/08/24 @ 12:44 by Merritt Langford) Hx of CT scan Witnessed apneic spells SANDI (obstructive sleep apnea) Substance abuse in remission Chronic idiopathic constipation IBS (irritable bowel syndrome) Left leg pain Hand dermatitis Chronic pancreatitis Surgical History (Updated 02/11/24 @ 07:40 by Mercedes Goodwin Davina) H/O LEEP History of tubal ligation Family History Father Mental health disorder Mother High blood pressure High cholesterol Social History (Updated 03/04/24 @ 10:45 by Corrina Jolly Davina) Housing: Apartment Are you a primary foster care case manager to a significant other at home: No Do you presently have visiting nurse or other home services: No Alcohol intake: never Patient Tobacco Use Status: Current everyday Tobacco user Tobacco use type: Cigarette Cigarette Packs Per Day: 1 Cigarettes Per Day: 20.0 Years Smoked: Started around age 8 e-Cigarette/Vaping Use: Never Used service: No Current occupational status: unemployed Current occupational exposures/hazards: No Cognitive needs: No Hearing needs: No Vision needs: No Female Reproductive History Menstrual Age of Menarche: 14 Questionnaire PHQ-9 Over the last 2 weeks, how often have you been bothered by any of the following problems? 1. Little interest or pleasure in doing things: more than half the days 2. Feeling down, depressed, or hopeless: more than half the days 3. Trouble falling or staying asleep, or sleeping too much: nearly every day 4. Feeling tired or having little energy: nearly every day 5. Poor appetite or overeating: nearly every day 6. Feeling bad about yourself - or that you are a failure or have let yourself or your family down: not at all 7. Trouble concentrating on things, such as reading the newspaper or watching television: more than half the days 8. Moving or speaking so slowly that other people could have noticed. Or the opposite - being so fidgety or restless that you have been moving around a lot more than usual: more than half the days 9. Thoughts that you would be better off or of hurting yourself in some way: not at all Total score: 17 Source: Developed by Drs. Erik Allred, Mary Villela, Sriram Parson and colleagues, with an educational elizabeth from [employer]. Thrive Questionnaire Date Thrive assessed: 04/02/24 I am a: Patient What is your living situation today?: I have a place to live, but I am worried about losing it in the future Within the past 12 months, did the food you bought not last and you didn't have the money to get more?: Sometimes True Within the past 12 months, did you worry whether your food would run out before you got money to buy more?: Sometimes True Do you have trouble paying for medicines?: No Do you have trouble getting transportation to medical appointments?: Yes Do you have trouble paying your heating and electricity bill?: No Do you have trouble taking care of your child, family member or friend?: No Do you have trouble with day-to-day activities such as bathing, preparing meals, shopping, managing finances, etc.?: No Are you currently unemployed and looking for a job?: No Are you interested in more education?: No Please select the resources that you would like help with: None Currently or been in a relationship where the following occur: No concerns reported THRIVE Score: 4 AUDIT C Alcohol Use Questionnaire (AUDIT-C) 1. How often do you have a drink containing alcohol?: Never 3. How often do you have six or more drinks on one occasion?: Never Total Score: 0 IVA-7 AMB Questionnaire IVA-7 Date IVA - 7 assessed: 06/18/23 Feeling nervous, anxious, or on edge: 2 = More than half the days Not being able to stop or control worryin = Nearly every day Worrying too much about different things: 3 = Nearly every day Trouble relaxin = More than half the days Being so restless that it is hard to sit still: 3 = Nearly every day Becoming easily annoyed or irritable: 0 = Not at all Feeling afraid as if something awful might happen: 2 = More than half the days Total IVA-7 score (0-4 normal; 5-9 mild; 10-14 moderate; 15-21 severe): 15 Source: Developed by Drs. Erik Allred, Mary Villela, Sriram Parson and colleagues, with an educational elizabeth from [employer]. Review of Systems Const Details: Migraines Denies chills, Reports fatigue, Denies fever(s), Denies headache(s) and Denies weakness ENT Denies dizziness and Denies headache(s) Card Denies chest pain, Denies lightheadedness, Denies dyspnea and Denies other (Palpitations) Resp Denies cough, Denies dyspnea, Denies wheezing and Denies other ( shortness of breath) Musc Details: Hand pain Denies numbness and Denies tingling Neuro Denies dizziness, Denies headache(s), Denies numbness, Denies tingling, Denies paresthesias and Denies weakness Psych Denies anxiety and Denies depression Endo Reports fatigue Aller/Immun Denies wheezing Physical exam (Primary Care) Tobacco/Smoking Status: Tobacco use Status Tobacco use date assessed 07/23/23 04/08/24 12:17 Patient Tobacco Use Status Current everyday Tobacco 04/08/24 12:17 Tobacco use type Cigarette 04/08/24 12:17 e-Cigarette/Vaping Use Never Used 04/08/24 12:17 PHQ-9: PHQ-9 Score PHQ-9: Total score 17 04/08/24 12:24 Thrive Assessment: Date of Thrive Assessment Date Thrive assessed 04/02/24 04/08/24 12:17 Currently or been in a relationship where the following occur: No concerns reported Const General: no acute distress and well developed Nutritional Appearance: well nourished Orientation/consciousness: [facility]: Yes normocephalic and Yes atraumatic Eyes General: appearance normal, both eyes and all related structures Pupils: Equal, round and reactive pupils present EOM: EOMs intact bilaterally Resp Effort & Inspection: normal respiratory effort Auscultation: clear to auscultation bilaterally Cardio Rate: regular rate Rhythm: regular rhythm Heart sounds: S1 normal heart sound present, S2 normal heart sound present, no gallops, no murmurs and no rubs Neuro General: patient oriented x3 and gait normal Cranial nerves: Yes Equal, round and reactive pupils present Psych Affect: normal affect Coding Level of Care Code Est Pt Level 4 (70274) Diagnoses Abdominal mass R19.00 Hypothyroid E03.9 Hypercholesterolemia E78.00 Morbid obesity E66.01 Cataplexy G47.411 Substance abuse F19.10 Assessment & Plan Assessment & Plan (1) Abdominal mass: Code(s): R19.00 - Intra-abdominal and pelvic swelling, mass and lump, unspecified site Category: Medical Plan: Patient?has?not?arranged?for?her?ultrasound?yet. Order?is?still?available.??Will?ask?the?office?staff?to?help?get?this?scheduled. (2) Hypothyroid: Code(s): E03.9 - Hypothyroidism, unspecified Category: Medical Plan: Patient?has?not?had?her?labs?drawn?yet. She?says?she?is?getting?labs?drawn?for?another?specialist?this?coming?week Will?get?her?labs?drawn?and?we?will?follow-up?at?next?visit (3) Hypercholesterolemia: Code(s): E78.00 - Pure hypercholesterolemia, unspecified Category: Medical Plan: As?above, she?will?get?her?labs?drawn?and?we?will?follow-up (4) Morbid obesity: Code(s): E66.01 - Morbid (severe) obesity due to excess calories Category: Medical Plan: Had?triedWegovy. ?This?was?not?approved?by?her?insurance Will?try?Kamilla (5) Cataplexy: Comment: Episodes when angry a/w yawning and feeling completely drained since adolescence are suggestive of caraplexy. 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 She?says?she?is?still?to?methadone?in?that?she?thinks?her?dose?may?be?too?high.??I?agree?with?this.??She?should?discuss?methadone?dose?with?her?provider. 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
[2024-04-08 12:18] VITALS: BP 64/32; PULSE 64; RESP 18; TEMP 36.7; O2SAT 96; BMI 41.1
== END 2024-04-08 12:48 | disposition home or self-care (01) ==
PROVIDERS: PCP Family Medicine; Visit Provider Family Medicine
DX: R19.00 Intra-abdominal and pelvic swelling, mass and lump, unspecified site (principal); E03.9 Hypothyroidism, unspecified; E66.01 Morbid (severe) obesity due to excess calories; Z68.41 Body mass index [BMI] 40.0-44.9, adult; G47.411 Narcolepsy with cataplexy; F19.10 Other psychoactive substance abuse, uncomplicated; E78.00 Pure hypercholesterolemia, unspecified

== ENCOUNTER 2024-04-22 10:44 | Outpatient (AMB) | payer OTHER, SELFPAY ==
--- NOTE | 2024-04-22 10:48 | MHC.OFFVIS ---
Intake Visit Reasons: follow up s/p US 03/04/24 Intake Note: Patient presents for follow up , she had an upper extremity US on 03/04/24. She states she has had issues for about 10 years with her hand swelling. States she used to inject into her hands and believes that is why her hands are so swollen. Allergies No Known Drug Allergies Allergy (Unknown, Verified 04/22/24 10:50) none Seasonal Allergies Allergy (Verified 04/22/24 10:50) runny eyes, itchy skin, congestion HPI HPI follow up s/p US 03/04/24: Details: Meena is presenting today on a follow up to an ultrasound of her upper extremities due to ongoing swelling and pain. She states the swelling is not bad today. She denies any upper extremity pain today. States this has been going on for over 10 years. She denies any other new concerns today. [facility] Medical History Hx of CT scan Witnessed apneic spells SANDI (obstructive sleep apnea) Substance abuse in remission Chronic idiopathic constipation IBS (irritable bowel syndrome) Left leg pain Hand dermatitis Chronic pancreatitis Surgical History H/O LEEP History of tubal ligation Family History Father Mental health disorder Mother High blood pressure High cholesterol Social History Housing: Apartment Are you a primary manager long term care to a significant other at home: No Do you presently have visiting nurse or other home services: No Alcohol intake: never Patient Tobacco Use Status: Current everyday Tobacco user Tobacco use type: Cigarette Cigarette Packs Per Day: 1 Cigarettes Per Day: 20.0 Years Smoked: Started around age 8 e-Cigarette/Vaping Use: Never Used service: No Current occupational status: unemployed Current occupational exposures/hazards: No Cognitive needs: No Hearing needs: No Vision needs: No Female Reproductive History Menstrual Age of Menarche: 14 Review of Systems Const Reports as per HPI and Denies weakness ENT Reports Normal hearing present and Denies dizziness Card Reports as per HPI, Denies chest pain, Denies chest pain at rest, Denies chest pain with activity, Denies dyspnea and Denies dyspnea on exertion Resp Reports as per HPI, Denies cough, Denies dyspnea and Denies dyspnea on exertion GI Reports as per HPI, Denies abdominal pain, Denies nausea and Denies vomiting Musc Denies numbness Skin/Breast Reports as per HPI, Denies erythema and Denies wounds Neuro Reports Normal hearing present, Denies dizziness, Denies numbness, Denies Sensory deficit (Neuro) and Denies weakness Psych Reports no additional complaints Endo Reports no additional complaints Physical Exam Const General: healthy appearing and no acute distress Orientation/consciousness: patient oriented x3 HEENT Head: Yes normal to inspection Ears: hearing grossly normal bilaterally Mouth: Normal oral and palatal mucosa present Resp Effort & Inspection: normal respiratory effort and able to speak in complete sentences Auscultation: clear to auscultation bilaterally Cardio Jugular venous distension: no JVD Rate: regular rate Rhythm: regular rhythm Heart sounds: S1 normal heart sound present and S2 normal heart sound present Bruits: no abdominal aortic bruits, no carotid bruits, no femoral bruits and no renal bruits Peripheral pulses: Peripheral pulses 2+ throughout GI Inspection: Yes normal to inspection Palpation (GI): No Abdominal aortic bruit present Skin General skin exam: no rashes or lesions noted Wounds: no wounds Hair: normal Neuro General: patient oriented x3 Cranial nerves: Yes Normal hearing present Cognition (Neuro): normal cognition Gait exam (Neuro): Normal gait present Motor exam (neuro): 5/5 motor strength present throughout Sensory Exam: No Sensory deficit (Neuro) Extrem Other: Bilateral upper extremities: +1 edema noted from the fingertips to mid forearm. Cap refill intact. We will pulses strong and palpable. General: Yes normal to inspection, Yes full ROM, Yes capillary refill normal and Yes normal gait Results Reviewed Results Reviewed: Upper extremity venous duplex ultrasound: Negative for DVTs bilaterally. Assessment & Plan Assessment & Plan (1) Swelling of both upper extremities: Code(s): M79.89 - Other specified soft tissue disorders Category: Medical Plan: Meena is presenting today on a follow up to an upper extremity venous ultrasound performed on 03/04/2024 due to ongoing bilateral upper extremity swelling and pain, occurring over the last 10 years. The ultrasound was negative for DVTs. The patient states she continues with swelling and pain. I discussed with her the results were negative and that likely this is not due to a vascular issue. We discussed that likely this had to do with her lengthy history of substance use disorder, which she has now been in recovery for over 5 years. We discussed to continue elevating her arms and if any symptoms worsens then she can reach back out to us. We did discuss to reach back out to her PCP for further evaluation and treatment options. If there are any questions or concerns, please do not hesitate to reach out to us. Coding Level of Care Code Est Pt Level 4 (82665) Diagnoses Swelling of both upper extremities M79.89 Comment Review of ultrasound results
== END 2024-04-22 11:04 | disposition home or self-care (01) ==
PROVIDERS: PCP Family Medicine; Visit Provider Physician Assistant Surgical
DX: M79.89 Other specified soft tissue disorders (principal)
CPT/HCPCS: 99214

== ENCOUNTER → 2024-04-22 10:44 | Outpatient (BNVA) | payer OTHER, SELFPAY | PROVIDERS: PCP Family Medicine; Visit Provider Physician Assistant Surgical | DX: M79.89 Other specified soft tissue disorders (principal) | CPT/HCPCS: 99212 ==

== ENCOUNTER → 2024-05-14 11:53 | Outpatient (AMB) | payer OTHER, SELFPAY ==
--- NOTE | 2024-05-14 11:55 | A.OFFPC_ITS ---
Vital Signs 05/14/24 12:04 Height 5 ft 3 in Weight 230 lb 4 oz BMI 40.8 BP 110/60 Blood Pressure Location Rt brachial Position Sitting Respiration 16 Pulse 79 Pulse Source Pulse Oximeter Temp 97.6 F Temp Source Oral Pulse Oximetry (%) 94 Oxygen Delivery Method Room Air Intake Visit Reasons: ED F/U and chronic conditions Intake Note: pt would like to discuss her hand and knee discomfort.pt is also experiencing a mental break down due to her knee and back pain and weight gain and pain her hands. pt is also concern about rides to and from work. Allergies No Known Drug Allergies Allergy (Unknown, Verified 05/14/24 12:01) none Seasonal Allergies Allergy (Verified 05/14/24 12:01) runny eyes, itchy skin, congestion Medication List - Last Reconciled 05/14/24 by Aakash Navarro MD atorvastatin 40 mg PO BEDTIME 90 days benztropine 0.5 mg PO DAILY betamethasone valerate 0.1% 1 appl topical DAILY PRN 30 days bisacodyl 10 mg (2 x 5 mg) PO BEDTIME clonazepam 1 mg PO BID PRN famotidine (Pepcid) 20 mg PO BEDTIME fluticasone propionate 50 mcg/actuation 1 spray intranasal BID gabapentin 600 mg PO TID 30 days galcanezumab-gnlm (Emgality Pen) 240 mg (2 mL) subcut ONCE 30 days ibuprofen mg PO lamotrigine 25 mg PO DAILY levothyroxine 75 mcg PO DAILY 90 days linaclotide (Linzess) 290 mcg PO QAM lisinopril 20 mg PO DAILY 30 days methadone 130 mg PO DAILY omeprazole 40 mg PO DAILY paroxetine HCl 40 mg PO DAILY 30 days quetiapine (Seroquel) 50 mg PO DAILY PRN quetiapine (Seroquel) 300 mg PO BEDTIME 30 days quetiapine 100 mg PO BEDTIME semaglutide (weight loss) (Wegovy) 0.25 mg (0.5 mL) subcut QWEEK 28 days sennosides (Mariam-loren) mg PO sumatriptan succinate mg PO tirzepatide (Mounjaro) 2.5 mg (0.5 mL) subcut QWEEK 28 days topiramate 50 mg PO DAILY 30 days trazodone 100 mg PO BEDTIME PRN ziprasidone HCl 20 mg PO DAILY Tobacco use date assessed: 07/23/23 Dental Screening Dental Screen Date: 06/18/23 HPI ED F/U and chronic conditions HPI Details 38 y/o female presents to f/u chronic co nditions. Insurance had denied her mounjaro for her weight. She reports ongoing pain, including hands, knees, and shoulder pain daily. Also notes swelling of her hands. She reports itching/rash. [facility] Medical History Hx of CT scan Witnessed apneic spells SANDI (obstructive sleep apnea) Substance abuse in remission Chronic idiopathic constipation IBS (irritable bowel syndrome) Left leg pain Hand dermatitis Chronic pancreatitis Surgical History H/O LEEP History of tubal ligation Family History Father Mental health disorder Mother High blood pressure High cholesterol Social History Housing: Apartment Are you a primary home day care provider to a significant other at home: No Do you presently have visiting nurse or other home services: No Alcohol intake: never Patient Tobacco Use Status: Current everyday Tobacco user Tobacco use type: Cigarette Cigarette Packs Per Day: 1 Cigarettes Per Day: 20.0 Years Smoked: Started around age 8 e-Cigarette/Vaping Use: Never Used service: No Current occupational status: unemployed Current occupational exposures/hazards: No Cognitive needs: No Hearing needs: No Vision needs: No Female Reproductive History Menstrual Age of Menarche: 14 Questionnaire PHQ-9 Over the last 2 weeks, how often have you been bothered by any of the following problems? 1. Little interest or pleasure in doing things: more than half the days 2. Feeling down, depressed, or hopeless: more than half the days 3. Trouble falling or staying asleep, or sleeping too much: more than half the days 4. Feeling tired or having little energy: more than half the days 5. Poor appetite or overeating: nearly every day 6. Feeling bad about yourself - or that you are a failure or have let yourself or your family down: more than half the days 7. Trouble concentrating on things, such as reading the newspaper or watching television: more than half the days 8. Moving or speaking so slowly that other people could have noticed. Or the opposite - being so fidgety or restless that you have been moving around a lot more than usual: nearly every day 9. Thoughts that you would be better off or of hurting yourself in some way: not at all Total score: 18 Source: Developed by Drs. Erik Allred, Mary Villela, Sriram Parson and colleagues, with an educational elizabeth from [employer]. Thrive Questionnaire Date Thrive assessed: 05/14/24 I am a: Patient What is your living situation today?: I do not have a steady places to live I am temporarily staying with others Within the past 12 months, did the food you bought not last and you didn't have the money to get more?: Often true Within the past 12 months, did you worry whether your food would run out before you got money to buy more?: Sometimes True Do you have trouble paying for medicines?: No Do you have trouble getting transportation to medical appointments?: Yes Do you have trouble paying your heating and electricity bill?: Yes Do you have trouble taking care of your child, family member or friend?: No Do you have trouble with day-to-day activities such as bathing, preparing meals, shopping, managing finances, etc.?: Yes Are you currently unemployed and looking for a job?: No Are you interested in more education?: No Please select the resources that you would like help with: None Currently or been in a relationship where the following occur: No concerns reported THRIVE Score: 5 AUDIT C Alcohol Use Questionnaire (AUDIT-C) 1. How often do you have a drink containing alcohol?: Never Total Score: 0 IVA-7 AMB Questionnaire IVA-7 Date IVA - 7 assessed: 06/18/23 Feeling nervous, anxious, or on edge: 1 = Several days Not being able to stop or control worryin = Several days Worrying too much about different things: 1 = Several days Trouble relaxin = More than half the days Being so restless that it is hard to sit still: 2 = More than half the days Becoming easily annoyed or irritable: 2 = More than half the days Feeling afraid as if something awful might happen: 2 = More than half the days Total IVA-7 score (0-4 normal; 5-9 mild; 10-14 moderate; 15-21 severe): 11 Source: Developed by Drs. Erik Allred, Mary Villela, Sriram Parson and colleagues, with an educational elizabeth from [employer]. Physical exam (Primary Care) Vital Signs: Last Vital Signs Temp 97.6 F 05/14/24 12:04 Pulse 79 05/14/24 12:04 Resp 16 05/14/24 12:04 BP 110/60 05/14/24 12:04 Pulse Ox 94 05/14/24 12:04 Oxygen Delivery Method Room Air 05/14/24 12:04 BMI result Body Mass Index 40.8 Tobacco/Smoking Status: Tobacco use Status Tobacco use date assessed 07/23/23 05/14/24 11:56 Patient Tobacco Use Status Current everyday Tobacco 05/14/24 11:56 Tobacco use type Cigarette 05/14/24 11:56 e-Cigarette/Vaping Use Never Used 05/14/24 11:56 PHQ-9: PHQ-9 Score PHQ-9: Total score 18 05/14/24 12:11 Thrive Assessment: Date of Thrive Assessment Date Thrive assessed 05/14/24 05/14/24 11:56 Currently or been in a relationship where the following occur: No concerns reported Coding Level of Care Code Est Pt Level 4 (78593) Diagnoses Morbid obesity E66.01 Substance abuse F19.10 Chronic pain G89.29 Rash R21 Hand swelling M79.89 SANDI (obstructive sleep apnea) G47.33 Assessment & Plan Assessment & Plan (1) Morbid obesity: Code(s): E66.01 - Morbid (severe) obesity due to excess calories Category: Medical Plan: Morbid?obesity?and?had?tried?to?send?a?script?for?Mounjaro?which?was?declined. Will?try?Zepbound.??Also?patient?has?severe?obstructive?sleep?apnea?which?is?als o?in?indication Sending?script?for Zepbound (2) Substance abuse: Code(s): F19.10 - Other psychoactive substance abuse, uncomplicated Category: Medical Plan: History?of?substance?abuse. Patient?was?seeming?rather?sleepy?at?last?visit. Drug?screening?showed?methadone?as?appropriate?but?also?showed?cocaine.??Patient ?does?not?feel?this?is?accurate .??She?wants?to?repeat?this?today?so?I?have?ordered?repeat?testing. 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 Recheck?labs Encouraged?patient?to?use?medications?only?as?prescribed?avoid?street drugs (3) Chronic pain: Code(s): G89.29 - Other chronic pain Category: Medical Plan: Ongoing?diffuse chronic?pain. Referred?to?pain?management?to?evaluate alternative?treatments?for?pain. (4) Rash: Code(s): R21 - Rash and other nonspecific skin eruption Category: Medical Plan: Ongoing?rash She?can?use?betamethasone Will?give?her?a?short?course?of?prednisone?it?a?rather?severe?flare-up?today (5) Hand swelling: Code(s): M79.89 - Other specified soft tissue disorders Category: Medical Plan: As?above. Also?elevate?hands? (6) SANDI (obstructive sleep apnea): Comment: Severe degree of sleep apnea. Code(s): G47.33 - Obstructive sleep apnea (adult) (pediatric) Category: Medical Plan: Follow-up?with?sleep?medicine Prescribed?Zepbound Orders: Orders Drug Screen Urine Today F19.10 - Other psychoactive substance abuse, uncomplicated Opiates GCMS Expanded, Ur Today F19.10 - Other psychoactive substance abuse, uncomplicated Benzodiazepine,GC/MS Urine Today F19.10 - Other psychoactive substance abuse, uncomplicated Referrals Pain Management Referral G89.29 - Other chronic pain Medications: New tirzepatide (weight loss) (Zepbound) for 4 weeks 2.5 mg (0.5 mL) subcut QWEEK 28 days 2 mL 0RF E66.01 - Morbid (severe) obesity due to excess calories, G47.33 - Obstructive sleep apnea (kyra lt) (pediatric) prednisone 40 mg (2 x 20 mg) PO DAILY 4 days 8 tabs 0RF albuterol sulfate 90 mcg/actuation (Ventolin HFA) 2 puffs inhalation Q4-6H 30 days PRN 8.5 grams 2RF shortness of breath or wheezing Refilled betamethasone valerate 0.1% 1 appl topical DAILY 30 days PRN 60 grams 1RF skin irritation R21 - Rash and other nonspecific skin eruption
[2024-05-14 12:04] VITALS: BP 110/60; PULSE 79; RESP 16; TEMP 36.4; O2SAT 94; BMI 40.8
--- OUTSIDE RECORDS SUMMARY | 2024-05-14 12:29 | XMS_ITS | Clinical Summary ---
Author Organization [facility] Address [address] [place] [address] Phone Care Team Providers Care House Coordinator Name Role Phone Aakash Navarro MD Primary Care Provider [phone] Allergies No known active allergies Encounters Date Type Department Care Team Description 03/15/2024 11:43 AM EST - 03/15/2024 1:30 PM EST Emergency [facility] Emergency [address] [place] [address] Ward Gonzalez MD Sore throat (Primary Dx) Discharge Disposition: Left Against Medical Advice from Last 3 Months Medical History Medical History Date Comments Depressive disorder, not els ewhere classified DX:Depressive disorder, not elsewhere classified Anxiety state, unspecified DX:An xiety state, unspecified Schizophrenia (CMS/HCC) Pancreatitis Manic depression (CMS/HCC) Family History Medical History Relation Name Comments Hyperlipidemia Mother Hypertension Mother Relation Name Status Comments Mother Social History Tobacco Use Types Packs/Day Years Used Date Smoking Tobacco: Every Day Cigarettes Alcohol Use Standard Drinks/Week Comments No 0 (1 standard drink = 0.6 oz pur e alcohol) Sex and Gender Information Value Date Recorded Sex Assigned at Not on file Gender Identity Not on file Sexual Orientation Not on file Job Start Date Occupation Industry Not on file Not on file Not on file Obstetrics History Last Filed Vital Signs Vital Sign Reading Time Taken Comments Blood Pressure 106/51 03/15/2024 11:46 AM EST Pulse 87 03/15/2024 11:46 AM EST Temperature 36.3 ??C (97.4 ??F) 03/15/2024 11:[address] Respiratory Rate 18 03/15/2024 11:46 AM EST Oxygen Saturation 95% 03/15/2024 11:46 AM EST Inhaled Oxygen Concentration - - Weight 99.8 kg (220 lb) 03/15/2024 11:46 AM EST Height 160 cm (5' 3 ) 03/15/2024 11:46 AM EST Body Mass Index 38.97 03/15/2024 11:46 AM EST Plan of Treatment Health Maintenance Due Date Last Done Comments Breast Cancer Screening 1983 Pneumococcal Vaccine: Pediat rics (0 to 5 Years) and At-Risk Patients (6 to 64 Years) (1 of 2 - PCV) 08/27/1989 DTaP,Tdap,and Td Vaccines (1 - Tdap) 08/27/2002 Hepatitis A Vaccines (1 of 2 - Risk 2-dose series) 08/27/2002 Hepatitis B Vaccines (1 of 3 - 19+ 3-dose series) 08/27/2002 Cervical Cancer Screening: P ap Smear 08/27/2004 HPV Vaccines (2 - 3-dose series) 09/01/2006 08/05/19 07 Cholesterol Screening (Lipid Panel) 03/17/2022 Depression Screening 03/17/2022 HIV Screening 03/17/2022 Hepatitis C Screening 03/17/2022 Social Influencers of Health Screening 03/17/2022 COVID-19 Vaccine ( - 2023-2 5 season) 2023 Influenza Vaccine (#1) 2023 HIB Vaccines Aged Out No longer eligi ble based on patient's age to complete this topic IPV Vaccines Aged Out No longer eligi ble based on patient's age to complete this topic MMR Vaccines Aged Out No longer eligi ble based on patient's age to complete this topic Meningococcal ACWY Vaccine Aged Out N o longer eligible based on patient's age to complete this topic RSV Immunization Patients Un eamon 20 months Aged Out No longer eligible b ased on patient's age to complete this topic Varicella Vaccines Aged Out No longer eligible based on patient's age to complete this topic Procedures Procedure Name Priority Date/Time Associated Diagnosis Comments INTERFERON GAMMA INTERPRETATION Routine 04/12/2024 10:25 AM EST Opioid type dependence, continuous (CMS/HCC) INTERFERON GAMMA ANTIGEN 2 Routine 04/12/2024 10:25 AM EST Opioid type dependence, continuous (CMS/HCC) INTERFERON GAMMA ANTIGEN 1 Routine 04/12/2024 10:25 AM EST Opioid type dependence, continuous (CMS/HCC) INTERFERON GAMMA MITOGEN Routine 04/12/2024 10:25 AM EST Opioid type dependence, continuous (CMS/HCC) INTERFERON GAMMA NIL Routine 04/12/2024 10:25 AM EST Opioid type dependence, continuous (CMS/HCC) INTERFERON GAMMA FOR TB, QUALITATIVE Routine 04/12/2024 10:25 AM EST Opioid type dependence, continuous (CMS/HCC) POC , URINE DIAGNOSTIC STAT 03/15/2024 1:20 PM EST from Last 3 Months Results * Interferon gamma interpretation (04/12/2024 10:25 AM EST) [facility] Signature Quantiferon Plus Interpretation Negative Negative LAB CHEMISTRY METHOD 04/13/2024 9:19 AM EST [facility] Blood Venous blood specimen / Unknown Venipuncture / Unknown 04/12/2024 10:25 AM EST 04/12/2024 11:41 AM EST Whitney Arnold MD LAB BLOOD ORDER JANICE [facility] [address] [place] [address], * Interferon gamma antigen 2 (04/12/2024 10:25 AM EST) Blood Venous blood specimen / Unknown Venipuncture / Unknown 04/12/2024 10:25 AM EST 04/12/2024 11:41 AM EST Whitney Arnold MD LAB BLOOD ORDER JANICE [facility] [address] [place] [address], * Inteferon gamma antigen 1 (04/12/2024 10:25 AM EST) Blood Venous blood specimen / Unknown Venipuncture / Unknown 04/12/2024 10:25 AM EST 04/12/2024 11:41 AM EST Whitney Arnold MD LAB BLOOD ORDER JANICE Performing Organization Address City/[facility]/ZIP Co de Phone Number [facility] [address] [place] [address], * Interferon gamma mitogen (04/12/2024 10:25 AM EST) Blood Venous blood specimen / Unknown Venipuncture / Unknown 04/12/2024 10:25 AM EST 04/12/2024 11:41 AM EST Whitney Arnold MD LAB BLOOD ORDER JANICE Performing Organization Address [facility] Co de Phone Number [facility] [address] [place] [address], * Interferon gamma NIL (04/12/2024 10:25 AM EST) Blood Venous blood specimen / Unknown Venipuncture / Unknown 04/12/2024 10:25 AM EST 04/12/2024 11:41 AM EST Whitney Arnold MD LAB BLOOD ORDER JANICE Performing Organization Address [facility] de Phone Number [facility] [address] [place] [address], * POC , urine manually resulted (03/15/2024 1:20 PM EST) HCG, Ur POC Negative Negative POC hCG Int QC Pass? Yes Yes Urine Urine specimen obtained by clean catch procedure / Unknown 03/15/2024 1:20 PM EST Ward Gonzalez MD POINT OF CARE TEST E NTER/EDIT ORDERABLES from Last 3 Months Care Teams House Coordinator Relationship Specialty Start Date End Date Aakash Navarro MD [address] [place] [address] Dr Calista [place] PCP - General 03/19/21
== END ==
PROVIDERS: PCP Family Medicine; Visit Provider Family Medicine
DX: G89.29 Other chronic pain (principal); E66.01 Morbid (severe) obesity due to excess calories; F19.10 Other psychoactive substance abuse, uncomplicated; Z68.41 Body mass index [BMI] 40.0-44.9, adult; R21 Rash and other nonspecific skin eruption; M79.89 Other specified soft tissue disorders; G47.33 Obstructive sleep apnea (adult) (pediatric)

== ENCOUNTER → 2024-05-14 11:53 | Outpatient (BNVA) | payer OTHER, SELFPAY | PROVIDERS: PCP Family Medicine; Visit Provider Family Medicine | DX: E66.01 Morbid (severe) obesity due to excess calories (principal); F19.10 Other psychoactive substance abuse, uncomplicated; G89.29 Other chronic pain; R21 Rash and other nonspecific skin eruption; R60.0 Localized edema; G47.33 Obstructive sleep apnea (adult) (pediatric) | CPT/HCPCS: 99212 ==

== ENCOUNTER 2024-05-14 16:56 | Outpatient (REF) | payer OTHER, SELFPAY ==
--- OUTSIDE RECORDS SUMMARY | 2024-05-14 16:59 | XMS_ITS | Clinical Summary ---
Author Organization [facility] Address [address] [place] [address] Phone Care Team Providers Care Habilitation Specialist Name Role Phone Aakash Naavrro MD Primary Care Provider [phone] Allergies No known active allergies Encounters Date Type Department Care Team Description 03/15/2024 11:43 AM EST - 03/15/2024 1:30 PM EST Emergency [facility] Emergency [address] [place] [address] Ward Gonzalez MD Sore throat [...] Interferon gamma interpretation (04/12/2024 10:25 AM EST) [facility] Signature Quantiferon Plus Interpretation Negative Negative LAB CHEMISTRY METHOD 04/13/2024 9:19 AM EST [facility] Blood Venous blood specimen / Unknown Venipuncture / Unknown 04/12/2024 10:25 AM EST 04/12/2024 11:41 AM EST Whitney Arnold MD LAB BLOOD ORDER JANICE [facility] [address] [place] [address], * Interferon gamma antigen 2 (04/12/2024 10:25 AM EST) Blood Venous blood specimen / Unknown Venipuncture / Unknown 04/12/2024 10:25 AM EST 04/12/2024 11:41 AM EST Whitney Arnold MD LAB BLOOD ORDER JANICE [facility] [address] [place] [address], * Inteferon gamma antigen 1 (04/12/2024 10:25 AM EST) Blood Venous blood specimen / Unknown Venipuncture / Unknown 04/12/2024 10:25 AM EST 04/12/2024 11:41 AM EST Whitney Arnold MD LAB BLOOD ORDER JANICE Performing Organization Address City/[facility]/ZIP Co de Phone Number [facility] [address] [place] [address], * Interferon gamma mitogen (04/12/2024 10:25 AM EST) Blood Venous blood specimen / Unknown Venipuncture / Unknown 04/12/2024 10:25 AM EST 04/12/2024 11:41 AM EST Whitney Arnold MD LAB BLOOD ORDER JANICE Performing Organization Address [facility] Co de Phone Number [facility] [address] [place] [address], * Interferon gamma NIL (04/12/2024 10:25 AM EST) Blood Venous blood specimen / Unknown Venipuncture / Unknown 04/12/2024 10:25 AM EST 04/12/2024 11:41 AM EST Whitney Arnold MD LAB BLOOD ORDER JANICE Performing Organization Address [facility] de Phone Number [facility] [address] [place] [address], * POC , urine manually resulted (03/15/2024 1:20 PM EST) HCG, Ur POC Negative Negative POC hCG Int QC Pass? Yes Yes Urine Urine specimen obtained by clean catch procedure / Unknown 03/15/2024 1:20 PM EST Ward Gonzalez MD POINT OF CARE TEST E NTER/EDIT ORDERABLES from Last 3 Months Care Teams Habilitation Specialist Relationship Specialty Start Date End Date Aakash Navarro MD [address] [place] [address] Dr Calista [place] PCP - General 03/19/21
[2024-05-14 17:32] LABS: Amphetamine Screen Urine Not Detected (Not Detect); Barbiturates, Urine Not Detected (Not Detect); Benzodiazepines Screen Urine Not Detected (Not Detect); Buprenorphine Scr Not Detected (Not Detect); Cannabinoid Screen Urine Not Detected (Not Detect); Cocaine Screen Urine Not Detected (Not Detect); Fentanyl, urine Not Detected (Not Detect); Methadone Screen, Urine Positive (Not Detect); Opiate Screen Urine Not Detected (Not Detect); Oxycodone Screen Urine Not Detected (Not Detect); Phencyclidine Screen Urine Not Detected (Not Detect)
[2024-05-19 11:54] LABS: Alphahydroxymidazolam,GCMS Ur NEGATIVE; Alphahydroxytriazolam, GCMS Ur NEGATIVE; Alprazolam, GCMS Urine NEGATIVE; Aminoclonazepam, GCMS Urine NEGATIVE; Codeine, Ur NEGATIVE; Flurazepam Metabolite,GCMS Ur NEGATIVE; Hydrocodone, Ur NEGATIVE; Hydromorphone, Ur NEGATIVE; Lorazepam GCMS Urine NEGATIVE; Morphine, Ur NEGATIVE; Nordiazepam, GCMS Urine NEGATIVE; Norhydrocodone, Ur NEGATIVE; Noroxycodone, Ur NEGATIVE; Oxazepam, GCMS Urine NEGATIVE; Oxycodone, Ur NEGATIVE; Oxymorphone, Ur NEGATIVE; Temazepam, GCMS Urine NEGATIVE
== END 2024-05-14 16:57 | disposition home or self-care (01) ==
LOC: HO.LNP 16:56
PROVIDERS: Visit Provider Family Medicine
DX: F19.10 Other psychoactive substance abuse, uncomplicated (principal)
CPT/HCPCS: 80307; 80346; 80365; G0480

== ENCOUNTER 2024-05-27 09:55 | Outpatient (AMB) | payer OTHER, SELFPAY ==
--- NOTE | 2024-05-27 09:55 | A.OFFVIS_ITS ---
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 Accompanied by: Self / Same As Patient Allergies No Known Drug Allergies Allergy (Unknown, Verified 05/27/24 10:03) none Seasonal Allergies Allergy (Verified 05/27/24 10:03) runny eyes, itchy skin, congestion HPI Comments Details: Meena is a very pleasant 38-year-old female who presents to the office today for evaluation and management of her chronic lower back pain Past medical history significant for sleep apnea, chronic pain, substance abuse, morbid obesity, and swelling, hypothyroid, hypercholesteremia migraines, constipation, hypertension IBS, hep C, elevated TSH, GERD, anxiety, depression She has been suffering with this pain for approximately 17 years. States pain started after lifting injury while at work in 2007. Pain today is rated as an 8/10, constant and worse throughout the day Pain exacerbated by moving, twisting, bending, lifting She reports that pain has increasingly getting worse over the last couple of years. She has been started on significant amounts of psychiatric medications that potentiated weight gain. PCP has been trying to get her approved for weight loss medication but her insurance continues to deny. Denies recent physical therapy, chiropractor, acupuncture, massage or attempts at injections. Denies recent imaging Currently taking gabapentin, ibuprofen and methadone but pain persists. Denies weakness, numbness, burning, tingling or lower extremities Denies red flag symptoms including new loss of bowel, bladder or saddle anesthesia In terms of muscle damage condition is described as aching, spasming, stabbing, sharp, shooting, shocking, throbbing, tingling, pins and needles Pain is negatively impacting patient's enjoyment of life, general activity, mood, normal work, recreational activities, relationships with people, walking Denies implantable devices, pacemaker or defibrillator Denies current use of anticoagulants [facility] Medical History (Updated 05/27/24 @ 10:43 by Ирина Cerna, LOGISTICS ENGINEERING MANAGER, PER DIEM PHYSICAL THERAPIST ASSISTANT) SANDI (obstructive sleep apnea) Hx of CT scan Witnessed apneic spells Substance abuse in remission Chronic idiopathic constipation IBS (irritable bowel syndrome) Left leg pain Hand dermatitis Chronic pancreatitis Surgical History H/O LEEP History of tubal ligation Family History Father Mental health disorder Mother High blood pressure High cholesterol Social History (Updated 05/27/24 @ 10:06 by Ashley Hill) Housing: Apartment Are you a primary customer care specialist to a significant other at home: No Do you presently have visiting nurse or other home services: No Alcohol intake: never Patient Tobacco Use Status: Current everyday Tobacco user Tobacco use type: Cigarette Cigarette Packs Per Day: 1 Cigarettes Per Day: 20.0 Years Smoked: Started around age 8 e-Cigarette/Vaping Use: Never Used Substance Use Type: Heroin and Opiates Last Used Substance Other:: 7 years ago service: No Current occupational status: unemployed Current occupational exposures/hazards: No Cognitive needs: No Hearing needs: No Vision needs: No Female Reproductive History Menstrual Age of Menarche: 14 Review of Systems Const All systems reviewed & are unremarkable except as noted in HPI and below Physical Exam Vital Signs: Last Vital Signs Pulse 91 05/27/24 10:03 BP 134/93 H 05/27/24 10:03 Pulse Ox 97 05/27/24 10:03 Oxygen Delivery Method Room Air 05/27/24 10:03 BMI result Body Mass Index 42.8 General: awake, alert, oriented. Answers questions appropriately. Fully engaged in examination. Skin: warm, dry, intact HEENT: Normocephalic. Hearing intact. Cardiac: External chest normal in appearance. Respiratory: No cough, audible wheezing or stridor. Abdomen: without gross distension. MS: No obvious swelling or deformities. Able to stand on bilateral tiptoes and bilateral heels.? Able to transition from sit to stand unassisted. Ambulates with bilaterally normal heel strike and toe off Bilateral lower extremity strength 5/5 Tenderness to palpation midline lumbar vertebrae and lumbar paraspinal muscles Nontender over bilateral PSIS SLR negative bilaterally Facet loading positive bilaterally Valsalva negative Decreased lumbar range of motion Neurological: Oriented to person, place, time and situation. Thought process intact. No gait abnormalities appreciated. Psychiatric: Appropriate mood and affect. Good judgment and insight. Assessment & Plan Assessment & Plan (1) Lumbar spondylosis: Code(s): M47.816 - Spondylosis without myelopathy or radiculopathy, lumbar region Category: Medical (2) Chronic pain: Code(s): G89.29 - Other chronic pain Category: Medical Plan Meena is a very pleasant 38-year-old female who presented to the office today for evaluation and management of her chronic lower back pain History, physical exam and provocative testing consistent with lumbar spondylosis X-ray ordered for evaluation Order placed for PT eval and treat If no improvement with physical therapy plan for bilateral diagnostic medial branch blocks with local anesthetic. All questions and concerns were answered, patient agrees with plan. Follow up after physical therapy, sooner if needed Orders: Orders XR lumbar spine 4V min Today M47.816 - Spondylosis without myelopathy or radiculopathy, lumbar region PT Evaluation and Treatment Today M54.50 - Low back pain, unspecified Coding Level of Care Code New Pt Level 4 (84830) Complex EM visit Add On G2211 Diagnoses Lumbar spondylosis M47.816 Chronic pain G89.29
[2024-05-27 10:03] VITALS: BP 134/93; PULSE 91; O2SAT 97; BMI 42.8
--- OUTSIDE RECORDS SUMMARY | 2024-05-27 10:35 | XMS_ITS | Clinical Summary ---
Author Organization [facility] Address [address] [place] [address] Phone Care Team Providers Care Room Attendants Name Role Phone Aakash Navarro MD Primary Care Provider [phone] [phone] Allergies No known active allergies Encounters Date Type Department Care Team Description 03/15/2024 11:43 AM EST - 03/15/2024 1:30 PM EST Emergency [facility] Emergency [address] [place] [address] Ward Gonzalez MD Sore throat [...] drink = 0.6 oz pur e alcohol) Comments Unknown Sex and Gender Information Value Date Recorded Sex Assigned at Not on file Legal Sex Female 7:36 AM EST Gender Identity Not on file Sexual Orientation Not on file Obstetrics History Last Filed [...] Last Done Comments Breast Cancer Screening 1983 DTaP,Tdap,and Td Vaccines (1 - Tdap) 08/27/2002 Hepatitis A Vaccines (1 of 2 - Risk 2-dose series) 08/27/2002 Hepatitis B Vaccines (1 of 3 - 19+ 3-dose series) 08/27/2002 Pneumococcal Vaccine: Pediat rics (0 to 5 Years) and At-Risk Patients (6 to 64 Years) (1 of 2 - PCV) 08/27/2002 Cervical Cancer Screening: P ap Smear 08/27/2004 HPV Vaccines (2 - 3-dose series) 09/01/2006 08/05/19 07 Cholesterol Screening (Lipid Panel) 03/17/2022 Depression Screening 03/17/2022 HIV Screening 03/17/2022 Hepatitis C Screening 03/17/2022 Social Influencers of Health Screening 03/17/2022 COVID-19 Vaccine (2023-2 5 season) 2023 Influenza Vaccine (#1) 2023 [...] patient's age to complete this topic Meningococcal B Vacine Aged Out No lo nger eligible based on patient's age to complete [...] Interferon gamma interpretation (04/12/2024 10:25 AM EST) [facility] Quantiferon Plus Interpretation Negative Negative LAB CHEMISTRY METHOD 04/13/2024 9:19 AM EST [facility] Blood Venous blood specimen / Unknown Venipuncture / Unknown 04/12/2024 10:25 AM EST 04/12/2024 11:41 AM EST Whitney Arnold MD LAB BLOOD ORDERABLES Fi nal Result Performing Organization Address City/[facility]/ZIP Co de Phone Number [facility] [address] [place] [address], [place] [phone] * Interferon gamma antigen 2 (04/12/2024 10:25 AM EST) Blood Venous blood specimen / Unknown Venipuncture / Unknown 04/12/2024 10:25 AM EST 04/12/2024 11:41 AM EST Whitney Arnold MD LAB BLOOD ORDERABLES Fi nal Result Performing Organization Address City/[facility]/ZIP Co de Phone Number [facility] [address] [place] [address], [place] [phone] * Inteferon gamma antigen 1 (04/12/2024 10:25 AM EST) Blood Venous blood specimen / Unknown Venipuncture / Unknown 04/12/2024 10:25 AM EST 04/12/2024 11:41 AM EST Whitney Arnold MD LAB BLOOD ORDERABLES Fi nal Result Performing Organization Address [facility] Co de Phone Number [facility] [address] [place] [address], * Interferon gamma mitogen (04/12/2024 10:25 AM EST) Blood Venous blood specimen / Unknown Venipuncture / Unknown 04/12/2024 10:25 AM EST 04/12/2024 11:41 AM EST Whitney Arnold MD LAB BLOOD ORDERABLES Fi nal Result Performing Organization Address [facility] Phone Number [facility] [address] [place] [address], * Interferon gamma NIL (04/12/2024 10:25 AM EST) Blood Venous blood specimen / Unknown Venipuncture / Unknown 04/12/2024 10:25 AM EST 04/12/2024 11:41 AM EST Whitney Arnold MD LAB BLOOD ORDERABLES Fi nal Result Performing Organization Address [facility] Phone Number [facility] [address] [place] [address], * POC , urine manually resulted (03/15/2024 1:20 PM EST) HCG, Ur POC Negative Negative POC hCG Int QC Pass? Yes Yes Urine Urine specimen obtained by clean catch procedure / Unknown 03/15/2024 1:20 PM EST Ward Gonzalez MD POINT OF CARE TEST ENTER/EDIT ORDERABLES Final Result from Last 3 Months Insurance [employer] Care Teams Room Attendants Relationship Specialty Start Date End Date Aakash Navarro MD [address] [place] [address] Dr YostkeRICH PCP - General 03/19/21
== END 2024-05-27 10:41 | disposition home or self-care (01) ==
PROVIDERS: PCP Family Medicine; Referring Provider Family Medicine; Visit Provider Registered Nurse Emergency
DX: M47.816 Spondylosis without myelopathy or radiculopathy, lumbar region (principal); G89.29 Other chronic pain; M79.18 Myalgia, other site
CPT/HCPCS: 99204; G2211

== ENCOUNTER → 2024-05-27 09:55 | Outpatient (BNVA) | payer OTHER, SELFPAY | PROVIDERS: PCP Family Medicine; Referring Provider Family Medicine; Visit Provider Registered Nurse Emergency | DX: M79.18 Myalgia, other site (principal); M47.816 Spondylosis without myelopathy or radiculopathy, lumbar region; G89.29 Other chronic pain | CPT/HCPCS: 99202 ==

== ENCOUNTER 2024-05-28 12:37 | Outpatient (REF) | payer OTHER, SELFPAY ==
--- NOTE | ~2024-05-28 | US_ITS ---
CLINICAL HISTORY: R19.00 - Intra-abdominal and pelvic swelling, mass and lump, unspecified... US pelvis limited Comparison: None Findings: Scanning of the right groin was performed. There is no evidence of hernia. There are no cystic or solid masses and no pathologic appearing lymph nodes. IMPRESSION: 1. Unremarkable exam. This document has been electronically signed by: Sam Huynh MD on 05/29/2024 08:56:16
--- NOTE | ~2024-05-28 | XR_ITS ---
EXAMINATION: XR LUMBOSACRAL SPINE CLINICAL INFORMATION: M47.816 - Spondylosis without myelopathy or radiculopathy, lumbar region COMPARISON: None available. TECHNIQUE: 6 views of the lumbar spine, inclusive of bilateral oblique views, were obtained. FINDINGS: There is a gentle levoconvex thoracolumbar scoliosis, apex at T12-L1. There is mild straightening of the normal lordosis. No subluxations. No fracture, compression deformity, or suspicious bone lesion. Early degenerative disc disease L3-S1. Associated minimal facet degeneration L4-S1. Oblique views demonstrate no evidence of pars defects. The sacrum and SI joints appear normal. Soft tissues appear normal. IUD is present within the central pelvis. XR/XR lumbar spine 4V min IMPRESSION: 1. No acute findings of the lumbar spine. 2. Gentle levoconvex thoracolumbar scoliosis. 3. Early lower lumbar degenerative disc and facet changes. Electronically signed by: Dileep Bhatt MD 06/01/2024 11:36 AM SONDRA
--- OUTSIDE RECORDS SUMMARY | 2024-05-28 13:01 | XMS_ITS | Clinical Summary ---
Author Organization [facility] Address [address] [place] [address] Phone Care Team Providers Care College Athletic Director Name Role Phone Aakash Navarro MD Primary Care Provider [phone] Allergies No known active allergies Encounters Date Type Department Care Team Description 03/15/2024 11:43 AM EST - 03/15/2024 1:30 PM EST Emergency [facility] Emergency [address] [place] [address] Ward Gonzalez MD Sore throat [...] Interferon gamma interpretation (04/12/2024 10:25 AM EST) [facility] Quantiferon Plus Interpretation Negative Negative LAB CHEMISTRY METHOD 04/13/2024 9:19 AM EST [facility] Blood Venous blood specimen / Unknown Venipuncture / Unknown 04/12/2024 10:25 AM EST 04/12/2024 11:41 AM EST Whitney Arnold MD LAB BLOOD ORDERABLES Fi nal Result Performing Organization Address City/[facility]/ZIP Co de Phone Number [facility] [address] [place] [address], [place] [phone] * Interferon gamma antigen 2 (04/12/2024 10:25 AM EST) Blood Venous blood specimen / Unknown Venipuncture / Unknown 04/12/2024 10:25 AM EST 04/12/2024 11:41 AM EST Whitney Arnold MD LAB BLOOD ORDERABLES Fi nal Result Performing Organization Address City/[facility]/ZIP Co de Phone Number [facility] [address] [place] [address], [place] [phone] * Inteferon gamma antigen 1 (04/12/2024 10:25 AM EST) Blood Venous blood specimen / Unknown Venipuncture / Unknown 04/12/2024 10:25 AM EST 04/12/2024 11:41 AM EST Whitney Arnold MD LAB BLOOD ORDERABLES Fi nal Result Performing Organization Address [facility] Co de Phone Number [facility] [address] [place] [address], * Interferon gamma mitogen (04/12/2024 10:25 AM EST) Blood Venous blood specimen / Unknown Venipuncture / Unknown 04/12/2024 10:25 AM EST 04/12/2024 11:41 AM EST Whitney Arnold MD LAB BLOOD ORDERABLES Fi nal Result Performing Organization Address [facility] Phone Number [facility] [address] [place] [address], * Interferon gamma NIL (04/12/2024 10:25 AM EST) Blood Venous blood specimen / Unknown Venipuncture / Unknown 04/12/2024 10:25 AM EST 04/12/2024 11:41 AM EST Whitney Arnold MD LAB BLOOD ORDERABLES Fi nal Result Performing Organization Address [facility] Phone Number [facility] [address] [place] [address], * POC , urine manually resulted (03/15/2024 1:20 PM EST) HCG, Ur POC Negative Negative POC hCG Int QC Pass? Yes Yes Urine Urine specimen obtained by clean catch procedure / Unknown 03/15/2024 1:20 PM EST Ward Gonzalez MD POINT OF CARE TEST ENTER/EDIT ORDERABLES Final Result from Last 3 Months Insurance [facility] [employer] Care Teams College Athletic Director Relationship Specialty Start Date End Date Aakash Navarro MD [address] [place] [address] Dr YostkeRICH PCP - General 03/19/21
== END 2024-05-28 12:38 | disposition home or self-care (01) ==
LOC: HO.US 12:37
PROVIDERS: Absent Provider Registered Nurse Emergency; PCP Family Medicine; Visit Provider Family Medicine
DX: R19.00 Intra-abdominal and pelvic swelling, mass and lump, unspecified site (principal); M47.815 Spondylosis without myelopathy or radiculopathy, thoracolumbar region
CPT/HCPCS: 72110; 76857

== ENCOUNTER → 2024-05-28 12:43 | Outpatient (BNV) | payer OTHER, SELFPAY | PROVIDERS: Absent Provider Registered Nurse Emergency; PCP Family Medicine; Visit Provider Specialist | DX: M47.816 Spondylosis without myelopathy or radiculopathy, lumbar region (principal) | CPT/HCPCS: 72110; 76857 ==

== ENCOUNTER 2024-06-08 07:56 | Outpatient (REF) | payer OTHER, SELFPAY ==
--- OUTSIDE RECORDS SUMMARY | 2024-06-08 08:01 | XMS_ITS | Clinical Summary ---
Author Organization [facility] Address [address] [place] [address] Phone Care Team Providers Care X Ray Technologist Name Role Phone Aakash Navarro MD Primary Care Provider [phone] Allergies No known active allergies Encounters Date Type Department Care Team Description 03/15/2024 11:43 AM EST - 03/15/2024 1:30 PM EST Emergency [facility] Emergency [address] [place] [address] Ward Gonzalez MD Sore throat [...] Interferon gamma interpretation (04/12/2024 10:25 AM EST) [facility] Quantiferon Plus Interpretation Negative Negative LAB CHEMISTRY METHOD 04/13/2024 9:19 AM EST [facility] Blood Venous blood specimen / Unknown Venipuncture / Unknown 04/12/2024 10:25 AM EST 04/12/2024 11:41 AM EST Whitney Arnold MD LAB BLOOD ORDERABLES Fi nal Result Performing Organization Address City/[facility]/ZIP Co de Phone Number [facility] [address] [place] [address], [place] [phone] * Interferon gamma antigen 2 (04/12/2024 10:25 AM EST) Blood Venous blood specimen / Unknown Venipuncture / Unknown 04/12/2024 10:25 AM EST 04/12/2024 11:41 AM EST Whitney Arnold MD LAB BLOOD ORDERABLES Fi nal Result Performing Organization Address City/[facility]/ZIP Co de Phone Number [facility] [address] [place] [address], [place] [phone] * Inteferon gamma antigen 1 (04/12/2024 10:25 AM EST) Blood Venous blood specimen / Unknown Venipuncture / Unknown 04/12/2024 10:25 AM EST 04/12/2024 11:41 AM EST Whitney Arnold MD LAB BLOOD ORDERABLES Fi nal Result Performing Organization Address [facility] Co de Phone Number [facility] [address] [place] [address], * Interferon gamma mitogen (04/12/2024 10:25 AM EST) Blood Venous blood specimen / Unknown Venipuncture / Unknown 04/12/2024 10:25 AM EST 04/12/2024 11:41 AM EST Whitney Arnold MD LAB BLOOD ORDERABLES Fi nal Result Performing Organization Address [facility] Phone Number [facility] [address] [place] [address], * Interferon gamma NIL (04/12/2024 10:25 AM EST) Blood Venous blood specimen / Unknown Venipuncture / Unknown 04/12/2024 10:25 AM EST 04/12/2024 11:41 AM EST Whitney Arnold MD LAB BLOOD ORDERABLES Fi nal Result Performing Organization Address [facility] Phone Number [facility] [address] [place] [address], * POC , urine manually resulted (03/15/2024 1:20 PM EST) HCG, Ur POC Negative Negative POC hCG Int QC Pass? Yes Yes Urine Urine specimen obtained by clean catch procedure / Unknown 03/15/2024 1:20 PM EST Ward Gonzalez MD POINT OF CARE TEST ENTER/EDIT ORDERABLES Final Result from Last 3 Months Insurance [facility] [place] [address] Care Teams X Ray Technologist Relationship Specialty Start Date End Date Aakash Navarro MD [address] [place] [address] Dr YostkeRICH PCP - General 03/19/21
--- NOTE | 2024-06-08 08:03 | PFT_ITS ---
Flows: FEV1: 82 % of predicted at 2.49 L FVC: 88 % of predicted at 3.27 L FEV1/FVC: 76 % Bronchodilator response: Absent Volumes: Total lung capacity: 90 % of predicted at 4.80 L Residual volume: 112 % of predicted at 1.50 L Slow vital capacity: 83 % of predicted at 3.31 L Expiratory reserve volume: 105 % of predicted at 1.31 L Diffusion capacity: Normal Impression: No obstructive or restrictive ventilatory defect. No bronchodilator response. Normal pulmonary function test. MTDD
[2024-06-08 10:01] VITALS: PULSE 80; O2SAT 95
== END 2024-06-08 07:57 | disposition home or self-care (01) ==
LOC: HO.RESP 07:56
PROVIDERS: PCP Family Medicine; Visit Provider Internal Medicine Pulmonary Disease
DX: R06.00 Dyspnea, unspecified (principal); G47.34 Idiopathic sleep related nonobstructive alveolar hypoventilation
CPT/HCPCS: 94010; 94727; 94729

== ENCOUNTER → 2024-06-08 08:03 | Outpatient (BNV) | payer OTHER, SELFPAY | PROVIDERS: PCP Family Medicine; Visit Provider Internal Medicine Pulmonary Disease | DX: R06.00 Dyspnea, unspecified (principal) | CPT/HCPCS: 94060; 94727; 94729 ==

== ENCOUNTER 2024-06-16 10:08 | Outpatient (AMB) | payer OTHER, SELFPAY ==
[2024-06-16 10:11] VITALS: BP 102/60; PULSE 82; O2SAT 95; BMI 41.3
--- NOTE | 2024-06-16 10:11 | MHC.OFFVIS ---
Vital Signs 06/16/24 10:11 Height 5 ft 3 in Weight 233 lb BMI 41.3 BP 102/60 Blood Pressure Location Rt brachial Position Sitting Pulse 82 Pulse Source Doppler Pulse Oximetry (%) 95 Oxygen Delivery Method Room Air Intake Visit Reasons: Obstructive sleep apnea Allergies No Known Drug Allergies Allergy (Unknown, Verified 06/16/24 10:17) none Seasonal Allergies Allergy (Verified 06/16/24 10:17) runny eyes, itchy skin, congestion HPI HPI Obstructive sleep apnea: Details: 38-year-old lady, active pack-a-day smoker with underlying severe obstructive sleep apnea, now on BiPAP therapy by her sleep provider referred for evaluation of overnight hypoxemia and dyspnea. Patient has not completed her overnight oximetry yet. She also has not completed her lab work. Patient today is complain of cough productive of brownish sputum and is worried about exposure to mold as an etiology to her symptoms. [facility] Medical History (Updated 06/16/24 @ 10:27 by Hai Beaver MD) SANDI (obstructive sleep apnea) Hx of CT scan Witnessed apneic spells Substance abuse in remission Chronic idiopathic constipation IBS (irritable bowel syndrome) Left leg pain Hand dermatitis Chronic pancreatitis Surgical History H/O LEEP History of tubal ligation Family History Father Mental health disorder Mother High blood pressure High cholesterol Social History (Updated 05/27/24 @ 10:06 by Ashley Hill) Housing: Apartment Are you a primary critical care unit manager to a significant other at home: No Do you presently have visiting nurse or other home services: No Alcohol intake: never Patient Tobacco Use Status: Current everyday Tobacco user Tobacco use type: Cigarette Cigarette Packs Per Day: 1 Cigarettes Per Day: 20.0 Years Smoked: Started around age 8 e-Cigarette/Vaping Use: Never Used Substance Use Type: Heroin and Opiates service: No Current occupational status: unemployed Current occupational exposures/hazards: No Cognitive needs: No Hearing needs: No Vision needs: No Female Reproductive History Menstrual Age of Menarche: 14 Review of Systems Const Denies daytime sleepiness, Denies excessive sweating, Reports fatigue, Denies fever(s), Denies lethargy, Reports malaise, Denies night sweats, Denies snoring and Denies weight loss Eyes Denies blurry vision and Denies itchy eyes ENT Denies nasal congestion, Denies post nasal drip, Denies sinus pain, Denies sinus pressure and Denies other ( Thrush) Card Denies chest pain, Denies pedal edema, Reports dyspnea, Denies orthopnea and Denies paroxysmal nocturnal dyspnea Resp Reports cough, Denies hemoptysis, Reports excessive phlegm production, Reports dyspnea, Denies snoring and Reports wheezing GI Denies abdominal pain and Denies heartburn Musc Denies myalgias, Denies arthralgias and Denies joint swelling Skin/Breast Denies rash Neuro Denies memory loss and Denies seizure-like activity Psych Denies abnormal sleep pattern, Denies anxiety and Denies memory loss Endo Denies excessive sweating, Reports fatigue and Denies heat intolerance Bar/Lymph Denies easy bruising Aller/Immun Denies itchy eyes, Denies seasonal rhinorrhea and Reports wheezing Physical Exam Vital Signs: Last Vital Signs Pulse 82 06/16/24 10:11 BP 102/60 06/16/24 10:11 Pulse Ox 95 06/16/24 10:11 Oxygen Delivery Method Room Air 06/16/24 10:11 BMI result Body Mass Index 41.3 Const General: no acute distress and alert Nutritional Appearance: obese Orientation/consciousness: Other orientation findings ( oriented) HEENT Head: Yes atraumatic Eyes General: appearance normal, both eyes and all related structures Sclerae: sclerae normal EOM: EOMs intact bilaterally Neck Neck: Yes supple Lymphatic: no lymphadenopathy noted Resp Effort & Inspection: normal respiratory effort and no use of accessory muscles Auscultation: clear to auscultation bilaterally Cardio Rate: regular rate Rhythm: regular rhythm Heart sounds: no gallops, no murmurs and no rubs Skin General skin exam: other ( warm) Extrem General: No clubbing, No cyanosis and No edema Assessment & Plan Assessment & Plan (1) Environmental allergies: Code(s): Z91.09 - Other allergy status, other than to drugs and biological substances Category: Medical Plan: Now with bronchitic symptoms, will treat with a course of prednisone and azithromycin. Will obtain IgE level, CBC with differential and RAST panel for further evaluation. (2) Nocturnal hypoxemia: Code(s): G47.34 - Idiopathic sleep related nonobstructive alveolar hypoventilation Category: Medical Plan: Overnight oximetry is pending. Orders: Orders Resp Allergy Profile Region I Today Z91.09 - Other allergy status, other than to drugs and biological substances Complete Blood Count Auto Diff Today Z91.09 - Other allergy status, other than to drugs and biological substances Medications: New azithromycin For 250 mg dose pack: take 500 mg today (day 1), then 250 mg for 4 days (days 2-5) PO 6 tabs 0RF Z91.09 - Other allergy status, other than to drugs and biological substances prednisone 40 mg (2 x 20 mg) PO DAILY 10 tabs 0RF Z91.09 - Other allergy status, other than to drugs and biological substances Coding Level of Care Code Est Pt Level 4 (53769) Diagnoses Environmental allergies Z91.09 Nocturnal hypoxemia G47.34
--- OUTSIDE RECORDS SUMMARY | 2024-06-16 11:53 | XMS_ITS | Clinical Summary ---
Author Organization [facility] Address [address] [place] [id number] Phone Care Team Providers Care Senior Wealth Advisor Name Role Phone Aakash Navarro MD Primary Care Provider [phone] Allergies No known active allergies Medical History Medical History Date Comments Depressive disorder, not els ewhere classified DX:Depressive disorder, not elsewhere classified Anxiety state, unspecified DX:An xiety state, unspecified Schizophrenia (CMS/HCC) Pancreatitis Manic depression (CMS/[facility]) Family History Medical History Relation Name Comments [...] AM EST Opioid type dependence, continuous (CMS/HCC) from Last 3 Months Results * Interferon gamma interpretation (04/12/2024 10:25 AM EST) [facility] Quantiferon Plus Interpretation Negative Negative LAB CHEMISTRY METHOD 04/13/2024 9:19 AM EST [facility] Blood Venous blood specimen / Unknown Venipuncture / Unknown 04/12/2024 10:25 AM EST 04/12/2024 11:41 AM EST Whitney Arnold MD LAB BLOOD ORDERABLES Fi nal Result Performing Organization Address City/[facility]/ZIP Co de Phone Number [facility] [address] [place] [address], * Interferon gamma antigen 2 (04/12/2024 10:25 AM EST) Blood Venous blood specimen / Unknown Venipuncture / Unknown 04/12/2024 10:25 AM EST 04/12/2024 11:41 AM EST Whitney Arnold MD LAB BLOOD ORDERABLES Fi nal Result Performing Organization Address City/[facility]/ZIP Co de Phone Number [facility] [address] [place] [address], [place] [phone] * Inteferon gamma antigen 1 (04/12/2024 10:25 AM EST) Blood Venous blood specimen / Unknown Venipuncture / Unknown 04/12/2024 10:25 AM EST 04/12/2024 11:41 AM EST Whitney Arnold MD LAB BLOOD ORDERABLES Fi nal Result Performing Organization Address City/[facility]/ZIP Co de Phone Number [facility] [address] [place] [address], * Interferon gamma mitogen (04/12/2024 10:25 AM EST) Blood Venous blood specimen / Unknown Venipuncture / Unknown 04/12/2024 10:25 AM EST 04/12/2024 11:41 AM EST us Whitney Arnold MD LAB BLOOD ORDERABLES Fi nal Result Performing Organization Address [facility]/ZIP Co de Phone Number [facility] [address] [place] [address], * Interferon gamma NIL (04/12/2024 10:25 AM EST) Blood Venous blood specimen / Unknown Venipuncture / Unknown 04/12/2024 10:25 AM EST 04/12/2024 11:41 AM EST Whitney Arnold MD LAB BLOOD ORDERABLES Fi nal Result Performing Organization Address [facility] de Phone Number [facility] [address] [place] [address], [place] [phone] from Last 3 Months Insurance [facility] [employer] Care Teams Senior Wealth Advisor Relationship Specialty Start Date End Date Aakash Navarro MD [address] [place] [address] Dr Calista [place] PCP - General 03/19/21
== END 2024-06-16 10:28 | disposition home or self-care (01) ==
PROVIDERS: PCP Family Medicine; Visit Provider Internal Medicine Pulmonary Disease
DX: Z91.09 Other allergy status, other than to drugs and biological substances (principal); G47.34 Idiopathic sleep related nonobstructive alveolar hypoventilation
CPT/HCPCS: 99214

== ENCOUNTER 2024-06-16 10:08 | Outpatient (REF) | payer OTHER, SELFPAY ==
[2024-06-16 11:12] LABS: MANUAL DIFF FLAG NO
[2024-06-16 11:51] LABS: Basophils Percent Auto 0.3 % (0-2); Eosinophils Absolute Auto 0.2 X10*3/uL (0.0-0.4); Eosinophils Percent Auto 3.4 % (0-4); Hematocrit 39.1 % (37.0-47.0); Hemoglobin 13.5 g/dl (12.0-16.0); Imm Gran Abs Auto 0.03 X10*3/uL (0.00-0.03); Imm Gran Pct Auto 0.5 % (0.0-0.4); Lymphocytes Absolute Auto 1.9 X10*3/uL (1.2-4.9); Lymphocytes Percent Auto 31.8 % (20-40); Mean Corpuscular HGB Conc 34.5 g/dl (31.0-35.0); Mean Corpuscular Hemoglobin 33.6 pg (27.0-33.0); Mean Corpuscular Volume 97.3 fL (80.0-98.0); Mean Platelet Volume 9.8 fL (9.4-12.3); Monocytes Absolute Auto 0.5 X10*3/uL (0.1-1.2); Monocytes Percent Auto 8.2 % (2-11); Neutrophils Absolute Auto 3.4 x10*3/uL (2.0-8.3); Neutrophils Percent Auto 55.8 % (45-73); Platelet Count 190 X10*3/uL (160-400); Red Blood Count 4.02 X10*6/uL (4.20-5.50); Red Cell Distribution Width 13.7 % (11.0-16.0); White Blood Count 6.1 X10*3/uL (4.8-10.8)
--- OUTSIDE RECORDS SUMMARY | 2024-06-16 12:29 | XMS_ITS | Clinical Summary ---
Author Organization [facility] Address [address] [place] [id number] Phone Care Team Providers Care Hvac R Tech Name Role Phone Aakash Navarro MD Primary Care Provider [phone] Allergies No known active allergies Medical History Medical History Date Comments Depressive disorder, not els ewhere classified DX:Depressive disorder, not elsewhere classified Anxiety state, unspecified DX:An xiety state, unspecified Schizophrenia (CMS/HCC) Pancreatitis Manic depression (CMS/[facility]) Family History Medical History Relation Name Comments [...] Interferon gamma interpretation (04/12/2024 10:25 AM EST) [facility] Quantiferon Plus Interpretation Negative Negative LAB CHEMISTRY METHOD 04/13/2024 9:19 AM EST [facility] Blood Venous blood specimen / Unknown Venipuncture / Unknown 04/12/2024 10:25 AM EST 04/12/2024 11:41 AM EST Whitney Arnold MD LAB BLOOD ORDERABLES Fi nal Result Performing Organization Address City/[facility]/ZIP Co de Phone Number [facility] [address] [place] [address], * Interferon gamma antigen 2 (04/12/2024 10:25 AM EST) Blood Venous blood specimen / Unknown Venipuncture / Unknown 04/12/2024 10:25 AM EST 04/12/2024 11:41 AM EST Whitney Arnold MD LAB BLOOD ORDERABLES Fi nal Result Performing Organization Address City/[facility]/ZIP Co de Phone Number [facility] [address] [place] [address], [place] [phone] * Inteferon gamma antigen 1 (04/12/2024 10:25 AM EST) Blood Venous blood specimen / Unknown Venipuncture / Unknown 04/12/2024 10:25 AM EST 04/12/2024 11:41 AM EST Whitney Arnold MD LAB BLOOD ORDERABLES Fi nal Result Performing Organization Address City/[facility]/ZIP Co de Phone Number [facility] [address] [place] [address], * Interferon gamma mitogen (04/12/2024 10:25 AM EST) Blood Venous blood specimen / Unknown Venipuncture / Unknown 04/12/2024 10:25 AM EST 04/12/2024 11:41 AM EST us Whitney Arnold MD LAB BLOOD ORDERABLES Fi nal Result Performing Organization Address [facility]/ZIP Co de Phone Number [facility] [address] [place] [address], * Interferon gamma NIL (04/12/2024 10:25 AM EST) Blood Venous blood specimen / Unknown Venipuncture / Unknown 04/12/2024 10:25 AM EST 04/12/2024 11:41 AM EST Whitney Arnold MD LAB BLOOD ORDERABLES Fi nal Result Performing Organization Address [facility] de Phone Number [facility] [address] [place] [address], [place] [phone] from Last 3 Months Insurance [facility] [employer] Care Teams Hvac R Tech Relationship Specialty Start Date End Date Aakash Navarro MD [address] [place] [address] Dr Calista [place] PCP - General 03/19/21
[2024-06-16 12:36] LABS: Alanine Aminotransferase 22 U/L (0-31); Albumin Level 4.3 g/dL (3.5-5.0); Alkaline Phosphatase 80 U/L (39-117); Anion Gap 11 (12-20); Aspartate Amino Transferase 23 U/L (5-31); Bilirubin Total 0.5 mg/dL (0.0-1.0); Blood Urea Nitrogen 5 mg/dL (9-16); Calcium 8.9 mg/dL (8.4-10.2); Carbon Dioxide 28 mmol/L (22-29); Chloride 102 mmol/L (96-108); Cholesterol 159 mg/dL (<200); Estimated Glomerular Filt Rate > 60; Glucose Fasting 104 mg/dL (60-99); HDL Cholesterol 28 mg/dL (>40); LDL Cholesterol Calculated 91 mg/dL (<100); Potassium 3.9 mmol/L (3.3-5.1); Sodium 137 mmol/L (135-145); Total Protein 8.1 g/dL (6.5-8.0); Triglycerides 204 mg/dL (<150)
[2024-06-16 13:01] LABS: Free T4 (Free Thyroxine) 0.93 ng/dL (0.71-1.85); Thyroid Stimulating Hormone 5.81 uIU/mL (0.32-4.0)
[2024-06-17 05:23] LABS: Triiodothyronine T3 Total 106 ng/dL (76-181)
[2024-06-17 18:57] LABS: Class Alternaria alternata 0; Class Aspergillus fumigatus 0; Class Bermuda Grass 0; Class Birch 0; Class Cat Dander 0; Class Cladosporium herbarum 0; Class Cockroach 0; Class Common Ragweed 0; Class Cottonwood 0; Class Derm. pterony 0; Class Dermatophagoides farinae 0; Class Dog Dander 0; Class Elm 0; Class Maple Box Elder 0; Class Mountain Cedar 0; Class Mouse Urine Protein 0; Class Mugwort 0; Class Oak 0; Class Penicillium crysogenum 0; Class Rough Pigweed 0; Class Sheep Sorrel 0; Class Sycamore 0; Class Timothy Grass 0; Class Walnut Tree 0; Class White Ash 0; Class White Mulberry 0; D001 IgE D pteronyssinus <0.10 kU/L; D002 - IgE D farinae <0.10 kU/L; E001 - IgE Cat Dander <0.10 kU/L; E005 - IgE Dog Dander <0.10 kU/L; E072-IgE Mouse Urine <0.10 kU/L; G002 IgE Bermuda Grass <0.10 kU/L; G006 - IgE Timothy Grass <0.10 kU/L; I006-IgE Cockroach, German <0.10 kU/L; Immunoglobulin E 83 kU/L (<OR=114); M001 IgE Penicillium chrysogen <0.10 kU/L; M002 - IgE Cladosporium herbar <0.10 kU/L; M003 - IgE Aspergillus fumigat <0.10 kU/L; M006 - IgE Alternaria alternat <0.10 kU/L; T001 IgE Maple/Box Elder <0.10 kU/L; T003 IgE Common Silver Birch <0.10 kU/L; T006 - IgE Cedar, Mountain <0.10 kU/L; T007 - IgE Oak, White <0.10 kU/L; T008 IgE Elm, American <0.10 kU/L; T010 - IgE Walnut <0.10 kU/L; T011 - IgE Maple Leaf Sycamore <0.10 kU/L; T014 - IgE Cottonwood <0.10 kU/L; T015 - IgE Ash, White <0.10 kU/L; T070 - IgE White Mulberry <0.10 kU/L; W001 - IgE Ragweed, Short <0.10 kU/L; W006 - IgE Mugwort <0.10 kU/L; W014 IgE Pigweed, Common <0.10 kU/L; W018 IgE Sheep Sorrel <0.10 kU/L
[2024-06-22 13:08] LABS: Anti Nuclear Antibody Screen NEGATIVE (NEGATIVE)
== END 2024-06-16 10:09 | disposition home or self-care (01) ==
LOC: HO.LAB 10:08
PROVIDERS: PCP Family Medicine; Visit Provider Internal Medicine Pulmonary Disease
DX: E03.9 Hypothyroidism, unspecified (principal); R79.89 Other specified abnormal findings of blood chemistry; E78.6 Lipoprotein deficiency; R06.00 Dyspnea, unspecified; Z91.09 Other allergy status, other than to drugs and biological substances; G47.34 Idiopathic sleep related nonobstructive alveolar hypoventilation; Z00.00 Encounter for general adult medical examination without abnormal findings
CPT/HCPCS: 36415; 80053; 80061; 82785; 84439; 84443; 84480; 85025; 86003; 86038; 99212

== ENCOUNTER 2024-08-19 08:22 | Outpatient (AMB) | payer OTHER, SELFPAY ==
[2024-08-19 08:29] VITALS: BP 124/60; PULSE 61; O2SAT 91; BMI 41.8
--- NOTE | 2024-08-19 08:29 | A.OFFVIS_ITS ---
Vital Signs 08/19/24 08:29 Height 5 ft 3 in Weight 236 lb BMI 41.8 BP 124/60 Blood Pressure Location Rt brachial Pulse 61 Pulse Source Pulse Oximeter Pulse Oximetry (%) 91 L Oxygen Delivery Method Room Air Intake Visit Reasons: Follow Up 3 mo [employer] Operator Required: No Accompanied by: Self / Same As Patient Allergies No Known Drug Allergies Allergy (Unknown, Verified 08/19/24 08:34) none Seasonal Allergies Allergy (Verified 08/19/24 08:34) runny eyes, itchy skin, congestion Medication List - Last Reconciled 08/19/24 by JULIO Patel albuterol sulfate 90 mcg/actuation (Ventolin HFA) 2 puffs inhalation Q4-6H PRN 30 days albuterol sulfate 90 mcg/actuation (Proair Digihaler) 1 inh inhalation Q4-6H PRN 30 days atorvastatin 40 mg PO BEDTIME 90 days azithromycin For 250 mg dose pack: take 500 mg today (day 1), then 250 mg for 4 days (days 2-5) PO benztropine 0.5 mg PO DAILY betamethasone valerate 0.1% 1 appl topical DAILY PRN 30 days bisacodyl 10 mg (2 x 5 mg) PO BEDTIME clonazepam 1 mg PO BID PRN famotidine 20 mg PO BEDTIME fluticasone propionate 50 mcg/actuation 1 spray intranasal BID gabapentin 600 mg PO TID 30 days galcanezumab-gnlm (Emgality Pen) 240 mg (2 mL) subcut ONCE 30 days ibuprofen 400 mg PO TID 90 days lamotrigine 25 mg PO DAILY levothyroxine 75 mcg PO DAILY 90 days linaclotide (Linzess) 290 mcg PO QAM lisinopril 20 mg PO DAILY 30 days methadone 130 mg PO DAILY omeprazole 40 mg PO DAILY paroxetine HCl 40 mg PO DAILY 30 days prednisone 40 mg (2 x 20 mg) PO DAILY 4 days prednisone 40 mg (2 x 20 mg) PO DAILY quetiapine (Seroquel) 50 mg PO DAILY PRN quetiapine (Seroquel) 300 mg PO BEDTIME 30 days quetiapine 100 mg PO BEDTIME semaglutide (weight loss) (Wegovy) 0.25 mg (0.5 mL) subcut QWEEK 28 days sennosides (Mariam-loren) mg PO sumatriptan succinate mg PO tirzepatide (Mounjaro) 2.5 mg (0.5 mL) subcut QWEEK 28 days tirzepatide (weight loss) (Zepbound) 2.5 mg (0.5 mL) subcut QWEEK 28 days topiramate 50 mg PO DAILY 30 days trazodone 100 mg PO BEDTIME PRN ziprasidone HCl 20 mg PO DAILY HPI Comments Details: 38-yr-old female presents for f/u visit of sleep difficulties and headache. Pt reports she plans to have an upcoming scheduled in-pt psychiatric hospitalization in an attempt to regulate her psychiatric medication as she continues to have profound hypersomnia. Patient has had pulmonary consult, which has included allergy testing and recommendation for overnight pulse oximetry study- which has not yet been completed. She was treated for bronchitis in June. Pt reports she continues to have excessive daytime sleepiness, can fall asleep even when talking with someone. Pt reports hypersomnia since adolescence- would fall asleep on the school bus on the way home- she could dream during naps even then. Also reports when angry, she will yawn and feel completely drained- again since adolescence. States that Adderall in the past was helpful for her hypersomnia. She is using her BiPAP more often than not- has had more difficulty d/t recent uptick in pollen and seasonal allergy s/s. There is no current PAP compliance data since 2023. Her resp supply company is [facility]. She reports lately she has had an uptick in her migraines. She did start the Emgality, which seem to be helping until recently. She never received the Ubrelvy, although was approved. She is using OTC analgesics at onset of migraine or nothing at all. In the last month, she reports she has had 5 migraine days per week. She recently had to go to the ER twice in one week. Once the pain was so severe, she had more head pain, more cognitive confusion, more speech dififuclties, she passed out twice in one day- once when sitiing and once while walking where she feel and hit her head and hit her hand- she worries she may have fractured her right 3rd finger- as she has hand pain and swelling- though improving some (she has never passed out during a migraine before). Went to [facility] ER- was given an injection which helped- she does not think they did head imaging. The other time, she was not speaking clearly. She also notes she recently started having sudden onset left temporal region throbbing triggered by voiding or having a BM. It does not start as a migraine, but can become a migraine. She is not sure if this started before or after the recent falls. Typical headache #1 characteristics: Aura: bilateral vision change- starts as squiggles and the blurriness expands to cover the entire central vision- usually lasts 45 min, but once lasted for 3 days. Headache: Pressure in right frontal or occipital a/w photophobia, phonophobia, not right in space dizziness, activity tolerance, fatigue, cognitive difficulties, tip of nose/tongue goes numb and left mouth/jaw droops. Postdrome: world's worst hangover - feels completely depleted. Duration: Usually lasts a few hours, but when had attacks x's 1 week- needing hospitalization. Typical headcahe #2: Focal pressure headaches in the left upper temporal or right parietal- stronger, more painful. Makes her feel off-balance. Duration: Sometimes lasts 10 minutes to 1-2 hrs. Has to lay down or take a shower. She has TD- may twitch or jerk, her fingers may make repetitive movements- say when using her phone. They may make her drop things. She used to have facial movements- but not recently. [facility] Medical History (Updated 08/19/24 @ 13:25 by JULIO Patel) Anemia SANDI (obstructive sleep apnea) Hx of CT scan Witnessed apneic spells Substance abuse in remission Chronic idiopathic constipation IBS (irritable bowel syndrome) Left leg pain Hand dermatitis Chronic pancreatitis Surgical History H/O LEEP History of tubal ligation Family History Father Mental health disorder Mother High blood pressure High cholesterol Social History (Updated 05/27/24 @ 10:06 by Ashley Hill) Housing: Apartment Are you a primary certified social workers in health care to a significant other at home: No Do you presently have visiting nurse or other home services: No Alcohol intake: never Patient Tobacco Use Status: Current everyday Tobacco user Tobacco use type: Cigarette Cigarette Packs Per Day: 1 Cigarettes Per Day: 20.0 Years Smoked: Started around age 8 e-Cigarette/Vaping Use: Never Used Substance Use Type: Heroin and Opiates service: No Current occupational status: unemployed Current occupational exposures/hazards: No Cognitive needs: No Hearing needs: No Vision needs: No Female Reproductive History Menstrual Age of Menarche: 14 Review of Systems Eyes Reports photophobia Physical Exam Vital Signs: Last Vital Signs Pulse 61 08/19/24 08:29 BP 124/60 08/19/24 08:29 Pulse Ox 91 L 08/19/24 08:29 Oxygen Delivery Method Room Air 08/19/24 08:29 BMI result Body Mass Index 41.8 Const Other: Patient is more alert today, but as visit progresses, begins to doze off during conversation. At times mumbles as she is falling asleep. General: cooperative and tired appearing Nutritional Appearance: obese Orientation/consciousness: patient oriented x3 Eyes Direct Ophthalmoscopy: photophobia Neck Neck: Yes normal visual inspection, Yes full ROM and Yes other (wears glasses) Resp Effort & Inspection: normal respiratory effort and able to speak in complete sentences Neuro Other: Left temporal palpable tenderness. Photophobic Mild left head tilt today Posterior cervical and upper trap tightness. Spurling elicits bilateral nonradiating lower neck tightness Right 3rd finger swelling and discomfort. General: patient oriented x3, moves all extremities and deep tendon reflexes 2+ bilaterally Cranial nerves: Yes CN's II-XII intact bilaterally Cognition (Neuro): normal cognition Gait exam (Neuro): Normal gait present Psych Appearance: grossly normal Affect: normal affect Attitude: cooperative Thought content: Normal thought content present Results Reviewed Results Reviewed: 10/29/2023, Orexin A CSF level was normal at 215. Assessment & Plan Assessment & Plan (1) New onset headache: Comment: Triggered by urination and Valsalva maneuver- bowel movement, status post fall with positive head strike secondary to syncopal episode during severe migraine attack. Code(s): R51.9 - Headache, unspecified Category: Medical (2) Hypersomnia: Code(s): G47.10 - Hypersomnia, unspecified Category: Medical (3) Cataplexy: Comment: Episodes when angry a/w yawning and feeling completely drained since adolescence are suggestive of caraplexy. 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 Code(s): G47.33 - Obstructive sleep apnea (adult) (pediatric) Category: Medical (5) Migraine with aura: Code(s): G43.109 - Migraine with aura, not intractable, without status migrainosus Category: Medical (6) Nocturnal hypoxemia: Code(s): G47.34 - Idiopathic sleep related nonobstructive alveolar hypoventilation Category: Medical (7) Syncope: Code(s): R55 - Syncope and collapse Category: Medical Plan For severe SANDI w/ nocturnal hypoxemia: CSF Orexin level 213, normal. Advised this does not support a clear dx of narcolepsy. Pt may benefit from undergoing f/u in-lab PSG w/ MSLT, however, pt would need to be compliant w/ PAP therapy for at least 30 days and additionally, pt's psychiatrist has advsied us to avoid attempting to wean pt off of her psychotropic medications, as this has caused severe mood decompensation and suicide attempst in the the past- pt would need to be hospitalized in order to do this. Thus, at this point, we will try to optimize pt's sleep quality. Patient encouraged to use BiPAP 16/11 cm H2O- complete overnight pulse oximetry once on BiPAP per pulmonology. Will request ENT referral, as she has been previously advised to have her adenoids removed, encouraged pt that there are measures we can take to help her to stop smoking prior to any prposed tx's. Check labs for common etiologies. Follow-up with pulmonology as scheduled. Patient may benefit from weight management consult-unclear if this has been done before. Future considerations: Trial of modafinil, if psychiatry were in agreement. For new onset left-sided headache triggered by urination and bowel movement status post syncopal episode and speech difficulties during a severe headache attack: Patient is advised to undergo brain MRI with and without contrast Patient is advised to undergo head/neck CTA Upon review, consider further evaluation with EEG or cardiac testing. For right 3rd finger pain status post fall: Check right hand x-ray For acute migraine w/ aura tx: Again trial Ubrelvy- advise her P is good for another week, so she should pick this up today. * Ubrogepant (Ubrelvy) 100mg tab, 1/2 - 1 tab (50-100mg) at onset of headache, may repeat in 2 hours. Max of 2 tabs (200mg) per 24 hours. May adjunct with OTC Tylenol 650mg q 4 hours, Ibuprofen 600mg q 6 hours, or Naproxen 440mg q 12 hrs prn. Potential adverse effects, include but are not limited to fatigue, nausea, dry mouth, constipation. Previous migraine tx trials: Sumatriptan- caused SOB/seizure activity. Migraine tx contraindications: All triptans d/t Sumatriptan allergy. For migraine w/ aura prevention: Start riboflavin 400 mg daily in the morning. Start magnesium 400 mg daily at bedtime. Continue Emgality 120mg/ml auto-injection: Maintenance dose 120mg (120mg/ml autoinjector) subcutaneous injection every month- as Emgality initially resulted in reduction in monthly migraine days and severity by at least 30%, however recent uptake in migraine is likely secondary to not treating acute migraine attacks and recent fall with positive head strike. Continue Topiramate 50mg qd- would not increase further d/t sedation. Previous trials: Propranolol ER 60 mg-caused excessive fatigue. For short lasting more severe headache: Monitor response to above. Pt to follow-up in 3-6 months or sooner prn. Orders: Orders Complete Blood Count Auto Diff Today D64.9 - Anemia, unspecified, G47.10 - Hypersomnia, unspecified, I10 - Essential (primary) hypertension, R53.83 - Other fatigue Comprehensive Met. Panel Today D64.9 - Anemia, unspecified, G47.10 - Hypersomnia, unspecified, I10 - Essential (primary) hypertension, R53.83 - Other fatigue Vitamin B12 and Folate Today D64.9 - Anemia, unspecified, G47.10 - Hypersomnia, unspecified, I10 - Essential (primary) hypertension, R53.83 - Other fatigue Vitamin B6 Today D64.9 - Anemia, unspecified, G47.10 - Hypersomnia, unspecified, I10 - Essential (primary) hypertension, R53.83 - Other fatigue Ferritin Today D64.9 - Anemia, unspecified, G47.10 - Hypersomnia, unspecified, I10 - Essential (primary) hypertension, R53.83 - Other fatigue Vitamin D 25-OH (D2 and D3) Today D64.9 - Anemia, unspecified, G47.10 - Hypersomnia, unspecified, I10 - Essential (primary) hypertension, R53.83 - Other fatigue MR head/brain wo/w con Today I10 - Essential (primary) hypertension, R51.9 - Headache, unspecified, R55 - Syncope and collapse CT angio head neck Today I10 - Essential (primary) hypertension, R51.9 - Headache, unspecified, R55 - Syncope and collapse XR hand RT min 3V Today M79.641 - Pain in right hand, R55 - Syncope and collapse IRON PROFILE Today D64.9 - Anemia, unspecified, G47.10 - Hypersomnia, unspecified, I10 - Essential (primary) hypertension, R53.83 - Other fatigue Referrals Ear/Nose/Throat Referral G47.33 - Obstructive sleep apnea (adult) (pediatric) Medications: New magnesium oxide may hold for loose stools 400 mg PO BEDTIME 30 days 30 tabs 6RF riboflavin (vitamin B2) 400 mg PO DAILY 30 days 30 tabs 6RF Refilled ubrogepant (Ubrelvy) take at onset of migraine, may repeat in 2hrs (may take w/ Ibuprofen) 50 - 100 mg (0.5 - 1 x 100 mg) PO ONCE 30 days PRN 16 tabs 3RF migraine headache Coding Level of Care Code Est Pt Level 4 (75384) Complex EM visit Add On G2211 Diagnoses New onset headache R51.9 Hypersomnia G47.10 Cataplexy G47.411 Severe obstructive sleep apnea G47.33 Migraine with aura G43.109 Nocturnal hypoxemia G47.34 Syncope R55
--- OUTSIDE RECORDS SUMMARY | 2024-08-19 08:40 | XMS_ITS | Clinical Summary ---
Author Organization [facility] Address [address] [place] [address] Phone Care Team Providers Care Benzene Operator Name Role Phone Aakash Navarro MD Primary Care Provider Allergies No known active allergies Encounters Date Type Department Care Team Description 07/26/2024 11:17 AM EDT - 07/26/2024 6:25 PM EDT Emergency [facility] Emergency [address] [place] [phone] Discharge Disposition: Home or Self Care 07/21/2024 4:03 PM EDT - 07/21/2024 9:47 PM EDT Emergency [facility] Emergency [address] [place] [phone] Magdy Pinto MD Nonintractable headache, unspecified chronicity pattern, unspecified headache type (Primary Dx) Discharge Disposition: Home or Self Care from Last 3 Months Medical History Medical History Date Comments Depressive disorder, not els ewhere classified DX:Depressive disorder, not elsewhere classified Anxiety state, unspecified DX:An xiety state, unspecified Schizophrenia (CMS/HCC V24, CMS/HCC V28) Pancreatitis Manic depression (CMS/HCC V2 4, CMS/HCC V28) Family History Medical History Relation Name Comments Hyperlipidemia Mother Hypertension Mother Relation Name Status Comments Mother Social History Tobacco Use Types Packs/Day Years Used Date Smoking Tobacco: Every Day Cigarettes Alcohol Use Standard Drinks/Week Comments No 0 (1 standard drink = 0.6 oz pur e alcohol) Sex and Gender Information Value Date Recorded Sex Assigned at Male 07/21/2024 5:13 PM EDT Legal Sex Female 7:36 AM EST Gender Identity Male 07/21/2024 5:13 PM EDT Sexual Orientation Straight 07/21/2024 5: 13 PM EDT Obstetrics History Last Filed Vital Signs Vital Sign Reading Time Taken Comments Blood Pressure 101/69 07/26/2024 11:22 AM EDT Pulse 85 07/26/2024 11:22 AM EDT Temperature 36.8 ??C (98.2 ??F) 07/26/2024 11:22 AM E DT Respiratory Rate 20 07/26/2024 11:22 AM EDT Oxygen Saturation 96% 07/26/2024 11:22 AM EDT Inhaled Oxygen Concentration - - Weight 108 kg (239 lb) 07/26/2024 11:22 AM EDT Height 160 cm (5' 3 ) 07/26/2024 11:22 AM EDT Body Mass Index 42.34 07/26/2024 11:22 AM EDT Plan of Treatment Health Maintenance Due Date Last Done Comments Pneumococcal Vaccine: Pediatrics (0 to 5 Years) and At-Risk Patients (6 to 64 Years) (1 of 2 - PCV) 08/27/2002 HPV Vaccines (2 - 3-dose series) 09/01/2006 08/04/2006 Cholesterol Screening (Lipid Panel) 03/17/2022 Depression Screening 03/17/2022 HIV Screening 03/17/2022 Hepatitis C Screening 03/17/2022 Social Influencers of Health Screening 03/17/2022 Hepatitis A Vaccines (2 of 2 - Risk 2-dose series) 11/12/2023 05/14/2023 COVID-19 Vaccine (1 - 2023-2 5 season) 2023 Hepatitis B Vaccines (3 of 3 - 19+ 3-dose series) 01/07/2024 11/12/2023, 05/14/2023 Influenza Vaccine (Season Ended) 2024 DTaP,Tdap,and Td Vaccines (2 - Td or Tdap) 11/08/2027 11/07/2017 HIB Vaccines Aged Out No longer eligi [...] age to complete this topic Meningococcal B Vaccine Aged Out No l onger eligible based on patient's age to complete this topic RSV Immunization Patients Under 20 months Aged Out No longer eligible b ased on patient's age to complete this topic Varicella Vaccines Aged Out No longer eligible based on patient's age to complete this topic Procedures Procedure Name Priority Date/Time Associated Diagnosis Comments CULTURE BLOOD STAT 07/26/2024 12:52 PM EDT XR CHEST 1 VIEW STAT 07/21/2024 8:22 PM EDT POC , URINE DIAGNOSTIC STAT 07/21/2024 8:12 PM EDT URINALYSIS WITH REFLEX MICROSCOPIC STAT 07/21/2024 8:12 PM EDT URINALYSIS WITH REFLEX MICROSCOPIC STAT 07/21/2024 8:12 PM EDT [id number], RSV, FLU A AND B QUALITATIVE RT-PCR, INTERNAL LAB STAT 07/21/2024 5:18 PM EDT from Last 3 Months Results * Blood culture (07/26/2024 12:52 PM EDT) Culture, Blood No growth at 5 days 07/31/2024 2:01 PM EDT [facility] Blood Venous blood specimen / Unknown Venipuncture / Unknown 07/26/2024 12:52 PM EDT 07/26/2024 1:18 PM EDT us Ramos Garcia MD LAB MICROBIOLOGY - GENERAL YAMILEX OSUNA Final Result [facility] [address] [place] [address], [place] [phone] * XR Chest 1 View (07/21/2024 8:22 PM EDT) Anatomical Region Laterality Modality Body Radiographic Judy ging 07/22/2024 10:5 3 AM EDT Impressions 07/22/2024 10:53 AM EDT FINDINGS/IMPRESSION: Lungs are clear. ??No pleural effusion or pneumothorax. ??Cardiac silhouette and bones are normal -------- FINAL REPORT -------- Dictated By: MELO BANERJEE Dictated Date: 07/22/2024 10:53 ET Assigned Physician: MELO BANERJEE Reviewed and Electronically Signed By: MELO BANERJEE Signed Date: 07/22/2024 10:53 ET Workstation ID: [id number] Transcribed By: Self Edit Transcribed Date: 07/22/2024 10:53 ET Narrative 07/22/2024 10:53 AM EDT XR CHEST 1 VIEW INDICATION: ??Fever TECHNIQUE: XR CHEST 1 VIEW COMPARISON: 10/26/2023 Procedure Note Melo Banerjee MD - 07/22/2024 XR CHEST 1 VIEW INDICATION: Fever TECHNIQUE: XR CHEST 1 VIEW COMPARISON: 10/26/2023 IMPRESSION: FINDINGS/IMPRESSION: Lungs are clear. No pleural effusion orpneumothorax. Cardiac silhouette and bones are normal -------- FINAL REPORT -------- Dictated By: MELO BANERJEE Dictated Date: 07/22/2024 10:53 ET Assigned Physician: MELO BANERJEE Reviewed and Electronically Signed By: MELO BANERJEE Signed Date: 07/22/2024 10:53 ET Workstation ID: [id number] Transcribed By: Self Edit Transcribed Date: 07/22/2024 10:53 ET Magdy Pinto MD IMG XR PROCEDURES Final Result * (ABNORMAL) Urinalysis with reflex microscopic (07/21/2024 8:12 PM EDT) Specific [place] Urine 1.017 1.003 - 1.030 LAB URINALYSIS - AUTOMATED METHOD 07/21/2024 9:03 PM EDT [facility] pH, Urine 7.5 5.0 - 8.0 pH LAB URINALYSIS - AUTOMATED METHOD 07/21/2024 9:03 PM [facility] Leukocytes, Urine Trace(A) Negative LAB URINALYSIS - AUTOMATED METHOD 07/21/2024 9:03 PM [facility] Nitrite, Urine Negative Negative LAB URINALYSIS - AUTOMATED METHOD 07/21/2024 9:03 PM [facility] Protein, Urine Trace <=Trace mg/dL LAB URINALYSIS - AUTOMATED METHOD 07/21/2024 9:03 PM [facility] Glucose, Urine Negative Negative mg/dL LAB URINALYSIS - AUTOMATED METHOD 07/21/2024 9:03 PM [facility] Ketones, Urine Trace(A) Negative mg/dL LAB URINALYSIS - AUTOMATED METHOD 07/21/2024 9:03 PM [facility] Urobilinogen , Urine 4.0(A) 0.2 - 1.0 mg/dL LAB URINALYSIS - AUTOMATED METHOD 07/21/2024 9:03 PM [facility] Bilirubin, Urine Negative Negative LAB URINALYSIS - AUTOMATED METHOD 07/21/2024 9:03 PM [facility] Blood, Urine Negative Negative LAB URINALYSIS - AUTOMATED METHOD 07/21/2024 9:03 PM [facility] RBC, Urine 1.4 0 - 4 /HPF LAB URINALYSIS - AUTOMATED METHOD 07/21/2024 9:03 PM [facility] WBC, Urine 1.8 0 - 4 /HPF LAB URINALYSIS - AUTOMATED METHOD 07/21/2024 9:03 PM [facility] Squamous Epithelial, Urine 56 0 - 60 /LPF LAB URINALYSIS - AUTOMATED METHOD 07/21/2024 9:03 PM [facility] Crystals, Urine Light Amorphous Phosphate crystals. /LPF LAB URINALYSIS - AUTOMATED METHOD 07/21/2024 9:03 PM EDT [facility] Bacteria, Urine Negative Negative /HPF LAB URINALYSIS - AUTOMATED METHOD 07/21/2024 9:03 PM EDT [facility] Hyaline Casts, Urine 0.8 0 - 3 /LPF LAB URINALYSIS - AUTOMATED METHOD 07/21/2024 9:03 PM EDT [facility] Urine Urine specimen obtained by clean catch procedure / Unknown Non-blood Collection / Unknown 07/21/2024 8:12 PM EDT 07/21/2024 8:39 PM EDT us Magdy Pinto MD LAB URINE ORDERABLES Final Resu lt [facility] [address] [place] [address], [place] [phone] * POC , urine manually resulted (07/21/2024 8:12 PM EDT) [facility] HCG, Ur POC Negative Negative POC hCG Int QC Pass? Yes Yes Urine Urine specimen obtained by clean catch procedure / Unknown 07/21/2024 8:12 PM EDT Magdy Pinto MD POINT OF CARE TEST ENTER/EDIT O RDERABLES Final Result * [id number], RSV, Influenza A and B qualitative RT-PCR (07/21/2024 5:18 PM EDT) [facility] Influenza A PCR Not Detected Not Detected LAB MICROBIOLOGY METHOD 07/21/2024 6:16 PM EDT [facility] Influenza B PCR Not Detected Not Detected LAB MICROBIOLOGY METHOD 07/21/2024 6:16 PM EDT [facility] RSV PCR Not Detected Not Detected LAB MICROBIOLOGY METHOD 07/21/2024 6:16 PM EDT [facility] SARS COV-2 Not Detected Not Detected LAB MICROBIOLOGY METHOD 07/21/2024 6:16 PM EDT [facility] Swab Both anterior nares / Unknown Non-blood Collection / Unknown 07/21/2024 5:18 PM EDT 07/21/2024 5:25 PM EDT [facility]ative [facility] - 07/21/2024 6:16 PM EDT Disclaimer: ??Testing was performed using the [employer] GeneXpert Xpress SARS-CoV-2 _Flu_RSV PLUS PCR assay. ??The manner in which this information is used to guide patient care is the responsibility of the healthcare provider. ??Results should be correlated with the clinical history, epidemiological data, and other data available to the clinician evaluating the patient. ??Negative results do not preclude infection. ??This test has been authorized by the FDA under an Emergency Use Authorization (EUA). ??This test is only authorized for the duration of time the declaration that circumstances exist justifying the authorization of the emergency use of in vitro diagnostic tests for detection of SARS-CoV-2 virus and/or diagnosis of COVID-19 infection under section 564 (b) (1) of the Act, 21 U.S.C 360bbb-3 (b) (1), unless the authorization is terminated or revoked sooner. ?? Reference Range: Not Detected Fact sheet for Healthcare providers can be found at https://www.fda.gov/media/261577/download. ?? Fact sheet for Healthcare patients can be found at https://www.fda.gov/media/861086/download. Magdy Pinto MD LAB MICROBIOLOGY - GENERAL YAMILEX OSUNA Final Result [facility] [address] [place] [address], from Last 3 Months Insurance [facility] [employer] Care Teams Benzene Operator Relationship Specialty Start Date End Date Aakash Navarro MD [address] [place] [address] Dr YostkeRICH PCP - General 03/19/21
== END 2024-08-19 09:49 | disposition home or self-care (01) ==
LOC: HO.HSMS 08:23
PROVIDERS: PCP Family Medicine; Visit Provider Nurse Practitioner Family
DX: R51.9 Headache, unspecified (principal); G47.10 Hypersomnia, unspecified; G47.411 Narcolepsy with cataplexy; G47.33 Obstructive sleep apnea (adult) (pediatric); G43.109 Migraine with aura, not intractable, without status migrainosus; G47.34 Idiopathic sleep related nonobstructive alveolar hypoventilation; R55 Syncope and collapse
CPT/HCPCS: 99214; G2211

== ENCOUNTER → 2024-08-19 08:22 | Outpatient (BNVA) | payer OTHER, SELFPAY | PROVIDERS: PCP Family Medicine; Visit Provider Nurse Practitioner Family | DX: G47.33 Obstructive sleep apnea (adult) (pediatric) (principal); G47.10 Hypersomnia, unspecified; G47.411 Narcolepsy with cataplexy; G43.109 Migraine with aura, not intractable, without status migrainosus; G47.34 Idiopathic sleep related nonobstructive alveolar hypoventilation; R55 Syncope and collapse; D64.9 Anemia, unspecified; I10 Essential (primary) hypertension; R53.83 Other fatigue | CPT/HCPCS: 99212 ==

== ENCOUNTER 2024-09-03 08:12 | Outpatient (REF) | payer OTHER, SELFPAY ==
--- OUTSIDE RECORDS SUMMARY | 2024-09-03 08:18 | XMS_ITS | Clinical Summary ---
Author Organization [facility] Address [address] [place] [address] Phone Care Team Providers Care Printed Circuit Photographer Name Role Phone Aakash Navarro MD Primary Care Provider Allergies No known active allergies Encounters Date Type Department Care Team Description 07/26/2024 11:17 AM EDT - 07/26/2024 6:25 PM EDT Emergency [facility] Emergency [address] [place] [phone] Discharge Disposition: Home or Self Care 07/21/2024 4:03 PM EDT - 07/21/2024 9:47 PM EDT Emergency [facility] Emergency [address] [place] [phone] Magdy Pinto MD Nonintractable headache, unspecified chronicity [...] REFLEX MICROSCOPIC STAT 07/21/2024 8:12 PM EDT [id number], RSV, FLU A AND B QUALITATIVE RT-PCR, INTERNAL LAB STAT 07/21/2024 5:18 PM EDT from Last 3 Months Results * Blood culture (07/26/2024 12:52 PM EDT) Culture, Blood No growth at 5 days 07/31/2024 2:01 PM EDT [facility] Blood Venous blood specimen / Unknown Venipuncture / Unknown 07/26/2024 12:52 PM EDT 07/26/2024 1:18 PM EDT us Ramos Garcia MD LAB MICROBIOLOGY - GENERAL YAMILEX OSUNA Final Result [facility] [address] [place] [address], [place] [phone] * XR Chest 1 View (07/21/2024 8:22 [...] Signed Date: 07/22/2024 10:53 ET Workstation ID: [id number] Transcribed By: Self Edit Transcribed Date: 07/22/2024 [...] Signed Date: 07/22/2024 10:53 ET Workstation ID: [id number] Transcribed By: Self Edit Transcribed Date: 07/22/2024 10:53 ET Magdy Pinto MD IMG XR PROCEDURES Final Result * (ABNORMAL) Urinalysis with reflex microscopic (07/21/2024 8:12 PM EDT) Specific [place] Urine 1.017 1.003 - 1.030 LAB URINALYSIS - AUTOMATED METHOD 07/21/2024 9:03 PM EDT [facility] pH, Urine 7.5 5.0 - 8.0 pH LAB URINALYSIS - AUTOMATED METHOD 07/21/2024 9:03 PM [facility] Leukocytes, Urine Trace(A) Negative LAB URINALYSIS - AUTOMATED METHOD 07/21/2024 9:03 PM [facility] Nitrite, Urine Negative Negative LAB URINALYSIS - AUTOMATED METHOD 07/21/2024 9:03 PM [facility] Protein, Urine Trace <=Trace mg/dL LAB URINALYSIS - AUTOMATED METHOD 07/21/2024 9:03 PM [facility] Glucose, Urine Negative Negative mg/dL LAB URINALYSIS - AUTOMATED METHOD 07/21/2024 9:03 PM [facility] Ketones, Urine Trace(A) Negative mg/dL LAB URINALYSIS - AUTOMATED METHOD 07/21/2024 9:03 PM [facility] Urobilinogen , Urine 4.0(A) 0.2 - 1.0 mg/dL LAB URINALYSIS - AUTOMATED METHOD 07/21/2024 9:03 PM [facility] Bilirubin, Urine Negative Negative LAB URINALYSIS - AUTOMATED METHOD 07/21/2024 9:03 PM [facility] Blood, Urine Negative Negative LAB URINALYSIS - AUTOMATED METHOD 07/21/2024 9:03 PM [facility] RBC, Urine 1.4 0 - 4 /HPF LAB URINALYSIS - AUTOMATED METHOD 07/21/2024 9:03 PM [facility] WBC, Urine 1.8 0 - 4 /HPF LAB URINALYSIS - AUTOMATED METHOD 07/21/2024 9:03 PM [facility] Squamous Epithelial, Urine 56 0 - 60 /LPF LAB URINALYSIS - AUTOMATED METHOD 07/21/2024 9:03 PM [facility] Crystals, Urine Light Amorphous Phosphate crystals. /LPF LAB URINALYSIS - AUTOMATED METHOD 07/21/2024 9:03 PM EDT [facility] Bacteria, Urine Negative Negative /HPF LAB URINALYSIS - AUTOMATED METHOD 07/21/2024 9:03 PM EDT [facility] Hyaline Casts, Urine 0.8 0 - 3 /LPF LAB URINALYSIS - AUTOMATED METHOD 07/21/2024 9:03 PM EDT [facility] Urine Urine specimen obtained by clean catch procedure / Unknown Non-blood Collection / Unknown 07/21/2024 8:12 PM EDT 07/21/2024 8:39 PM EDT us Magdy Pinto MD LAB URINE ORDERABLES Final Resu lt [facility] [address] [place] [address], [place] [phone] * POC , urine manually resulted (07/21/2024 8:12 PM EDT) [facility] HCG, Ur POC Negative Negative POC hCG Int QC Pass? Yes Yes Urine Urine specimen obtained by clean catch procedure / Unknown 07/21/2024 8:12 PM EDT Magdy Pinto MD POINT OF CARE TEST ENTER/EDIT O RDERABLES Final Result * [id number], RSV, Influenza A and B qualitative RT-PCR (07/21/2024 5:18 PM EDT) [facility] Influenza A PCR Not Detected Not Detected LAB MICROBIOLOGY METHOD 07/21/2024 6:16 PM EDT [facility] Influenza B PCR Not Detected Not Detected LAB MICROBIOLOGY METHOD 07/21/2024 6:16 PM EDT [facility] RSV PCR Not Detected Not Detected LAB MICROBIOLOGY METHOD 07/21/2024 6:16 PM EDT [facility] SARS COV-2 Not Detected Not Detected LAB MICROBIOLOGY METHOD 07/21/2024 6:16 PM EDT [facility] Swab Both anterior nares / Unknown Non-blood Collection / Unknown 07/21/2024 5:18 PM EDT 07/21/2024 5:25 PM EDT [facility]ative [facility] - 07/21/2024 6:16 PM EDT Disclaimer: ??Testing was performed using the [employer] GeneXpert Xpress SARS-CoV-2 _Flu_RSV PLUS PCR assay. [...] for Healthcare providers can be found at https://www.fda.gov/media/741030/download. ?? Fact sheet for Healthcare patients can be found at https://www.fda.gov/media/009325/download. Magdy Pinto MD LAB MICROBIOLOGY - GENERAL YAMILEX OSUNA Final Result [facility] [address] [place] [address], from Last 3 Months Insurance [facility] [employer] Care Teams Printed Circuit Photographer Relationship Specialty Start Date End Date Aakash Navarro MD [address] [place] [address] Dr YostkeRICH PCP - General 03/19/21
== END 2024-09-03 08:13 | disposition home or self-care (01) ==
LOC: HO.MRI 08:12
PROVIDERS: PCP Family Medicine; Visit Provider Nurse Practitioner Family
DX: Z13.89 Encounter for screening for other disorder (principal)

== ENCOUNTER 2024-12-15 17:53 | Outpatient (REF) | payer OTHER, SELFPAY ==
--- NOTE | ~2024-12-15 | MR_ITS ---
EXAMINATION: MR BRAIN WITHOUT CONTRAST CLINICAL INFORMATION: 2-3 weeks s/p fall w/ + Head strike, new onset valsalva induced left temporal headache COMPARISON: CT of the head on December 27, 2020 TECHNIQUE: MRI of the brain was obtained using routine sequences without contrast. Note: Unable to obtain intravenous access, therefore, study was obtained without administration of intravenous contrast. FINDINGS: Brain parenchyma: No shift of midline structures. No evidence of acute infarct, parenchymal hemorrhage or mass lesion. Ventricles/extra-axial spaces: No hydrocephalus. No extra-axial fluid collection. Extracranial structures: Arterial flow voids in the skull base are preserved. Orbits are unremarkable. Minimal mucosal thickening of the paranasal sinuses. Minimal right mastoid effusion. Left mastoid air cells are essentially clear. MR/MR head/brain wo con IMPRESSION: 1. Unremarkable brain parenchyma, without evidence of parenchymal hemorrhage. 2. Minimal right mastoid effusion. Electronically signed by: Sinan Johnson MD 12/16/2024 06:56 AM EDT
--- OUTSIDE RECORDS SUMMARY | 2024-12-15 18:05 | XMS_ITS | Clinical Summary ---
Author Organization [facility] Address [address] [place] [address] Phone Care Team Providers Care Heavy Equipment Technician Name Role Phone Aakash Navarro MD Primary Care Provider Allergies No known active allergies Medical History [...] 85 07/26/2024 11:22 AM EDT Temperature 36.8 C (98.2 F) 07/26/2024 11:22 AM EDT Respiratory Rate 20 07/26/2024 11:22 AM EDT [...] 5 Years) and At-Risk Patients (6 to 49 Years) (1 of 2 - PCV) 08/27/2002 HPV Vaccines (2 - 3-dose series) 09/01/2006 08/04/2006 Cholesterol Screening (Lipid Panel) 03/17/2022 HIV Screening 03/17/2022 Hepatitis C Screening 03/17/2022 Social Influencers of Health Screening 03/17/2022 Hepatitis A Vaccines (2 of 2 - Risk 2-dose series) 11/12/2023 05/14/2023 Hepatitis B Vaccines (3 of 3 - 19+ 3-dose series) 01/07/2024 11/12/2023, 05/14/2023 Depression Screening 04/14/2024 COVID-19 Vaccine (1 - 2023-2 5 season) 2024 Influenza Vaccine (#1) 2024 DTaP,Tdap,and Td Vaccines (2 - Td [...] on patient's age to complete this [place] [address] Care Teams Heavy Equipment Technician Relationship Specialty Start Date End Date Aakash Navarro MD [address] [place] [address] Dr Calista [place] PCP - General 03/19/21
== END 2024-12-15 17:54 | disposition home or self-care (01) ==
LOC: HO.MRI 17:53
PROVIDERS: PCP Family Medicine; Visit Provider Nurse Practitioner Family
DX: R51.9 Headache, unspecified (principal); R55 Syncope and collapse; I10 Essential (primary) hypertension
CPT/HCPCS: 70551

== ENCOUNTER → 2024-12-15 17:53 | Outpatient (BNV) | payer OTHER, SELFPAY | PROVIDERS: PCP Family Medicine; Visit Provider Radiology Body Imaging | DX: R51.9 Headache, unspecified (principal) | CPT/HCPCS: 70551 ==

== ENCOUNTER 2025-02-15 08:12 | Outpatient (AMB) | payer OTHER, SELFPAY ==
--- NOTE | 2025-02-15 08:14 | A.OFFVIS_ITS ---
Vital Signs 02/15/25 08:21 Height 5 ft 3 in Weight 225 lb BMI 39.9 BP 108/60 Blood Pressure Location Rt brachial Position Sitting Pulse 74 Pulse Source Pulse Oximeter Pulse Oximetry (%) 94 Oxygen Delivery Method Room Air Intake Visit Reasons: abdominal pain Intake Note: Est pt for mgmt of GERD + Abd bloating. BRIJESH 2023 CC: C.O. return of all chronic conditions on account of their medications not being refilled recently. Pt needs all of her medications with the exception of the bisacodyl. She has not had her linzess or omeprazole for some time. She has been taking OTC omeprazole but is not always able to afford it. Medical Office Manager Required: No Accompanied by: Self / Same As Patient Allergies No Known Drug Allergies Allergy (Unknown, Verified 02/15/25 08:14) none Seasonal Allergies Allergy (Verified 02/15/25 08:14) runny eyes, itchy skin, congestion HPI HPI abdominal pain: Details: LAST VISIT: 07/08/2023 Bile acid esophageal reflux GERD (gastroesophageal reflux disease) Dysphagia Ineffective esophageal motility Chronic hiccups Plan Patient will continue Nexium for another few months, however we have discussed as I would like her to wean her off. Currently she is on 40 mg daily. She will return in 6 months and we will decrease to 20. She can continue taking sucralfate at bedtime. Patient reports that her mother has been taking PPI as long as she remember she is afraid that she is going to needed for the rest of her life. Discussed with patient also changing dietary tablets. Avoid dietary triggers and late night snacking. Staying upright for minimum 3 hours after meals discussed with patient. Follow-up in 6 months, sooner on as needed basis. She is agreeable to this plan and verbalizes understanding of instructions. She was given the opportunity to ask questions and all questions answered ? Thank you for allowing me to participate in her care Refilled esomeprazole magnesium (Nexium) 40 mg PO DAILY 90 caps 2RF K21.9 sucralfate 1 g PO BEDTIME 90 tabs 3RF R19.7 TODAY'S VISIT Patient is here today for follow-up. Patient has needs to halls for quite some time. Patient reports that she finished treatment for hep C with Epclusa. Patient believes that she was retested and she was negative. Patient is unable to get her Linzess or her omeprazole. Patient reports that she has been having trouble moving her bowels. Patient's feel very bloated. She is reporting to be short of breath, however she admits to be smoking cigarettes every day. Currently on methadone which makes her constipated. Patient reports that she was at [facility] couple months ago in the ER and was complaining of abdominal pain. Patient reports that they did not find any thing wrong. Patient feels like her constipation is getting worse. Bowel movements every 3-4 days. Patient believes that she is not emptying her bowels completely. [facility] Medical History Anemia SANID (obstructive sleep apnea) Hx of CT scan Witnessed apneic spells Substance abuse in remission Chronic idiopathic constipation IBS (irritable bowel syndrome) Left leg pain Hand dermatitis Chronic pancreatitis Surgical History H/O LEEP History of tubal ligation Family History Father Mental health disorder Mother High blood pressure High cholesterol Social History Housing: Apartment Are you a primary neonatal intensive care unit nurse to a significant other at home: No Do you presently have visiting nurse or other home services: No Alcohol intake: never Patient Tobacco Use Status: Current everyday Tobacco user Tobacco use type: Cigarette Cigarette Packs Per Day: 1 Cigarettes Per Day: 20.0 Years Smoked: Started around age 8 e-Cigarette/Vaping Use: Never Used Substance Use Type: Heroin and Opiates service: No Current occupational status: unemployed Current occupational exposures/hazards: No Cognitive needs: No Hearing needs: No Vision needs: No Female Reproductive History Menstrual Age of Menarche: 14 Review of Systems Const Denies weight gain and Denies weight loss ENT Reports no additional complaints, Denies dysphagia and Denies odynophagia Card Reports no additional complaints Resp Reports no additional complaints GI Reports abdominal pain, Denies belching, Denies melena, Reports bloating, Denies change in bowel habits, Reports constipation, Denies dysphagia, Denies excessive flatus, Reports dyspepsia, Reports heartburn, Denies diarrhea, Denies loose stools, Denies nausea, Denies odynophagia and Denies vomiting Reports no additional complaints Musc Reports no additional complaints Neuro Reports no additional complaints Psych Reports no additional complaints Endo Reports no additional complaints Physical Exam Vital Signs: Last Vital Signs Pulse 74 02/15/25 08:21 BP 108/60 02/15/25 08:21 Pulse Ox 94 02/15/25 08:21 Oxygen Delivery Method Room Air 02/15/25 08:21 BMI result Body Mass Index 39.9 Const General: no acute distress Nutritional Appearance: well nourished and obese Orientation/consciousness: patient oriented x3 Resp Effort & Inspection: normal respiratory effort, able to speak in complete sentences, no tracheal deviation and symmetric chest movement Auscultation: clear to auscultation bilaterally Cardio Rate: regular rate GI Inspection: Yes normal to inspection, No distended and Yes obesity Palpation (GI): Soft to palpation, not firm, nontender and No hepatosplenomegaly present Auscultation: normal bowel sounds General: Yes no CVA tenderness Back/Spine/Pelvis Back: no CVA tenderness Skin General skin exam: elasticity normal, turgor normal and dry skin Neuro General: patient oriented x3 Psych Appearance: grossly normal Mental Status: mental status grossly normal Assessment & Plan Assessment & Plan (1) GERD (gastroesophageal reflux disease): Code(s): K21.9 - Gastro-esophageal reflux disease without esophagitis Category: Medical Qualifiers: Esophagitis presence: esophagitis presence not specified Qualified Code(s): K21.9 - Gastro-esophageal reflux disease without esophagitis (2) Elevated liver enzymes: Code(s): R74.8 - Abnormal levels of other serum enzymes Category: Medical (3) Hepatitis C: Code(s): B19.20 - Unspecified viral hepatitis C without hepatic coma Category: Medical Qualifiers: Viral hepatitis chronicity: acute Hepatic coma status: without hepatic coma Qualified Code(s): B17.10 - Acute hepatitis C without hepatic coma (4) IBS (irritable bowel syndrome): Code(s): K58.9 - Irritable bowel syndrome, unspecified Category: Medical Qualifiers: Irritable bowel syndrome type: with both diarrhea and constipation Qualified Code(s): K58.2 - Mixed irritable bowel syndrome (5) Chronic idiopathic constipation: Code(s): K59.04 - Chronic idiopathic constipation Category: Medical Plan Patient was encouraged to avoid dietary triggers. Patient was encouraged to stop smoking cigarettes. She will repeat viral load, liver enzymes, liver fibrosis panel and ultrasound with elastography. Will send script for Linzess. Patient was encouraged to increase fluid intake and activity to promote bowel motility. She can start taking omeprazole daily. Encouraged patient to avoid dietary triggers in late night snacking. Staying upright for minimum 3 hours after meals discussed with patient. Patient will follow-up in 6-7 weeks, sooner on as needed basis. Patient is agreeable to this plan and verbalizes understanding instructions. She was given the opportunity to ask questions and all questions answered Thank you for allowing me to participate in her care Orders: Orders Hepatitis C Viral Load Today Z86.19 - Personal history of other infectious and parasitic diseases Liver Fibrosis Pnl Today K76.0 - Fatty (change of) liver, not elsewhere classified Liver Panel Today R74.01 - Elevation of levels of liver transaminase levels US abdomen comp w elastography Today R79.89 - Other specified abnormal findings of blood chemistry Medications: Refilled linaclotide (Linzess) 290 mcg PO QAM 30 caps 4RF K59.00 - Constipation, unspecified Resumed omeprazole 40 mg PO DAILY 90 caps 3RF K21.9 - Gastro-esophageal reflux disease without esophagitis Coding Level of Care Code Est Pt Level 4 (72858) Complex EM visit Add On G2211 Diagnoses Gastroesophageal reflux disease, unspecified whether esophagitis present K21.9 Esophagitis presence: esophagitis presence not specified Elevated liver enzymes R74.8 Acute hepatitis C virus infection without hepatic coma B17.10 Viral hepatitis chronicity: acute Hepatic coma status: without hepatic coma Irritable bowel syndrome with both constipation and diarrhea K58.2 Irritable bowel syndrome type: with both diarrhea and constipation Chronic idiopathic constipation K59.04 Time Spent (min) 40 Comment 25 minutes spent with patient and additional 15 minutes spent reviewing her records
[2025-02-15 08:21] VITALS: BP 108/60; PULSE 74; O2SAT 94; BMI 39.9
== END 2025-02-15 08:41 | disposition home or self-care (01) ==
LOC: HO.HGI 08:12
PROVIDERS: PCP Family Medicine; Visit Provider Nurse Practitioner Family
DX: K21.9 Gastro-esophageal reflux disease without esophagitis (principal); R74.8 Abnormal levels of other serum enzymes; B17.10 Acute hepatitis C without hepatic coma; K58.2 Mixed irritable bowel syndrome; K59.04 Chronic idiopathic constipation
CPT/HCPCS: 99214

== ENCOUNTER 2025-02-15 08:12 | Outpatient (REF) | payer OTHER, SELFPAY ==
--- OUTSIDE RECORDS SUMMARY | 2025-02-15 09:15 | XMS_ITS | Clinical Summary ---
Author Organization [facility] Address [address] [place] [address] Phone Care Team Providers Care Inshore Undersea Warfare Officer Name Role Phone Aakash Navarro MD Primary Care Provider Allergies No known active allergies Medications albuterol HFA (PROAIR HFA ; PROVENTIL HFA ; VENTOLIN HFA) 90 mcg/actuation inhaler Inhale 2 puffs by mouth every 4 (four) hours if needed for wheezing or shortness of breath. 1 each 5 02/27/20 25 Active amoxicillin-cla vulanate (AUGMENTIN) 875-125 mg per tablet Take 1 tablet by mouth every 12 (twelve) hours for 7 days. 14 tablet 5 02/04/20 25 Active Problems No known active problems Encounters Date Type Department Care Team Description 01/27/2025 11:49 AM EDT - 01/27/2025 3:10 PM EDT Emergency [facility] [address] [place] [address] Acute sinusitis, recurrence not specified, unspecified location (Primary Dx); Bronchitis Discharge Disposition: Home or Self Care from [...] Sign Reading Time Taken Comments Blood Pressure 96/71 01/27/2025 11:31 AM EDT Pulse 81 01/27/2025 11:31 AM EDT Temperature 36.5 C (97.7 F) 01/27/2025 11:31 AM EDT Respiratory Rate 18 01/27/2025 11:31 AM EDT Oxygen Saturation 95% 01/27/2025 11:31 AM EDT Inhaled Oxygen Concentration - - [...] (2 - Td or Tdap) 11/08/2027 11/07/2017 RSV Immunization Adult Patients (1 - 1-dose 75+ series) 08/27/2058 HIB Vaccines Aged Out No longer eligi [...] Procedure Name Priority Date/Time Associated Diagnosis Comments XR CHEST 2 VIEWS STAT 01/27/2025 1:28 PM EDT [id number], RSV, FLU A AND B QUALITATIVE RT-PCR, INTERNAL LAB STAT 01/27/2025 11:57 AM EDT from Last 3 Months Results * XR Chest 2 Views (01/27/2025 1:28 PM EDT) Anatomical Region Laterality Modality Body Radiographic Judy ging 01/27/2025 2:08 PM EDT Impressions 01/27/2025 2:08 PM EDT FINDINGS/IMPRESSION: Normal heart size and pulmonary vascularity. Lungs are clear and costophrenic angles are sharp. No acute osseous abnormality. -------- FINAL REPORT -------- Dictated By: Miranda Quinn Dictated Date: 01/27/2025 14:08 ET Assigned Physician: Miranda Quinn Reviewed and Electronically Signed By: Miranda Quinn Signed Date: 01/27/2025 14:08 ET Workstation ID: [id number] Transcribed By: Self Edit Transcribed Date: 01/27/2025 14:08 ET Narrative 01/27/2025 2:08 PM EDT XR CHEST 2 VIEWS INDICATION: cough TECHNIQUE: XR CHEST 2 VIEWS COMPARISON: None Procedure Note Miranda Quinn MD - 01/27/2025 XR CHEST 2 VIEWS INDICATION: cough TECHNIQUE: XR CHEST 2 VIEWS COMPARISON: None IMPRESSION: FINDINGS/IMPRESSION: Normal heart size and pulmonary vascularity. Lungsare clear and costophrenic angles are sharp. No acute osseousabnormality. -------- FINAL REPORT -------- Dictated By: Miranda Quinn Dictated Date: 01/27/2025 14:08 ET Assigned Physician: Miranda Quinn Reviewed and Electronically Signed By: Miranda Quinn Signed Date: 01/27/2025 14:08 ET Workstation ID: [id number] Transcribed By: Self Edit Transcribed Date: 01/27/2025 14:08 ET Aakash DUENAS IMG XR PROCEDURES Final Res ult * [id number], RSV, Influenza A and B qualitative RT-PCR (01/27/2025 11:57 AM EDT) Influenza A PCR Not Detected Not Detected LAB MICROBIOLOGY METHOD 01/27/2025 12:53 PM EDT [facility] Influenza B PCR Not Detected Not Detected LAB MICROBIOLOGY METHOD 01/27/2025 12:53 PM EDT [facility] RSV PCR Not Detected Not Detected LAB MICROBIOLOGY METHOD 01/27/2025 12:53 PM EDT [facility] SARS COV-2 Not Detected Not Detected LAB MICROBIOLOGY METHOD 01/27/2025 12:53 PM EDT [facility] Swab Both anterior nares / Unknown Non-blood Collection / Unknown 01/27/2025 11:57 AM EDT 01/27/2025 12:06 PM EDT Aakash DUENAS LAB MICROBIOLOGY - GENERAL ORDERABLES Final Result [facility] [address] [place] [address], [place] [phone] from Last 3 Months Insurance [facility] [employer] Care Teams Inshore Undersea Warfare Officer Relationship Specialty Start Date End Date Aakash Navarro MD [address] [place] [address] Dr DooleyyokeRICH PCP - General 03/19/21
[2025-02-15 10:48] LABS: Alanine Aminotransferase 28 U/L (0-31); Albumin Level 4.7 g/dL (3.5-5.0); Alkaline Phosphatase 93 U/L (39-117); Aspartate Amino Transferase 23 U/L (5-31); Total Protein 7.7 g/dL (6.5-8.0)
[2025-02-17 06:08] LABS: HCV Log PCR <1.18 NOT DETECTED Log IU/mL (NOT DETECTED); HepC Viral Load <15 NOT DETECTED IU/mL (NOT DETECTED)
[2025-02-24 09:09] LABS: FIB-ALT 20 U/L (6-29); FIB-Alpha-2-Macroglobulin 266 mg/dL (106-279); FIB-Apolipoprotein A1 87 mg/dL (101-198); FIB-GGT 28 U/L (3-55); FIB-Haptoglobin 216 mg/dL (43-212); FIB-Total Bilirubin 0.4 mg/dL (0.2-1.2); Liver Fibrosis Score 0.26; Liver Fibrosis Stage F0-F1; Nec Inflam Act Grade A0; Nec Inflam Act Score 0.08
== END 2025-02-15 08:13 | disposition home or self-care (01) ==
LOC: HO.LAB 08:12
PROVIDERS: PCP Family Medicine; Visit Provider Nurse Practitioner Family
DX: K21.9 Gastro-esophageal reflux disease without esophagitis (principal); K76.0 Fatty (change of) liver, not elsewhere classified; B17.10 Acute hepatitis C without hepatic coma; K58.2 Mixed irritable bowel syndrome; K59.04 Chronic idiopathic constipation; R74.01 Elevation of levels of liver transaminase levels; R74.8 Abnormal levels of other serum enzymes; Z98.51 Tubal ligation status; Z86.19 Personal history of other infectious and parasitic diseases
CPT/HCPCS: 36415; 80076; 81596; 87522; 99212